=== PATIENT | female | born 1965 | race Caucasian/White ===

== ENCOUNTER 2019-10-01 12:23 | Emergency (ER) | payer OTHER ==
[2019-10-01 12:38] VITALS: O2SAT 98
[2019-10-01] MEDS ORDERED: ARZOL Silver Nitrate Applicator TP ONE ×3 (12:45→12:47)
[2019-10-01] MEDS ORDERED: Adacel Vial IM ONE (12:52)
[2019-10-01] MEDS ORDERED: BACIGUENT PACKET TP ONE (13:02)
--- NOTE | 2019-10-01 13:02 | ERPHSYRPT ---
- History of Present Illness Time Seen by Provider: 10/01/19 12:42 Source: patient Exam Limitations: no limitations Patient Subjective Stated Complaint: "I cut my finger on a tomato slicer." Triage Nursing Assessment: . Physician History: 54 years old female presented in the ER with chief complaint of right fourth pulp avulsion injury while slicing tomatoes at home on a slicer. She applied pressure but still having some oozing. Unsure about tetanus status. Occurred: just prior to arrival Method of Injury: incised Quality: constant, dullness, sharpness Severity of Pain-Max: moderate Severity of Pain-Current: moderate Extremities Pain Location: 4th finger: right (distal pulp scall superficial chunk sliced off while slicing tomatos on a slicer ) Modifying Factors: Improves With: movement, other (pressure) Associated Symptoms: none Allergies/Adverse Reactions: No Known Drug Allergies Allergy (Unverified 12/11/11 17:48) Home Medications: Aspirin [Children's Aspirin] 81 mg PO DAILY 12/11/11 [History] Ca Cmb No.1/Vit D3/B-6/FA/B12 [Vitamin D3 1,000 Unit Tablet] 1 each PO DAILY 03/14 [History] Synthroid 125 Mcg DAILY 12/11/11 [History] Hx Tetanus, Diphtheria Vaccination/Date Given: (unknown) Hx Influenza Vaccination/Date Given: Yes Travel Risk - International Travel Have you traveled outside of the country in past 3 weeks: No Have you or anyone close to you been diagnosed with or: No Do your reside in a community with a known COVID-19 case?: Yes If Yes where:: [facility] - Coronavirus Screening Has patient experienced Coronavirus symptoms: No - Review of Systems Constitutional: No Symptoms Eyes: No Symptoms Ears, Nose, & Throat: No Symptoms Respiratory: No Symptoms Cardiac: No Symptoms Musculoskeletal: Injury Skin: Skin Lesions Neurological: No Symptoms Psychological: No Symptoms Endocrine: No Symptoms Hematologic/Lymphatic: No Symptoms Immunological/Allergic: No Symptoms - Past Medical History Pertinent Past Medical History: Yes Neurological History: No Pertinent History ENT History: No Pertinent History Cardiac History: No Pertinent History Respiratory History: COPD, Emphysema Endocrine Medical History: Thyroid Cancer Musculoskeletal History: No Pertinent History GI Medical History: Hernia History: No Pertinent History Psycho-Social History: No Pertinent History Female Reproductive Disorders: Cervical Cancer - Past Surgical History Past Surgical History: Yes Neuro Surgical History: No Pertinent History Cardiac: No Pertinent History Respiratory: No Pertinent History Gastrointestinal: No Pertinent History Musculoskeletal: No Pertinent History Female Surgical History: Tubal Ligation, Other Other Surgical History: THYROID REMOVAL - Social History Smoking Status: Current every day smoker Exposure to second hand smoke: Yes Drug Use: none Patient Lives Alone: No - Female History Hx Now: (post menopausal) - Nursing Vital Signs Nursing Vital Signs: Initial Vital Signs Temperature 97.8 F 10/01/19 12:24 Pulse Rate 83 10/01/19 12:24 Respiratory Rate 14 10/01/19 12:24 Blood Pressure 144/90 10/01/19 12:24 O2 Sat by Pulse Oximetry 98 10/01/19 12:24 Pain Scale Pain Intensity 5 - Physical Exam General Appearance: no apparent distress, alert Eyes, Ears, Nose, Throat Exam: normal ENT inspection Neck Exam: normal inspection, non-tender, supple, full range of motion Cardiovascular/Respiratory Exam: normal breath sounds, regular rate/rhythm Wrist Exam: normal inspection, non-tender, no evidence of injury Hand Exam: normal ROM, laceration (Patient sliced off lesion right fourth distal pulp area with minimal oozing. Intact range of motion at interphalangeal joints.), soft tissue tenderness, No bone tenderness Neuro/Tendon Exam: normal sensation, normal motor functions, normal tendon functions Mental Status Exam: alert, oriented x 3 Skin Exam: normal color SpO2 Interpretation: normal SpO2: 98 O2 Delivery: Room Air Procedures - Laceration/Wound Repair Right Upper Volar Finger Wound Location: Right Wound Length (cm): 0.5 Wound's Depth, Shape: superficial Wound Explored: clean Irrigated: Yes Hibiclens Prep: Yes Sterile Dressing Applied?: Yes Splint Applied?: No Progress: Right fourth digit superficial bruising almost bite 5 cm area/ankle tissue is gone. After applying tourniquet at base of fifth finger thoroughly cleaned and dry areas cauterized with silver nitrate. Tourniquet is removed and no rebleeding. Good cap refill less than 2 seconds. - Course Nursing assessment & vital signs reviewed: Yes Ordered Tests: Medication Summary Discontinued Medications Generic Name Dose Route Start Last Admin Trade Name Freq PRN Reason Stop Dose Admin Bacitracin Zinc 0.9 gm 10/01/19 13:02 10/01/19 13:05 Baciguent Packet TP 10/01/19 13:03 0.9 gm STAT ONE Administration Diphtheria/Tetanus/Acell Pertussis 0.5 ml 10/01/19 12:52 10/01/19 12:58 Adacel Vial IM 10/01/19 12:53 0.5 ml .ONCE ONE Administration Silver Nitrate Confirm 10/01/19 12:45 Arzol Silver Nitrate Applicator Administered 10/01/19 12:46 Dose 1 pkt TP .STK-MED ONE Silver Nitrate Confirm 10/01/19 12:47 Arzol Silver Nitrate Applicator Administered 10/01/19 12:48 Dose 1 pkt TP .STK-MED ONE Silver Nitrate 2 pkt 10/01/19 12:45 10/01/19 13:08 Arzol Silver Nitrate Applicator TP 10/01/19 12:46 2 pkt ONCE ONE Administration - Progress Progress: improved, pain not gone completely, re-examined Progress Note: 10/01/19 12:59 Wound is cleaned thoroughly, cannot be sutured as part of it is gone. Tourniquet is applied at base of finger and lesion is cauterized with silver nitrate sticks. She is observed for almost half an hour and no rebleed. Recommended applying pressure and elevation if bleeds again. Counseled pt/family regarding: diagnosis, need for follow-up, smoking cessation - Departure Departure Disposition: Home Clinical Impression: Laceration of finger Qualifiers: Encounter type: initial encounter Finger: ring finger Damage to nail status: without damage Foreign body presence: without foreign body Laterality: right Qualified Code(s): S61.214A - Laceration without foreign body of right ring finger without damage to nail, initial encounter Condition: Good Critical Care Time: No Referrals: BINU BAHENA MD [Primary Care Provider] - Instructions: Surgical Wound (DC) Additional Instructions: Use Tylenol as needed for pain. Keep it clean. In case if it starts bleeding again apply firm pressure for 5 minutes keep it elevated. Follow-up with primary care for reevaluation. Return to ER for increasing swelling redness pain discharge or if develop fever or chills.
[2019-10-01 13:14] VITALS: BP 133/88; PULSE 88
== END 2019-10-01 13:19 | disposition home or self-care (01) ==
LOC: ED 12:23
DX: S61.214A Laceration without foreign body of right ring finger without damage to nail, initial encounter (principal); W26.8XXA Contact with other sharp object(s), not elsewhere classified, initial encounter; Y93.G1 Activity, food preparation and clean up; Y92.9 Unspecified place or not applicable; J44.9 Chronic obstructive pulmonary disease, unspecified; Z85.850 Personal history of malignant neoplasm of thyroid; Z85.41 Personal history of malignant neoplasm of cervix uteri; Z72.0 Tobacco use; Z23 Encounter for immunization; A35 Other tetanus
CPT/HCPCS: 90471; 90715; 99283; A9270-GY

== ENCOUNTER 2020-11-25 11:24 | Emergency (ER) | payer OTHER ==
[2020-11-25 11:38] VITALS: BP 197/83; PULSE 76; O2SAT 96
[2020-11-25] MEDS ORDERED: XYLOCAINE 1% HCL 20 ML MDV ONE (11:46)
--- NOTE | 2020-11-25 12:04 | ERPHSYRPT ---
- History of Present Illness Time Seen by Provider: 11/25/20 11:40 Source: patient Exam Limitations: no limitations Patient Subjective Stated Complaint: pt here for laceration to left wrist with a knife while trying to get wax out of wax burner Triage Nursing Assessment: pt alert, walked in, resp easy, skin w/d/p. has laceration to left wrist, no bleeding Physician History: Patient is a 55-year-old white female who was working with a sharp knife trying to clean wax from the container when she accidentally stabbed her left wrist on the ulnar side volar surface. This occurred just prior to arrival bleeding has been fairly well controlled. Timing/Duration: today Quality: painful Severity: mild Location: extremities (Left wrist) Associated Symptoms: denies symptoms Allergies/Adverse Reactions: No Known Drug Allergies Allergy (Verified 11/25/20 11:42) Home Medications: Synthroid 125 Mcg 1 ea DAILY 12/11/11 [History] Hx Tetanus, Diphtheria Vaccination/Date Given: Yes (2019) Hx Influenza Vaccination/Date Given: Yes Hx Pneumococcal Vaccination/Date Given: No Immunizations Up to Date: Yes Travel Risk - International Travel Have you traveled outside of the country in past 3 weeks: No - Coronavirus Screening Are you exhibiting any of the following symptoms?: No Close contact with a COVID-19 positive Pt in past 14-21 Days: No - Vaccine Status Have you recieved a Covid-19 vaccination: Yes St[employer]: Moderna - Vaccination Dates Date of 2cond Vaccination (if applicable): 08/11/20 - Review of Systems Constitutional: No Fever, No Chills Eyes: No Symptoms Ears, Nose, & Throat: No Symptoms Respiratory: No Cough, No Dyspnea Cardiac: No Chest Pain, No Edema, No Syncope Abdominal/Gastrointestinal: No Abdominal Pain, No Nausea, No Vomiting, No Diarrhea Genitourinary Symptoms: No Dysuria Musculoskeletal: No Back Pain, No Neck Pain Skin: No Rash Neurological: No Dizziness, No Focal Weakness, No Sensory Changes Psychological: No Symptoms Endocrine: No Symptoms All Other Systems: Reviewed and Negative - Past Medical History Pertinent Past Medical History: Yes Neurological History: No Pertinent History ENT History: No Pertinent History Cardiac History: No Pertinent History Respiratory History: COPD, Emphysema Endocrine Medical History: Thyroid Cancer Musculoskeletal History: No Pertinent History GI Medical History: Hernia History: No Pertinent History Psycho-Social History: No Pertinent History Female Reproductive Disorders: Cervical Cancer - Past Surgical History Past Surgical History: Yes Neuro Surgical History: No Pertinent History Cardiac: No Pertinent History Respiratory: No Pertinent History Gastrointestinal: No Pertinent History Musculoskeletal: No Pertinent History Female Surgical History: Tubal Ligation, Other Other Surgical History: THYROID REMOVAL - Social History Smoking Status: Current every day smoker Exposure to second hand smoke: Yes Drug Use: none Patient Lives Alone: No - Female History Hx Last Menstrual Period: post Hx Now: No - Nursing Vital Signs Nursing Vital Signs: Initial Vital Signs Temperature 98.1 F 11/25/20 11:36 Pulse Rate 76 11/25/20 11:36 Respiratory Rate 16 11/25/20 11:36 Blood Pressure 197/83 11/25/20 11:36 O2 Sat by Pulse Oximetry 96 11/25/20 11:36 Pain Scale Pain Intensity 0 - Physical Exam General Appearance: mild distress, alert Eye Exam: PERRL/EOMI, eyes nml inspection Ears, Nose, Throat Exam: normal ENT inspection Neck Exam: normal inspection, non-tender, supple Respiratory Exam: airway intact, No respiratory distress Back Exam: normal inspection, normal range of motion Extremity Exam: other (Extremities show normal inspection normal range of motion normal neurovascular tendon function we do notice a laceration at the left wrist volar surface ulnar aspect) Neurologic Exam: alert, oriented x 3 Skin Exam: laceration (Serration is approximately 2 cm left wrist volar surface ulnar aspect) SpO2 Interpretation: normal SpO2: 96 O2 Delivery: Room Air Procedures - Laceration/Wound Repair Left Volar Wrist Time of Procedure: 12:01 Wound Location: Left, wrist Wound Length (cm): 2 Wound's Depth, Shape: superficial, linear Wound Explored: clean Irrigated: Yes Hibiclens Prep: Yes Anesthesia: 1% Lidocaine Volume Anesthetic (ccs): 4 Wound Debrided: minimal Wound Repaired With: sutures Suture Size/Type: 4-0, nylon Number of Sutures: 3 Layer Closure?: No Sterile Dressing Applied?: Yes Splint Applied?: No - Course Nursing assessment & vital signs reviewed: Yes Ordered Tests: Medication Summary Discontinued Medications Generic Name Dose Route Start Last Admin Trade Name Freq PRN Reason Stop Dose Admin Lidocaine HCl Confirm 11/25/20 11:46 Xylocaine 1% Hcl 20 Ml Mdv Administered 11/25/20 11:47 Dose 5 ml .ROUTE [facility] - Progress Progress: improved - Departure Departure Disposition: Home Clinical Impression: Laceration of left wrist Condition: Stable Critical Care Time: No Referrals: BINU BHAENA MD [Primary Care Provider] - Instructions: Laceration Repair With Stitches (DC) Additional Instructions: Watch for infection sutures out in 10 to 14 days
== END 2020-11-25 12:17 | disposition home or self-care (01) ==
LOC: ED 11:24
DX: S61.512A Laceration without foreign body of left wrist, initial encounter (principal); W26.0XXA Contact with knife, initial encounter
CPT/HCPCS: 12001; 99283

== ENCOUNTER 2021-08-14 16:03 | Inpatient (IN) | payer BC ==
[2021-08-14 16:54] LABS: COVID AG -BINAX NOW RAPID TEST NEGATIVE (NEGATIVE)
[2021-08-14] MEDS ORDERED: HYDROCODONE-CHLORPHEN ER SUSP PO PRN (17:33)
[2021-08-14] MEDS ORDERED: Zofran 4 MG/2 ML VIAL IV PRN (17:33)
[2021-08-14 17:39] LABS: Hematocrit 43.5 % (35-47); Hemoglobin 13.9 gm/dl (12.0-16.0); Mean Corpuscular Hemoglobin 30.7 pg (26-32); Mean Platelet Volume 9.7 fl (7.5-11.0); Platelet Count 361 K/mm3 (150-450); Red Blood Count 4.53 M/mm3 (4.1-5.4); Red Cell Distribution Width 13.9 % (11.5-14.0); White Blood Count 17.3 K/mm3 (4.0-10.5)
[2021-08-14 17:45] LABS: ALBUMIN 3.6 g/dL (3.5-5.0); ALKALINE PHOSPHATASE 106 U/L (38-126); ANION GAP 11.3 MEQ/L (5-15); BLOOD UREA NITROGEN 19 mg/dL (7-17); CHLORIDE 105 mmol/L (98-107); Calcium 8.8 mg/dL (8.4-10.2); Carbon Dioxide 27 mmol/L (22-30); Creatinine 1 0.74 mg/dL (0.52-1.04); EST GLOMERULAR FILTRATION RATE > 60.0 ML/MIN; Glucose 113 mg/dL (74-106); Potassium 3.2 mmol/L (3.5-5.1); SGOT/AST 50 U/L (14-36); SGPT/ALT 54 U/L (0-35); SODIUM 140 mmol/L (137-145); Total Protein 7.1 g/dL (6.3-8.2)
[2021-08-14] MEDS ORDERED: DECADRON 10MG INJ. IV SCH (18:00)
[2021-08-14] MEDS: Sodium Chloride 0.9% 1000 ML 1,000 ML IV SCH ×2 (18:01→23:20)
[2021-08-14 20:57] LABS: BAND 1 % (0.0-2.0); Lymphocytes 19 % (24-44); Macrocytosis 1+; Monocyte 6 % (0.0-12.0); Neutrophils 74 % (36.0-66.0); Platelet Estimate NORMAL (NORMAL); Total Cells Counted 100
[2021-08-14] MEDS: NEURONTIN 300 MG PO SCH (21:44)
[2021-08-14] MEDS: MELOXICAM PO SCH (21:45)
[2021-08-14] MEDS: TOPIRAMATE PO SCH (21:45)
[2021-08-14] MEDS ORDERED: Ditropan 5 MG PO ONE (22:00)
[2021-08-15 05:11] LABS: Hematocrit 43.1 % (35-47); Hemoglobin 13.3 gm/dl (12.0-16.0); Mean Cell Volume 98.9 fl (78-100); Mean Corpuscular Hemoglobin 30.5 pg (26-32); Mean Corpuscular Hgb Concent. 30.9 g/dl (32-36); Mean Platelet Volume 9.4 fl (7.5-11.0); Platelet Count 341 K/mm3 (150-450); Red Blood Count 4.36 M/mm3 (4.1-5.4); Red Cell Distribution Width 13.8 % (11.5-14.0); White Blood Count 15.8 K/mm3 (4.0-10.5)
[2021-08-15 05:33] LABS: ALBUMIN 3.4 g/dL (3.5-5.0); ALKALINE PHOSPHATASE 89 U/L (38-126); ANION GAP 9.1 MEQ/L (5-15); BLOOD UREA NITROGEN 22 mg/dL (7-17); CHLORIDE 105 mmol/L (98-107); Calcium 8.3 mg/dL (8.4-10.2); Carbon Dioxide 29 mmol/L (22-30); Creatinine 1 0.58 mg/dL (0.52-1.04); EST GLOMERULAR FILTRATION RATE > 60.0 ML/MIN; Glucose 146 mg/dL (74-106); Potassium 4.1 mmol/L (3.5-5.1); SGOT/AST 43 U/L (14-36); SGPT/ALT 57 U/L (0-35); SODIUM 139 mmol/L (137-145); Total Protein 6.7 g/dL (6.3-8.2)
[2021-08-15 05:58] LABS: Lymphocytes 7 % (24-44); Monocyte 2 % (0.0-12.0); Neutrophils 91 % (36.0-66.0); Platelet Estimate NORMAL (NORMAL); Total Cells Counted 100
[2021-08-15] MEDS ORDERED: PROVENTIL 2.5 MG/3 ML NEB IH ONE (06:46)
[2021-08-15] MEDS: PROVENTIL 2.5 MG/3 ML NEB IH PRN ×3 (06:48→18:53)
--- NOTE | 2021-08-15 08:35 | XRAY ---
Indication: Low oxygenation. COPD. Comparison: December 25, 2019. PA/lateral chest again hyperinflated with new mild right middle lobe and lesser degree left lower lobe patchy airspace disease without consolidation/large effusion. Heart not enlarged. Bony thorax intact again with osteopenia and degenerative changes. Stable CT proven calcified splenic cyst.
[2021-08-15] MEDS: SYNTHROID 125 MCG PO SCH (09:18)
[2021-08-15] MEDS: K-LYTE 25 MEQ PO SCH (09:18)
[2021-08-15] MEDS: ENOXAPARIN SODIUM SQ SCH (09:18)
[2021-08-15] MEDS: MELOXICAM PO SCH ×2 (09:18→21:27)
[2021-08-15] MEDS: TOPIRAMATE PO SCH ×2 (09:18→21:27)
[2021-08-15] MEDS: ROCEPHIN 1 Gm-D5w 50 ml Bag** 1 G/50 ML IVPB IV SCH (09:19)
[2021-08-15] MEDS: Zithromax 500 MG/ 250 ML NaCl Premix 500 MG/250 ML IVPB IV SCH (09:20)
[2021-08-15] MEDS: Decadron 4 MG INJ IV SCH (09:28)
[2021-08-15] MEDS ORDERED: HUMALOG SQ PRN (10:39)
--- NOTE | 2021-08-15 12:47 | PCM.HP.ADD ---
Addendum to History & Physical - History & Physical Addendum Addendum to History & Physical: This certifies that the History & Physical in the electronic chart reflects the current health status of the patient. If there are changes in the H&P these changes/exceptions are listed as follows.
--- NOTE | 2021-08-15 12:50 | PCM.NOTE ---
Date and Time: 08/15/21 1247 Subjective Assessment: still very short of breath, hypoxic - Review of Systems Constitutional: No Fever, No Chills Eyes: No Symptoms Ears, Nose, & Throat: No Symptoms Respiratory: Cough, Orthopnea, Short Of Breath, Wheezing Cardiac: No Chest Pain, No Edema, No Syncope Abdominal/Gastrointestinal: No Abdominal Pain, No Nausea, No Vomiting, No Diarrhea Genitourinary Symptoms: No Dysuria Musculoskeletal: No Back Pain, No Neck Pain Skin: No Rash Neurological: No Dizziness, No Focal Weakness, No Sensory Changes Psychological: No Symptoms Endocrine: No Symptoms Hematologic/Lymphatic: No Symptoms Immunological/Allergic: No Symptoms Objective Exam General Appearance: moderate distress, alert Neurologic Exam: alert, oriented x 3, cooperative, normal mood/affect, nml cerebellar function, sensation nml, No motor deficits Skin Exam: normal color, warm, dry Eye Exam: PERRL, EOMI, eyes nml inspection Ears, Nose, Throat Exam: normal ENT inspection, pharynx normal, moist mucous membranes Neck Exam: normal inspection, non-tender, supple, full range of motion Respiratory Exam: diminished breath sounds, accessory muscle use, crackles/rales, rhonchi, wheezing, No respiratory distress Cardiovascular Exam: regular rate/rhythm, normal heart sounds Gastrointestinal/Abdomen Exam: soft, No tenderness, No mass Extremity Exam: normal inspection, normal range of motion Back Exam: normal inspection, normal range of motion, No CVA tenderness, No vertebral tenderness Pelvic Exam: deferred Rectal Exam: deferred OBJECTIVE DATA Vital Signs: Vital Signs - 24 hr Temp Pulse Resp BP Pulse Ox 08/15/21 10:49 62 16 93 L 08/15/21 08:00 97.5 F 88 23 127/79 83 L 08/15/21 06:56 95 08/15/21 06:53 75 20 84 L 08/15/21 03:59 97.3 F 67 16 118/76 90 L 08/14/21 23:40 98.2 F 80 16 105/58 92 L 08/14/21 20:00 97.9 F 90 16 104/58 91 L 08/14/21 17:52 88 22 92 L 08/14/21 17:42 97.5 F 85 21 103/60 88 L Pain Assessment - Last Documented Pain Intensity 0 Pain Scale Used 0-10 Pain Scale Intake and Output: Intake & Output 08/13/21 08/14/21 08/15/21 08/16/21 11:59 11:59 11:59 11:59 Intake Total 1554 Balance 1554 Weight 72.3 kg Lab Results: Lab Results-Last 24 Hours 08/14/21 08/14/21 08/14/21 Range/Units 16:28 16:45 16:45 WBC 17.3 H (4.0-10.5) K/mm3 RBC 4.53 (4.1-5.4) M/mm3 Hgb 13.9 (12.0-16.0) gm/dl Hct 43.5 (35-47) % MCV 96.0 (78-100) fl MCH 30.7 (26-32) pg MCHC 32.0 (32-36) g/dl RDW 13.9 (11.5-14.0) % Plt Count 361 (150-450) K/mm3 MPV 9.7 (7.5-11.0) fl Segmented Neutrophils 74 H (36.0-66.0) % Band Neutrophils 1 (0.0-2.0) % Lymphocytes (Manual) 19 L (24-44) % Monocytes (Manual) 6 (0.0-12.0) % Platelet Estimate NORMAL (NORMAL) RBC Morphology ABNORMAL Macrocytosis 1+ D-Dimer (215-500) ng/mL Sodium 140 (137-145) mmol/L Potassium 3.2 L (3.5-5.1) mmol/L Chloride 105 (98-107) mmol/L Carbon Dioxide 27 (22-30) mmol/L Anion Gap 11.3 (5-15) MEQ/L BUN 19 H (7-17) mg/dL Creatinine 0.74 (0.52-1.04) mg/dL Estimated GFR > 60.0 ML/MIN Glucose 113 H (74-106) mg/dL Calcium 8.8 (8.4-10.2) mg/dL Total Bilirubin 0.40 (0.2-1.3) mg/dL AST 50 H (14-36) U/L ALT 54 H (0-35) U/L Alkaline Phosphatase 106 (38-126) U/L Serum Total Protein 7.1 (6.3-8.2) g/dL Albumin 3.6 (3.5-5.0) g/dL SARS-CoV-2 Ag (Rapid) NEGATIVE (NEGATIVE) 08/15/21 08/15/21 08/15/21 Range/Units 04:00 04:30 04:30 WBC 15.8 H (4.0-10.5) K/mm3 RBC 4.36 (4.1-5.4) M/mm3 Hgb 13.3 (12.0-16.0) gm/dl Hct 43.1 (35-47) % MCV 98.9 (78-100) fl MCH 30.5 (26-32) pg MCHC 30.9 L (32-36) g/dl RDW 13.8 (11.5-14.0) % Plt Count 341 (150-450) K/mm3 MPV 9.4 (7.5-11.0) fl Segmented Neutrophils 91 H (36.0-66.0) % Band Neutrophils (0.0-2.0) % Lymphocytes (Manual) 7 L (24-44) % Monocytes (Manual) 2 (0.0-12.0) % Platelet Estimate NORMAL (NORMAL) RBC Morphology NORMAL Macrocytosis D-Dimer 1497 H* (215-500) ng/mL Sodium 139 (137-145) mmol/L Potassium 4.1 D (3.5-5.1) mmol/L Chloride 105 (98-107) mmol/L Carbon Dioxide 29 (22-30) mmol/L Anion Gap 9.1 (5-15) MEQ/L BUN 22 H (7-17) mg/dL Creatinine 0.58 (0.52-1.04) mg/dL Estimated GFR > 60.0 ML/MIN Glucose 146 H (74-106) mg/dL Calcium 8.3 L (8.4-10.2) mg/dL Total Bilirubin 0.30 (0.2-1.3) mg/dL AST 43 H (14-36) U/L ALT 57 H (0-35) U/L Alkaline Phosphatase 89 (38-126) U/L Serum Total Protein 6.7 (6.3-8.2) g/dL Albumin 3.4 L (3.5-5.0) g/dL SARS-CoV-2 Ag (Rapid) (NEGATIVE) RAD/CHEST 2 VIEWS (PA AND LAT) Indication: Low oxygenation. COPD. Comparison: December 25, 2019. PA/lateral chest again hyperinflated with new mild right middle lobe and lesser degree left lower lobe patchy airspace disease without consolidation/large effusion. Heart not enlarged. Bony thorax intact again with osteopenia and degenerative changes. Stable CT proven calcified splenic cyst. Radiology Exams: Radiology Procedures Category Date Time Status CHEST 2 VIEWS (PA AND LAT) Urgent Exams 08/14/21 21:12 Completed CHEST WITH CONTRAST [CT] Urgent Exams 08/15/21 12:00 Ordered Multi-Disciplinary Progress Notes: Multi-Disciplinary Progress Notes 08/15/21 06:56 Respiratory Note by Lorelei Olivia PT'S O2 SAT ON 2LPM NASAL CANNULA WHILE AT REST WAS 84%. OXYGEN WAS INCREASED TO 4LPM VIA NASAL CANNULA. O2 SAT INCREASED TO 95%. NURSE AWARE. Initialized on 08/15/21 06:56 - END OF NOTE Assessment/Plan (1) Pneumonia Current Visit: Yes Status: Acute Qualifiers: Pneumonia type: due to Pneumococcus Laterality: right Lung location: lower lobe of lung Qualified Code(s): J13 - Pneumonia due to Streptococcus pneumoniae Assessment & Plan: Chief Complaint Diagnosis Shortness of breath with exertion, hypoxia Allergies Allergy/AdvReac Type Severity Reaction Status Date / Time No Known Drug Allergies Allergy Verified 11/25/20 11:42 Vital Signs (Last 24 hours) Temp Pulse Resp BP Pulse Ox 08/15/21 10:49 62 16 93 L 08/15/21 08:00 97.5 F 88 23 127/79 83 L 08/15/21 06:56 95 08/15/21 06:53 75 20 84 L 08/15/21 03:59 97.3 F 67 16 118/76 90 L 08/14/21 23:40 98.2 F 80 16 105/58 92 L 08/14/21 20:00 97.9 F 90 16 104/58 91 L 08/14/21 17:52 88 22 92 L 08/14/21 17:42 97.5 F 85 21 103/60 88 L Home Medications Medication Instructions Recorded Confirmed Last Taken Type Gabapentin 300 mg [Neurontin 300 mg PO HS 08/14/21 08/14/21 08/13/21 History 300 mg] Meloxicam 15 mg [Meloxicam 15 MG] 7.5 mg PO BID 08/14/21 08/14/21 08/13/21 History Tolterodine Tartrate [Detrol LA] 4 mg PO HS 08/14/21 08/14/21 08/13/21 History Topiramate 100 mg [Topamax 100 50 mg PO BID 08/14/21 08/14/21 08/14/21 History MG] Current Medications Generic Name Dose Route Start Last Admin Trade Name Freq PRN Reason Stop Dose Admin Acetaminophen 500 - 1,000 mg 08/14/21 17:33 Acetaminophen 500 Mg Tablet PO 09/13/21 17:32 Q4H PRN PRN TEMP >100.4 Albuterol Sulfate 2.5 mg 08/15/21 06:52 08/15/21 10:46 Albuterol Sulfate 2.5 Mg/3 Ml Neb IH 09/14/21 06:51 2.5 mg Q4H PRN PRN Administration SHORTNESS OF BREATH/WHEEZING Chlorphenir/Hydrocodone Polistirex 5 ml 08/14/21 17:33 08/14/21 18:01 Hydrocodone/Chlorphen P-Stirex 1 Ml Misa.Er.12h PO 09/13/21 17:32 5 ml [id number] PRN Administration Dexamethasone Sodium Phosphate 8 mg 08/15/21 10:00 08/15/21 09:28 Dexamethasone Sod Phosphate 4 Mg/Ml Ml IV 08/23/21 10:01 8 mg DAILY PRICILLA Administration Enoxaparin Sodium 40 mg 08/15/21 10:00 08/15/21 09:18 Enoxaparin Sodium 40 Mg/0.4 Ml Syringe SQ 09/14/21 09:59 40 mg DAILY PRICILLA Administration Gabapentin 300 mg 08/14/21 22:00 08/14/21 21:44 Gabapentin 300 Mg Capsule PO 09/13/21 21:59 300 mg QHS PRICILLA Administration Sodium Chloride 1,000 mls @ 30 mls/hr 08/14/21 17:45 08/14/21 18:01 Sodium Chloride 0.9% 1000 Ml IV 09/13/21 17:44 30 mls/hr .Q24H PRICILLA Administration Ceftriaxone Sodium/Dextrose 1 g in 50 mls @ 100 mls/hr 08/15/21 10:00 08/15/21 09:19 Rocephin 1 Gm-D5w 50 Ml Bag IV 08/18/21 09:59 100 mls/hr Q24H10 PRICILLA Administration Azithromycin 500 mg in 250 mls @ 250 mls/hr 08/15/21 10:00 08/15/21 09:20 Zithromax 500 Mg/ 250 Ml Nacl Premix IV 09/14/21 09:59 250 mls/hr Q24H10 PRICILLA Administration Insulin Human Lispro 0 unit 08/15/21 10:39 Insulin Lispro 1 Unit SQ 09/14/21 10:38 UD PRN HYPERGLYCEMIA Levothyroxine Sodium 125 mcg 08/15/21 10:00 08/15/21 09:18 Levothyroxine Sodium 125 Mcg Tablet PO 09/14/21 09:59 125 mcg DAILY PRICLILA Administration Meloxicam 7.5 mg 08/14/21 22:00 08/15/21 09:18 Meloxicam 7.5 Mg Tablet PO 09/13/21 21:59 7.5 mg BID PRICILLA Administration Ondansetron HCl 4 mg 08/14/21 17:33 Ondansetron Hcl 4 Mg/2 Ml Vial IV 09/13/21 17:32 Q6H PRN PRN NAUSEA/VOMITING Oxybutynin Chloride 10 mg 08/15/21 22:00 Oxybutynin Chloride Xl 5 Mg Tab PO 09/14/21 21:59 HS PRICILLA Potassium Bicarbonate 25 meq 08/15/21 10:00 08/15/21 09:18 Potassium Bicarbonate 25 Meq Tab PO 09/14/21 09:59 25 meq DAILY PRICILLA Administration Topiramate 50 mg 08/14/21 22:00 08/15/21 09:18 Topiramate 50 Mg Tablet PO 09/13/21 21:59 50 mg BID PRICILLA Administration Discontinued Medications Generic Name Dose Route Start Last Admin Trade Name Freq PRN Reason Stop Dose Admin Albuterol Sulfate Confirm 08/15/21 06:46 Albuterol Sulfate 2.5 Mg/3 Ml Neb Administered 08/15/21 06:47 Dose 2.5 mg IH .STK-MED ONE Dexamethasone Sodium Phosphate 8 mg 08/14/21 18:00 08/14/21 18:38 Dexamethasone Sod Phosphate 10 Mg/Ml IV 08/23/21 10:01 8 mg DAILY PRICILLA Administration Oxybutynin Chloride 10 mg 08/14/21 22:00 08/14/21 21:44 Oxybutynin Chloride 5 Mg Tablet PO 08/14/21 22:01 10 mg ONCE ONE Administration Intake & Output (Last 24 hours) 08/13/21 08/14/21 08/15/21 08/16/21 11:59 11:59 11:59 11:59 Intake Total 1554 Balance 1554 Weight 72.3 kg Laboratory Results (Last 24 hours) 08/15/21 08/15/21 08/15/21 04:30 04:30 04:00 WBC 15.8 H RBC 4.36 Hgb 13.3 Hct 43.1 MCV 98.9 MCH 30.5 MCHC 30.9 L RDW 13.8 Plt Count 341 MPV 9.4 Segmented Neutrophils 91 H Band Neutrophils Lymphocytes (Manual) 7 L Monocytes (Manual) 2 Platelet Estimate NORMAL RBC Morphology NORMAL Macrocytosis D-Dimer 1497 H* Sodium 139 Potassium 4.1 D Chloride 105 Carbon Dioxide 29 Anion Gap 9.1 BUN 22 H Creatinine 0.58 Estimated GFR > 60.0 Glucose 146 H Calcium 8.3 L Total Bilirubin 0.30 AST 43 H ALT 57 H Alkaline Phosphatase 89 Serum Total Protein 6.7 Albumin 3.4 L SARS-CoV-2 Ag (Rapid) 08/14/21 08/14/21 08/14/21 16:45 16:45 16:28 WBC 17.3 H RBC 4.53 Hgb 13.9 Hct 43.5 MCV 96.0 MCH 30.7 MCHC 32.0 RDW 13.9 Plt Count 361 MPV 9.7 Segmented Neutrophils 74 H Band Neutrophils 1 Lymphocytes (Manual) 19 L Monocytes (Manual) 6 Platelet Estimate NORMAL RBC Morphology ABNORMAL Macrocytosis 1+ D-Dimer Sodium 140 Potassium 3.2 L Chloride 105 Carbon Dioxide 27 Anion Gap 11.3 BUN 19 H Creatinine 0.74 Estimated GFR > 60.0 Glucose 113 H Calcium 8.8 Total Bilirubin 0.40 AST 50 H ALT 54 H Alkaline Phosphatase 106 Serum Total Protein 7.1 Albumin 3.6 SARS-CoV-2 Ag (Rapid) NEGATIVE Orders (Last 24 hours) Category Date Time Status Up Ad Kalani TOLERATED Activity 08/14/21 17:27 Active House Regular Diet Diet 08/15/21 Breakfast Active CHEST 2 VIEWS (PA AND LAT) Urgent Exams 08/14/21 21:12 Completed CHEST WITH CONTRAST [CT] Urgent Exams 08/15/21 12:00 Ordered CBC W DIFF AM.LAB Lab 08/15/21 04:00 Completed CBC W DIFF Urgent Lab 08/14/21 16:45 Completed CMP AM.LAB Lab 08/15/21 04:30 Completed CMP Urgent Lab 08/14/21 16:45 Completed COVID AG-BINAX NOW RAPID TEST Routine Lab 08/14/21 16:28 Completed D-DIMER QUANTITATIVE AM.LAB Lab 08/15/21 04:30 Completed Manual Differential NC Routine Lab 08/15/21 04:00 Completed Manual Differential NC Urgent Lab 08/14/21 16:45 Completed Acetaminophen 500 mg [Tylenol Extra Strength 500 mg* Med 08/14/21 17:33 Active ] 500 - 1,000 mg PO Q4H PRN PRN Albuterol 2.5 mg/3 ml Neb [Proventil 2.5 mg/3 ml Neb Med 08/15/21 06:46 Discontinued ] 2.5 mg IH .STK-MED ONE Albuterol 2.5 mg/3 ml Neb [Proventil 2.5 mg/3 ml Neb Med 08/15/21 06:52 A ctive ] 2.5 mg IH Q4H PRN PRN Azithromycin 500 mg/250 ml [Zithromax 500 MG/ 250 ML Med 08/15/21 10:00 Active NaCl Premix] 500 mg in 250 ml IV Q24H10 Ceftriaxone 1 GM/50 ML PREMIX* [ROCEPHIN 1 Gm-D5w 50 ml Med 08/15/21 10:00 Active Bag] 1 g in 50 ml IV Q24H10 Dexamethasone 4 mg [Decadron 4 MG INJ] Med 08/15/21 10:00 Active 8 mg IV DAILY Dexamethasone Sod Phosphate [Decadron 10Mg Inj.] Med 08/14/21 18:00 Discontinued 8 mg IV DAILY Enoxaparin Sodium [Enoxaparin Sodium] Med 08/15/21 10:00 Active 40 mg SQ DAILY Gabapentin 300 mg [Neurontin 300 mg] Med 08/14/21 22:00 Active 300 mg PO QHS Hydrocodone/Chlorphen P-Stirex [Hydrocodone-Chlorphen Med 08/14/21 17:33 Active ER Susp] 5 ml PO [id number] PRN Insulin Lispro [Humalog] Med 08/15/21 10:39 Active See Dose Instructions SQ UD PRN Levothyroxine Sodium 125 Mcg [Synthroid 125 Mcg] Med 08/15/21 10:00 Active 125 mcg PO DAILY Meloxicam Med 08/14/21 22:00 Active 7.5 mg PO BID NaCl 0.9% 1000 ml [Sodium Chloride 0.9% 1000 ML] 1,000 Med 08/14/21 17:45 Active ml IV 30 mls/hr Ondansetron HCl 4 mg/2 ml [Zofran 4 MG/2 ML VIAL] Med 08/14/21 17:33 Active 4 mg IV Q6H PRN PRN Oxybutynin Chloride 5 mg [Ditropan 5 MG] Med 08/14/21 22:00 Discontinued 10 mg PO ONCE ONE Oxybutynin Chloride Xl 5 mg [Ditropan XL 5 MG] Med 08/15/21 22:00 Active 10 mg PO HS Potassium Bicarbonate 25 MEQ [K-Lyte 25 Meq] Med 08/15/21 10:00 Active 25 meq PO DAILY Topiramate Med 08/14/21 22:00 Active 50 mg PO BID Oxygen Nasal Cannula 2 lpm RT 08/14/21 17:50 Active Pulse Oximetry .spot check RT 08/14/21 17:51 Active RT Screen per Nursing Assess ONCE RT 08/14/21 17:27 Completed Respiratory Therapy Assessment DAILY RT 08/14/21 17:50 Active Patient Care Notes (Last 24 hours) 08/15/21 09:25 TAILMAN Note by Peggy Tellez patient stated they were not able to tolerate the food, not sick to their stomach just does'nt feel like eating. aide offfered something else to eat and patient refused. patient is drinking adequate amounts of fluids at this time Initialized on 08/15/21 09:25 - END OF NOTE 08/15/21 08:53 TAILMAN Note by Peggy Tellez aide reported to RT patients O2 (83-2L) and RT went in evaluated and changed patients O2 to 4L Initialized on 08/15/21 08:53 - END OF NOTE 08/15/21 06:56 Respiratory Note by Lorelei Olivia PT'S O2 SAT ON 2LPM NASAL CANNULA WHILE AT REST WAS 84%. OXYGEN WAS INCREASED TO 4LPM VIA NASAL CANNULA. O2 SAT INCREASED TO 95%. NURSE AWARE. Initialized on 08/15/21 06:56 - END OF NOTE Code(s): J18.9 - PNEUMONIA, UNSPECIFIED ORGANISM
--- NOTE | 2021-08-15 14:00 | XRAY ---
Indication: Pneumonia. History Covid 19. Elevated d-dimer. Multiple contiguous axial images obtained through the chest using 80 cc Isovue 370 contrast and PE protocol. Comparison: August 03, 2011. There is good opacification of the pulmonary arteries to include the lobar and segmental branches. Mild diffuse respiration artifact limits pulmonary embolus evaluation. No obvious pulmonary embolus. Heart not enlarged. Aorta is normal in course and caliber with minimal aortic arch calcifications. No pathologic mediastinal/hilar lymphadenopathy. Lungs demonstrate new minimal/mild diffuse bilateral patchy peripheral airspace disease. Also new right middle and and lesser degree lingula subsegmental atelectasis. No effusion. Bony thorax intact with minimal generative changes of the spine. Limited upper abdomen again demonstrates 5.3 cm calcified splenic cyst. Impression: 1. Respiration artifact limits pulmonary embolus evaluation. No obvious pulmonary embolus. 2. New diffuse bilateral patchy airspace disease favoring Covid 19 pneumonia. 3. New right middle and lesser degree lingula subsegmental atelectasis. 4. Again incidental large calcified splenic cyst.
[2021-08-15] MEDS: NEURONTIN 300 MG PO SCH (21:27)
[2021-08-15] MEDS: Ditropan XL 5 MG PO SCH (21:27)
[2021-08-15] MEDS ORDERED: TOLTERODINE TARTRATE 4 MG PO SCH (22:00)
[2021-08-16] MEDS: Sodium Chloride 0.9% 1000 ML 1,000 ML IV SCH (04:31)
[2021-08-16 05:08] LABS: Hematocrit 40.9 % (35-47); Hemoglobin 12.4 gm/dl (12.0-16.0); Mean Cell Volume 100.7 fl (78-100); Mean Corpuscular Hemoglobin 30.5 pg (26-32); Mean Corpuscular Hgb Concent. 30.3 g/dl (32-36); Mean Platelet Volume 9.9 fl (7.5-11.0); Platelet Count 303 K/mm3 (150-450); Red Blood Count 4.06 M/mm3 (4.1-5.4); Red Cell Distribution Width 13.9 % (11.5-14.0); White Blood Count 12.6 K/mm3 (4.0-10.5)
[2021-08-16 06:06] LABS: ANION GAP 8.5 MEQ/L (5-15); BLOOD UREA NITROGEN 31 mg/dL (7-17); CHLORIDE 105 mmol/L (98-107); Calcium 8.4 mg/dL (8.4-10.2); Carbon Dioxide 30 mmol/L (22-30); EST GLOMERULAR FILTRATION RATE > 60.0 ML/MIN; Glucose 101 mg/dL (74-106); Potassium 4.4 mmol/L (3.5-5.1); SODIUM 138 mmol/L (137-145)
--- NOTE | 2021-08-16 08:36 | PCM.NOTE ---
Date and Time: 08/16/21833 Subjective Assessment: doing better - Review of Systems Constitutional: No Fever, No Chills Eyes: No Symptoms Ears, Nose, & Throat: No Symptoms Respiratory: No Cough, No Short Of Breath Cardiac: No Chest Pain, No Edema, No Syncope Abdominal/Gastrointestinal: No Abdominal Pain, No Nausea, No Vomiting, No Diarrhea Genitourinary Symptoms: No Dysuria Musculoskeletal: No Back Pain, No Neck Pain Skin: No Rash Neurological: No Dizziness, No Focal Weakness, No Sensory Changes Psychological: No Symptoms Endocrine: No Symptoms Hematologic/Lymphatic: No Symptoms Immunological/Allergic: No Symptoms Objective Exam General Appearance: no apparent distress, alert Neurologic Exam: alert, oriented x 3, cooperative, normal mood/affect, nml cerebellar function, sensation nml, No motor deficits Skin Exam: normal color, warm, dry Eye Exam: PERRL, EOMI, eyes nml inspection Ears, Nose, Throat Exam: normal ENT inspection, pharynx normal, moist mucous membranes Neck Exam: normal inspection, non-tender, supple, full range of motion Respiratory Exam: diminished breath sounds, crackles/rales, rhonchi, wheezing, No respiratory distress Cardiovascular Exam: regular rate/rhythm, normal heart sounds Gastrointestinal/Abdomen Exam: soft, No tenderness, No mass Extremity Exam: normal inspection, normal range of motion Back Exam: normal inspection, normal range of motion, No CVA tenderness, No vertebral tenderness Pelvic Exam: deferred Rectal Exam: deferred OBJECTIVE DATA Vital Signs: Vital Signs - 24 hr Temp Pulse Resp BP BP Pulse Ox 08/16/21 07:06 98.2 F 74 16 135/65 93 L 08/16/21 04:00 97.7 F 68 16 119/58 97 08/16/21 00:00 97.5 F 65 12 130/59 96 08/15/21 19:46 97.1 F 70 18 110/57 96 08/15/21 18:59 67 18 96 08/15/21 16:00 97.3 F 71 21 104/70 94 L 08/15/21 12:00 97.7 F 71 25 H 114/63 93 L 08/15/21 10:49 62 16 93 L Pain Assessment - Last Documented Pain Intensity 0 Pain Scale Used 0-10 Pain Scale Intake and Output: Intake & Output 08/13/21 08/14/21 08/15/21 08/16/21 11:59 11:59 11:59 11:59 Intake Total 3175 8 Balance [id number] Weight 72.3 kg Lab Results: Lab Results-Last 24 Hours 08/15/21 08/15/21 08/15/21 Range/Units 15:45 15:53 21:24 WBC (4.0-10.5) K/mm3 RBC (4.1-5.4) M/mm3 Hgb (12.0-16.0) gm/dl Hct (35-47) % MCV (78-100) fl MCH (26-32) pg MCHC (32-36) g/dl RDW (11.5-14.0) % Plt Count (150-450) K/mm3 MPV (7.5-11.0) fl Sodium (137-145) mmol/L Potassium (3.5-5.1) mmol/L Chloride (98-107) mmol/L Carbon Dioxide (22-30) mmol/L Anion Gap (5-15) MEQ/L BUN (7-17) mg/dL Creatinine (0.52-1.04) mg/dL Estimated GFR ML/MIN Glucose (74-106) mg/dL POC Glucometer 176 H 127 H (74 to 106) mg/dL Hemoglobin A1c 6.41 H (4.5-6.0) % Calcium (8.4-10.2) mg/dL TSH 3rd Generation (0.47-4.68) mIU/L 08/16/21 08/16/21 08/16/21 Range/Units 05:08 05:08 07:18 WBC 12.6 H (4.0-10.5) K/mm3 RBC 4.06 L (4.1-5.4) M/mm3 Hgb 12.4 (12.0-16.0) gm/dl Hct 40.9 (35-47) % MCV 100.7 H (78-100) fl MCH 30.5 (26-32) pg MCHC 30.3 L (32-36) g/dl RDW 13.9 (11.5-14.0) % Plt Count 303 (150-450) K/mm3 MPV 9.9 (7.5-11.0) fl Sodium 138 (137-145) mmol/L Potassium 4.4 (3.5-5.1) mmol/L Chloride 105 (98-107) mmol/L Carbon Dioxide 30 (22-30) mmol/L Anion Gap 8.5 (5-15) MEQ/L BUN 31 H (7-17) mg/dL Creatinine 0.60 (0.52-1.04) mg/dL Estimated GFR > 60.0 ML/MIN Glucose 101 (74-106) mg/dL POC Glucometer 131 H (74 to 106) mg/dL Hemoglobin A1c (4.5-6.0) % Calcium 8.4 (8.4-10.2) mg/dL TSH 3rd Generation 0.050 L (0.47-4.68) mIU/L Radiology Exams: Radiology Procedures Category Date Time Status CHEST 2 VIEWS (PA AND LAT) Urgent Exams 08/14/21 21:12 Completed CHEST WITH CONTRAST [CT] Urgent Exams 08/15/21 12:00 Completed Assessment/Plan (1) Pneumonia Current Visit: Yes Status: Acute Qualifiers: Pneumonia type: due to Pneumococcus Laterality: right Lung location: lower lobe of lung Qualified Code(s): J13 - Pneumonia due to Streptococcus pneumoniae Assessment & Plan: Chief Complaint Diagnosis HYPOXIA, PNEUMONIA Allergies Allergy/AdvReac Type Severity Reaction Status Date / Time No Known Drug Allergies Allergy Verified 11/25/20 11:42 Vital Signs (Last 24 hours) Temp Pulse Resp BP BP Pulse Ox 08/16/21 07:06 98.2 F 74 16 135/65 93 L 08/16/21 04:00 97.7 F 68 16 119/58 97 08/16/21 00:00 97.5 F 65 12 130/59 96 08/15/21 19:46 97.1 F 70 18 110/57 96 08/15/21 18:59 67 18 96 08/15/21 16:00 97.3 F 71 21 104/70 94 L 08/15/21 12:00 97.7 F 71 25 H 114/63 93 L 08/15/21 10:49 62 16 93 L Home Medications Medication Instructions Recorded Confirmed Last Taken Type Gabapentin 300 mg [Neurontin 300 mg PO HS 08/14/21 08/14/21 08/13/21 History 300 mg] Meloxicam 15 mg [Meloxicam 15 MG] 7.5 mg PO BID 03/08/14/21 08/13/21 History Tolterodine Tartrate [Detrol LA] 4 mg PO HS 08/14/21 08/14/21 08/13/21 History Topiramate 100 mg [Topamax 100 50 mg PO BID 08/14/21 08/14/21 08/14/21 History MG] Current Medications Generic Name Dose Route Start Last Admin Trade Name Freq PRN Reason Stop Dose Admin Acetaminophen 500 - 1,000 mg 08/14/21 17:33 Acetaminophen 500 Mg Tablet PO 09/13/21 17:32 Q4H PRN PRN TEMP >100.4 Albuterol Sulfate 2.5 mg 08/15/21 06:52 08/15/21 18:53 Albuterol Sulfate 2.5 Mg/3 Ml Neb IH 09/14/21 06:51 2.5 mg Q4H PRN PRN Administration SHORTNESS OF BREATH/WHEEZING Chlorphenir/Hydrocodone Polistirex 5 ml 08/14/21 17:33 08/14/21 18:01 Hydrocodone/Chlorphen P-Stirex 1 Ml Misa.Er.12h PO 09/13/21 17:32 5 ml [id number] PRN Administration Dexamethasone Sodium Phosphate 8 mg 08/15/21 10:00 08/15/21 09:28 Dexamethasone Sod Phosphate 4 Mg/Ml Ml IV 08/23/21 10:01 8 mg DAILY PRICILLA Administration Enoxaparin Sodium 40 mg 08/15/21 10:00 08/15/21 09:18 Enoxaparin Sodium 40 Mg/0.4 Ml Syringe SQ 09/14/21 09:59 40 mg DAILY PRICILAL Administration Gabapentin 300 mg 08/14/21 22:00 08/15/21 21:27 Gabapentin 300 Mg Capsule PO 09/13/21 21:59 300 mg QHS PRICILLA Administration Sodium Chloride 1,000 mls @ 30 mls/hr 08/14/21 17:45 08/16/21 04:31 Sodium Chloride 0.9% 1000 Ml IV 09/13/21 17:44 30 mls/hr .Q24H PRICILLA Administration Ceftriaxone Sodium/Dextrose 1 g in 50 mls @ 100 mls/hr 08/15/21 10:00 08/15/21 09:19 Rocephin 1 Gm-D5w 50 Ml Bag IV 08/18/21 09:59 100 mls/hr Q24H10 PRICILLA Administration Azithromycin 500 mg in 250 mls @ 250 mls/hr 08/15/21 10:00 08/15/21 09:20 Zithromax 500 Mg/ 250 Ml Nacl Premix IV 09/14/21 09:59 250 mls/hr Q24H10 PRICILLA Administration Insulin Human Lispro 0 unit 08/15/21 10:39 Insulin Lispro 1 Unit SQ 09/14/21 10:38 UD PRN HYPERGLYCEMIA Levothyroxine Sodium 125 mcg 08/15/21 10:00 08/15/21 09:18 Levothyroxine Sodium 125 Mcg Tablet PO 09/14/21 09:59 125 mcg DAILY PRICILLA Administration Meloxicam 7.5 mg 08/14/21 22:00 08/15/21 21:27 Meloxicam 7.5 Mg Tablet PO 09/13/21 21:59 7.5 mg BID PRICILLA Administration Ondansetron HCl 4 mg 08/14/21 17:33 Ondansetron Hcl 4 Mg/2 Ml Vial IV 09/13/21 17:32 Q6H PRN PRN NAUSEA/VOMITING Oxybutynin Chloride 10 mg 08/15/21 22:00 08/15/21 21:27 Oxybutynin Chloride Xl 5 Mg Tab PO 09/14/21 21:59 10 mg HS PRICILLA Administration Potassium Bicarbonate 25 meq 08/15/21 10:00 08/15/21 09:18 Potassium Bicarbonate 25 Meq Tab PO 09/14/21 09:59 25 meq DAILY PRICILLA Administration Topiramate 50 mg 08/14/21 22:00 08/15/21 21:27 Topiramate 50 Mg Tablet PO 09/13/21 21:59 50 mg BID PRICILLA Administration Discontinued Medications Generic Name Dose Route Start Last Admin Trade Name Freq PRN Reason Stop Dose Admin Albuterol Sulfate Confirm 08/15/21 06:46 Albuterol Sulfate 2.5 Mg/3 Ml Neb Administered 08/15/21 06:47 Dose 2.5 mg IH .STK-MED ONE Dexamethasone Sodium Phosphate 8 mg 08/14/21 18:00 08/14/21 18:38 Dexamethasone Sod Phosphate 10 Mg/Ml IV 08/23/21 10:01 8 mg DAILY PRICILLA Administration Oxybutynin Chloride 10 mg 08/14/21 22:00 08/14/21 21:44 Oxybutynin Chloride 5 Mg Tablet PO 08/14/21 22:01 10 mg ONCE ONE Administration Intake & Output (Last 24 hours) 08/13/21 08/14/21 08/15/21 08/16/21 11:59 11:59 11:59 11:59 Intake Total 1554 2093 Balance 1554 209 Weight 72.3 kg Laboratory Results (Last 24 hours) 08/16/21 08/16/21 08/16/21 07:18 05:08 05:08 WBC 12.6 H RBC 4.06 L Hgb 12.4 Hct 40.9 MCV 100.7 H MCH 30.5 MCHC 30.3 L RDW 13.9 Plt Count 303 MPV 9.9 Sodium 138 Potassium 4.4 Chloride 105 Carbon Dioxide 30 Anion Gap 8.5 BUN 31 H Creatinine 0.60 Estimated GFR > 60.0 Glucose 101 POC Glucometer 131 H Hemoglobin A1c Calcium 8.4 TSH 3rd Generation 0.050 L 08/15/21 08/15/21 08/15/21 21:24 15:53 15:45 WBC RBC Hgb Hct MCV MCH MCHC RDW Plt Count MPV Sodium Potassium Chloride Carbon Dioxide Anion Gap BUN Creatinine Estimated GFR Glucose POC Glucometer 127 H 176 H Hemoglobin A1c 6.41 H Calcium TSH 3rd Generation Orders (Last 24 hours) Category Date Time Status POCT Glucose Check ACHS Care 08/15/21 12:51 Active CHEST WITH CONTRAST [CT] Urgent Exams 08/15/21 12:00 Completed BMP AM.LAB Lab 08/16/21 05:08 Completed CBC AM.LAB Lab 08/16/21 05:08 Completed HEMOGLOBIN A1C Urgent Lab 08/15/21 15:45 Completed POCT GLUCOSE Stat Lab 08/15/21 15:53 Completed POCT GLUCOSE Stat Lab 08/15/21 21:24 Completed POCT GLUCOSE Stat Lab 08/16/21 07:18 Completed TSH [TSH, 3RD Generation] AM.LAB Lab 08/16/21 05:08 Completed Azithromycin 500 mg/250 ml [Zithromax 500 MG/ 250 ML Med 08/15/21 10:00 Active NaCl Premix] 500 mg in 250 ml IV Q24H10 Ceftriaxone 1 GM/50 ML PREMIX* [ROCEPHIN 1 Gm-D5w 50 ml Med 08/15/21 10:00 Active Bag] 1 g in 50 ml IV Q24H10 Dexamethasone 4 mg [Decadron 4 MG INJ] Med 08/15/21 10:00 Active 8 mg IV DAILY Enoxaparin Sodium [Enoxaparin Sodium] Med 08/15/21 10:00 Active 40 mg SQ DAILY Insulin Lispro [Humalog] Med 08/15/21 10:39 Active See Dose Instructions SQ UD PRN Levothyroxine Sodium 125 Mcg [Synthroid 125 Mcg] Med 08/15/21 10:00 Active 125 mcg PO DAILY Oxybutynin Chloride Xl 5 mg [Ditropan XL 5 MG] Med 08/15/21 22:00 Active 10 mg PO HS Potassium Bicarbonate 25 MEQ [K-Lyte 25 Meq] Med 08/15/21 10:00 Active 25 meq PO DAILY Patient Care Notes (Last 24 hours) 08/15/21 15:03 TRIP FOLLOWER Note by Peggy Tellez patient ate 100% and tolerated well all of the lunch that her brought her Initialized on 08/15/21 15:03 - END OF NOTE 08/15/21 09:25 TRIP FOLLOWER Note by Peggy Tellez patient stated they were not able to tolerate the food, not sick to their stomach just does'nt feel like eating. aide offfered something else to eat and patient refused. patient is drinking adequate amounts of fluids at this time Initialized on 08/15/21 09:25 - END OF NOTE 08/15/21 08:53 TRIP FOLLOWER Note by Peggy Tellez aide reported to RT patients O2 (83-2L) and RT went in evaluated and changed patients O2 to 4L Initialized on 08/15/21 08:53 - END OF NOTE Code(s): J18.9 - PNEUMONIA, UNSPECIFIED ORGANISM
[2021-08-16] MEDS: ENOXAPARIN SODIUM SQ SCH (09:16)
[2021-08-16] MEDS: ROCEPHIN 1 Gm-D5w 50 ml Bag** 1 G/50 ML IVPB IV SCH (09:16)
[2021-08-16] MEDS: K-LYTE 25 MEQ PO SCH (09:16)
[2021-08-16] MEDS: SYNTHROID 125 MCG PO SCH (09:16)
[2021-08-16] MEDS: MELOXICAM PO SCH ×2 (09:16→21:19)
[2021-08-16] MEDS: TOPIRAMATE PO SCH ×2 (09:17→21:19)
[2021-08-16] MEDS: Decadron 4 MG INJ IV SCH (09:17)
[2021-08-16] MEDS: Zithromax 500 MG/ 250 ML NaCl Premix 500 MG/250 ML IVPB IV SCH (10:16)
[2021-08-16] MEDS: TYLENOL EXTRA STRENGTH 500 MG PO PRN (18:37)
[2021-08-16] MEDS: Ditropan XL 5 MG PO SCH (21:19)
[2021-08-16] MEDS: NEURONTIN 300 MG PO SCH (21:19)
[2021-08-17 05:17] LABS: Hematocrit 41.5 % (35-47); Hemoglobin 12.6 gm/dl (12.0-16.0); Mean Cell Volume 101.2 fl (78-100); Mean Corpuscular Hemoglobin 30.7 pg (26-32); Mean Corpuscular Hgb Concent. 30.4 g/dl (32-36); Mean Platelet Volume 8.7 fl (7.5-11.0); Platelet Count 338 K/mm3 (150-450); Red Cell Distribution Width 13.7 % (11.5-14.0)
[2021-08-17 05:43] LABS: ALKALINE PHOSPHATASE 73 U/L (38-126); BLOOD UREA NITROGEN 30 mg/dL (7-17); CHLORIDE 107 mmol/L (98-107); Calcium 8.4 mg/dL (8.4-10.2); Carbon Dioxide 33 mmol/L (22-30); Creatinine 1 0.63 mg/dL (0.52-1.04); EST GLOMERULAR FILTRATION RATE > 60.0 ML/MIN; Glucose 102 mg/dL (74-106); Potassium 4.1 mmol/L (3.5-5.1); SGOT/AST 46 U/L (14-36); SGPT/ALT 76 U/L (0-35); SODIUM 139 mmol/L (137-145); Total Protein 5.9 g/dL (6.3-8.2)
[2021-08-17] MEDS: TYLENOL EXTRA STRENGTH 500 MG PO PRN (06:43)
[2021-08-17] MEDS: PROVENTIL 2.5 MG/3 ML NEB IH PRN (06:49)
--- NOTE | 2021-08-17 08:37 | XRAY ---
Indication: Pneumonia. Comparison: August 14, 2021. PA/lateral chest again demonstrates COPD with interval diminished CT proven bilateral patchy airspace disease with residual in both lower lungs. Remaining heart and upper lungs unremarkable. No new cardiopulmonary abnormalities.
--- NOTE | 2021-08-17 09:50 | PCM.NOTE ---
Date and Time: 08/17/21 0949 Subjective Assessment: doing better today. CXR is improving - Review of Systems Constitutional: No Fever, No Chills Eyes: No Symptoms Ears, Nose, & Throat: No Symptoms Respiratory: Short Of Breath, No Cough Cardiac: No Chest Pain, No Edema, No Syncope Abdominal/Gastrointestinal: No Abdominal Pain, No Nausea, No Vomiting, No Diarrhea Genitourinary Symptoms: No Dysuria Musculoskeletal: No Back Pain, No Neck Pain Skin: No Rash Neurological: No Dizziness, No Focal Weakness, No Sensory Changes Psychological: No Symptoms Endocrine: No Symptoms Hematologic/Lymphatic: No Symptoms Immunological/Allergic: No Symptoms Objective Exam General Appearance: no apparent distress, alert Neurologic Exam: alert, oriented x 3, cooperative, normal mood/affect, nml cerebellar function, sensation nml, No motor deficits Skin Exam: normal color, warm, dry Eye Exam: PERRL, EOMI, eyes nml inspection Ears, Nose, Throat Exam: normal ENT inspection, pharynx normal, moist mucous membranes Neck Exam: normal inspection, non-tender, supple, full range of motion Respiratory Exam: diminished breath sounds, rhonchi, wheezing, No respiratory distress Cardiovascular Exam: regular rate/rhythm, normal heart sounds Gastrointestinal/Abdomen Exam: soft, No tenderness, No mass Extremity Exam: normal inspection, normal range of motion Back Exam: normal inspection, normal range of motion, No CVA tenderness, No vertebral tenderness Pelvic Exam: deferred Rectal Exam: deferred OBJECTIVE DATA Vital Signs: Vital Signs - 24 hr Temp Pulse Resp BP Pulse Ox 08/17/21 07:42 97.1 F 73 22 170/90 91 L 08/17/21 06:51 73 22 91 L 08/17/21 03:58 97.3 F 67 20 136/76 93 L 08/16/21 23:45 97.5 F 51 L 18 139/67 95 08/16/21 19:32 97.5 F 81 20 114/56 93 L 08/16/21 19:07 77 18 91 L 08/16/21 15:48 98.2 F 66 16 126/75 93 L 08/16/21 14:52 66 18 92 L 08/16/21 11:41 97.9 F 72 16 112/66 92 L Pain Assessment - Last Documented Pain Intensity 10 Pain Scale Used 0-10 Pain Scale Intake and Output: Intake & Output 08/14/21 08/15/21 08/16/21 08/17/21 11:59 11:59 11:59 11:59 Intake Total 1552092 1760 Output Total 650 Balance 1553 2092 1110 Weight 72.3 kg Lab Results: Lab Results-Last 24 Hours 08/16/21 08/16/21 08/16/21 Range/Units 11:35 16:19 20:42 WBC (4.0-10.5) K/mm3 RBC (4.1-5.4) M/mm3 Hgb (12.0-16.0) gm/dl Hct (35-47) % MCV (78-100) fl MCH (26-32) pg MCHC (32-36) g/dl RDW (11.5-14.0) % Plt Count (150-450) K/mm3 MPV (7.5-11.0) fl Sodium (137-145) mmol/L Potassium (3.5-5.1) mmol/L Chloride (98-107) mmol/L Carbon Dioxide (22-30) mmol/L Anion Gap (5-15) MEQ/L BUN (7-17) mg/dL Creatinine (0.52-1.04) mg/dL Estimated GFR ML/MIN Glucose (74-106) mg/dL POC Glucometer 139 H 130 H 174 H (74 to 106) mg/dL Calcium (8.4-10.2) mg/dL Total Bilirubin (0.2-1.3) mg/dL AST (14-36) U/L ALT (0-35) U/L Alkaline Phosphatase (38-126) U/L Serum Total Protein (6.3-8.2) g/dL Albumin (3.5-5.0) g/dL 08/17/21 08/17/21 08/17/21 Range/Units 04:40 04:40 07:19 WBC 10.0 (4.0-10.5) K/mm3 RBC 4.10 (4.1-5.4) M/mm3 Hgb 12.6 (12.0-16.0) gm/dl Hct 41.5 (35-47) % MCV 101.2 H (78-100) fl MCH 30.7 (26-32) pg MCHC 30.4 L (32-36) g/dl RDW 13.7 (11.5-14.0) % Plt Count 338 (150-450) K/mm3 MPV 8.7 (7.5-11.0) fl Sodium 139 (137-145) mmol/L Potassium 4.1 (3.5-5.1) mmol/L Chloride 107 (98-107) mmol/L Carbon Dioxide 33 H (22-30) mmol/L Anion Gap 4.0 L (5-15) MEQ/L BUN 30 H (7-17) mg/dL Creatinine 0.63 (0.52-1.04) mg/dL Estimated GFR > 60.0 ML/MIN Glucose 102 (74-106) mg/dL POC Glucometer 105 (74 to 106) mg/dL Calcium 8.4 (8.4-10.2) mg/dL Total Bilirubin 0.30 (0.2-1.3) mg/dL AST 46 H (14-36) U/L ALT 76 H (0-35) U/L Alkaline Phosphatase 73 (38-126) U/L Serum Total Protein 5.9 L (6.3-8.2) g/dL Albumin 3.0 L (3.5-5.0) g/dL Radiology Exams: Radiology Procedures Category Date Time Status CHEST 2 VIEWS (PA AND LAT) Urgent Exams 08/17/21 08:23 Completed CHEST WITH CONTRAST [CT] Urgent Exams 08/15/21 12:00 Completed Multi-Disciplinary Progress Notes: Multi-Disciplinary Progress Notes 08/17/21 09:00 Respiratory Note by Amanda Campos Rest room air sat 87%. Placed on 2L NC. Sats up to 93% Initialized on 08/17/21 09:00 - END OF NOTE Assessment/Plan (1) Pneumonia Current Visit: Yes Status: Acute Qualifiers: Pneumonia type: due to Pneumococcus Laterality: right Lung location: lower lobe of lung Qualified Code(s): J13 - Pneumonia due to Streptococcus pneumoniae Assessment & Plan: Chief Complaint Diagnosis HYPOXIA, PNEUMONIA Allergies Allergy/AdvReac Type Severity Reaction Status Date / Time No Known Drug Allergies Allergy Verified 11/25/20 11:42 Vital Signs (Last 24 hours) Temp Pulse Resp BP Pulse Ox 08/17/21 07:42 97.1 F 73 22 170/90 91 L 08/17/21 06:51 73 22 91 L 08/17/21 03:58 97.3 F 67 20 136/76 93 L 08/16/21 23:45 97.5 F 51 L 18 139/67 95 08/16/21 19:32 97.5 F 81 20 114/56 93 L 08/16/21 19:07 77 18 91 L 08/16/21 15:48 98.2 F 66 16 126/75 93 L 08/16/21 14:52 66 18 92 L 08/16/21 11:41 97.9 F 72 16 112/66 92 L Home Medications Medication Instructions Recorded Confirmed Last Taken Type Gabapentin 300 mg [Neurontin 300 mg PO HS 08/14/21 08/14/21 08/13/21 History 300 mg] Meloxicam 15 mg [Meloxicam 15 MG] 7.5 mg PO BID 08/14/21 08/14/21 08/13/21 History Tolterodine Tartrate [Detrol LA] 4 mg PO HS 08/14/21 08/14/21 08/13/21 History Topiramate 100 mg [Topamax 100 50 mg PO BID 08/14/21 08/14/21 08/14/21 History MG] Current Medications Generic Name Dose Route Start Last Admin Trade Name Freq PRN Reason Stop Dose Admin Acetaminophen 500 - 1,000 mg 08/14/21 17:33 08/17/21 06:43 Acetaminophen 500 Mg Tablet PO 09/13/21 17:32 1,000 mg Q4H PRN PRN Administration TEMP >100.4 Albuterol Sulfate 2.5 mg 08/15/21 06:52 08/17/21 06:49 Albuterol Sulfate 2.5 Mg/3 Ml Neb IH 09/14/21 06:51 2.5 mg Q4H PRN PRN Administration SHORTNESS OF BREATH/WHEEZING Chlorphenir/Hydrocodone Polistirex 5 ml 08/14/21 17:33 08/14/21 18:01 Hydrocodone/Chlorphen P-Stirex 1 Ml Misa.Er.12h PO 09/13/21 17:32 5 ml [id number] PRN Administration Methylprednisolone Sodium 0 mg 08/17/21 10:00 Succinate 40 mg/ Sterile Water IV 09/16/21 09:59 1 ml Q12HT PRICILLA Enoxaparin Sodium 40 mg 08/15/21 10:00 08/16/21 09:16 Enoxaparin Sodium 40 Mg/0.4 Ml Syringe SQ 09/14/21 09:59 40 mg DAILY PRICILLA Administration Gabapentin 300 mg 08/14/21 22:00 08/16/21 21:19 Gabapentin 300 Mg Capsule PO 09/13/21 21:59 300 mg QHS PRICILLA Administration Sodium Chloride 1,000 mls @ 30 mls/hr 08/14/21 17:45 08/16/21 04:31 Sodium Chloride 0.9% 1000 Ml IV 09/13/21 17:44 30 mls/hr .Q24H PRICILLA Administration Ceftriaxone Sodium/Dextrose 1 g in 50 mls @ 100 mls/hr 08/15/21 10:00 08/16/21 09:16 Rocephin 1 Gm-D5w 50 Ml Bag IV 08/18/21 09:59 100 mls/hr Q24H10 PRICILLA Administration Azithromycin 500 mg in 250 mls @ 250 mls/hr 08/15/21 10:00 08/16/21 10:16 Zithromax 500 Mg/ 250 Ml Nacl Premix IV 09/14/21 09:59 250 mls/hr Q24H10 PRICILLA Administration Insulin Human Lispro 0 unit 08/15/21 10:39 Insulin Lispro 1 Unit SQ 09/14/21 10:38 UD PRN HYPERGLYCEMIA Levothyroxine Sodium 125 mcg 08/15/21 10:00 08/16/21 09:16 Levothyroxine Sodium 125 Mcg Tablet PO 09/14/21 09:59 125 mcg DAILY PRICILLA Administration Meloxicam 7.5 mg 08/14/21 22:00 08/16/21 21:19 Meloxicam 7.5 Mg Tablet PO 09/13/21 21:59 7.5 mg BID PRICILLA Administration Ondansetron HCl 4 mg 08/14/21 17:33 Ondansetron Hcl 4 Mg/2 Ml Vial IV 09/13/21 17:32 Q6H PRN PRN NAUSEA/VOMITING Oxybutynin Chloride 10 mg 08/15/21 22:00 08/16/21 21:19 Oxybutynin Chloride Xl 5 Mg Tab PO 09/14/21 21:59 10 mg HS PRICILLA Administration Potassium Bicarbonate 25 meq 08/15/21 10:00 08/16/21 09:16 Potassium Bicarbonate 25 Meq Tab PO 09/14/21 09:59 25 meq DAILY PRICILLA Administration Topiramate 50 mg 08/14/21 22:00 08/16/21 21:19 Topiramate 50 Mg Tablet PO 09/13/21 21:59 50 mg BID PRICILLA Administration Discontinued Medications Generic Name Dose Route Start Last Admin Trade Name Michelle PRN Reason Stop Dose Admin Albuterol Sulfate Confirm 08/15/21 06:46 Albuterol Sulfate 2.5 Mg/3 Ml Neb Administered 08/15/21 06:47 Dose 2.5 mg IH .STK-MED ONE Dexamethasone Sodium Phosphate 8 mg 08/14/21 18:00 08/14/21 18:38 Dexamethasone Sod Phosphate 10 Mg/Ml IV 08/23/21 10:01 8 mg DAILY PRICILLA Administration Dexamethasone Sodium Phosphate 8 mg 08/15/21 10:00 08/16/21 09:17 Dexamethasone Sod Phosphate 4 Mg/Ml Ml IV 08/23/21 10:01 8 mg DAILY PRICILLA Administration Oxybutynin Chloride 10 mg 08/14/21 22:00 08/14/21 21:44 Oxybutynin Chloride 5 Mg Tablet PO 08/14/21 22:01 10 mg ONCE ONE Administration Intake & Output (Last 24 hours) 08/14/21 08/15/21 08/16/21 08/17/21 11:59 11:59 11:59 11:59 Intake Total 1554 2093 1760 Output Total 650 Balance 1554 2093 1110 Weight 72.3 kg Laboratory Results (Last 24 hours) 08/17/21 08/17/21 08/17/21 07:19 04:40 04:40 WBC 10.0 RBC 4.10 Hgb 12.6 Hct 41.5 MCV 101.2 H MCH 30.7 MCHC 30.4 L RDW 13.7 Plt Count 338 MPV 8.7 Sodium 139 Potassium 4.1 Chloride 107 Carbon Dioxide 33 H Anion Gap 4.0 L BUN 30 H Creatinine 0.63 Estimated GFR > 60.0 Glucose 102 POC Glucometer 105 Calcium 8.4 Total Bilirubin 0.30 AST 46 H ALT 76 H Alkaline Phosphatase 73 Serum Total Protein 5.9 L Albumin 3.0 L 08/16/21 08/16/21 08/16/21 20:42 16:19 11:35 WBC RBC Hgb Hct MCV MCH MCHC RDW Plt Count MPV Sodium Potassium Chloride Carbon Dioxide Anion Gap BUN Creatinine Estimated GFR Glucose POC Glucometer 174 H 130 H 139 H Calcium Total Bilirubin AST ALT Alkaline Phosphatase Serum Total Protein Albumin Orders (Last 24 hours) Category Date Time Status CHEST 2 VIEWS (PA AND LAT) Urgent Exams 08/17/21 08:23 Completed CBC AM.LAB Lab 08/17/21 04:40 Completed CMP AM.LAB Lab 08/17/21 04:40 Completed POCT GLUCOSE Stat Lab 08/16/21 11:35 Completed POCT GLUCOSE Stat Lab 08/16/21 16:19 Completed POCT GLUCOSE Stat Lab 08/16/21 20:42 Completed POCT GLUCOSE Stat Lab 08/17/21 07:19 Completed Methylprednisolone Sod Suc 40M [solu-MEDROL] 40 mg Med 08/17/21 10:00 Active Water For Injection,Sterile [Sterile H2O 10 ml] 1 ml IV Q12HT RT Miscellaneous Order ROUTINE RT 08/17/21 08:29 Active Patient Care Notes (Last 24 hours) 08/17/21 09:00 Respiratory Note by Amanda Campos Rest room air sat 87%. Placed on 2L NC. Sats up to 93% Initialized on 08/17/21 09:00 - END OF NOTE Code(s): J18.9 - PNEUMONIA, UNSPECIFIED ORGANISM
[2021-08-17] MEDS ORDERED: solu-MEDROL ONE ×2 (10:26→10:52)
[2021-08-17] MEDS: Sodium Chloride 0.9% 1000 ML 1,000 ML IV SCH (10:43)
[2021-08-17] MEDS: K-LYTE 25 MEQ PO SCH (10:49)
[2021-08-17] MEDS: SYNTHROID 125 MCG PO SCH (10:50)
[2021-08-17] MEDS: MELOXICAM PO SCH ×2 (10:50→21:26)
[2021-08-17] MEDS: solu-MEDROL 40 MG, Sterile H2O 10 ml 1 ML IV SCH ×4 (10:50→21:26)
[2021-08-17] MEDS: TOPIRAMATE PO SCH ×2 (10:50→21:26)
[2021-08-17] MEDS: ROCEPHIN 1 Gm-D5w 50 ml Bag** 1 G/50 ML IVPB IV SCH (10:53)
[2021-08-17] MEDS: ENOXAPARIN SODIUM SQ SCH (11:00)
[2021-08-17] MEDS: Zithromax 500 MG/ 250 ML NaCl Premix 500 MG/250 ML IVPB IV SCH (11:54)
[2021-08-17] MEDS: NEURONTIN 300 MG PO SCH (21:26)
[2021-08-17] MEDS: Ditropan XL 5 MG PO SCH (21:26)
[2021-08-18 08:42] VITALS: BP 159/86; PULSE 53; O2SAT 95
[2021-08-18] MEDS: TOPIRAMATE PO SCH (09:42)
[2021-08-18] MEDS: SYNTHROID 125 MCG PO SCH (09:42)
[2021-08-18] MEDS: MELOXICAM PO SCH (09:43)
[2021-08-18] MEDS: ENOXAPARIN SODIUM SQ SCH (09:43)
[2021-08-18] MEDS: ROCEPHIN 1 Gm-D5w 50 ml Bag** 1 G/50 ML IVPB IV SCH (09:43)
[2021-08-18] MEDS: K-LYTE 25 MEQ PO SCH (09:43)
[2021-08-18] MEDS: solu-MEDROL 40 MG, Sterile H2O 10 ml 1 ML IV SCH ×2 (09:44)
[2021-08-18] MEDS: Zithromax 500 MG/ 250 ML NaCl Premix 500 MG/250 ML IVPB IV SCH (09:44)
--- NOTE | 2021-08-18 12:58 | PCM.DS ---
Discharge Summary Date of Admission: 08/14/21 16:03 Admitting Physician: BINU BAHENA Primary Care Provider: BINU BAHENA Allergies Allergies No Known Drug Allergies Allergy (Verified 11/25/20 11:42) Hospital Summary - Hospital Course Hospital Course: Chief Complaint Diagnosis HYPOXIA, PNEUMONIA Allergies Allergy/AdvReac Type Severity Reaction Status Date / Time No Known Drug Allergies Allergy Verified 11/25/20 11:42 Vital Signs (Last 24 hours) Temp Pulse Resp BP Pulse Ox 08/18/21 08:00 97.1 F 53 L 14 159/86 95 08/18/21 07:23 50 L 18 94 L 08/18/21 04:05 97.1 F 55 L 20 147/69 94 L 08/18/21 00:00 97.6 F 71 18 129/77 93 L 08/17/21 20:00 97.3 F 67 20 125/73 94 L 08/17/21 19:08 67 18 94 L 08/17/21 16:00 97.3 F 66 18 156/88 94 L Home Medications Medication Instructions Recorded Confirmed Last Taken Type Gabapentin 300 mg [Neurontin 300 mg PO HS 08/14/21 08/14/21 08/13/21 History 300 mg] Meloxicam 15 mg [Meloxicam 15 MG] 7.5 mg PO BID 08/14/21 08/14/21 08/13/21 History Tolterodine Tartrate [Detrol LA] 4 mg PO HS 08/14/21 08/14/21 08/13/21 History Topiramate 100 mg [Topamax 100 50 mg PO BID 08/14/21 08/14/21 08/14/21 History MG] Methylprednisolone Packet 4 mg PO UD #30 packet 08/18/21 Unknown Rx [Medrol Dosepack] levoFLOXacin [Levofloxacin] 500 mg PO DAILY 5 Days #5 tablet 08/18/21 Unknown Rx Current Medications Discontinued Medications Generic Name Dose Route Start Last Admin Trade Name Freq PRN Reason Stop Dose Admin Acetaminophen 500 - 1,000 mg 08/14/21 17:33 08/17/21 06:43 Acetaminophen 500 Mg Tablet PO 09/13/21 17:32 1,000 mg Q4H PRN PRN Administration TEMP >100.4 Albuterol Sulfate Confirm 08/15/21 06:46 Albuterol Sulfate 2.5 Mg/3 Ml Neb Administered 08/15/21 06:47 Dose 2.5 mg IH .STK-MED ONE Albuterol Sulfate 2.5 mg 08/15/21 06:52 08/17/21 06:49 Albuterol Sulfate 2.5 Mg/3 Ml Neb IH 09/14/21 06:51 2.5 mg Q4H PRN PRN Administration SHORTNESS OF BREATH/WHEEZING Chlorphenir/Hydrocodone Polistirex 5 ml 08/14/21 17:33 08/14/21 18:01 Hydrocodone/Chlorphen P-Stirex 1 Ml Misa.Er.12h PO 09/13/21 17:32 5 ml [id number] PRN Administration Methylprednisolone Sodium 0 mg 08/17/21 10:00 08/18/21 09:44 Succinate 40 mg/ Sterile Water IV 09/16/21 09:59 Not Given 1 ml Q12HT PRICILLA Dexamethasone Sodium Phosphate 8 mg 08/14/21 18:00 08/14/21 18:38 Dexamethasone Sod Phosphate 10 Mg/Ml IV 08/23/21 10:01 8 mg DAILY PRICILLA Administration Dexamethasone Sodium Phosphate 8 mg 08/15/21 10:00 08/16/21 09:17 Dexamethasone Sod Phosphate 4 Mg/Ml Ml IV 08/23/21 10:01 8 mg DAILY PRICLILA Administration Enoxaparin Sodium 40 mg 08/15/21 10:00 08/18/21 09:43 Enoxaparin Sodium 40 Mg/0.4 Ml Syringe SQ 09/14/21 09:59 Not Given DAILY PRICILLA Gabapentin 300 mg 08/14/21 22:00 08/17/21 21:26 Gabapentin 300 Mg Capsule PO 09/13/21 21:59 300 mg QHS PRICILLA Administration Sodium Chloride 1,000 mls @ 30 mls/hr 08/14/21 17:45 08/17/21 10:43 Sodium Chloride 0.9% 1000 Ml IV 09/13/21 17:44 30 mls/hr .Q24H PRICILLA Administration Ceftriaxone Sodium/Dextrose 1 g in 50 mls @ 100 mls/hr 08/15/21 10:00 08/18/21 09:43 Rocephin 1 Gm-D5w 50 Ml Bag IV 08/19/21 09:59 Not Given Q24H10 PRICILLA Azithromycin 500 mg in 250 mls @ 250 mls/hr 08/15/21 10:00 08/18/21 09:44 Zithromax 500 Mg/ 250 Ml Nacl Premix IV 09/14/21 09:59 Not Given Q24H10 [facility] Insulin Human Lispro 0 unit 08/15/21 10:39 Insulin Lispro 1 Unit SQ 09/14/21 10:38 UD PRN HYPERGLYCEMIA Levothyroxine Sodium 125 mcg 08/15/21 10:00 08/18/21 09:42 Levothyroxine Sodium 125 Mcg Tablet PO 09/14/21 09:59 125 mcg DAILY PRICILLA Administration Meloxicam 7.5 mg 08/14/21 22:00 08/18/21 09:43 Meloxicam 7.5 Mg Tablet PO 09/13/21 21:59 7.5 mg BID PRICILLA Administration Methylprednisolone Sodium Succinate Confirm 08/17/21 10:26 Methylprednisolone Sod Suc 40m 40 Mg/Ml Vial Administered 08/17/21 10:27 Dose 40 mg .ROUTE .STK-MED ONE Methylprednisolone Sodium Succinate Confirm 08/17/21 10:52 Methylprednisolone Sod Suc 40m 40 Mg/Ml Vial Administered 08/17/21 10:53 Dose 40 mg .ROUTE .STK-MED ONE Ondansetron HCl 4 mg 08/14/21 17:33 Ondansetron Hcl 4 Mg/2 Ml Vial IV 09/13/21 17:32 Q6H PRN PRN NAUSEA/VOMITING Oxybutynin Chloride 10 mg 08/14/21 22:00 08/14/21 21:44 Oxybutynin Chloride 5 Mg Tablet PO 08/14/21 22:01 10 mg ONCE ONE Administration Oxybutynin Chloride 10 mg 08/15/21 22:00 08/17/21 21:26 Oxybutynin Chloride Xl 5 Mg Tab PO 09/14/21 21:59 10 mg HS PRICILLA Administration Potassium Bicarbonate 25 meq 08/15/21 10:00 08/18/21 09:43 Potassium Bicarbonate 25 Meq Tab PO 09/14/21 09:59 25 meq DAILY PRICILLA Administration Topiramate 50 mg 08/14/21 22:00 08/18/21 09:42 Topiramate 50 Mg Tablet PO 09/13/21 21:59 50 mg BID PRICILLA Administration Intake & Output (Last 24 hours) 08/16/21 08/17/21 08/18/21 08/19/21 11:59 11:59 11:59 11:59 Intake Total 2092 1760 1204 Output Total 650 Balance 2092 1110 1204 Weight 72.3 kg Laboratory Results (Last 24 hours) 08/18/21 08/17/21 08/17/21 07:50 21:01 16:30 POC Glucometer 104 124 H 128 H Orders (Last 24 hours) Category Date Time Status Discharge Routine Discharge 08/18/21 09:19 Ordered POCT GLUCOSE Stat Lab 08/17/21 16:30 Completed POCT GLUCOSE Stat Lab 08/17/21 21:01 Completed POCT GLUCOSE Stat Lab 08/18/21 07:50 Completed Patient Care Notes (Last 24 hours) 08/18/21 10:45 Case Management Note by Gabby Ware PT PLAN TO D/C TODAY. HOME OXYGEN ALREADY ARRANGED THROUGH [facility] [place], PT WILL BE SENT HOME WITH PORTABLE O2 TANK. NO FURTHER NEEDS ANTICIPATED. Initialized on 08/18/21 10:45 - END OF NOTE 08/18/21 10:44 Nursing Note by Rufina Fierro Patient given discharge instructions. No questions/concerns noted. Patient taken out per wheelchair by EMBROIDERY WORKER to daughter's vehicle with portable O2. Initialized on 08/18/21 10:44 - END OF NOTE 08/18/21 09:15 (created 08/18/21 10:04) Nursing Note by Rufina Fierro Dr. called for update on patient. New orders received for discharge to home, follow up appt, and antibiotics/steroids as ordered. Initialized on 08/18/21 10:04 - END OF NOTE 08/17/21 13:17 Case Management Note by Sofi Kelly HOME OXYGEN ORDERED THRU [facility] [place] [facility] [place]. INSTRUCTIONS FOR DELIVERY PLACED IN PATIENT'S DC INSTRUCTIONS Initialized on 08/17/21 13:17 - END OF NOTE - Vitals & Intake/Output Vital Signs: Vital Signs Temperature 97.1 F 08/18/21 08:00 Pulse Rate 53 L 08/18/21 08:00 Respiratory Rate 14 08/18/21 08:00 Blood Pressure 159/86 08/18/21 08:00 O2 Sat by Pulse Oximetry 95 08/18/21 08:00 Intake & Output: Intake & Output 08/16/21 08/17/21 08/18/21 08/19/21 11:59 11:59 11:59 11:59 Intake Total 2092 1760 1204 Output Total 650 Balance 2092 1110 1204 Weight 72.3 kg - Lab Result Diagrams: 08/17/21 04:40 08/17/21 04:40 Lab Results-Last 24 Hrs: Lab Results-Last 24 Hours 08/17/21 08/17/21 08/18/21 Range/Units 16:30 21:01 07:50 POC Glucometer 128 H 124 H 104 (74 to 106) mg/dL Micro Results-Entire Visit: Accuchecks Date 08/18/21 Time 07:50 - Radiology Exams Ordered Rad Exams-Entire Visit: Radiology Procedures Category Date Time Status CHEST 2 VIEWS (PA AND LAT) Urgent Exams 08/17/21 08:23 Completed - Procedures and Test Procedures and Tests throughout Hospitalization: Therapy Orders & Screens 08/14/21 17:27 RT Screen per Nursing Assess ONCE Comment: Protocol Order Physician Instructions: Greater than 3 points order RT Admission Screen Reason For Exam: Triggered on Admission Diagnosis: Shortness of breath with exertion, hypoxia Diagnosis: Shortness of breath with exertion, hypoxia Pneumonia: No Home O2: Yes: 2L @ HS Asthma: No CHF: No Home CPAP/BIPAP: Yes: CPAP Home Nebs/MDI: Yes: NEBS PRN Total Points: 15 08/14/21 17:50 Oxygen Nasal Cannula 2 lpm Comment: Diagnosis: Shortness of breath with exertion, hypoxia Respiratory Therapy Assessment DAILY Comment: Diagnosis: Shortness of breath with exertion, hypoxia 08/17/21 08:29 RT Miscellaneous Order ROUTINE Comment: Physician Instructions: Reason For Exam: wean oxygen to ra Diagnosis: HYPOXIA, PNEUMONIA Discharge Exam General Appearance: no apparent distress, alert Neurologic Exam: alert, oriented x 3, cooperative, normal mood/affect, nml cerebellar function, sensation nml, No motor deficits Eye Exam: PERRL, EOMI, eyes nml inspection Ears, Nose, Throat Exam: normal ENT inspection, pharynx normal, moist mucous membranes Neck Exam: normal inspection, non-tender, supple, full range of motion Respiratory Exam: diminished breath sounds, wheezing, No respiratory distress Cardiovascular Exam: regular rate/rhythm, normal heart sounds Gastrointestinal/Abdomen Exam: soft, No tenderness, No mass Pelvic Exam: deferred Rectal Exam: deferred Back Exam: normal inspection, normal range of motion, No CVA tenderness, No vertebral tenderness Extremity Exam: normal inspection, normal range of motion Skin Exam: normal color, warm, dry Final Diagnosis/Problem List - Final Discharge Diagnosis/Problem (1) Pneumonia Status: Resolved Code(s): J18.9 - PNEUMONIA, UNSPECIFIED ORGANISM - Discharge Discharge Date: 08/18/21 Disposition: Home, Self-Care Condition: Stable Prescriptions: New levoFLOXacin [Levofloxacin] 500 mg PO DAILY 5 Days #5 tablet Methylprednisolone Packet [Medrol Dosepack] 4 mg PO UD #30 packet Continue Synthroid 125 Mcg 125 mcg PO DAILY Gabapentin 300 mg [Neurontin 300 mg] 300 mg PO HS Topiramate 100 mg [Topamax 100 MG] 50 mg PO BID Meloxicam 15 mg [Meloxicam 15 MG] 7.5 mg PO BID Tolterodine Tartrate [Detrol LA] 4 mg PO HS Instructions: Pneumonia, Adult (DC), Oxygen Therapy, Adult (DC) Additional Instructions: WEAR 2L/NC AT ALL TIMES CALL [facility] [place] WHEN YOU GET HOME AT [phone] SO THEY CAN DELIVER YOUR HOME OXYGEN Follow up with: BINU BAHENA MD [Primary Care Provider] - 08/31/21 11:15 am ([facility]) Forms: Discharge Instructions, Work/School Release Form
== END 2021-08-18 10:43 | disposition home or self-care (01) | DRG 193 ==
LOC: MED SURG 16:03 → OBSVTOIN 16:03
PROVIDERS: ADMIT General Practice; ATTEND General Practice
DX: J18.9 Pneumonia, unspecified organism (principal); U07.1 COVID-19; R09.02 Hypoxemia; J44.9 Chronic obstructive pulmonary disease, unspecified; C73 Malignant neoplasm of thyroid gland; Z79.899 Other long term (current) drug therapy; Z20.828 Contact with and (suspected) exposure to other viral communicable diseases
CPT/HCPCS: 36415; 71046; 71260; 80048; 80053; 82947; 83036; 84443; 85025; 85027; 85379; 94640; 94760; 99000; J0456; J0696; J1100; J1650; J2920; J7609; A9270-GY

== ENCOUNTER 2022-02-18 12:36 | Observation (INO) | payer BC ==
[2022-02-18] MEDS ORDERED: solu-MEDROL 125 MG, Sterile H2O 10 ml 2 ML IV ONE ×2 (12:58)
[2022-02-18] MEDS ORDERED: DUONEB 0.5-3 MG/3 ml Neb IH ONE ×2 (12:58→13:03)
[2022-02-18] MEDS ORDERED: solu-MEDROL ONE ×3 (13:16→23:06)
[2022-02-18] MEDS ORDERED: Sterile H2O 10 ml IJ ONE ×3 (13:16→23:07)
[2022-02-18 13:20] LABS: Absolute Neutrophil Ct (ANC) 13.92 x10^3/uL (1.4-6.9); Basophil (Absolute #) 0.05 x10^3/uL (0-0.4); Eosinophil % 0.1 % (0.00-5.0); Eosinophil (Absolute #) 0.02 x10^3/uL (0-0.5); Hematocrit 48.6 % (35-47); Hemoglobin 14.9 g/dL (12.0-16.0); Lymphocyte (Absolute #) 1.62 x10^3/uL (1.0-4.6); Lymphocytes % 9.7 % (24.0-44.0); Mean Cell Volume 99.4 fL (78-100); Mean Corpuscular Hemoglobin 30.5 pg (26-32); Mean Corpuscular Hgb Concent. 30.7 g/dL (32-36); Mean Platelet Volume 9.7 fL (7.5-11.0); Monocyte (Absolute #) 1.01 x10^3/uL (0.0-1.3); Neutrophil % 83.4 % (36.0-66.0); Platelet Count 256 x10^3/uL (150-450); Red Blood Count 4.89 x10^6/uL (4.1-5.4); Red Cell Distribution Width 14.1 % (11.5-14.0); White Blood Count 16.7 x10^3/uL (4.0-10.5)
[2022-02-18 13:33] LABS: ALBUMIN 3.9 g/dL (3.5-5.0); ALKALINE PHOSPHATASE 104 U/L (38-126); ANION GAP 11.7 MEQ/L (5-15); BLOOD UREA NITROGEN 18 mg/dL (7-17); CHLORIDE 101 mmol/L (98-107); Calcium 9.4 mg/dL (8.4-10.2); Carbon Dioxide 32 mmol/L (22-30); Creatinine 1 0.63 mg/dL (0.52-1.04); EST GLOMERULAR FILTRATION RATE > 60.0 ML/MIN; Glucose 108 mg/dL (74-106); MAGNESIUM 1.9 mg/dL (1.6-2.3); Potassium 4.2 mmol/L (3.5-5.1); SGOT/AST 35 U/L (14-36); SGPT/ALT 54 U/L (0-35); SODIUM 140 mmol/L (137-145); Total Protein 6.7 g/dL (6.3-8.2)
[2022-02-18] MEDS ORDERED: ROCEPHIN 2 Gm-D5w 50ML BAG** 2 G/50 ML IVPB IV STA (13:53)
[2022-02-18] MEDS ORDERED: Zithromax 500 MG/ 250 ML NaCl Premix 500 MG/250 ML IVPB IV STA (13:53)
[2022-02-18 14:00] LABS: NT PRO BNP 3000 pg/mL (0-900)
[2022-02-18] MEDS ORDERED: BABY ASPIRIN 81 MG CHEW ONE (14:06)
[2022-02-18] MEDS ORDERED: BABY ASPIRIN 81 MG CHEW PO ONE (14:07)
[2022-02-18] MEDS ORDERED: Zithromax 500 MG/ 250 ML NaCl Premix 500 MG/250 ML IVPB IV ONE (14:07)
[2022-02-18] MEDS ORDERED: ROCEPHIN 2 Gm-D5w 50ML BAG** 2 G/50 ML IVPB IV ONE (14:07)
--- NOTE | 2022-02-18 14:15 | ERPHSYRPT ---
- History of Present Illness Time Seen by Provider: 02/18/22 12:41 Source: patient Exam Limitations: no limitations Patient Subjective Stated Complaint: Pt c/o of SOB and thinks that she has pneumonia, she was coughing this past weekend and bringing up green mucus Triage Nursing Assessment: Pt brought to the ER by her , hypertensive, hypoxic, pt's oxygen was at 75% upon arrival and was placed on 4L NC, pt states that she wears oxygen at home only at night, hx of pneumonia in October, green sputum, denies chest pain with cough, skin n/w/d, pulses normal, doesn't appear to be in any distress Physician History: 56 years old female with history of chronic respiratory failure on 4 L oxygen especially at nighttime, tobacco abuse, COPD presented in the ER with chief complaint of increasing cough and shortness of breath for the last couple of days with progressive worsening. Patient reports coughing up green sputum copious in amount with associated chest tightness and pressure. Denies any chest pain. Subjective feeling of fever and chills. Denies any lower extremity swelling or history of congestive heart failure. Timing/Duration: day(s) (2), gradual onset, worse Activities at Onset: activity Severity of Dyspnea-Max: moderate Severity of Dyspnea-Current: moderate Possible Cause: unknown cause Modifying Factors: Improves With: oxygen. Worsens With: activity, coughing, exertion Associated Symptoms: cough, chest pain/discomfort, dizziness, productive cough, No fever Allergies/Adverse Reactions: No Known Drug Allergies Allergy (Verified 02/18/22 12:52) Home Medications: Synthroid 125 Mcg 125 mcg PO DAILY 12/11/11 [History] Gabapentin [Neurontin ] 300 mg PO DAILY 08/14/21 [History] Meloxicam 15 mg [Meloxicam 15 MG] 7.5 mg PO BID 08/14/21 [History] Tolterodine Tartrate [Detrol LA] 4 mg PO DAILY 08/14/21 [History] Albuterol Sulfate [Albuterol Sulfate Hfa] 2 inh PO Q6H 02/18/22 [History] Hx Tetanus, Diphtheria Vaccination/Date Given: Yes (2019) Hx Influenza Vaccination/Date Given: Yes Hx Pneumococcal Vaccination/Date Given: No Travel Risk - International Travel Have you traveled outside of the country in past 3 weeks: No - Coronavirus Screening Are you exhibiting any of the following symptoms?: Yes Symptoms: Cough: New Onset, Shortness of Breath Close contact with a COVID-19 positive Pt in past 14-21 Days: No - Vaccine Status Have you recieved a Covid-19 vaccination: Yes 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 - Vaccination Dates Dates if Unknown: unknown Comment: 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 - Review of Systems Constitutional: Fever, Chills, Weakness Eyes: No Symptoms Ears, Nose, & Throat: No Symptoms Respiratory: Cough, Dyspnea Cardiac: No Chest Pain Abdominal/Gastrointestinal: No Symptoms Genitourinary Symptoms: No Symptoms Musculoskeletal: Arthralgias Skin: No Symptoms Neurological: No Symptoms Psychological: No Symptoms Endocrine: No Symptoms Hematologic/Lymphatic: No Symptoms Immunological/Allergic: No Symptoms - Past Medical History Pertinent Past Medical History: Yes Neurological History: No Pertinent History ENT History: No Pertinent History Cardiac History: No Pertinent History Respiratory History: COPD, Sleep Apnea Endocrine Medical History: No Pertinent History Musculoskeletal History: No Pertinent History GI Medical History: No Pertinent History History: No Pertinent History Psycho-Social History: No Pertinent History Female Reproductive Disorders: Cervical Cancer Other Medical History: history of cervical cancer - Past Surgical History Past Surgical History: Yes (thyroidectomy) Neuro Surgical History: No Pertinent History Cardiac: No Pertinent History Respiratory: No Pertinent History Gastrointestinal: No Pertinent History Genitourinary: No Pertinent History Musculoskeletal: No Pertinent History Female Surgical History: Tubal Ligation Other Surgical History: THYROID REMOVAL - Social History Smoking Status: Current every day smoker How long have you smoked: 25 years Exposure to second hand smoke: Yes ( smokes also) Drug Use: none Patient Lives Alone: No - Nursing Vital Signs Nursing Vital Signs: Initial Vital Signs Pulse Rate 86 02/18/22 12:41 Blood Pressure 152/108 02/18/22 12:41 O2 Sat by Pulse Oximetry 75 L 02/18/22 12:41 Pain Scale Pain Intensity 0 - Physical Exam General Appearance: no apparent distress, alert Eye Exam: PERRL/EOMI, eyes nml inspection Ears, Nose, Throat Exam: hearing grossly normal, normal ENT inspection Neck Exam: normal inspection, non-tender, supple, full range of motion Respiratory Exam: normal breath sounds, crackles/rales, wheezing Cardiovascular/Chest Exam: normal heart sounds, regular rate/rhythm Abdominal/Gastrointestinal Exam: soft, normal bowel sounds, No tenderness Extremity Exam: non-tender, normal range of motion Neurologic Exam: alert, oriented x 3, cooperative Skin Exam: normal color SpO2 Interpretation: O2 applied SpO2: 98 O2 Delivery: Nasal Cannula (4L) - Course EKG Interpreted by Me: RATE (70), NORMAL AXIS, NORMAL INTERVALS, Non-specific ST Changes Ordered Tests: Active Orders 24 hr Category Date Time Status Bedrest ROUTINE Activity 02/18/22 16:05 Active Up With Assistance ROUTINE Activity 02/18/22 16:05 Active [place] STAT Care 02/18/22 12:59 Completed Code Status Order ROUTINE Care 02/18/22 16:05 Active EKG-ER Only STAT Care 02/18/22 12:58 Completed Fall Protocol Q1H Care 02/18/22 16:05 Active IV Care Q6H Care 02/18/22 16:05 Active IV Insertion STAT Care 02/18/22 12:58 Completed Oxygen-ED Only Nasal Cannula 4 lpm Care 02/18/22 12:[address] in Observation ROUTINE Care 02/18/22 16:05 Active [place], Apply ROUTINE Care 02/18/22 16:05 Active Weight,Daily 0600 Care 02/18/22 16:05 Active Heart-Healthy Diet Diet 02/18/22 Dinner Active CHEST 1 VIEW (PORTABLE) Stat Exams 02/18/22 13:27 Completed BLOOD CULTURE Stat Lab 02/18/22 14:25 Received CBC W DIFF AM.LAB Lab 02/19/22 04:00 Ordered CBC W DIFF Stat Lab 02/18/22 12:45 Completed CMP AM.LAB Lab 02/19/22 04:00 Ordered CMP Stat Lab 02/18/22 12:45 Completed D-DIMER QUANTITATIVE Stat Lab 02/18/22 12:45 Completed Lactic Acid Stat Lab 02/18/22 12:08 Completed MAGNESIUM Stat Lab 02/18/22 12:45 Completed NT PRO BNP Stat Lab 02/18/22 12:45 Completed PROCALCITONIN Stat Lab 02/18/22 12:45 Completed TROPONIN Q4H Lab 02/18/22 12:45 Completed TROPONIN Q4H Lab 02/18/22 17:20 Completed TROPONIN Q4H Lab 02/18/22 21:27 Completed Respiratory Therapy Assessment DAILY RT 02/18/22 13:12 Active Transfer Order Routine Transfer 02/18/22 Completed Medication Summary Generic Name Dose Route Start Last Admin Trade Name Freq PRN Reason Stop Dose Admin Acetaminophen 650 mg 02/18/22 16:05 Acetaminophen 325 Mg Tablet PO 03/20/22 16:04 Q4H PRN PRN PAIN AND/OR FEVER Albuterol/Ipratropium 3 ml 02/18/22 19:00 02/18/22 19:54 Ipratropium/Albuterol Sulfate 3 Ml Ampul.Neb IH 03/20/22 18:59 3 ml Q6HRT PRICILLA Administration Methylprednisolone Sodium 0 mg 02/18/22 18:00 02/18/22 18:28 Succinate 60 mg/ Sterile Water IV 03/20/22 17:59 60 mg 2 ml Q6HT PRICILLA Administration Enoxaparin Sodium 40 mg 02/19/22 10:00 Enoxaparin Sodium 40 Mg/0.4 Ml Syringe SQ 03/21/22 09:59 DAILY PRICILLA Azithromycin 500 mg in 250 mls @ 250 mls/hr 02/19/22 10:00 Zithromax 500 Mg/ 250 Ml Nacl Premix IV 03/21/22 09:59 Q24H10 [facility] Ceftriaxone Sodium/Dextrose 2 g in 50 mls @ 100 mls/hr 02/19/22 10:00 Rocephin 2 Gm-D5w 50ml Bag IV 02/22/22 09:59 Q24H10 PRICILLA Meloxicam 7.5 mg 02/18/22 21:00 02/18/22 21:02 Meloxicam 7.5 Mg Tablet PO 02/18/22 21:01 Not Given ONCE ONE Pantoprazole Sodium 40 mg 02/19/22 10:00 Pantoprazole 40 Mg Vial IV 03/21/22 09:59 Q24H10 PRICILLA Discontinued Medications Generic Name Dose Route Start Last Admin Trade Name Freq PRN Reason Stop Dose Admin Albuterol/Ipratropium 3 ml 02/18/22 12:58 02/18/22 13:04 Ipratropium/Albuterol Sulfate 3 Ml Ampul.Neb IH 02/18/22 12:59 3 ml STAT ONE Administration Albuterol/Ipratropium Confirm 02/18/22 13:03 Ipratropium/Albuterol Sulfate 3 Ml Ampul.Neb Administered 02/18/22 13:04 Dose 3 ml IH .STK-MED ONE Aspirin 324 mg 02/18/22 14:07 02/18/22 14:11 Aspirin 81 Mg Tab.Chew PO 02/18/22 14:08 324 mg STAT ONE Administration Aspirin Confirm 02/18/22 14:06 Aspirin 81 Mg Tab.Chew Administered 02/18/22 14:07 Dose 324 mg .ROUTE .STK-MED ONE Methylprednisolone Sodium 0 mg 02/18/22 12:58 02/18/22 13:20 Succinate 125 mg/ Sterile IV 02/18/22 12:59 125 mg Water 2 ml STAT ONE Administration Ceftriaxone Sodium/Dextrose 2 g in 50 mls @ 100 mls/hr 02/18/22 13:53 02/18/22 14:41 Rocephin 2 Gm-D5w 50ml Bag IV 02/18/22 14:22 Infused STAT STA Infusion Azithromycin 500 mg in 250 mls @ 250 mls/hr 02/18/22 13:53 02/18/22 15:02 Zithromax 500 Mg/ 250 Ml Nacl Premix IV 02/18/22 14:52 250 mls/hr STAT STA 250 mls/hr Administration Azithromycin Confirm 02/18/22 14:07 Zithromax 500 Mg/ 250 Ml Nacl Premix Administered 02/18/22 14:08 Dose 500 mg in 250 mls @ ud IV .STK-MED ONE Ceftriaxone Sodium/Dextrose Confirm 02/18/22 14:07 Rocephin 2 Gm-D5w 50ml Bag Administered 02/18/22 14:08 Dose 2 g in 50 mls @ ud IV .STK-MED ONE Methylprednisolone Sodium Succinate Confirm 02/18/22 13:16 Methylprednis Sod Succ 125 Mg/2 Ml Vial Administered 02/18/22 13:17 Dose 125 mg .ROUTE .STK-MED ONE Methylprednisolone Sodium Succinate Confirm 02/18/22 18:16 Methylprednis Sod Succ 125 Mg/2 Ml Vial Administered 02/18/22 18:17 Dose 125 mg .ROUTE .STK-MED ONE Sterile Water Confirm 02/18/22 13:16 Water For Injection,Sterile 10 Ml Vial Administered 02/18/22 13:17 Dose 10 ml IJ .STK-MED ONE Sterile Water Confirm 02/18/22 18:16 Water For Injection,Sterile 10 Ml Vial Administered 02/18/22 18:17 Dose 10 ml IJ .STK-MED ONE Lab/Rad Data: Laboratory Result Diagrams 02/18/22 12:45 02/18/22 12:45 Laboratory Results 02/18/22 02/18/22 02/18/22 Range/Units 12:45 12:45 12:45 WBC (4.0-10.5) x10^3/uL RBC (4.1-5.4) x10^6/uL Hgb (12.0-16.0) g/dL Hct (35-47) % MCV (78-100) fL MCH (26-32) pg MCHC (32-36) g/dL RDW (11.5-14.0) % Plt Count (150-450) x10^3/uL MPV (7.5-11.0) fL Gran % (36.0-66.0) % Immature Gran % (Auto) (0.00-0.4) % Nucleat RBC Rel Count (0.00-0.1) % Eos # (Auto) (0-0.5) x10^3/uL Immature Gran # (Auto) (0.00-0.03) x10^3u/L Absolute Lymphs (auto) (1.0-4.6) x10^3/uL Absolute Monos (auto) (0.0-1.3) x10^3/uL Absolute Nucleated RBC (0.00-0.01) x10^3u/L Lymphocytes % (24.0-44.0) % Monocytes % (0.0-12.0) % Eosinophils % (0.00-5.0) % Basophils % (0.0-0.4) % Absolute Granulocytes (1.4-6.9) x10^3/uL Basophils # (0-0.4) x10^3/uL D-Dimer 0.49 (0.0-0.50) mg/L Sodium (137-145) mmol/L Potassium (3.5-5.1) mmol/L Chloride (98-107) mmol/L Carbon Dioxide (22-30) mmol/L Anion Gap (5-15) MEQ/L BUN (7-17) mg/dL Creatinine (0.52-1.04) mg/dL Estimated GFR ML/MIN Glucose (74-106) mg/dL Lactic Acid (0.4-2.0) Calcium (8.4-10.2) mg/dL Magnesium (1.6-2.3) mg/dL Total Bilirubin (0.2-1.3) mg/dL AST (14-36) U/L ALT (0-35) U/L Alkaline Phosphatase (38-126) U/L Troponin I 0.074 H* (0.000-0.034) ng/mL NT-Pro-B Natriuret Pep (0-900) pg/mL Serum Total Protein (6.3-8.2) g/dL Albumin (3.5-5.0) g/dL Procalcitonin 4.850 H* (0.030-0.080) ng/mL 02/18/22 02/18/22 02/18/22 Range/Units 12:45 12:45 12:08 WBC 16.7 H (4.0-10.5) x10^3/uL RBC 4.89 (4.1-5.4) x10^6/uL Hgb 14.9 (12.0-16.0) g/dL Hct 48.6 H (35-47) % MCV 99.4 (78-100) fL MCH 30.5 (26-32) pg MCHC 30.7 L (32-36) g/dL RDW 14.1 H (11.5-14.0) % Plt Count 256 (150-450) x10^3/uL MPV 9.7 (7.5-11.0) fL Gran % 83.4 H (36.0-66.0) % Immature Gran % (Auto) 0.5 H (0.00-0.4) % Nucleat RBC Rel Count 0.0 (0.00-0.1) % Eos # (Auto) 0.02 (0-0.5) x10^3/uL Immature Gran # (Auto) 0.09 H (0.00-0.03) x10^3u/L Absolute Lymphs (auto) 1.62 (1.0-4.6) x10^3/uL Absolute Monos (auto) 1.01 (0.0-1.3) x10^3/uL Absolute Nucleated RBC 0.00 (0.00-0.01) x10^3u/L Lymphocytes % 9.7 L (24.0-44.0) % Monocytes % 6.0 (0.0-12.0) % Eosinophils % 0.1 (0.00-5.0) % Basophils % 0.3 (0.0-0.4) % Absolute Granulocytes 13.92 H (1.4-6.9) x10^3/uL Basophils # 0.05 (0-0.4) x10^3/uL D-Dimer (0.0-0.50) mg/L Sodium 140 (137-145) mmol/L Potassium 4.2 (3.5-5.1) mmol/L Chloride 101 (98-107) mmol/L Carbon Dioxide 32 H (22-30) mmol/L Anion Gap 11.7 (5-15) MEQ/L BUN 18 H (7-17) mg/dL Creatinine 0.63 (0.52-1.04) mg/dL Estimated GFR > 60.0 ML/MIN Glucose 108 H (74-106) mg/dL Lactic Acid 1.5 (0.4-2.0) Calcium 9.4 (8.4-10.2) mg/dL Magnesium 1.9 (1.6-2.3) mg/dL Total Bilirubin 0.80 (0.2-1.3) mg/dL AST 35 (14-36) U/L ALT 54 H (0-35) U/L Alkaline Phosphatase 104 (38-126) U/L Troponin I (0.000-0.034) ng/mL NT-Pro-B Natriuret Pep 3000 H (0-900) pg/mL Serum Total Protein 6.7 (6.3-8.2) g/dL Albumin 3.9 (3.5-5.0) g/dL Procalcitonin (0.030-0.080) ng/mL - Progress Progress: re-examined Air Movement: fair Progress Note: 02/18/22 14:15 She is given DuoNeb and Solu-Medrol, on reevaluation feeling better and oxygen saturation around 96% on 4 L which she is normally on. EKG showed sinus rhythm with no acute ischemic changes. White count of 16 with a lactate normal and procalcitonin of 4.8. Chest x-ray showing bilateral infiltrative process/airspace disease and started on antibiotics. Patient has initial troponin 1.074 with elevated BNP and chest x-ray did show some congestion as well. Patient does not have any chest pain, given aspirin. Discussed with Dr. Barrett, reviewed history, work-up including elevated troponin and patient is excepted for admission. Blood Culture(s) Obtained: Yes Antibiotics given: Yes Discussed with : Frances Will see patient in: hospital (observation) Counseled pt/family regarding: lab results, diagnosis, rad results, smoking cessation - Departure Departure Disposition: Observation Clinical Impression: Bilateral pneumonia, Elevated troponin, Respiratory failure Condition: Stable Critical Care Time: No
[2022-02-18] MEDS ORDERED: TYLENOL 325 MG PO PRN (16:05)
[2022-02-18] MEDS: solu-MEDROL 60 MG, Sterile H2O 10 ml 2 ML IV SCH ×4 (18:28→23:45)
--- NOTE | 2022-02-18 19:52 | XRAY ---
Indication: Cough. Short of breath. Comparison: August 17, 2021 Portable chest demonstrates new bilateral mid to lower lung infiltrates and new small bibasilar effusions. Remaining heart and lungs unremarkable. Bony thorax intact again with osteopenia. Stable CT proven large calcified splenic cyst.
[2022-02-18] MEDS: DUONEB 0.5-3 MG/3 ml Neb IH SCH (19:54)
[2022-02-18] MEDS ORDERED: MELOXICAM PO ONE (21:00)
[2022-02-19] MEDS: DUONEB 0.5-3 MG/3 ml Neb IH SCH ×4 (01:45→19:10)
[2022-02-19 05:05] LABS: Basophil (Absolute #) 0.03 x10^3/uL (0-0.4); Eosinophil (Absolute #) 0 x10^3/uL (0-0.5); Hematocrit 45.7 % (35-47); Hemoglobin 14.4 g/dL (12.0-16.0); Lymphocyte (Absolute #) 0.85 x10^3/uL (1.0-4.6); Lymphocytes % 6.6 % (24.0-44.0); Mean Cell Volume 99.6 fL (78-100); Mean Corpuscular Hemoglobin 31.4 pg (26-32); Mean Corpuscular Hgb Concent. 31.5 g/dL (32-36); Mean Platelet Volume 9.8 fL (7.5-11.0); Monocyte (Absolute #) 0.13 x10^3/uL (0.0-1.3); Neutrophil % 91.6 % (36.0-66.0); Platelet Count 248 x10^3/uL (150-450); Red Blood Count 4.59 x10^6/uL (4.1-5.4); White Blood Count 12.9 x10^3/uL (4.0-10.5)
[2022-02-19] MEDS ORDERED: solu-MEDROL ONE (05:31)
[2022-02-19] MEDS: solu-MEDROL 60 MG, Sterile H2O 10 ml 2 ML IV SCH ×8 (05:35→23:52)
[2022-02-19 05:40] LABS: ALBUMIN 3.8 g/dL (3.5-5.0); ALKALINE PHOSPHATASE 93 U/L (38-126); ANION GAP 6.2 MEQ/L (5-15); BLOOD UREA NITROGEN 22 mg/dL (7-17); CHLORIDE 101 mmol/L (98-107); Calcium 8.3 mg/dL (8.4-10.2); Carbon Dioxide 35 mmol/L (22-30); Creatinine 1 0.53 mg/dL (0.52-1.04); EST GLOMERULAR FILTRATION RATE > 60.0 ML/MIN; Glucose 184 mg/dL (74-106); Potassium 4.9 mmol/L (3.5-5.1); SGOT/AST 32 U/L (14-36); SGPT/ALT 52 U/L (0-35); SODIUM 138 mmol/L (137-145); Total Protein 6.9 g/dL (6.3-8.2)
[2022-02-19] MEDS ORDERED: VENTOLIN COMMON CANISTER IH PRN (07:00)
--- NOTE | 2022-02-19 07:52 | PCM.HP ---
History of Present Illness - Chief Complaint Chief Complaint: shortness of breath for 1-2 days History of Present Illness: is a 56 year old female.with history of chronic respiratory failure on 4 L oxygen especially at nighttime, tobacco abuse, COPD presented in the ER with chief complaint of increasing cough and shortness of breath for the last couple of days with progressive worsening. Patient reports coughing up green sputum copious in amount with associated chest tightness and pressure. Denies any chest pain. Subjective feeling of fever and chills. Denies any lower extremity swelling or history of congestive heart failure. Timing/Duration: day(s) (2), gradual onset, worse Activities at Onset: activity Severity of Dyspnea-Max: moderate Severity of Dyspnea-Current: moderate Possible Cause: unknown cause Modifying Factors: Improves With: oxygen. Worsens With: activity, coughing, exertion Associated Symptoms: cough, chest pain/discomfort, dizziness, productive cough, No fever - Review of Systems Constitutional: No Fever, No Chills Eyes: No Symptoms Ears, Nose, & Throat: No Symptoms Respiratory: Orthopnea, Short Of Breath, Wheezing Cardiac: Chest Pain, No Edema, No Syncope Abdominal/Gastrointestinal: No Abdominal Pain, No Nausea, No Vomiting, No Diarrhea Genitourinary Symptoms: No Dysuria Musculoskeletal: No Back Pain, No Neck Pain Skin: No Rash Neurological: No Dizziness, No Focal Weakness, No Sensory Changes Psychological: No Symptoms Endocrine: No Symptoms Hematologic/Lymphatic: No Symptoms Immunological/Allergic: No Symptoms Medications & Allergies Home Medications: Home Medication List Synthroid 125 Mcg 125 mcg PO DAILY 12/11/11 [History Confirmed 02/18/22] Gabapentin [Neurontin ] 300 mg PO DAILY 08/14/21 [History Confirmed 02/18/22] Meloxicam 15 mg [Meloxicam 15 MG] 7.5 mg PO BID 08/14/21 [History Confirmed 02/18/22] Tolterodine Tartrate [Detrol LA] 4 mg PO DAILY 08/14/21 [History Confirmed 02/18/22] Albuterol Sulfate [Albuterol Sulfate Hfa] 2 inh PO Q6H 02/18/22 [History Confirmed 02/18/22] Allergies/Adverse Reactions: Allergies Allergy/AdvReac Type Severity Reaction Status Date / Time No Known Drug Allergies Allergy Verified 02/18/22 12:52 - Past Medical History Past Medical History: Yes Neurological History: No Pertinent History ENT History: No Pertinent History Cardiac History: No Pertinent History Respiratory History: COPD, Sleep Apnea Endocrine Medical History: No Pertinent History Musculoskelatal History: No Pertinent History GI Medical History: No Pertinent History History: No Pertinent History Pyscho-Social History: No Pertinent History Reproductive Disorders: Cervical Cancer Comment: history of cervical cancer - Past Surgical History Past Surgical History: Yes (thyroidectomy) Neuro Surgical History: No Pertinent History Cardiac History: No Pertinent History Respiratory Surgery: No Pertinent History GI Surgical History: No Pertinent History Genitourinary Surgical Hx: No Pertinent History Musculskeletal Surgical Hx: No Pertinent History Female Surgical History: Tubal Ligation Other Surgical History: THYROID REMOVAL - Social History Smoking Status: Current every day smoker How long have you smoked: 25 years Exposure to second hand smoke: Yes ( smokes also) Alcohol: Weekly Drug Use: none - Physical Exam Vital Signs: Vital Signs - 24 hr Temp Pulse Resp BP Pulse Ox 02/19/22 07:08 62 18 90 L 02/19/22 07:00 97.9 F 69 13 139/73 95 02/19/22 04:00 52 L 18 135/68 96 02/19/22 02:17 71 18 93 L 02/18/22 23:53 97.8 F 75 17 145/68 95 02/18/22 22:48 98 02/18/22 19:54 70 21 93 L 02/18/22 19:49 97.1 F 77 16 156/74 96 02/18/22 16:35 95 02/18/22 16:28 72 20 96 02/18/22 16:05 97.1 F 74 22 151/70 90 L 02/18/22 16:00 97.1 F 74 18 151/70 90 L 02/18/22 15:03 70 20 140/77 93 L 02/18/22 14:19 63 141/79 93 L 02/18/22 13:42 70 18 140/85 98 02/18/22 13:12 73 20 95 02/18/22 12:41 86 152/108 97 General Appearance: no apparent distress, alert Neurologic Exam: alert, oriented x 3, cooperative, normal mood/affect, nml cerebellar function, nml station & gait, sensation nml, No motor deficits Eye Exam: PERRL/EOMI, eyes nml inspection Ears, Nose, Throat Exam: normal ENT inspection, TMs normal, pharynx normal, moist mucous membranes Neck Exam: normal inspection, non-tender, supple, full range of motion Respiratory Exam: diminished breath sounds, crackles/rales, rhonchi, wheezing, No respiratory distress Cardiovascular Exam: regular rate/rhythm, normal heart sounds, normal peripheral pulses Gastrointestinal/Abdomen Exam: soft, normal bowel sounds, No tenderness, No mass Back Exam: normal inspection, normal range of motion, No CVA tenderness, No vertebral tenderness Extremity Exam: normal inspection, normal range of motion, pelvis stable Skin Exam: normal color, warm, dry, No rash Lymphatic Exam: No adenopathy Results - Labs Lab/Micro Results: Lab Results-Last 24 Hours 02/18/22 02/18/22 02/18/22 Range/Units 12:08 12:45 12:45 WBC 16.7 H (4.0-10.5) x10^3/uL RBC 4.89 (4.1-5.4) x10^6/uL Hgb 14.9 (12.0-16.0) g/dL Hct 48.6 H (35-47) % MCV 99.4 (78-100) fL MCH 30.5 (26-32) pg MCHC 30.7 L (32-36) g/dL RDW 14.1 H (11.5-14.0) % Plt Count 256 (150-450) x10^3/uL MPV 9.7 (7.5-11.0) fL Gran % 83.4 H (36.0-66.0) % Immature Gran % (Auto) 0.5 H (0.00-0.4) % Nucleat RBC Rel Count 0.0 (0.00-0.1) % Eos # (Auto) 0.02 (0-0.5) x10^3/uL Immature Gran # (Auto) 0.09 H (0.00-0.03) x10^3u/L Absolute Lymphs (auto) 1.62 (1.0-4.6) x10^3/uL Absolute Monos (auto) 1.01 (0.0-1.3) x10^3/uL Absolute Nucleated RBC 0.00 (0.00-0.01) x10^3u/L Lymphocytes % 9.7 L (24.0-44.0) % Monocytes % 6.0 (0.0-12.0) % Eosinophils % 0.1 (0.00-5.0) % Basophils % 0.3 (0.0-0.4) % Absolute Granulocytes 13.92 H (1.4-6.9) x10^3/uL Basophils # 0.05 (0-0.4) x10^3/uL D-Dimer (0.0-0.50) mg/L Sodium 140 (137-145) mmol/L Potassium 4.2 (3.5-5.1) mmol/L Chloride 101 (98-107) mmol/L Carbon Dioxide 32 H (22-30) mmol/L Anion Gap 11.7 (5-15) MEQ/L BUN 18 H (7-17) mg/dL Creatinine 0.63 (0.52-1.04) mg/dL Estimated GFR > 60.0 ML/MIN Glucose 108 H (74-106) mg/dL Lactic Acid 1.5 (0.4-2.0) Calcium 9.4 (8.4-10.2) mg/dL Magnesium 1.9 (1.6-2.3) mg/dL Total Bilirubin 0.80 (0.2-1.3) mg/dL AST 35 (14-36) U/L ALT 54 H (0-35) U/L Alkaline Phosphatase 104 (38-126) U/L Troponin I (0.000-0.034) ng/mL NT-Pro-B Natriuret Pep 3000 H (0-900) pg/mL Serum Total Protein 6.7 (6.3-8.2) g/dL Albumin 3.9 (3.5-5.0) g/dL Procalcitonin (0.030-0.080) ng/mL 02/18/22 02/18/22 02/18/22 Range/Units 12:45 12:45 12:45 WBC (4.0-10.5) x10^3/uL RBC (4.1-5.4) x10^6/uL Hgb (12.0-16.0) g/dL Hct (35-47) % MCV (78-100) fL MCH (26-32) pg MCHC (32-36) g/dL RDW (11.5-14.0) % Plt Count (150-450) x10^3/uL MPV (7.5-11.0) fL Gran % (36.0-66.0) % Immature Gran % (Auto) (0.00-0.4) % Nucleat RBC Rel Count (0.00-0.1) % Eos # (Auto) (0-0.5) x10^3/uL Immature Gran # (Auto) (0.00-0.03) x10^3u/L Absolute Lymphs (auto) (1.0-4.6) x10^3/uL Absolute Monos (auto) (0.0-1.3) x10^3/uL Absolute Nucleated RBC (0.00-0.01) x10^3u/L Lymphocytes % (24.0-44.0) % Monocytes % (0.0-12.0) % Eosinophils % (0.00-5.0) % Basophils % (0.0-0.4) % Absolute Granulocytes (1.4-6.9) x10^3/uL Basophils # (0-0.4) x10^3/uL D-Dimer 0.49 (0.0-0.50) mg/L Sodium (137-145) mmol/L Potassium (3.5-5.1) mmol/L Chloride (98-107) mmol/L Carbon Dioxide (22-30) mmol/L Anion Gap (5-15) MEQ/L BUN (7-17) mg/dL Creatinine (0.52-1.04) mg/dL Estimated GFR ML/MIN Glucose (74-106) mg/dL Lactic Acid (0.4-2.0) Calcium (8.4-10.2) mg/dL Magnesium (1.6-2.3) mg/dL Total Bilirubin (0.2-1.3) mg/dL AST (14-36) U/L ALT (0-35) U/L Alkaline Phosphatase (38-126) U/L Troponin I 0.074 H* (0.000-0.034) ng/mL NT-Pro-B Natriuret Pep (0-900) pg/mL Serum Total Protein (6.3-8.2) g/dL Albumin (3.5-5.0) g/dL Procalcitonin 4.850 H* (0.030-0.080) ng/mL 02/18/22 02/18/22 02/19/22 Range/Units 17:20 21:27 04:48 WBC 12.9 H (4.0-10.5) x10^3/uL RBC 4.59 (4.1-5.4) x10^6/uL Hgb 14.4 (12.0-16.0) g/dL Hct 45.7 (35-47) % MCV 99.6 (78-100) fL MCH 31.4 (26-32) pg MCHC 31.5 L (32-36) g/dL RDW 14.0 (11.5-14.0) % Plt Count 248 (150-450) x10^3/uL MPV 9.8 (7.5-11.0) fL Gran % 91.6 H (36.0-66.0) % Immature Gran % (Auto) 0.6 H (0.00-0.4) % Nucleat RBC Rel Count 0.0 (0.00-0.1) % Eos # (Auto) 0 (0-0.5) x10^3/uL Immature Gran # (Auto) 0.08 H (0.00-0.03) x10^3u/L Absolute Lymphs (auto) 0.85 L (1.0-4.6) x10^3/uL Absolute Monos (auto) 0.13 (0.0-1.3) x10^3/uL Absolute Nucleated RBC 0.00 (0.00-0.01) x10^3u/L Lymphocytes % 6.6 L (24.0-44.0) % Monocytes % 1.0 (0.0-12.0) % Eosinophils % 0.0 (0.00-5.0) % Basophils % 0.2 (0.0-0.4) % Absolute Granulocytes 11.80 H (1.4-6.9) x10^3/uL Basophils # 0.03 (0-0.4) x10^3/uL D-Dimer (0.0-0.50) mg/L Sodium (137-145) mmol/L Potassium (3.5-5.1) mmol/L Chloride (98-107) mmol/L Carbon Dioxide (22-30) mmol/L Anion Gap (5-15) MEQ/L BUN (7-17) mg/dL Creatinine (0.52-1.04) mg/dL Estimated GFR ML/MIN Glucose (74-106) mg/dL Lactic Acid (0.4-2.0) Calcium (8.4-10.2) mg/dL Magnesium (1.6-2.3) mg/dL Total Bilirubin (0.2-1.3) mg/dL AST (14-36) U/L ALT (0-35) U/L Alkaline Phosphatase (38-126) U/L Troponin I 0.055 H* 0.048 H* (0.000-0.034) ng/mL NT-Pro-B Natriuret Pep (0-900) pg/mL Serum Total Protein (6.3-8.2) g/dL Albumin (3.5-5.0) g/dL Procalcitonin (0.030-0.080) ng/mL 02/19/22 Range/Units 04:48 WBC (4.0-10.5) x10^3/uL RBC (4.1-5.4) x10^6/uL Hgb (12.0-16.0) g/dL Hct (35-47) % MCV (78-100) fL MCH (26-32) pg MCHC (32-36) g/dL RDW (11.5-14.0) % Plt Count (150-450) x10^3/uL MPV (7.5-11.0) fL Gran % (36.0-66.0) % Immature Gran % (Auto) (0.00-0.4) % Nucleat RBC Rel Count (0.00-0.1) % Eos # (Auto) (0-0.5) x10^3/uL Immature Gran # (Auto) (0.00-0.03) x10^3u/L Absolute Lymphs (auto) (1.0-4.6) x10^3/uL Absolute Monos (auto) (0.0-1.3) x10^3/uL Absolute Nucleated RBC (0.00-0.01) x10^3u/L Lymphocytes % (24.0-44.0) % Monocytes % (0.0-12.0) % Eosinophils % (0.00-5.0) % Basophils % (0.0-0.4) % Absolute Granulocytes (1.4-6.9) x10^3/uL Basophils # (0-0.4) x10^3/uL D-Dimer (0.0-0.50) mg/L Sodium 138 (137-145) mmol/L Potassium 4.9 (3.5-5.1) mmol/L Chloride 101 (98-107) mmol/L Carbon Dioxide 35 H (22-30) mmol/L Anion Gap 6.2 (5-15) MEQ/L BUN 22 H (7-17) mg/dL Creatinine 0.53 (0.52-1.04) mg/dL Estimated GFR > 60.0 ML/MIN Glucose 184 H (74-106) mg/dL Lactic Acid (0.4-2.0) Calcium 8.3 L (8.4-10.2) mg/dL Magnesium (1.6-2.3) mg/dL Total Bilirubin 0.30 (0.2-1.3) mg/dL AST 32 (14-36) U/L ALT 52 H (0-35) U/L Alkaline Phosphatase 93 (38-126) U/L Troponin I (0.000-0.034) ng/mL NT-Pro-B Natriuret Pep (0-900) pg/mL Serum Total Protein 6.9 (6.3-8.2) g/dL Albumin 3.8 (3.5-5.0) g/dL Procalcitonin (0.030-0.080) ng/mL - Radiology Impressions Radiology Exams & Impressions: Radiology Procedures Category Date Time Status CHEST 1 VIEW (PORTABLE) Stat Exams 02/18/22 13:27 Completed - Other Procedures and Tests Respiratory Therapy 02/18/22 13:12 Respiratory Therapy Assessment DAILY 02/18/22 16:28 Oxygen Nasal Cannula 3 lpm 02/18/22 16:29 Flutter Therapy UD Assessment/Plan (1) Respiratory failure Current Visit: Yes Status: Acute Qualifiers: Chronicity: acute Respiratory failure complication: hypoxia and hypercapnia Qualified Code(s): J96.01 - Acute respiratory failure with hypoxia; J96.02 - Acute respiratory failure with hypercapnia Assessment & Plan: Chief Complaint Diagnosis Bilateral pneumonia Allergies Allergy/AdvReac Type Severity Reaction Status Date / Time No Known Drug Allergies Allergy Verified 02/18/22 12:52 Vital Signs (Last 24 hours) Temp Pulse Resp BP Pulse Ox 02/19/22 07:08 62 18 90 L 02/19/22 07:00 97.9 F 69 13 139/73 95 02/19/22 04:00 52 L 18 135/68 96 02/19/22 02:17 71 18 93 L 02/18/22 23:53 97.8 F 75 17 145/68 95 02/18/22 22:48 98 02/18/22 19:54 70 21 93 L 02/18/22 19:49 97.1 F 77 16 156/74 96 02/18/22 16:35 95 02/18/22 16:28 72 20 96 02/18/22 16:05 97.1 F 74 22 151/70 90 L 02/18/22 16:00 97.1 F 74 18 151/70 90 L 02/18/22 15:03 70 20 140/77 93 L 02/18/22 14:19 63 141/79 93 L 02/18/22 13:42 70 18 140/85 98 02/18/22 13:12 73 20 95 02/18/22 12:41 86 152/108 97 Home Medications Medication Instructions Recorded Confirmed Last Taken Type Albuterol Sulfate [Albuterol 2 inh PO Q6H 02/18/22 02/18/22 02/18/22 History Sulfate Hfa] Current Medications Generic Name Dose Route Start Last Admin Trade Name Freq PRN Reason Stop Dose Admin Acetaminophen 650 mg 02/18/22 16:05 Acetaminophen 325 Mg Tablet PO 03/20/22 16:04 Q4H PRN PRN PAIN AND/OR FEVER Albuterol Sulfate 2 puff 02/19/22 07:00 Albuterol Common Canister Inhaler 03/21/22 06:59 Q6H PRN PRN sob Albuterol/Ipratropium 3 ml 02/18/22 19:00 02/19/22 07:04 Ipratropium/Albuterol Sulfate 3 Ml Ampul.Neb 03/20/22 18:59 3 ml Q6HRT PRICILLA Administration Methylprednisolone Sodium 0 mg 02/18/22 18:00 02/19/22 05:35 Succinate 60 mg/ Sterile Water IV 03/20/22 17:59 60 mg 2 ml Q6HT PRICILLA Administration Enoxaparin Sodium 40 mg 02/19/22 10:00 Enoxaparin Sodium 40 Mg/0.4 Ml Syringe SQ 03/21/22 09:59 DAILY PRICILLA Gabapentin 300 mg 02/19/22 10:00 Gabapentin 300 Mg Capsule PO 03/21/22 09:59 DAILY PRICILLA Azithromycin 500 mg in 250 mls @ 250 mls/hr 02/19/22 10:00 Zithromax 500 Mg/ 250 Ml Nacl Premix IV 03/21/22 09:59 Q24H10 [facility] Ceftriaxone Sodium/Dextrose 2 g in 50 mls @ 100 mls/hr 02/19/22 10:00 Rocephin 2 Gm-D5w 50ml Bag IV 02/22/22 09:59 Q24H10 [facility] Levothyroxine Sodium 125 mcg 02/19/22 10:00 Levothyroxine Sodium 125 Mcg Tablet PO 03/21/22 09:59 DAILY [facility] Meloxicam 7.5 mg 02/19/22 10:00 Meloxicam 7.5 Mg Tablet PO 03/21/22 09:59 BID [facility] Oxybutynin Chloride 10 mg 02/19/22 10:00 Oxybutynin Chloride Xl 5 Mg Tab PO 03/21/22 09:59 DAILY [facility] Pantoprazole Sodium 40 mg 02/19/22 10:00 Pantoprazole 40 Mg Vial IV 03/21/22 09:59 Q24H10 [facility] Discontinued Medications Generic Name Dose Route Start Last Admin Trade Name Freq PRN Reason Stop Dose Admin Albuterol/Ipratropium 3 ml 02/18/22 12:58 02/18/22 13:04 Ipratropium/Albuterol Sulfate 3 Ml Ampul.Neb IH 02/18/22 12:59 3 ml STAT ONE Administration Albuterol/Ipratropium Confirm 02/18/22 13:03 Ipratropium/Albuterol Sulfate 3 Ml Ampul.Neb Administered 02/18/22 13:04 Dose 3 ml IH .STK-MED ONE Aspirin 324 mg 02/18/22 14:07 02/18/22 14:11 Aspirin 81 Mg Tab.Chew PO 02/18/22 14:08 324 mg STAT ONE Administration Aspirin Confirm 02/18/22 14:06 Aspirin 81 Mg Tab.Chew Administered 02/18/22 14:07 Dose 324 mg .ROUTE .STK-MED ONE Methylprednisolone Sodium 0 mg 02/18/22 12:58 02/18/22 13:20 Succinate 125 mg/ Sterile IV 02/18/22 12:59 125 mg Water 2 ml STAT ONE Administration Ceftriaxone Sodium/Dextrose 2 g in 50 mls @ 100 mls/hr 02/18/22 13:53 02/18/22 14:41 Rocephin 2 Gm-D5w 50ml Bag IV 02/18/22 14:22 Infused STAT STA Infusion Azithromycin 500 mg in 250 mls @ 250 mls/hr 02/18/22 13:53 02/18/22 15:02 Zithromax 500 Mg/ 250 Ml Nacl Premix IV 02/18/22 14:52 250 mls/hr STAT STA 250 mls/hr Administration Azithromycin Confirm 02/18/22 14:07 Zithromax 500 Mg/ 250 Ml Nacl Premix Administered 02/18/22 14:08 Dose 500 mg in 250 mls @ ud IV .STK-MED ONE Ceftriaxone Sodium/Dextrose Confirm 02/18/22 14:07 Rocephin 2 Gm-D5w 50ml Bag Administered 02/18/22 14:08 Dose 2 g in 50 mls @ ud IV .STK-MED ONE Meloxicam 7.5 mg 02/18/22 21:00 02/18/22 21:02 Meloxicam 7.5 Mg Tablet PO 02/18/22 21:01 Not Given ONCE ONE Methylprednisolone Sodium Succinate Confirm 02/18/22 13:16 Methylprednis Sod Succ 125 Mg/2 Ml Vial Administered 02/18/22 13:17 Dose 125 mg .ROUTE .STK-MED ONE Methylprednisolone Sodium Succinate Confirm 02/18/22 18:16 Methylprednis Sod Succ 125 Mg/2 Ml Vial Administered 02/18/22 18:17 Dose 125 mg .ROUTE .STK-MED ONE Methylprednisolone Sodium Succinate Confirm 02/18/22 23:06 Methylprednis Sod Succ 125 Mg/2 Ml Vial Administered 02/18/22 23:07 Dose 125 mg .ROUTE .STK-MED ONE Methylprednisolone Sodium Succinate Confirm 02/19/22 05:31 Methylprednis Sod Succ 125 Mg/2 Ml Vial Administered 02/19/22 05:32 Dose 125 mg .ROUTE .STK-MED ONE Sterile Water Confirm 02/18/22 13:16 Water For Injection,Sterile 10 Ml Vial Administered 02/18/22 13:17 Dose 10 ml IJ .STK-MED ONE Sterile Water Confirm 02/18/22 18:16 Water For Injection,Sterile 10 Ml Vial Administered 02/18/22 18:17 Dose 10 ml IJ .STK-MED ONE Sterile Water Confirm 02/18/22 23:07 Water For Injection,Sterile 10 Ml Vial Administered 02/18/22 23:08 Dose 10 ml IJ .STK-MED ONE Intake & Output (Last 24 hours) 02/16/22 02/17/22 02/18/22 02/19/22 11:59 11:59 11:59 11:59 Intake Total 900 Balance 900 Weight 79 kg Microbiology Results (Last 24 hours) 02/18/22 14:25 Blood Blood Culture Gram Stain - Pending 02/18/22 14:25 Blood Blood Culture - Pending 02/18/22 14:15 Blood Blood Culture Gram Stain - Pending 02/18/22 14:15 Blood Blood Culture - Pending Laboratory Results (Last 24 hours) 02/19/22 02/19/22 02/18/22 04:48 04:48 21:27 WBC 12.9 H RBC 4.59 Hgb 14.4 Hct 45.7 MCV 99.6 MCH 31.4 MCHC 31.5 L RDW 14.0 Plt Count 248 MPV 9.8 Gran % 91.6 H Immature Gran % (Auto) 0.6 H Nucleat RBC Rel Count 0.0 Eos # (Auto) 0 Immature Gran # (Auto) 0.08 H Absolute Lymphs (auto) 0.85 L Absolute Monos (auto) 0.13 Absolute Nucleated RBC 0.00 Lymphocytes % 6.6 L Monocytes % 1.0 Eosinophils % 0.0 Basophils % 0.2 Absolute Granulocytes 11.80 H Basophils # 0.03 D-Dimer Sodium 138 Potassium 4.9 Chloride 101 Carbon Dioxide 35 H Anion Gap 6.2 BUN 22 H Creatinine 0.53 Estimated GFR > 60.0 Glucose 184 H Lactic Acid Calcium 8.3 L Magnesium Total Bilirubin 0.30 AST 32 ALT 52 H Alkaline Phosphatase 93 Troponin I 0.048 H* NT-Pro-B Natriuret Pep Serum Total Protein 6.9 Albumin 3.8 Procalcitonin 02/18/22 02/18/22 02/18/22 17:20 12:45 12:45 WBC RBC Hgb Hct MCV MCH MCHC RDW Plt Count MPV Gran % Immature Gran % (Auto) Nucleat RBC Rel Count Eos # (Auto) Immature Gran # (Auto) Absolute Lymphs (auto) Absolute Monos (auto) Absolute Nucleated RBC Lymphocytes % Monocytes % Eosinophils % Basophils % Absolute Granulocytes Basophils # D-Dimer 0.49 Sodium Potassium Chloride Carbon Dioxide Anion Gap BUN Creatinine Estimated GFR Glucose Lactic Acid Calcium Magnesium Total Bilirubin AST ALT Alkaline Phosphatase Troponin I 0.055 H* NT-Pro-B Natriuret Pep Serum Total Protein Albumin Procalcitonin 4.850 H* 02/18/22 02/18/22 02/18/22 12:45 12:45 12:45 WBC 16.7 H RBC 4.89 Hgb 14.9 Hct 48.6 H MCV 99.4 MCH 30.5 MCHC 30.7 L RDW 14.1 H Plt Count 256 MPV 9.7 Gran % 83.4 H Immature Gran % (Auto) 0.5 H Nucleat RBC Rel Count 0.0 Eos # (Auto) 0.02 Immature Gran # (Auto) 0.09 H Absolute Lymphs (auto) 1.62 Absolute Monos (auto) 1.01 Absolute Nucleated RBC 0.00 Lymphocytes % 9.7 L Monocytes % 6.0 Eosinophils % 0.1 Basophils % 0.3 Absolute Granulocytes 13.92 H Basophils # 0.05 D-Dimer Sodium 140 Potassium 4.2 Chloride 101 Carbon Dioxide 32 H Anion Gap 11.7 BUN 18 H Creatinine 0.63 Estimated GFR > 60.0 Glucose 108 H Lactic Acid Calcium 9.4 Magnesium 1.9 Total Bilirubin 0.80 AST 35 ALT 54 H Alkaline Phosphatase 104 Troponin I 0.074 H* NT-Pro-B Natriuret Pep 3000 H Serum Total Protein 6.7 Albumin 3.9 Procalcitonin 02/18/22 12:08 WBC RBC Hgb Hct MCV MCH MCHC RDW Plt Count MPV Gran % Immature Gran % (Auto) Nucleat RBC Rel Count Eos # (Auto) Immature Gran # (Auto) Absolute Lymphs (auto) Absolute Monos (auto) Absolute Nucleated RBC Lymphocytes % Monocytes % Eosinophils % Basophils % Absolute Granulocytes Basophils # D-Dimer Sodium Potassium Chloride Carbon Dioxide Anion Gap BUN Creatinine Estimated GFR Glucose Lactic Acid 1.5 Calcium Magnesium Total Bilirubin AST ALT Alkaline Phosphatase Troponin I NT-Pro-B Natriuret Pep Serum Total Protein Albumin Procalcitonin Orders (Last 24 hours) Category Date Time Status Bedrest ROUTINE Activity 02/18/22 16:05 Active Up With Assistance ROUTINE Activity 02/18/22 16:05 Active Sales Force Administrator STAT Care 02/18/22 12:59 Completed Code Status Order ROUTINE Care 02/18/22 16:05 Active EKG-ER Only STAT Care 02/18/22 12:58 Completed Fall Protocol Q1H Care 02/18/22 16:05 Active IV Care Q6H Care 02/18/22 16:05 Active IV Insertion STAT Care 02/18/22 12:58 Completed Oxygen-ED Only Nasal Cannula 4 lpm Care 02/18/22 12:[address] in Observation ROUTINE Care 02/18/22 16:05 Active [place], Apply ROUTINE Care 02/18/22 16:05 Active Weight,Daily 0600 Care 02/18/22 16:05 Active Policy Writer Typist/Discharge Plan ROUTINE Cons 02/19/22 08:00 Active Heart-Healthy Diet Diet 02/18/22 Dinner Active CHEST 1 VIEW (PORTABLE) Stat Exams 02/18/22 13:27 Completed BLOOD CULTURE Stat Lab 02/18/22 14:25 Received CBC W DIFF AM.LAB Lab 02/19/22 04:48 Completed CBC W DIFF Stat Lab 02/18/22 12:45 Completed CMP AM.LAB Lab 02/19/22 04:48 Completed CMP Stat Lab 02/18/22 12:45 Completed D-DIMER QUANTITATIVE Stat Lab 02/18/22 12:45 Completed Lactic Acid Stat Lab 02/18/22 12:08 Completed MAGNESIUM Stat Lab 02/18/22 12:45 Completed NT PRO BNP Stat Lab 02/18/22 12:45 Completed PROCALCITONIN Stat Lab 02/18/22 12:45 Completed TROPONIN Q4H Lab 02/18/22 12:45 Completed TROPONIN Q4H Lab 02/18/22 17:20 Completed TROPONIN Q4H Lab 02/18/22 21:27 Completed Acetaminophen 325 mg [Tylenol 325 mg] Med 02/18/22 16:05 Active 650 mg PO Q4H PRN PRN Albuterol Common Canister [Ventolin Common Canister* Med 02/19/22 07:00 Active ] 2 puff IH Q6H PRN PRN Albuterol/Ipratropium 3ml Neb* [DUONEB 0.5-3 MG/3 ml Med 02/18/22 13:03 Discontinued Neb] 3 ml IH .STK-MED ONE Albuterol/Ipratropium 3ml Neb* [DUONEB 0.5-3 MG/3 ml Med 02/18/22 19:00 Active Neb] 3 ml IH Q6HRT Albuterol/Ipratropium 3ml Neb* [DUONEB 0.5-3 MG/3 ml Med 02/18/22 12:58 Discontinued Neb] 3 ml IH STAT ONE Aspirin 81 gm Chew [Baby Aspirin 81 mg Chew] Med 02/18/22 14:06 Discontinued 324 mg .ROUTE .STK-MED ONE Aspirin 81 gm Chew [Baby Aspirin 81 mg Chew] Med 02/18/22 14:07 Discontinued 324 mg PO STAT ONE Azithromycin 500 mg/250 ml [Zithromax 500 MG/ 250 ML Med 02/19/22 10:00 Active NaCl Premix] 500 mg in 250 ml IV Q24H10 Azithromycin 500 mg/250 ml [Zithromax 500 MG/ 250 ML Med 02/18/22 13:53 Discontinued NaCl Premix] 500 mg in 250 ml IV STAT Azithromycin 500 mg/250 ml [Zithromax 500 MG/ 250 ML Med 02/18/22 14:07 Discontinued NaCl Premix] 500 mg in 250 ml IV UD Ceftriaxone 2 GM/50 ML PREMIX* [ROCEPHIN 2 Gm-D5w 50ML Med 02/19/22 10:00 Active BAG] 2 g in 50 ml IV Q24H10 Ceftriaxone 2 GM/50 ML PREMIX* [ROCEPHIN 2 Gm-D5w 50ML Med 02/18/22 13:53 Discontinued BAG] 2 g in 50 ml IV STAT Ceftriaxone 2 GM/50 ML PREMIX* [ROCEPHIN 2 Gm-D5w 50ML Med 02/18/22 14:07 Discontinued BAG] 2 g in 50 ml IV UD Enoxaparin Sodium [Enoxaparin Sodium] Med 02/19/22 10:00 Active 40 mg SQ DAILY Gabapentin [Neurontin ] Med 02/19/22 10:00 Active 300 mg PO DAILY Levothyroxine Sodium 125 Mcg [Synthroid 125 Mcg] Med 02/19/22 10:00 Active 125 mcg PO DAILY Meloxicam Med 02/19/22 10:00 Active 7.5 mg PO BID Meloxicam Med 02/18/22 21:00 Discontinued 7.5 mg PO ONCE ONE Methylprednis Sod Succ 125 mg* [solu-MEDROL] Med 02/18/22 13:16 Discontinued 125 mg .ROUTE .STK-MED ONE Methylprednis Sod Succ 125 mg* [solu-MEDROL] Med 02/18/22 18:16 Discontinued 125 mg .ROUTE .STK-MED ONE Methylprednis Sod Succ 125 mg* [solu-MEDROL] Med 02/18/22 23:06 Discontinued 125 mg .ROUTE .STK-MED ONE Methylprednis Sod Succ 125 mg* [solu-MEDROL] Med 02/19/22 05:31 Discontinued 125 mg .ROUTE .STK-MED ONE Methylprednis Sod Succ 125 mg* [solu-MEDROL] 125 mg Med 02/18/22 12:58 Discontinued Water For Injection,Sterile [Sterile H2O 10 ml] 2 ml IV STAT Methylprednis Sod Succ 125 mg* [solu-MEDROL] 60 mg Med 02/18/22 18:00 Active Water For Injection,Sterile [Sterile H2O 10 ml] 2 ml IV Q6HT Oxybutynin Chloride Xl 5 mg [Ditropan XL 5 MG] Med 02/19/22 10:00 Active 10 mg PO DAILY Pantoprazole 40 mg [Protonix 40 mg IV] Med 02/19/22 10:00 Active 40 mg IV Q24H10 Water For Injection,Sterile [Sterile H2O 10 ml] Med 02/18/22 13:16 Discontinued 10 ml IJ .STK-MED ONE Water For Injection,Sterile [Sterile H2O 10 ml] Med 02/18/22 18:16 Discontinued 10 ml IJ .STK-MED ONE Water For Injection,Sterile [Sterile H2O 10 ml] Med 02/18/22 23:07 Discontinued 10 ml IJ .STK-MED ONE Flutter Therapy UD RT 02/18/22 16:29 Active Oxygen Nasal Cannula 3 lpm RT 02/18/22 16:28 Active Pulse Oximetry .continuos RT 02/18/22 16:28 Active RT Screen per Nursing Assess ONCE RT 02/18/22 16:45 Completed Respiratory Therapy Assessment DAILY RT 02/18/22 13:12 Active Smoking Cessation Education ONCE RT 02/18/22 16:45 Completed Patient Care Notes (Last 24 hours) 02/18/22 21:03 Nursing Note by Henna [place] Patient reports she only takes medications one time a day, in the morning. Reports two times a day medications she takes only in the morning. Initialized on 02/18/22 21:03 - END OF NOTE 02/18/22 18:20 (created 02/18/22 18:24) Nursing Note by Joy Medley Critical Troponin level reported to Dr. Darling. No new orders received. Initialized on 02/18/22 18:24 - END OF NOTE Code(s): J96.90 - RESPIRATORY FAILURE, UNSP, UNSP W HYPOXIA OR HYPERCAPNIA (2) Bilateral pneumonia Current Visit: Yes Status: Acute Qualifiers: Pneumonia type: due to Pneumococcus Code(s): J18.9 - PNEUMONIA, UNSPECIFIED ORGANISM (3) Elevated troponin Current Visit: Yes Status: Acute Code(s): R77.8 - OTHER SPECIFIED ABNORMALITIES OF PLASMA PROTEINS
[2022-02-19] MEDS: ENOXAPARIN SODIUM SQ SCH (09:25)
[2022-02-19] MEDS: PROTONIX 40 MG IV IV SCH (09:25)
[2022-02-19] MEDS: Zithromax 500 MG/ 250 ML NaCl Premix 500 MG/250 ML IVPB IV SCH (09:25)
[2022-02-19] MEDS: MELOXICAM PO SCH ×2 (09:27→22:10)
[2022-02-19] MEDS: Ditropan XL 5 MG PO SCH (09:27)
[2022-02-19] MEDS: SYNTHROID 125 MCG PO SCH (09:27)
[2022-02-19] MEDS: NEURONTIN PO SCH (09:28)
[2022-02-19] MEDS ORDERED: NON-FORMULARY ITEM (Meloxicam 15 Mg [Meloxicam 15 Mg] 15 MG Tablet) PO SCH (10:00)
[2022-02-19] MEDS ORDERED: SYNTHROID 125 MCG PO SCH (10:00)
[2022-02-19] MEDS ORDERED: TOLTERODINE TARTRATE 4 MG PO SCH (10:00)
[2022-02-19] MEDS: ROCEPHIN 2 Gm-D5w 50ML BAG** 2 G/50 ML IVPB IV SCH (11:35)
[2022-02-19] MEDS: Cozaar 50 MG PO SCH (17:40)
[2022-02-19] MEDS: ECOTRIN 81 MG PO SCH (17:41)
[2022-02-20] MEDS: DUONEB 0.5-3 MG/3 ml Neb IH SCH ×3 (01:05→12:45)
[2022-02-20 05:02] LABS: Risk Ratio 2.5
[2022-02-20] MEDS: solu-MEDROL 60 MG, Sterile H2O 10 ml 2 ML IV SCH ×4 (05:59→12:42)
[2022-02-20] MEDS: ENOXAPARIN SODIUM SQ SCH (09:12)
[2022-02-20] MEDS: Zithromax 500 MG/ 250 ML NaCl Premix 500 MG/250 ML IVPB IV SCH (09:12)
[2022-02-20] MEDS: Cozaar 50 MG PO SCH (09:13)
[2022-02-20] MEDS: Ditropan XL 5 MG PO SCH (09:13)
[2022-02-20] MEDS: ECOTRIN 81 MG PO SCH (09:13)
[2022-02-20] MEDS: MELOXICAM PO SCH (09:13)
[2022-02-20] MEDS: PROTONIX 40 MG IV IV SCH (09:13)
[2022-02-20] MEDS: ROCEPHIN 2 Gm-D5w 50ML BAG** 2 G/50 ML IVPB IV SCH (09:13)
[2022-02-20] MEDS: SYNTHROID 125 MCG PO SCH (09:13)
[2022-02-20] MEDS: NEURONTIN PO SCH (09:14)
[2022-02-20 12:01] VITALS: BP 145/74
--- NOTE | 2022-02-20 12:15 | XRAY ---
Indication: Pneumonia. Short of breath. Comparison: February 18, 2022 Portable chest demonstrates minimal clearing of previous bilateral mid to lower lung infiltrates which still persists. Stable small bibasilar effusions. Remaining heart and upper lungs unremarkable.
[2022-02-20 13:23] VITALS: PULSE 60; O2SAT 95
--- NOTE | 2022-02-20 20:20 | PCM.DS ---
Discharge Summary Date of Admission: 02/18/22 16:01 Admitting Physician: BINU BAHENA Consults: Consults on Case 02/19/22 12:07 Consult Cardiology ROUTINE Primary Care Provider: BINU BAHENA Allergies Allergies No Known Drug Allergies Allergy (Verified 02/18/22 12:52) Hospital Summary - Hospital Course Hospital Course: Chief Complaint Diagnosis shortness of breath for 1-2 days Allergies Allergy/AdvReac Type Severity Reaction Status Date / Time No Known Drug Allergies Allergy Verified 02/18/22 12:52 Vital Signs (Last 24 hours) Temp Pulse Resp BP Pulse Ox 02/20/22 12:45 60 18 95 02/20/22 12:00 98.1 F 50 L 16 145/74 89 L 02/20/22 07:05 97.9 F 52 L 15 160/90 98 02/20/22 06:30 62 18 94 L 02/20/22 04:00 96.8 F 46 L 17 149/69 94 L 02/20/22 01:05 67 16 95 02/20/22 00:00 97.5 F 67 14 140/67 93 L Home Medications Medication Instructions Recorded Confirmed Last Taken Type Albuterol Sulfate [Albuterol 2 inh PO Q6H 02/18/22 02/18/22 02/18/22 History Sulfate Hfa] Aspirin [Ecotrin] 81 mg PO DAILY 30 Days #30 tablet 02/20/22 Unknown Rx Losartan Potassium 50 mg 25 mg PO DAILY 30 Days #30 tablet 02/20/22 Unknown Rx [Cozaar 50 MG] Methylprednisolone 4 mg [Medrol 4 mg PO UD #1 pkt 02/20/22 Unknown Rx 4 mg] Metoprolol Succinate 25 mg Xl* 25 mg PO DAILY 30 Days #30 tab 02/20/22 Unknown Rx [Toprol-Xl 25MG Tablets] cephALEXin [Cephalexin] 500 mg PO QID 7 Days #28 tablet 02/20/22 Unknown Rx Current Medications Discontinued Medications Generic Name Dose Route Start Last Admin Trade Name Freq PRN Reason Stop Dose Admin Acetaminophen 650 mg 02/18/22 16:05 Acetaminophen 325 Mg Tablet PO 03/20/22 16:04 Q4H PRN PRN PAIN AND/OR FEVER Albuterol Sulfate 2 puff 02/19/22 07:00 Albuterol Common Canister Inhaler 03/21/22 06:59 Q6H PRN PRN sob Albuterol/Ipratropium 3 ml 02/18/22 12:58 02/18/22 13:04 Ipratropium/Albuterol Sulfate 3 Ml Ampul.Neb IH 02/18/22 12:59 3 ml STAT ONE Administration Albuterol/Ipratropium Confirm 02/18/22 13:03 Ipratropium/Albuterol Sulfate 3 Ml Ampul.Neb Administered 02/18/22 13:04 Dose 3 ml IH .STK-MED ONE Albuterol/Ipratropium 3 ml 02/18/22 19:00 02/20/22 12:45 Ipratropium/Albuterol Sulfate 3 Ml Ampul.Neb 03/20/22 18:59 3 ml Q6HRT PRICILLA Administration Aspirin 324 mg 02/18/22 14:07 02/18/22 14:11 Aspirin 81 Mg Tab.Chew PO 02/18/22 14:08 324 mg STAT ONE Administration Aspirin Confirm 02/18/22 14:06 Aspirin 81 Mg Tab.Chew Administered 02/18/22 14:07 Dose 324 mg .ROUTE .STK-MED ONE Aspirin 81 mg 02/19/22 18:00 02/20/22 09:13 Aspirin 81 Mg Tablet.Ec PO 03/21/22 17:59 81 mg DAILY PRICILLA Administration Methylprednisolone Sodium 0 mg 02/18/22 12:58 02/18/22 13:20 Succinate 125 mg/ Sterile IV 02/18/22 12:59 125 mg Water 2 ml STAT ONE Administration Methylprednisolone Sodium 0 mg 02/18/22 18:00 02/20/22 12:42 Succinate 60 mg/ Sterile Water IV 03/20/22 17:59 Not Given 2 ml Q6HT PRICILLA Enoxaparin Sodium 40 mg 02/19/22 10:00 02/20/22 09:12 Enoxaparin Sodium 40 Mg/0.4 Ml Syringe SQ 03/21/22 09:59 40 mg DAILY PRICILLA Administration Gabapentin 300 mg 02/19/22 10:00 02/20/22 09:14 Gabapentin 300 Mg Capsule PO 03/21/22 09:59 300 mg DAILY PRICILLA Administration Ceftriaxone Sodium/Dextrose 2 g in 50 mls @ 100 mls/hr 02/18/22 13:53 02/18/22 14:41 Rocephin 2 Gm-D5w 50ml Bag IV 02/18/22 14:22 Infused STAT STA Infusion Azithromycin 500 mg in 250 mls @ 250 mls/hr 02/18/22 13:53 02/18/22 15:02 Zithromax 500 Mg/ 250 Ml Nacl Premix IV 02/18/22 14:52 250 mls/hr STAT STA 250 mls/hr Administration Azithromycin Confirm 02/18/22 14:07 Zithromax 500 Mg/ 250 Ml Nacl Premix Administered 02/18/22 14:08 Dose 500 mg in 250 mls @ ud IV .STK-MED ONE Ceftriaxone Sodium/Dextrose Confirm 02/18/22 14:07 Rocephin 2 Gm-D5w 50ml Bag Administered 02/18/22 14:08 Dose 2 g in 50 mls @ ud IV .STK-MED ONE Azithromycin 500 mg in 250 mls @ 250 mls/hr 02/19/22 10:00 02/20/22 09:12 Zithromax 500 Mg/ 250 Ml Nacl Premix IV 03/21/22 09:59 250 mls/hr Q24H10 PRICILLA Administration Ceftriaxone Sodium/Dextrose 2 g in 50 mls @ 100 mls/hr 02/19/22 10:00 02/20/22 09:13 Rocephin 2 Gm-D5w 50ml Bag IV 02/22/22 09:59 100 mls/hr Q24H10 PRICILLA Administration Levothyroxine Sodium 125 mcg 02/19/22 10:00 02/20/22 09:13 Levothyroxine Sodium 125 Mcg Tablet PO 03/21/22 09:59 125 mcg DAILY PRICILLA Administration Losartan Potassium 25 mg 02/19/22 18:00 02/20/22 09:13 Losartan Potassium 50 Mg Tablet PO 03/21/22 17:59 25 mg DAILY PRICILLA Administration Meloxicam 7.5 mg 02/18/22 21:00 02/18/22 21:02 Meloxicam 7.5 Mg Tablet PO 02/18/22 21:01 Not Given ONCE ONE Meloxicam 7.5 mg 02/19/22 10:00 02/20/22 09:13 Meloxicam 7.5 Mg Tablet PO 03/21/22 09:59 7.5 mg BID PRICILLA Administration Methylprednisolone Sodium Succinate Confirm 02/18/22 13:16 Methylprednis Sod Succ 125 Mg/2 Ml Vial Administered 02/18/22 13:17 Dose 125 mg .ROUTE .STK-MED ONE Methylprednisolone Sodium Succinate Confirm 02/18/22 18:16 Methylprednis Sod Succ 125 Mg/2 Ml Vial Administered 02/18/22 18:17 Dose 125 mg .ROUTE .STK-MED ONE Methylprednisolone Sodium Succinate Confirm 02/18/22 23:06 Methylprednis Sod Succ 125 Mg/2 Ml Vial Administered 02/18/22 23:07 Dose 125 mg .ROUTE .STK-MED ONE Methylprednisolone Sodium Succinate Confirm 02/19/22 05:31 Methylprednis Sod Succ 125 Mg/2 Ml Vial Administered 02/19/22 05:32 Dose 125 mg .ROUTE .STK-MED ONE Oxybutynin Chloride 10 mg 02/19/22 10:00 02/20/22 09:13 Oxybutynin Chloride Xl 5 Mg Tab PO 03/21/22 09:59 10 mg DAILY PRICILLA Administration Pantoprazole Sodium 40 mg 02/19/22 10:00 02/20/22 09:13 Pantoprazole 40 Mg Vial IV 03/21/22 09:59 40 mg Q24H10 PRICILLA Administration Sterile Water Confirm 02/18/22 13:16 Water For Injection,Sterile 10 Ml Vial Administered 02/18/22 13:17 Dose 10 ml IJ .STK-MED ONE Sterile Water Confirm 02/18/22 18:16 Water For Injection,Sterile 10 Ml Vial Administered 02/18/22 18:17 Dose 10 ml IJ .STK-MED ONE Sterile Water Confirm 02/18/22 23:07 Water For Injection,Sterile 10 Ml Vial Administered 02/18/22 23:08 Dose 10 ml IJ .STK-MED ONE Intake & Output (Last 24 hours) 02/18/22 02/19/22 02/20/22 02/21/22 11:59 11:59 11:59 11:59 Intake Total 1380 1630 480 Balance 1380 1630 480 Weight 79 kg 80.1 kg Microbiology Results (Last 24 hours) 02/18/22 14:25 Blood Blood Culture Gram Stain - Pending 02/18/22 14:25 Blood Blood Culture - Preliminary NO GROWTH TO DATE 02/18/22 14:15 Blood Blood Culture Gram Stain - Pending 02/18/22 14:15 Blood Blood Culture - Preliminary NO GROWTH TO DATE Laboratory Results (Last 24 hours) 02/20/22 02/20/22 04:15 04:15 Troponin I 0.019 Triglycerides 83 Cholesterol 127 LDL Cholesterol 65 HDL Cholesterol 50 Heart Disease Risk Ratio 2.5 Orders (Last 24 hours) Category Date Time Status Heart-Healthy Diet Diet 02/20/22 Breakfast Completed NPO Diet 02/19/22 22:00 Completed Discharge Routine Discharge 02/20/22 Ordered ECHO W/2D AND DOPPLER [US] Routine Exams 02/20/22 08:00 Taken Portable Chest [CHEST 1 VIEW (PORTABLE)] Stat Exams 02/20/22 11:51 Completed LIPID PROFILE AM.LAB Lab 02/20/22 04:15 Completed TROPONIN AM.LAB Lab 02/20/22 04:15 Completed Patient Care Notes (Last 24 hours) 02/20/22 12:27 Nursing Note by Gabby Ware 2L OXYGEN 98%. OXYGEN REMOVED, FOUND TO BE 89% ON ROOM AIR. RECHECKED 5 MIN LATER, FOUND TO BE 80-83% ON ROOM AIR. 2L OXYGEN REPLACED AT THIS TIME. Initialized on 02/20/22 12:27 - END OF NOTE 02/20/22 10:05 Case Management Note by Sofi Kelly S/W PATIENT- SHE CONTINUES TO DENY ANY NEW NEEDS AT TIME OF DC. SHE PLANS TO RETURN HOME TO HER PRIOR LEVEL OF FUNCTIONING AT TIME OF DC Initialized on 02/20/22 10:05 - END OF NOTE - Vitals & Intake/Output Vital Signs: Vital Signs Temperature 98.1 F 02/20/22 12:00 Pulse Rate 60 02/20/22 12:45 Respiratory Rate 18 02/20/22 12:45 Blood Pressure 145/74 02/20/22 12:00 O2 Sat by Pulse Oximetry 95 02/20/22 12:45 Intake & Output: Intake & Output 02/18/22 02/19/22 02/20/22 02/21/22 11:59 11:59 11:59 11:59 Intake Total 1380 1630 480 Balance 1380 1630 480 Weight 79 kg 80.1 kg - Lab Result Diagrams: 02/19/22 04:48 02/19/22 04:48 Lab Results-Last 24 Hrs: Lab Results-Last 24 Hours 02/20/22 02/20/22 Range/Units 04:15 04:15 Troponin I 0.019 (0.000-0.034) ng/mL Triglycerides 83 (30-150) mg/dL Cholesterol 127 (50-200) mg/dL LDL Cholesterol 65 (30-100) mg/dL HDL Cholesterol 50 (40-60) mg/dL Heart Disease Risk Ratio 2.5 Micro Results-Entire Visit: Microbiology 02/18/22 14:25 Blood Culture - Preliminary Blood NO GROWTH TO DATE 02/18/22 14:15 Blood Culture - Preliminary Blood NO GROWTH TO DATE - Radiology Exams Ordered Rad Exams-Entire Visit: Radiology Procedures Category Date Time Status ECHO W/2D AND DOPPLER [US] Routine Exams 02/20/22 08:00 Taken Portable Chest [CHEST 1 VIEW (PORTABLE)] Stat Exams 02/20/22 11:51 Completed - Procedures and Test Procedures and Tests throughout Hospitalization: Therapy Orders & Screens 02/18/22 13:12 Respiratory Therapy Assessment DAILY Comment: 02/18/22 16:28 Oxygen Nasal Cannula 3 lpm Comment: Diagnosis: Bilateral pneumonia 02/18/22 16:29 Flutter Therapy UD Comment: Diagnosis: Bilateral pneumonia 02/18/22 16:45 RT Screen per Nursing Assess ONCE Comment: Protocol Order Physician Instructions: Greater than 3 points order RT Admission Screen Reason For Exam: Triggered on Admission Diagnosis: Bilateral pneumonia Diagnosis: Bilateral pneumonia Pneumonia: Yes Home O2: Yes Asthma: No CHF: No Home CPAP/BIPAP: No Home Nebs/MDI: Yes Total Points: 13 Smoking Cessation Education ONCE Comment: Diagnosis: Bilateral pneumonia Smoking Status: Current every day smoker How long have you smoked: 25 years Have you smoked in the past 12 months: Yes Approximately how many cigarettes per day: 1 ppd Do you dip or chew tobacco: No 02/19/22 17:08 Smoking Cessation Education ONCE Comment: Diagnosis: shortness of breath for 1-2 days Smoking Status: Current every day smoker How long have you smoked: 25 years Have you smoked in the past 12 months: Yes Approximately how many cigarettes per day: 1 ppd Do you dip or chew tobacco: No Discharge Exam General Appearance: no apparent distress, alert Neurologic Exam: alert, oriented x 3, cooperative, normal mood/affect, nml cerebellar function, sensation nml, No motor deficits Eye Exam: PERRL, EOMI, eyes nml inspection Ears, Nose, Throat Exam: normal ENT inspection, pharynx normal, moist mucous membranes Neck Exam: normal inspection, non-tender, supple, full range of motion Respiratory Exam: diminished breath sounds, No respiratory distress Cardiovascular Exam: regular rate/rhythm, normal heart sounds Gastrointestinal/Abdomen Exam: soft, No tenderness, No mass Pelvic Exam: deferred Rectal Exam: deferred Back Exam: normal inspection, normal range of motion, No CVA tenderness, No vertebral tenderness Extremity Exam: normal inspection, normal range of motion Skin Exam: normal color, warm, dry Final Diagnosis/Problem List - Final Discharge Diagnosis/Problem (1) Respiratory failure Status: Resolved Code(s): J96.90 - RESPIRATORY FAILURE, UNSP, UNSP W HYPOXIA OR HYPERCAPNIA (2) Bilateral pneumonia Status: Resolved Code(s): J18.9 - PNEUMONIA, UNSPECIFIED ORGANISM (3) Elevated troponin Status: Resolved Code(s): R77.8 - OTHER SPECIFIED ABNORMALITIES OF PLASMA PROTEINS - Discharge Discharge Date: 02/20/22 Disposition: Home, Self-Care Condition: Stable Prescriptions: New Losartan Potassium 50 mg [Cozaar 50 MG] 25 mg PO DAILY 30 Days #30 tablet cephALEXin [Cephalexin] 500 mg PO QID 7 Days #28 tablet Aspirin [Ecotrin] 81 mg PO DAILY 30 Days #30 tablet Metoprolol Succinate 25 mg Xl* [Toprol-Xl 25MG Tablets] 25 mg PO DAILY 30 Days #30 tab Methylprednisolone 4 mg [Medrol 4 mg] 4 mg PO UD #1 pkt Continue Synthroid 125 Mcg 125 mcg PO DAILY Gabapentin [Neurontin ] 300 mg PO DAILY Meloxicam 15 mg [Meloxicam 15 MG] 7.5 mg PO BID Tolterodine Tartrate [Detrol LA] 4 mg PO DAILY Albuterol Sulfate [Albuterol Sulfate Hfa] 2 inh PO Q6H Outpatient Orders: Stress Test: Lexiscan Facility: [facility], Location: RESPIRATORY THERAPY Instructions: Pneumonia, Adult (DC) Follow up with: BINU BAHENA MD [Primary Care Provider] - 03/05/22 1:45 pm ([place] [facility]) WHITNEY KUMAR PA [NON-STAFF PHY W/O PRIVILEGES] - 03/01/22 3:45 pm
== END 2022-02-20 13:20 | disposition home or self-care (01) ==
LOC: ED 12:36 → MED SURG 16:01
PROVIDERS: ADMIT General Practice; ATTEND General Practice
DX: J96.90 Respiratory failure, unspecified, unspecified whether with hypoxia or hypercapnia (principal); J18.9 Pneumonia, unspecified organism; R77.8 Other specified abnormalities of plasma proteins; J44.9 Chronic obstructive pulmonary disease, unspecified; Z79.899 Other long term (current) drug therapy; Z20.828 Contact with and (suspected) exposure to other viral communicable diseases; Z72.0 Tobacco use; Z85.41 Personal history of malignant neoplasm of cervix uteri
CPT/HCPCS: 36000; 36415; 71045; 80053; 80061; 83605; 83721; 83735; 83880; 84145; 84484; 85025; 85379; 87040; 93005; 93041; 93306; 94640; 94667; 94668; 94762; 96365; 96374; 99285; Q3014; 93268; J0456; J0696; J1650; J2930; A9270-GY; G0378

== ENCOUNTER 2022-06-10 13:26 | Observation (INO) | payer SELFPAY ==
[2022-06-10] MEDS ORDERED: DUONEB 0.5-3 MG/3 ml Neb IH ONE ×2 (13:52→14:04)
[2022-06-10 13:57] LABS: Absolute Neutrophil Ct (ANC) 9.22 x10^3/uL (1.4-6.9); Basophil (Absolute #) 0.11 x10^3/uL (0-0.4); Eosinophil % 1.7 % (0.00-5.0); Eosinophil (Absolute #) 0.22 x10^3/uL (0-0.5); Hematocrit 43.9 % (35-47); Hemoglobin 13.3 g/dL (12.0-16.0); Lymphocyte (Absolute #) 2.24 x10^3/uL (1.0-4.6); Lymphocytes % 17.1 % (24.0-44.0); Mean Cell Volume 97.6 fL (78-100); Mean Corpuscular Hemoglobin 29.6 pg (26-32); Mean Corpuscular Hgb Concent. 30.3 g/dL (32-36); Mean Platelet Volume 10.6 fL (7.5-11.0); Monocytes % 6.1 % (0.0-12.0); Neutrophil % 70.5 % (36.0-66.0); Platelet Count 321 x10^3/uL (150-450); Red Cell Distribution Width 14.6 % (11.5-14.0); White Blood Count 13.1 x10^3/uL (4.0-10.5)
--- NOTE | 2022-06-10 13:59 | ERPHSYRPT ---
- History of Present Illness Source: patient Exam Limitations: no limitations Patient Subjective Stated Complaint: SOB Triage Nursing Assessment: Patient brought back to ED per w/c and transferred self to bed. Patient A+O X3. Patient's skin pink, warm and dry. Patient comp lains of SOB for the past several days. 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 Patient states she wears home O2 at night 2 liters per n/c but has had to wear it during the day. Patient complains of productive cough with thick yellow/green sputum. Patient's lungs noted to be diminished throughout. Patient denies pain or discomfort. Physician History: 57 yo wf w cc of progressive dyspnea x1 week. Pt has a chronic cough which she states is mildly worse. She has mild coryza and has had an intermittent fever. Pt smokes 1 ppd and uses 2L O2 at night which has increased to continuous use. Chest pain is denied. N/V/D/melena/hematochezia are all denied. Pt hypoxic on room air upon arrival which improved w 2L O2 NC Timing/Duration: other (1week) Activities at Onset: rest Severity of Dyspnea-Max: severe Severity of Dyspnea-Current: mild Possible Cause: frequent episodes Modifying Factors: Improves With: activity Associated Symptoms: denies symptoms, cough, fever, productive cough Allergies/Adverse Reactions: No Known Drug Allergies Allergy (Verified 06/10/22 13:29) Home Medications: Synthroid 125 Mcg 125 mcg PO DAILY 12/11/11 [History] Gabapentin [Neurontin ] 300 mg PO DAILY 08/14/21 [History] Meloxicam 15 mg [Meloxicam 15 MG] 7.5 mg PO BID 08/14/21 [History] Albuterol Sulfate [Albuterol Sulfate Hfa] 2 inh PO Q6H 02/18/22 [History] Amlodipine Besylate 5 mg [Norvasc 5 mg] 1 tab PO DAILY 06/10/22 [History] Hx Tetanus, Diphtheria Vaccination/Date Given: Yes (2019) Hx Influenza Vaccination/Date Given: Yes Hx Pneumococcal Vaccination/Date Given: No Immunizations Up to Date: Yes Travel Risk - International Travel Have you traveled outside of the country in past 3 weeks: No - Coronavirus Screening Are you exhibiting any of the following symptoms?: Yes Symptoms: Fever, Cough: New Onset, Shortness of Breath, Headaches/Body Aches/Fatigue - Vaccine Status Have you recieved a Covid-19 vaccination: Yes 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 - Vaccination Dates Dates if Unknown: unknown Comment: unsure of dates and which separator inserter - Review of Systems Constitutional: No Symptoms, Malaise Eyes: No Symptoms Ears, Nose, & Throat: No Symptoms, Nose Congestion, Nose Discharge Respiratory: Cough, Dyspnea, Dyspnea on Exertion (MUNOZ) Cardiac: No Symptoms Abdominal/Gastrointestinal: No Symptoms Genitourinary Symptoms: No Symptoms Musculoskeletal: No Symptoms Skin: No Symptoms Neurological: No Symptoms Psychological: No Symptoms Endocrine: No Symptoms Hematologic/Lymphatic: No Symptoms Immunological/Allergic: No Symptoms - Past Medical History Pertinent Past Medical History: Yes Neurological History: No Pertinent History ENT History: No Pertinent History Cardiac History: No Pertinent History Respiratory History: COPD, Sleep Apnea Endocrine Medical History: No Pertinent History Musculoskeletal History: No Pertinent History GI Medical History: No Pertinent History History: No Pertinent History Psycho-Social History: No Pertinent History Female Reproductive Disorders: Cervical Cancer Other Medical History: history of cervical cancer - Past Surgical History Past Surgical History: Yes (thyroidectomy) Neuro Surgical History: No Pertinent History Cardiac: No Pertinent History Respiratory: No Pertinent History Gastrointestinal: No Pertinent History Genitourinary: No Pertinent History Musculoskeletal: No Pertinent History Female Surgical History: Tubal Ligation Other Surgical History: THYROID REMOVAL - Social History Smoking Status: Current every day smoker How long have you smoked: 25 years Exposure to second hand smoke: Yes ( smokes also) Drug Use: none Patient Lives Alone: No - Nursing Vital Signs Nursing Vital Signs: Initial Vital Signs Temperature 98.1 F 06/10/22 13:31 Pulse Rate 84 06/10/22 13:31 Respiratory Rate 20 06/10/22 13:31 Blood Pressure 152/79 06/10/22 13:31 O2 Sat by Pulse Oximetry 85 L 06/10/22 13:31 Pain Scale Pain Intensity 4 Hypertensive/hypoxic - Physical Exam General Appearance: mild distress Eye Exam: PERRL/EOMI, eyes nml inspection Ears, Nose, Throat Exam: hearing grossly normal, normal ENT inspection, normal pharynx Neck Exam: normal inspection, non-tender, supple, full range of motion, No Brudzinski, No Kernig's, No meningismus, No carotid bruit Respiratory Exam: respiratory distress (Mild), airway intact, prolonged expirations, wheezing (Scattered wheezes) Cardiovascular/Chest Exam: normal heart sounds, regular rate/rhythm, No murmur Abdominal/Gastrointestinal Exam: soft, normal bowel sounds Extremity Exam: non-tender, normal range of motion, normal inspection, normal capillary refill, no pedal edema Neurologic Exam: alert, oriented x 3, cooperative, senior merchandiser II-XII nml as tested, nor mal mood/affect, nml cerebellar function, nml station & gait, sensation nml Skin Exam: normal color, warm, dry Lymphatic Exam: No adenopathy SpO2 Interpretation: hypoxic SpO2: 85 O2 Delivery: Room Air - Course Nursing assessment & vital signs reviewed: Yes EKG Interpreted by Me: RATE (NSR/Normal QT-QTc/incomplete RBBB/Low voltage) - Radiology Exams Chest X-ray Interpretation: Interpreted by me (Developing RLL infiltrate per ER read) - CT Exams Chest CT Interpretation: Tele-radiologist Report (Multifocal consolidation w some areas of tree in bud pattern) Ordered Tests: Active Orders 24 hr Category Date Time Status EKG-ER Only STAT Care 06/10/22 13:51 Completed Heart-Healthy Diet Diet 06/11/22 Breakfast Active CHEST 1 VIEW (PORTABLE) Stat Exams 06/10/22 14:58 Completed CHEST WITHOUT CONTRAST [CT] Stat Exams 06/10/22 15:27 Completed BLOOD CULTURE Stat Lab 06/10/22 22:40 Received CBC W DIFF AM.LAB Lab 06/11/22 04:00 Ordered CBC W DIFF Stat Lab 06/10/22 13:51 Completed CMP AM.LAB Lab 06/11/22 04:00 Ordered CMP Stat Lab 06/10/22 13:50 Completed Lactic Acid Stat Lab 06/10/22 15:12 Completed NT PRO BNP Stat Lab 06/10/22 13:50 Completed PROTIME WITH INR Stat Lab 06/10/22 13:50 Completed PTT Stat Lab 06/10/22 13:50 Completed TROPONIN Q4H Lab 06/10/22 13:50 Completed TROPONIN Q4H Lab 06/10/22 16:50 Completed TROPONIN Q4H Lab 06/10/22 22:40 Completed Respiratory Therapy Assessment DAILY RT 06/10/22 14:14 Completed Transfer Order Routine Transfer 06/10/22 Completed Medication Summary Generic Name Dose Route Start Last Admin Trade Name Michelle PRN Reason Stop Dose Admin Acetaminophen 500 mg 06/10/22 18:37 Acetaminophen 500 Mg Tablet PO 07/10/22 18:36 Q4H PRN PRN PAIN Albuterol Sulfate 2.5 mg 06/10/22 19:00 06/10/22 22:58 Albuterol Sulfate 2.5 Mg/3 Ml Neb IH 07/10/22 18:59 2.5 mg Q4HRT PRICILLA Administration Methylprednisolone Sodium 0 mg 06/10/22 22:00 06/10/22 20:44 Succinate 60 mg/ Sterile Water IV 07/10/22 21:59 60 mg 2 ml Q6HT PRICILLA Administration Cyclobenzaprine HCl 10 mg 06/10/22 18:38 Cyclobenzaprine Hcl 10 Mg Tablet PO 07/10/22 21:59 BID PRN MUSCLE SPASMS Enoxaparin Sodium 40 mg 06/11/22 10:00 Enoxaparin Sodium 40 Mg/0.4 Ml Syringe SQ 07/11/22 09:59 DAILY PRICILLA Sodium Chloride 1,000 mls @ 80 mls/hr 06/10/22 16:30 06/10/22 16:44 Sodium Chloride 0.9% 1000 Ml IV 07/10/22 16:29 80 mls/hr .[id number] PRICILLA Administration Azithromycin 500 mg in 250 mls @ 250 mls/hr 06/11/22 10:00 Zithromax 500 Mg/ 250 Ml Nacl Premix IV 07/11/22 09:59 Q24H10 PRICILLA Ceftriaxone Sodium/Dextrose 1 g in 50 mls @ 100 mls/hr 06/11/22 10:00 Rocephin 1 Gm-D5w 50 Ml Bag IV 06/14/22 09:59 Q24H10 PRICILLA Meloxicam 7.5 mg 06/10/22 22:00 06/10/22 20:44 Meloxicam 7.5 Mg Tablet PO 07/10/22 21:59 7.5 mg BID PRICILLA Administration Ondansetron HCl 4 mg 06/10/22 16:25 Ondansetron Hcl 4 Mg/2 Ml Vial IV 07/10/22 16:24 Q6H PRN PRN NAUSEA/VOMITING Discontinued Medications Generic Name Dose Route Start Last Admin Trade Name Michelle PRN Reason Stop Dose Admin Albuterol/Ipratropium 3 ml 06/10/22 13:52 06/10/22 14:15 Ipratropium/Albuterol Sulfate 3 Ml Ampul.Neb IH 06/10/22 13:53 3 ml STAT ONE Administration Albuterol/Ipratropium Confirm 06/10/22 14:04 Ipratropium/Albuterol Sulfate 3 Ml Ampul.Neb Administered 06/10/22 14:05 Dose 3 ml IH .STK-MED ONE Ceftriaxone Sodium/Dextrose 1 g in 50 mls @ 100 mls/hr 06/10/22 16:17 06/10/22 16:45 Rocephin 1 Gm-D5w 50 Ml Bag IV 06/10/22 16:46 100 mls/hr STAT STA 100 mls/hr Administration Ceftriaxone Sodium/Dextrose Confirm 06/10/22 16:43 Rocephin 1 Gm-D5w 50 Ml Bag Administered 06/10/22 16:44 Dose 1 g in 50 mls @ ud IV .STK-MED ONE Methylprednisolone Sodium Succinate Confirm 06/10/22 20:37 Methylprednis Sod Succ 125 Mg/2 Ml Vial Administered 06/10/22 20:38 Dose 125 mg .ROUTE .STK-MED ONE Sterile Water Confirm 06/10/22 20:38 Water For Injection,Sterile 10 Ml Vial Administered 06/10/22 20:39 Dose 10 ml IJ .STK-MED ONE Lab/Rad Data: Laboratory Result Diagrams 06/10/22 13:51 06/10/22 13:50 Laboratory Results 06/10/22 06/10/22 06/10/22 Range/Units 16:50 15:12 13:51 WBC 13.1 H (4.0-10.5) x10^3/uL RBC 4.50 (4.1-5.4) x10^6/uL Hgb 13.3 (12.0-16.0) g/dL Hct 43.9 (35-47) % MCV 97.6 (78-100) fL MCH 29.6 (26-32) pg MCHC 30.3 L (32-36) g/dL RDW 14.6 H (11.5-14.0) % Plt Count 321 (150-450) x10^3/uL MPV 10.6 (7.5-11.0) fL Gran % 70.5 H (36.0-66.0) % Immature Gran % (Auto) 3.8 H (0.00-0.4) % Nucleat RBC Rel Count 0.2 H (0.00-0.1) % Eos # (Auto) 0.22 (0-0.5) x10^3/uL Immature Gran # (Auto) 0.50 H (0.00-0.03) x10^3u/L Absolute Lymphs (auto) 2.24 (1.0-4.6) x10^3/uL Absolute Monos (auto) 0.80 (0.0-1.3) x10^3/uL Absolute Nucleated RBC 0.03 H (0.00-0.01) x10^3u/L Lymphocytes % 17.1 L (24.0-44.0) % Monocytes % 6.1 (0.0-12.0) % Eosinophils % 1.7 (0.00-5.0) % Basophils % 0.8 (0.0-0.4) % Absolute Granulocytes 9.22 H (1.4-6.9) x10^3/uL Basophils # 0.11 (0-0.4) x10^3/uL PT (9.4-12.5) SECONDS INR (0.8-3.0) APTT (25.1-36.5) SECONDS Sodium (137-145) mmol/L Potassium (3.5-5.1) mmol/L Chloride (98-107) mmol/L Carbon Dioxide (22-30) mmol/L Anion Gap (5-15) MEQ/L BUN (7-17) mg/dL Creatinine (0.52-1.04) mg/dL Estimated GFR ML/MIN Glucose (74-106) mg/dL Lactic Acid 0.5 (0.4-2.0) Calcium (8.4-10.2) mg/dL Magnesium (1.6-2.3) mg/dL Total Bilirubin (0.2-1.3) mg/dL AST (14-36) U/L ALT (0-35) U/L Alkaline Phosphatase (38-126) U/L Troponin I < 0.012 (0.000-0.034) ng/mL NT-Pro-B Natriuret Pep (0-900) pg/mL Serum Total Protein (6.3-8.2) g/dL Albumin (3.5-5.0) g/dL Vitamin B12 (239-931) pg/mL TSH 3rd Generation (0.47-4.68) mIU/L Influenza Type A Ag (NEGATIVE) Influenza Type B Ag (NEGATIVE) RSV (PCR) (Negative) SARS-CoV-2 (PCR) (NEGATIVE) 06/10/22 06/10/22 06/10/22 Range/Units 13:50 13:50 13:50 WBC (4.0-10.5) x10^3/uL RBC (4.1-5.4) x10^6/uL Hgb (12.0-16.0) g/dL Hct (35-47) % MCV (78-100) fL MCH (26-32) pg MCHC (32-36) g/dL RDW (11.5-14.0) % Plt Count (150-450) x10^3/uL MPV (7.5-11.0) fL Gran % (36.0-66.0) % Immature Gran % (Auto) (0.00-0.4) % Nucleat RBC Rel Count (0.00-0.1) % Eos # (Auto) (0-0.5) x10^3/uL Immature Gran # (Auto) (0.00-0.03) x10^3u/L Absolute Lymphs (auto) (1.0-4.6) x10^3/uL Absolute Monos (auto) (0.0-1.3) x10^3/uL Absolute Nucleated RBC (0.00-0.01) x10^3u/L Lymphocytes % (24.0-44.0) % Monocytes % (0.0-12.0) % Eosinophils % (0.00-5.0) % Basophils % (0.0-0.4) % Absolute Granulocytes (1.4-6.9) x10^3/uL Basophils # (0-0.4) x10^3/uL PT (9.4-12.5) SECONDS INR (0.8-3.0) APTT (25.1-36.5) SECONDS Sodium (137-145) mmol/L Potassium (3.5-5.1) mmol/L Chloride (98-107) mmol/L Carbon Dioxide (22-30) mmol/L Anion Gap (5-15) MEQ/L BUN (7-17) mg/dL Creatinine (0.52-1.04) mg/dL Estimated GFR ML/MIN Glucose (74-106) mg/dL Lactic Acid (0.4-2.0) Calcium (8.4-10.2) mg/dL Magnesium 2.0 (1.6-2.3) mg/dL Total Bilirubin (0.2-1.3) mg/dL AST (14-36) U/L ALT (0-35) U/L Alkaline Phosphatase (38-126) U/L Troponin I (0.000-0.034) ng/mL NT-Pro-B Natriuret Pep (0-900) pg/mL Serum Total Protein (6.3-8.2) g/dL Albumin (3.5-5.0) g/dL Vitamin B12 271 (239-931) pg/mL TSH 3rd Generation 2.120 (0.47-4.68) mIU/L Influenza Type A Ag NEGATIVE (NEGATIVE) Influenza Type B Ag NEGATIVE (NEGATIVE) RSV (PCR) NEGATIVE (Negative) SARS-CoV-2 (PCR) NEGATIVE (NEGATIVE) 06/10/22 06/10/22 06/10/22 Range/Units 13:50 13:50 13:50 WBC (4.0-10.5) x10^3/uL RBC (4.1-5.4) x10^6/uL Hgb (12.0-16.0) g/dL Hct (35-47) % MCV (78-100) fL MCH (26-32) pg MCHC (32-36) g/dL RDW (11.5-14.0) % Plt Count (150-450) x10^3/uL MPV (7.5-11.0) fL Gran % (36.0-66.0) % Immature Gran % (Auto) (0.00-0.4) % Nucleat RBC Rel Count (0.00-0.1) % Eos # (Auto) (0-0.5) x10^3/uL Immature Gran # (Auto) (0.00-0.03) x10^3u/L Absolute Lymphs (auto) (1.0-4.6) x10^3/uL Absolute Monos (auto) (0.0-1.3) x10^3/uL Absolute Nucleated RBC (0.00-0.01) x10^3u/L Lymphocytes % (24.0-44.0) % Monocytes % (0.0-12.0) % Eosinophils % (0.00-5.0) % Basophils % (0.0-0.4) % Absolute Granulocytes (1.4-6.9) x10^3/uL Basophils # (0-0.4) x10^3/uL PT 11.4 (9.4-12.5) SECONDS INR 1.08 (0.8-3.0) APTT 26.6 (25.1-36.5) SECONDS Sodium 139 (137-145) mmol/L Potassium 3.9 (3.5-5.1) mmol/L Chloride 105 (98-107) mmol/L Carbon Dioxide 32 H (22-30) mmol/L Anion Gap 5.8 (5-15) MEQ/L BUN 18 H (7-17) mg/dL Creatinine 0.52 (0.52-1.04) mg/dL Estimated GFR > 60.0 ML/MIN Glucose 108 H (74-106) mg/dL Lactic Acid (0.4-2.0) Calcium 8.6 (8.4-10.2) mg/dL Magnesium (1.6-2.3) mg/dL Total Bilirubin 0.30 (0.2-1.3) mg/dL AST 50 H (14-36) U/L ALT 77 H (0-35) U/L Alkaline Phosphatase 106 (38-126) U/L Troponin I < 0.012 (0.000-0.034) ng/mL NT-Pro-B Natriuret Pep 997 H (0-900) pg/mL Serum Total Protein 6.4 (6.3-8.2) g/dL Albumin 3.3 L (3.5-5.0) g/dL Vitamin B12 (239-931) pg/mL TSH 3rd Generation (0.47-4.68) mIU/L Influenza Type A Ag (NEGATIVE) Influenza Type B Ag (NEGATIVE) RSV (PCR) (Negative) SARS-CoV-2 (PCR) (NEGATIVE) - Progress Progress: improved Progress Note: 06/10/22 16:38 Pt w observation admit due to hypoxia and recurrent pneumonia Blood cultures x2 1gm IV Rocephin 06/10/22 16:39 Duoneb w mild improvement Labs/CXR/CT results reviewed and shared w pt 06/10/22 16:46 Blood Culture(s) Obtained: Yes Antibiotics given: Yes Discussed with : Parris Counseled pt/family regarding: lab results, diagnosis, need for follow-up, rad results - Departure Departure Disposition: Observation Clinical Impression: Pneumonia Condition: Stable Critical Care Time: No
[2022-06-10 14:35] LABS: INFLUENZA A NEGATIVE (NEGATIVE); INFLUENZA B NEGATIVE (NEGATIVE); RESPIRATORY SYNCTIAL VIRUS NEGATIVE (Negative); SARS-CoV-2 Xpert Express NEGATIVE (NEGATIVE)
[2022-06-10 14:37] LABS: INR 1.08 (0.8-3.0); PROTIME 11.4 SECONDS (9.4-12.5); PTT 26.6 SECONDS (25.1-36.5)
[2022-06-10 14:45] LABS: ALBUMIN 3.3 g/dL (3.5-5.0); ALKALINE PHOSPHATASE 106 U/L (38-126); ANION GAP 5.8 MEQ/L (5-15); BLOOD UREA NITROGEN 18 mg/dL (7-17); CHLORIDE 105 mmol/L (98-107); Calcium 8.6 mg/dL (8.4-10.2); Carbon Dioxide 32 mmol/L (22-30); Creatinine 1 0.52 mg/dL (0.52-1.04); EST GLOMERULAR FILTRATION RATE > 60.0 ML/MIN; Glucose 108 mg/dL (74-106); NT PRO BNP 997 pg/mL (0-900); Potassium 3.9 mmol/L (3.5-5.1); SGOT/AST 50 U/L (14-36); SGPT/ALT 77 U/L (0-35); SODIUM 139 mmol/L (137-145); Total Protein 6.4 g/dL (6.3-8.2)
[2022-06-10] MEDS ORDERED: ROCEPHIN 1 Gm-D5w 50 ml Bag** 1 G/50 ML IVPB IV STA (16:17)
[2022-06-10] MEDS ORDERED: Zofran 4 MG/2 ML VIAL IV PRN (16:25)
[2022-06-10] MEDS ORDERED: ROCEPHIN 1 Gm-D5w 50 ml Bag** 1 G/50 ML IVPB IV ONE (16:43)
[2022-06-10] MEDS: Sodium Chloride 0.9% 1000 ML 1,000 ML IV SCH (16:44)
[2022-06-10] MEDS: PROVENTIL 2.5 MG/3 ML NEB IH SCH ×2 (18:33→22:58)
--- NOTE | 2022-06-10 18:34 | XRAY ---
Indication: Pneumonia, cough, and fever. History COPD. Multiple contiguous axial images obtained through the chest without contrast. Comparison: August 15, 2021 Lungs again demonstrates mild diffuse bilateral patchy consolidating/nonconsolidating airspace disease, different in distribution. Largest focus is posterior left lower lobe at least 2.0 x 3.6 cm in greatest axial dimension. No effusion. Heart not enlarged. Aorta again minimally arteriosclerotic without aneurysm. No pathologic mediastinal lymphadenopathy. Bony thorax intact again with minimal joint changes throughout the spine. Limited upper abdomen demonstrates stable 2 small left lobe hepatic cysts and 5.3 cm calcified splenic cyst. Impression: 1. Recurrent diffuse bilateral patchy consolidating and nonconsolidating airspace disease. Again rule out Covid 19 pneumonia. 2. Again incidental hepatic cysts and calcified splenic cyst. Comment: Preliminary interpretation made by C. No critical discrepancy.
--- NOTE | 2022-06-10 18:36 | XRAY ---
Indication: Fever and cough. Pneumonia. Comparison: February 20, 2022 Portable chest again demonstrates bilateral mid to lower lung airspace disease, less than before. No consolidation/large effusion. Heart not enlarged. Bony thorax intact. Stable CT proven calcified splenic cyst.
[2022-06-10] MEDS ORDERED: TYLENOL EXTRA STRENGTH 500 MG PO PRN (18:37)
[2022-06-10] MEDS ORDERED: Cyclobenzaprine 10 MG PO PRN (18:38)
[2022-06-10 19:56] LABS: TSH, 3RD Generation 2.12 mIU/L (0.47-4.68)
[2022-06-10] MEDS ORDERED: solu-MEDROL ONE (20:37)
[2022-06-10] MEDS ORDERED: Sterile H2O 10 ml IJ ONE (20:38)
[2022-06-10] MEDS: solu-MEDROL 60 MG, Sterile H2O 10 ml 2 ML IV SCH ×2 (20:44)
[2022-06-10] MEDS: MELOXICAM PO SCH (20:44)
[2022-06-11] MEDS: solu-MEDROL 60 MG, Sterile H2O 10 ml 2 ML IV SCH ×8 (00:44→17:35)
[2022-06-11] MEDS: PROVENTIL 2.5 MG/3 ML NEB IH SCH ×6 (03:03→23:01)
[2022-06-11] MEDS: Sodium Chloride 0.9% 1000 ML 1,000 ML IV SCH ×2 (03:44→16:12)
[2022-06-11] MEDS ORDERED: Sterile H2O 10 ml IJ ONE (04:16)
[2022-06-11] MEDS ORDERED: solu-MEDROL ONE ×2 (04:16→11:03)
[2022-06-11 05:30] LABS: Hematocrit 43.7 % (35-47); Mean Cell Volume 99.3 fL (78-100); Mean Corpuscular Hemoglobin 29.5 pg (26-32); Mean Corpuscular Hgb Concent. 29.7 g/dL (32-36); Mean Platelet Volume 9.4 fL (7.5-11.0); Platelet Count 302 x10^3/uL (150-450); White Blood Count 13.5 x10^3/uL (4.0-10.5)
[2022-06-11 06:13] LABS: ALKALINE PHOSPHATASE 102 U/L (38-126); ANION GAP 7.9 MEQ/L (5-15); BLOOD UREA NITROGEN 16 mg/dL (7-17); CHLORIDE 102 mmol/L (98-107); Carbon Dioxide 33 mmol/L (22-30); Creatinine 1 0.44 mg/dL (0.52-1.04); EST GLOMERULAR FILTRATION RATE > 60.0 ML/MIN; Glucose 147 mg/dL (74-106); NT PRO BNP 578 pg/mL (0-900); Potassium 4.6 mmol/L (3.5-5.1); SGOT/AST 42 U/L (14-36); SGPT/ALT 72 U/L (0-35); SODIUM 138 mmol/L (137-145); Total Protein 5.9 g/dL (6.3-8.2)
[2022-06-11 07:28] LABS: Lymphocytes 3 % (24-44); Platelet Estimate NORMAL (NORMAL); Total Cells Counted 100; Toxic Granulation 1+
[2022-06-11] MEDS: SYNTHROID 125 MCG PO SCH (08:39)
[2022-06-11] MEDS: NORVASC 5 MG PO SCH (08:40)
[2022-06-11] MEDS: MELOXICAM PO SCH ×2 (08:40→23:10)
[2022-06-11] MEDS: ROCEPHIN 1 Gm-D5w 50 ml Bag** 1 G/50 ML IVPB IV SCH (08:40)
[2022-06-11] MEDS: ENOXAPARIN SODIUM SQ SCH (08:40)
[2022-06-11] MEDS: NEURONTIN PO SCH (08:40)
[2022-06-11] MEDS: ECOTRIN 81 MG PO SCH (08:40)
[2022-06-11] MEDS ORDERED: SYNTHROID 125 MCG PO SCH (10:00)
[2022-06-11] MEDS ORDERED: BABY ASPIRIN 81 MG CHEW PO SCH (10:00)
[2022-06-11] MEDS: Zithromax 500 MG/ 250 ML NaCl Premix 500 MG/250 ML IVPB IV SCH (10:10)
[2022-06-11] MEDS ORDERED: Cyanocobalamin B-12 1000 MCG/ML SQ ONE (18:30)
--- NOTE | 2022-06-11 18:41 | PCM.HP ---
History of Present Illness - Chief Complaint Chief Complaint: pneumonia History of Present Illness: is a 57 year old female patient of Dr Darling with COPD, daily smoker dependant on O2 during sleep who presentd to ER with progressive increase in shortness of breath. She has mild coryza and has had an intermittent fever. Pt smokes 1 ppd and uses 2L O2 at night which has increased to continuous use. Chest pain is denied. N/V/D/melena/hematochezia are all denied. Pt hypoxic on room air upon arrival which improved w 2L O2 NC - Review of Systems Constitutional: Chills, Fatigue Eyes: No Symptoms Ears, Nose, & Throat: Other (right ear decreased hearing ,chronic) Respiratory: Cough, Short Of Breath, Wheezing Cardiac: No Symptoms Abdominal/Gastrointestinal: No Symptoms Genitourinary Symptoms: No Symptoms Musculoskeletal: Other (leg cramps at night on gabapentin but it does not help, no LBP) Skin: No Symptoms Neurological: No Symptoms Psychological: No Symptoms Endocrine: No Symptoms Hematologic/Lymphatic: No Symptoms Medications & Allergies Home Medications: Home Medication List Synthroid 125 Mcg 125 mcg PO DAILY 12/11/11 [History Confirmed 06/10/22] Gabapentin [Neurontin ] 300 mg PO DAILY 08/14/21 [History Confirmed 06/10/22] Meloxicam 15 mg [Meloxicam 15 MG] 7.5 mg PO BID 08/14/21 [History Confirmed 06/10/22] Albuterol Sulfate [Albuterol Sulfate Hfa] 2 inh PO Q6H 02/18/22 [History Confirmed 06/10/22] Aspirin [Ecotrin] 81 mg PO DAILY 30 Days #30 tablet 02/20/22 [Rx Confirmed 0 06/10/22] Amlodipine Besylate 5 mg [Norvasc 5 mg] 1 tab PO DAILY 06/10/22 [History Confirmed 06/10/22] Allergies/Adverse Reactions: Allergies Allergy/AdvReac Type Severity Reaction Status Date / Time No Known Drug Allergies Allergy Verified 06/10/22 13:29 - Past Medical History Past Medical History: Yes Neurological History: No Pertinent History ENT History: No Pertinent History Cardiac History: No Pertinent History Respiratory History: COPD, Sleep Apnea Endocrine Medical History: No Pertinent History Musculoskelatal History: No Pertinent History GI Medical History: No Pertinent History History: No Pertinent History Pyscho-Social History: No Pertinent History Reproductive Disorders: Cervical Cancer Comment: history of cervical cancer - Past Surgical History Past Surgical History: Yes (thyroidectomy) Neuro Surgical History: No Pertinent History Cardiac History: No Pertinent History Respiratory Surgery: No Pertinent History GI Surgical History: No Pertinent History Genitourinary Surgical Hx: No Pertinent History Musculskeletal Surgical Hx: No Pertinent History Female Surgical History: Tubal Ligation Other Surgical History: THYROID REMOVAL - Social History Smoking Status: Current every day smoker How long have you smoked: 25 years Exposure to second hand smoke: Yes ( smokes also) Alcohol: Occasionally Drug Use: none - Physical Exam Vital Signs: Vital Signs - 24 hr Temp Pulse Resp BP Pulse Ox 06/11/22 16:00 98.4 F 66 16 107/58 92 L 06/11/22 14:33 62 20 92 L 06/11/22 12:00 97.7 F 74 16 105/56 90 L 06/11/22 10:38 74 20 92 L 06/11/22 07:18 97.7 F 73 18 135/70 93 L 06/11/22 06:50 72 22 91 L 06/11/22 04:00 97.1 F 73 20 131/69 93 L 06/11/22 03:03 78 20 93 L 06/11/22 00:00 96.8 F 69 19 132/63 93 L 06/10/22 23:28 85 L 06/10/22 22:58 66 22 92 L 06/10/22 19:59 97.7 F 80 20 129/68 90 L General Appearance: no apparent distress Neurologic Exam: alert, oriented x 3, cooperative, normal mood/affect Eye Exam: eyes nml inspection Ears, Nose, Throat Exam: moist mucous membranes, TM abnormal (R) (coated with cerumin), other (nasal congestion) Respiratory Exam: diminished breath sounds, wheezing (few scattered), other (on O2/NC) Gastrointestinal/Abdomen Exam: soft, No tenderness Pelvic Exam: not done Rectal Exam: not done Back Exam: normal inspection Extremity Exam: normal inspection, other (no pitting edema) Skin Exam: normal color, warm, dry Results - Labs Lab/Micro Results: Lab Results-Last 24 Hours 06/10/22 06/10/22 06/10/22 Range/Units 13:50 13:50 20:41 WBC (4.0-10.5) x10^3/uL RBC (4.1-5.4) x10^6/uL Hgb (12.0-16.0) g/dL Hct (35-47) % MCV (78-100) fL MCH (26-32) pg MCHC (32-36) g/dL RDW (11.5-14.0) % Plt Count (150-450) x10^3/uL MPV (7.5-11.0) fL Segmented Neutrophils (36.0-66.0) % Lymphocytes (Manual) (24-44) % Toxic Granulation Platelet Estimate (NORMAL) RBC Morphology Sodium (137-145) mmol/L Potassium (3.5-5.1) mmol/L Chloride (98-107) mmol/L Carbon Dioxide (22-30) mmol/L Anion Gap (5-15) MEQ/L BUN (7-17) mg/dL Creatinine (0.52-1.04) mg/dL Estimated GFR ML/MIN Glucose (74-106) mg/dL POC Glucometer 115 H (74 to 106) mg/dL Calcium (8.4-10.2) mg/dL Magnesium 2.0 (1.6-2.3) mg/dL Total Bilirubin (0.2-1.3) mg/dL AST (14-36) U/L ALT (0-35) U/L Alkaline Phosphatase (38-126) U/L Troponin I (0.000-0.034) ng/mL NT-Pro-B Natriuret Pep (0-900) pg/mL Serum Total Protein (6.3-8.2) g/dL Albumin (3.5-5.0) g/dL Vitamin B12 271 (239-931) pg/mL TSH 3rd Generation 2.120 (0.47-4.68) mIU/L 06/10/22 06/11/22 06/11/22 Range/Units 22:40 04:52 04:52 WBC 13.5 H (4.0-10.5) x10^3/uL RBC 4.40 (4.1-5.4) x10^6/uL Hgb 13.0 (12.0-16.0) g/dL Hct 43.7 (35-47) % MCV 99.3 (78-100) fL MCH 29.5 (26-32) pg MCHC 29.7 L (32-36) g/dL RDW 14.0 (11.5-14.0) % Plt Count 302 (150-450) x10^3/uL MPV 9.4 (7.5-11.0) fL Segmented Neutrophils 97 H (36.0-66.0) % Lymphocytes (Manual) 3 L (24-44) % Toxic Granulation 1+ Platelet Estimate NORMAL (NORMAL) RBC Morphology NORMAL Sodium 138 (137-145) mmol/L Potassium 4.6 (3.5-5.1) mmol/L Chloride 102 (98-107) mmol/L Carbon Dioxide 33 H (22-30) mmol/L Anion Gap 7.9 (5-15) MEQ/L BUN 16 (7-17) mg/dL Creatinine 0.44 L (0.52-1.04) mg/dL Estimated GFR > 60.0 ML/MIN Glucose 147 H (74-106) mg/dL POC Glucometer (74 to 106) mg/dL Calcium 8.0 L (8.4-10.2) mg/dL Magnesium (1.6-2.3) mg/dL Total Bilirubin 0.30 (0.2-1.3) mg/dL AST 42 H (14-36) U/L ALT 72 H (0-35) U/L Alkaline Phosphatase 102 (38-126) U/L Troponin I < 0.012 (0.000-0.034) ng/mL NT-Pro-B Natriuret Pep 578 (0-900) pg/mL Serum Total Protein 5.9 L (6.3-8.2) g/dL Albumin 3.0 L (3.5-5.0) g/dL Vitamin B12 (239-931) pg/mL TSH 3rd Generation (0.47-4.68) mIU/L Accuchecks Date 06/11/22 Date 06/10/22 Time 12:15 Time 21:00 - Radiology Impressions Radiology Exams & Impressions: Radiology Procedures Category Date Time Status CHEST 1 VIEW (PORTABLE) Stat Exams 06/10/22 14:58 Completed CHEST WITHOUT CONTRAST [CT] Stat Exams 06/10/22 15:27 Completed - Other Procedures and Tests Respiratory Therapy 06/10/22 17:36 Respiratory Therapy Assessment DAILY Assessment/Plan (1) Pneumonia Current Visit: Yes Status: Acute Assessment & Plan: patchy airspace dz favors Covid Pneumonia per Radiologist.- improving Elevated WBC started IV atb in ER Code(s): J18.9 - PNEUMONIA, UNSPECIFIED ORGANISM (2) COPD exacerbation Current Visit: Yes Status: Acute Assessment & Plan: improved with current tx see orders Code(s): J44.1 - CHRONIC OBSTRUCTIVE PULMONARY DISEASE W (ACUTE) EXACERBATION (3) Sinusitis Current Visit: Yes Status: Chronic Qualifiers: Sinusitis location: pansinusitis Assessment & Plan: start Flonase NS Code(s): J32.9 - CHRONIC SINUSITIS, UNSPECIFIED (4) Leg cramps Current Visit: Yes Status: Chronic Assessment & Plan: started Flexeril at HS Code(s): R25.2 - CRAMP AND SPASM (5) B12 deficiency Current Visit: Yes Status: Suspected Assessment & Plan: B12 inj x one Code(s): E53.8 - DEFICIENCY OF OTHER SPECIFIED B GROUP VITAMINS
[2022-06-11] MEDS: Flonase NASAL NS SCH (23:10)
[2022-06-11] MEDS: Cyclobenzaprine 10 MG PO SCH (23:10)
[2022-06-12] MEDS: solu-MEDROL 60 MG, Sterile H2O 10 ml 2 ML IV SCH ×10 (00:17→23:37)
[2022-06-12] MEDS: PROVENTIL 2.5 MG/3 ML NEB IH SCH ×6 (03:00→23:11)
[2022-06-12] MEDS: Sodium Chloride 0.9% 1000 ML 1,000 ML IV SCH ×2 (04:18→18:48)
[2022-06-12] MEDS: NORVASC 5 MG PO SCH (09:57)
[2022-06-12] MEDS: MELOXICAM PO SCH ×2 (09:57→21:21)
[2022-06-12] MEDS: Flonase NASAL NS SCH (09:58)
[2022-06-12] MEDS: ENOXAPARIN SODIUM SQ SCH (09:58)
[2022-06-12] MEDS: SYNTHROID 125 MCG PO SCH (09:58)
[2022-06-12] MEDS: NEURONTIN PO SCH (09:58)
[2022-06-12] MEDS: ECOTRIN 81 MG PO SCH (09:58)
[2022-06-12] MEDS: Zithromax 500 MG/ 250 ML NaCl Premix 500 MG/250 ML IVPB IV SCH (10:04)
[2022-06-12] MEDS: ROCEPHIN 1 Gm-D5w 50 ml Bag** 1 G/50 ML IVPB IV SCH (10:04)
[2022-06-12 15:31] LABS: Absolute Neutrophil Ct (ANC) 13.96 x10^3/uL (1.4-6.9); Basophil (Absolute #) 0.03 x10^3/uL (0-0.4); Eosinophil (Absolute #) 0 x10^3/uL (0-0.5); Hemoglobin 12.8 g/dL (12.0-16.0); Lymphocyte (Absolute #) 1.26 x10^3/uL (1.0-4.6); Lymphocytes % 7.8 % (24.0-44.0); Mean Cell Volume 100.7 fL (78-100); Mean Corpuscular Hgb Concent. 29.8 g/dL (32-36); Monocyte (Absolute #) 0.65 x10^3/uL (0.0-1.3); Neutrophil % 86.4 % (36.0-66.0); Platelet Count 303 x10^3/uL (150-450); Red Blood Count 4.27 x10^6/uL (4.1-5.4); White Blood Count 16.2 x10^3/uL (4.0-10.5)
[2022-06-12 15:43] LABS: ALBUMIN 3.2 g/dL (3.5-5.0); ALKALINE PHOSPHATASE 86 U/L (38-126); ANION GAP 5.4 MEQ/L (5-15); BLOOD UREA NITROGEN 31 mg/dL (7-17); CHLORIDE 102 mmol/L (98-107); Calcium 8.5 mg/dL (8.4-10.2); Carbon Dioxide 35 mmol/L (22-30); Creatinine 1 0.65 mg/dL (0.52-1.04); EST GLOMERULAR FILTRATION RATE > 60.0 ML/MIN; Glucose 132 mg/dL (74-106); Potassium 4.6 mmol/L (3.5-5.1); SGOT/AST 42 U/L (14-36); SGPT/ALT 74 U/L (0-35); SODIUM 138 mmol/L (137-145); Total Protein 6.3 g/dL (6.3-8.2)
[2022-06-12] MEDS: Cyclobenzaprine 10 MG PO SCH (21:21)
[2022-06-13] MEDS: PROVENTIL 2.5 MG/3 ML NEB IH SCH ×4 (02:59→15:07)
[2022-06-13] MEDS: solu-MEDROL 60 MG, Sterile H2O 10 ml 2 ML IV SCH ×4 (05:41→11:52)
[2022-06-13] MEDS: VENTOLIN COMMON CANISTER IH SCH ×2 (07:43→07:44)
[2022-06-13] MEDS: Sodium Chloride 0.9% 1000 ML 1,000 ML IV SCH (08:11)
[2022-06-13] MEDS ORDERED: Advair Hfa 115/21 Common canister IH SCH (09:00)
--- NOTE | 2022-06-13 09:47 | CONS ---
CONSULT DATE: 06/12/2022 REASON FOR CONSULT: Evaluation of shortness of breath. HISTORY: Miss Luna Mejias is a 57-year-old woman with history of chronic obstructive pulmonary disease who had been admitted through the emergency room with worsening shortness of breath. 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 She repeated stated that this has been the cause of her worsening symptoms. She has been treated for COVID-19 once as well. She clearly appears to have chronic obstructive pulmonary disease given she is an active smoker. The patient's effort tolerance is mildly reduced. She continues to use Albuterol inhaler as well as nebulizer on an as needed basis. Currently she does report improvement in symptoms since being hospitalized. PAST MEDICAL HISTORY: Positive for chronic obstructive pulmonary disease. She has history of coronary artery disease, arthritis, hypertension and neuropathy. PAST SURGICAL HISTORY: No recent surgery. PERSONAL AND SOCIAL HISTORY: She smokes half a pack of cigarettes per day. MEDICATIONS: Home and current medications are reviewed. ALLERGIES: NKDA. PHYSICAL EXAMINATION: This is a middle aged woman who appears fairly comfortable, able to carry out good conversation without short of breath. Vital signs noted. HEENT: Normocephalic. Oral exam limited. NECK: Supple. CVS: First and second heart sounds are normal, regular, rhythmic. RESPIRATORY: Shows diminished breath sounds, scattered rhonchi are heard. ABDOMEN: Soft. EXTREMITIES: No edema is noted. LABORATORY DATA AND TESTS: Labs were reviewed. ASSESSMENT: This is a 57-year-old woman admitted with: 1) Chronic obstructive pulmonary disease with acute exacerbation. 2) Acute bronchitis. 3) Hypoxemia on home oxygen. 4) Nicotine addiction. RECOMMENDATIONS: 1) I agree with present treatment. 2) Gradual steroid taper. 3) Need for smoking cessation was stressed. 4) Will benefit from addition of controller medication, will add Trelegy 100 mcg one puff once daily. 5) Low dose screening CT scan as outpatient as well as PFT, if these have not been performed. Further recommendations pending clinical improvement. Thank you for allowing me to participate in the care of your patient.
[2022-06-13] MEDS: MELOXICAM PO SCH (09:52)
[2022-06-13] MEDS: ROCEPHIN 1 Gm-D5w 50 ml Bag** 1 G/50 ML IVPB IV SCH (09:52)
[2022-06-13] MEDS: SYNTHROID 125 MCG PO SCH (09:52)
[2022-06-13] MEDS: NORVASC 5 MG PO SCH (09:52)
[2022-06-13] MEDS: NEURONTIN PO SCH (09:52)
[2022-06-13] MEDS: ECOTRIN 81 MG PO SCH (09:52)
[2022-06-13] MEDS: Flonase NASAL NS SCH (09:53)
[2022-06-13] MEDS: ENOXAPARIN SODIUM SQ SCH (09:53)
[2022-06-13] MEDS: Zithromax 500 MG/ 250 ML NaCl Premix 500 MG/250 ML IVPB IV SCH (10:44)
[2022-06-13 12:46] VITALS: BP 134/64
--- NOTE | 2022-06-13 14:13 | PCM.NOTE ---
Date and Time: 06/12/221929 Subjective Assessment: COPD still wheezing but improved. Aer[employer] Engineer Dr Verdin saw ptn this evening(see consult note) Objective Exam General Appearance: no apparent distress (family at bedside) Neurologic Exam: alert, oriented x 3, cooperative, normal mood/affect Skin Exam: normal color, warm, dry Ears, Nose, Throat Exam: moist mucous membranes, other (nasal congestion) Respiratory Exam: diminished breath sounds, wheezing (lef ant chest), other (O2 92% on 2L) Cardiovascular Exam: regular rate/rhythm Extremity Exam: normal inspection OBJECTIVE DATA Vital Signs: Vital Signs - 24 hr Temp Pulse Resp BP Pulse Ox 06/13/22 12:00 97.1 F 80 18 134/64 91 L 06/13/22 10:49 76 18 91 L 06/13/22 08:00 68 18 94 L 06/13/22 07:28 97.1 F 69 18 181/83 92 L 06/13/22 04:00 97.1 F 67 20 154/72 91 L 06/13/22 03:01 65 18 95 06/12/22 23:42 96.9 F 75 19 154/74 94 L 06/12/22 23:11 73 18 94 L 06/12/22 20:00 96.9 F 78 20 167/77 93 L 06/12/22 19:03 67 20 92 L 06/12/22 16:00 97.5 F 70 19 165/81 91 L 06/12/22 14:32 82 22 92 L Pain Assessment - Last Documented Pain Intensity 0 Intake and Output: Intake & Output 06/11/22 06/12/22 06/13/22 06/14/22 11:59 11:59 11:59 11:59 Intake Total 2793 3162 3646 360 Balance 2793 3162 3646 360 Weight 82.1 kg Lab Results: Lab Results-Last 24 Hours 06/12/22 06/12/22 06/12/22 Range/Units 15:26 15:27 15:27 WBC 16.2 H (4.0-10.5) x10^3/uL RBC 4.27 (4.1-5.4) x10^6/uL Hgb 12.8 (12.0-16.0) g/dL Hct 43.0 (35-47) % MCV 100.7 H (78-100) fL MCH 30.0 (26-32) pg MCHC 29.8 L (32-36) g/dL RDW 14.0 (11.5-14.0) % Plt Count 303 (150-450) x10^3/uL MPV 9.0 (7.5-11.0) fL Gran % 86.4 H (36.0-66.0) % Immature Gran % (Auto) 1.6 H (0.00-0.4) % Nucleat RBC Rel Count 0.0 (0.00-0.1) % Eos # (Auto) 0 (0-0.5) x10^3/uL Immature Gran # (Auto) 0.26 H (0.00-0.03) x10^3u/L Absolute Lymphs (auto) 1.26 (1.0-4.6) x10^3/uL Absolute Monos (auto) 0.65 (0.0-1.3) x10^3/uL Absolute Nucleated RBC 0.00 (0.00-0.01) x10^3u/L Lymphocytes % 7.8 L (24.0-44.0) % Monocytes % 4.0 (0.0-12.0) % Eosinophils % 0.0 (0.00-5.0) % Basophils % 0.2 (0.0-0.4) % Absolute Granulocytes 13.96 H (1.4-6.9) x10^3/uL Basophils # 0.03 (0-0.4) x10^3/uL Sodium 138 (137-145) mmol/L Potassium 4.6 (3.5-5.1) mmol/L Chloride 102 (98-107) mmol/L Carbon Dioxide 35 H (22-30) mmol/L Anion Gap 5.4 (5-15) MEQ/L BUN 31 H (7-17) mg/dL Creatinine 0.65 (0.52-1.04) mg/dL Estimated GFR > 60.0 ML/MIN Glucose 132 H (74-106) mg/dL POC Glucometer (74 to 106) mg/dL Hemoglobin A1c 6.11 H (4.5-6.0) % Calcium 8.5 (8.4-10.2) mg/dL Total Bilirubin 0.20 (0.2-1.3) mg/dL AST 42 H (14-36) U/L ALT 74 H (0-35) U/L Alkaline Phosphatase 86 (38-126) U/L Serum Total Protein 6.3 (6.3-8.2) g/dL Albumin 3.2 L (3.5-5.0) g/dL 06/13/22 Range/Units 12:00 WBC (4.0-10.5) x10^3/uL RBC (4.1-5.4) x10^6/uL Hgb (12.0-16.0) g/dL Hct (35-47) % MCV (78-100) fL MCH (26-32) pg MCHC (32-36) g/dL RDW (11.5-14.0) % Plt Count (150-450) x10^3/uL MPV (7.5-11.0) fL Gran % (36.0-66.0) % Immature Gran % (Auto) (0.00-0.4) % Nucleat RBC Rel Count (0.00-0.1) % Eos # (Auto) (0-0.5) x10^3/uL Immature Gran # (Auto) (0.00-0.03) x10^3u/L Absolute Lymphs (auto) (1.0-4.6) x10^3/uL Absolute Monos (auto) (0.0-1.3) x10^3/uL Absolute Nucleated RBC (0.00-0.01) x10^3u/L Lymphocytes % (24.0-44.0) % Monocytes % (0.0-12.0) % Eosinophils % (0.00-5.0) % Basophils % (0.0-0.4) % Absolute Granulocytes (1.4-6.9) x10^3/uL Basophils # (0-0.4) x10^3/uL Sodium (137-145) mmol/L Potassium (3.5-5.1) mmol/L Chloride (98-107) mmol/L Carbon Dioxide (22-30) mmol/L Anion Gap (5-15) MEQ/L BUN (7-17) mg/dL Creatinine (0.52-1.04) mg/dL Estimated GFR ML/MIN Glucose (74-106) mg/dL POC Glucometer 189 H (74 to 106) mg/dL Hemoglobin A1c (4.5-6.0) % Calcium (8.4-10.2) mg/dL Total Bilirubin (0.2-1.3) mg/dL AST (14-36) U/L ALT (0-35) U/L Alkaline Phosphatase (38-126) U/L Serum Total Protein (6.3-8.2) g/dL Albumin (3.5-5.0) g/dL Multi-Disciplinary Progress Notes: Multi-Disciplinary Progress Notes 06/13/22 13:44 Case Management Note by Sofi Kelly S/W PATIENT- SHE DENIES ANY NEW NEEDS AT TIME OF DC. SHE PLANS TO RETURN HOME TO HER PLF AT TIME OF DC. SHE IS CURRENTLY ON 2L/NC. WILL HAVE RT SEE IF PATIENT NEEDS HOME OXYGEN 24/12 INSTEAD OF HOME ROUTINE OF JUST AT HS Initialized on 06/13/22 13:44 - END OF NOTE Assessment/Plan (1) Pneumonia Current Visit: Yes Status: Acute Assessment & Plan: see discussion in CT chest report and Dr Verdin Aerospace Stress Engineer report. Code(s): J18.9 - PNEUMONIA, UNSPECIFIED ORGANISM (2) COPD exacerbation Current Visit: Yes Status: Acute Code(s): J44.1 - CHRONIC OBSTRUCTIVE PULMONARY DISEASE W (ACUTE) EXACERBATION (3) Sinusitis Current Visit: Yes Status: Chronic Qualifiers: Sinusitis location: pansinusitis Assessment & Plan: due to mask-possible allergy to mask(works at [employer]) Code(s): J32.9 - CHRONIC SINUSITIS, UNSPECIFIED (4) Leg cramps Current Visit: Yes Status: Chronic Assessment & Plan: improved Code(s): R25.2 - CRAMP AND SPASM (5) B12 deficiency Current Visit: Yes Status: Suspected Assessment & Plan: 1 x injection B12 was given Code(s): E53.8 - DEFICIENCY OF OTHER SPECIFIED B GROUP VITAMINS
[2022-06-13 15:10] VITALS: PULSE 78; O2SAT 93
[2022-06-13 15:20] LABS: Absolute Neutrophil Ct (ANC) 11.24 x10^3/uL (1.4-6.9); Basophil (Absolute #) 0.03 x10^3/uL (0-0.4); Eosinophil (Absolute #) 0 x10^3/uL (0-0.5); Hematocrit 45.4 % (35-47); Hemoglobin 13.6 g/dL (12.0-16.0); Lymphocyte (Absolute #) 0.79 x10^3/uL (1.0-4.6); Lymphocytes % 6.2 % (24.0-44.0); Mean Cell Volume 99.8 fL (78-100); Mean Corpuscular Hemoglobin 29.9 pg (26-32); Mean Platelet Volume 8.8 fL (7.5-11.0); Monocyte (Absolute #) 0.44 x10^3/uL (0.0-1.3); Monocytes % 3.5 % (0.0-12.0); Neutrophil % 88.8 % (36.0-66.0); Platelet Count 295 x10^3/uL (150-450); Red Blood Count 4.55 x10^6/uL (4.1-5.4); Red Cell Distribution Width 13.9 % (11.5-14.0); White Blood Count 12.7 x10^3/uL (4.0-10.5)
[2022-06-13 17:16] LABS: ALBUMIN 3.1 g/dL (3.5-5.0); ALKALINE PHOSPHATASE 109 U/L (38-126); ANION GAP 6.7 MEQ/L (5-15); BLOOD UREA NITROGEN 36 mg/dL (7-17); CHLORIDE 103 mmol/L (98-107); Calcium 8.3 mg/dL (8.4-10.2); Carbon Dioxide 35 mmol/L (22-30); Creatinine 1 0.58 mg/dL (0.52-1.04); EST GLOMERULAR FILTRATION RATE > 60.0 ML/MIN; Glucose 182 mg/dL (74-106); NT PRO BNP 1350 pg/mL (0-900); Potassium 4.3 mmol/L (3.5-5.1); SGOT/AST 48 U/L (14-36); SGPT/ALT 82 U/L (0-35); SODIUM 140 mmol/L (137-145)
== END 2022-06-13 16:55 | disposition home or self-care (01) ==
LOC: ED 13:26 → MED SURG 17:14
PROVIDERS: ADMIT Family Medicine; ATTEND Family Medicine
DX: J18.9 Pneumonia, unspecified organism (principal); J44.1 Chronic obstructive pulmonary disease with (acute) exacerbation; J44.0 Chronic obstructive pulmonary disease with (acute) lower respiratory infection; R09.02 Hypoxemia; J32.9 Chronic sinusitis, unspecified; R25.2 Cramp and spasm; E53.8 Deficiency of other specified B group vitamins; Z72.0 Tobacco use; Z79.899 Other long term (current) drug therapy; Z85.41 Personal history of malignant neoplasm of cervix uteri; Z20.828 Contact with and (suspected) exposure to other viral communicable diseases; Z86.16 Personal history of COVID-19
CPT/HCPCS: 0241U; 36415; 71045; 71250; 80053; 82607; 82947; 83036; 83605; 83735; 83880; 84443; 84484; 85025; 85610; 85730; 87040; 93005; 94640; 94760; 96365; 99285; 99291; J0456; J0696; J1650; J2930; J3420; J7609; A9270-GY

== ENCOUNTER 2022-12-08 10:39 | Observation (INO) | payer BC ==
[2022-12-08] MEDS ORDERED: solu-MEDROL 125 MG, Sterile H2O 10 ml 2 ML IV ONE ×2 (10:47)
[2022-12-08] MEDS ORDERED: Lasix 40 MG/4 ML IV ONE (10:47)
[2022-12-08] MEDS ORDERED: Rocephin 1000 MG INJ** 1,000 MG in Sodium Chloride 0.9% 100 ML IV ONE (10:47)
[2022-12-08] MEDS ORDERED: DUONEB 0.5-3 MG/3 ml Neb IH ONE ×2 (10:47→11:04)
[2022-12-08] MEDS ORDERED: solu-MEDROL ONE (10:57)
[2022-12-08] MEDS ORDERED: Sterile H2O 10 ml IJ ONE (10:57)
[2022-12-08] MEDS ORDERED: Lasix 40 MG/4 ML ONE (10:57)
[2022-12-08] MEDS ORDERED: ROCEPHIN 1 Gm-D5w 50 ml Bag** 1 G/50 ML IVPB IV ONE (10:58)
[2022-12-08] MEDS ORDERED: ROCEPHIN 1 Gm-D5w 50 ml Bag** 1 G/50 ML IVPB IV STA (10:59)
[2022-12-08] MEDS: Sodium Chloride 0.9% 1000 ML 1,000 ML IV SCH ×2 (11:01→17:40)
[2022-12-08 11:22] LABS: Absolute Neutrophil Ct (ANC) 19.13 x10^3/uL (1.4-6.9); BASOPHIL % 0.5 % (0.0-0.4); Basophil (Absolute #) 0.12 x10^3/uL (0-0.4); Eosinophil % 0.4 % (0.00-5.0); Hemoglobin 13.3 g/dL (12.0-16.0); IMMATURE GRAN # 0.61 x10^3u/L (0.00-0.03); IMMATURE GRAN % 2.7 % (0.00-0.4); Lymphocyte (Absolute #) 1.91 x10^3/uL (1.0-4.6); Lymphocytes % 8.4 % (24.0-44.0); Mean Corpuscular Hemoglobin 30.1 pg (26-32); Mean Corpuscular Hgb Concent. 31.7 g/dL (32-36); Mean Platelet Volume 9.2 fL (7.5-11.0); Monocyte (Absolute #) 0.95 x10^3/uL (0.0-1.3); Monocytes % 4.2 % (0.0-12.0); NUCLEATED RBC # 0.04 x10^3u/L (0.00-0.01); NUCLEATED RBC % 0.2 % (0.00-0.1); Neutrophil % 83.8 % (36.0-66.0); Platelet Count 345 x10^3/uL (150-450); Red Blood Count 4.42 x10^6/uL (4.1-5.4); Red Cell Distribution Width 15.1 % (11.5-14.0); White Blood Count 22.8 x10^3/uL (4.0-10.5)
[2022-12-08 11:43] LABS: ALBUMIN 3.3 g/dL (3.5-5.0); ALKALINE PHOSPHATASE 124 U/L (38-126); ANION GAP 12.8 MEQ/L (5-15); BLOOD UREA NITROGEN 15 mg/dL (7-17); CHLORIDE 97 mmol/L (98-107); Calcium 8.9 mg/dL (8.4-10.2); Carbon Dioxide 32 mmol/L (22-30); Creatinine 1 0.63 mg/dL (0.52-1.04); EST GLOMERULAR FILTRATION RATE > 60.0 ML/MIN; Glucose 125 mg/dL (74-106); MAGNESIUM 1.7 mg/dL (1.6-2.3); NT PRO BNPII 5930 pg/mL (<300); Potassium 3.7 mmol/L (3.5-5.1); SGOT/AST 44 U/L (14-36); SGPT/ALT 46 U/L (0-35); SODIUM 138 mmol/L (137-145); Total Protein 6.4 g/dL (6.3-8.2)
[2022-12-08 11:54] LABS: INFLUENZA A NEGATIVE (NEGATIVE); INFLUENZA B NEGATIVE (NEGATIVE); RESPIRATORY SYNCTIAL VIRUS NEGATIVE (NEGATIVE); SARS-CoV-2 Xpert Express NEGATIVE (NEGATIVE)
[2022-12-08 12:32] LABS: ADD URINE CULTURE? NO (NO); Appearance Clear (Clear); Bacteria None Seen /HPF (None Seen); Bilirubin Negative (Negative); Blood Small (Negative); Epithelial Cells None Seen /HPF (None Seen); Glucose, Urine Negative (Negative); Hyaline Casts NONE SEEN /LPF (0-2); Ketones Negative (Negative); Leukocyte Esterase Negative (Negative); Nitrite Negative (Negative); Protein,Urine Dip Trace (Negative); RBC 0-2 /HPF (0-5); Specific Gravity <=1.005 (1.005-1.030); Urobilinogen 0.2 mg/dL (0.2); WBC 0-2 /HPF (0-5)
--- NOTE | 2022-12-08 14:31 | XRAY ---
CLINICAL HISTORY:elevated d dimer COMPARISON:None; TECHNIQUES:Axial CT images of the chest were acquired with the administration of intravenous contrast. 100 cc Isovue given for post-contrast images; FINDINGS: Pulmonary artery is dilated measuring about 34mm, well opacified with no evidence of filling defects could be detected. Bilateral lower lobe more on the right side Clumped nodular air space opacities with thick reticular densities seen in random distribution. Bilateral upper lobe and right middle lobe less evident micronodular opacities seen. No free or encysted pleural effusion. Heart size is normal, and there is no pericardial effusion. No pathologically enlarged mediastinal, hilar or axillary lymph node was identified. There is no definite mass lesion in the chest wall. Scanned upper abdomen shows Multiple hypodense left lobe hepatic lesions with mean density from 12 to 20 HU, likely cysts, splenic marginally calcified cystic lesion measuring about 5 x 4.5 cm. IMPRESSION: 1. Signs of pulmonary artery hypertension. 2. Bilateral lower lobe clumped nodular air space opacities with thick reticular opacities seen changes less evident on upper lobes with micronodular opacities seen, findings suggest Bronchopneumonia rather than another differential to be clinically correlated and followed up. 3. Multiple hypodense left lobe hepatic lesions mean density from 12 to 20 HU, likely cysts, splenic marginally calcified cystic lesion measuring about 5 x 4.5 cm. Electronically Signed by: Arely Patterson MD. (12/08/2022 13:28:18 [employer]IMNEY MECH[employer]IC)
--- NOTE | 2022-12-08 14:55 | ERPHSYRPT ---
- History of Present Illness Time Seen by Provider: 12/08/22 10:50 Source: patient, family Exam Limitations: no limitations Patient Subjective Stated Complaint: pt here for increase sob since last saturday worse today, her o2 sats where low at home, productive cough, no fever Triage Nursing Assessment: pt alert, resp labored with movement, skin w/d/p, has edema to lower legs , congested sounding cough Physician History: Patient is a 57-year-old white female with COPD who presents with a complaint of shortness of breath which has been getting worse over the past 6 days. She has noted at home that she had room air sat of 67% she does use oxygen at night 2 L. She also has a nebulizer and she last used that 5 hours prior to arrival. Timing/Duration: day(s) (6) Activities at Onset: none Severity of Dyspnea-Max: moderate Severity of Dyspnea-Current: moderate Possible Cause: frequent episodes Modifying Factors: Improves With: albuterol nebulizer, oxygen Associated Symptoms: cough, wheezing, productive cough Allergies/Adverse Reactions: No Known Drug Allergies Allergy (Verified 12/08/22 10:40) Home Medications: Synthroid 125 Mcg 125 mcg PO DAILY 12/11/11 [History] Gabapentin [Neurontin ] 300 mg PO DAILY 08/14/21 [History] Meloxicam 15 mg [Meloxicam 15 MG] 7.5 mg PO BID 08/14/21 [History] Albuterol Sulfate [Albuterol Sulfate Hfa] 2 inh PO Q6H 02/18/22 [History] Fluticasone/Umeclidin/Vilanter [Trelegy Ellipta 100-62.5-25] 1 ea DAILY 12/08/22 [History] Metoprolol Succinate 25 mg Xl* [Toprol-Xl 25MG Tablets] 25 mg PO DAILY 12/08/22 [History] Potassium Gluconate [Potassium] 99 mg PO DAILY 12/08/22 [History] Spironolactone 25 mg [Aldactone 25 MG] 25 mg PO DAILY 12/08/22 [History] Tolterodine Tartrate [Tolterodine Tartrate ER] 4 mg PO DAILY 12/08/22 [History] Vit D3-Vit K/Berberine/Hops [Ostera Tablet] 1 each PO DAILY 12/08/22 [History] Hx Tetanus, Diphtheria Vaccination/Date Given: Yes (2019) Hx Influenza Vaccination/Date Given: Yes Hx Pneumococcal Vaccination/Date Given: No Immunizations Up to Date: Yes Travel Risk - International Travel Have you traveled outside of the country in past 3 weeks: No - Coronavirus Screening Are you exhibiting any of the following symptoms?: No Close contact with a COVID-19 positive Pt in past 14-21 Days: No - Vaccine Status Have you recieved a Covid-19 vaccination: Yes Wool [place]er: Unknown - Vaccination Dates Dates if Unknown: unknown - Review of Systems Constitutional: No Fever, No Chills Eyes: No Symptoms Ears, Nose, & Throat: No Symptoms Respiratory: Cough, Dyspnea, Wheezing Cardiac: No Chest Pain, No Edema, No Syncope Abdominal/Gastrointestinal: No Abdominal Pain, No Nausea, No Vomiting, No Diarrhea Genitourinary Symptoms: No Dysuria Musculoskeletal: No Back Pain, No Neck Pain Skin: No Rash Neurological: No Dizziness, No Focal Weakness, No Sensory Changes Psychological: No Symptoms Endocrine: No Symptoms All Other Systems: Reviewed and Negative - Past Medical History Pertinent Past Medical History: Yes Neurological History: No Pertinent History ENT History: No Pertinent History Cardiac History: No Pertinent History Respiratory History: COPD, Sleep Apnea Endocrine Medical History: No Pertinent History Musculoskeletal History: No Pertinent History GI Medical History: No Pertinent History History: No Pertinent History Psycho-Social History: No Pertinent History Female Reproductive Disorders: Cervical Cancer Other Medical History: history of cervical cancer - Past Surgical History Past Surgical History: Yes (thyroidectomy) Neuro Surgical History: No Pertinent History Cardiac: No Pertinent History Respiratory: No Pertinent History Gastrointestinal: No Pertinent History Genitourinary: No Pertinent History Musculoskeletal: No Pertinent History Female Surgical History: Tubal Ligation Other Surgical History: THYROID REMOVAL - Social History Smoking Status: Current every day smoker How long have you smoked: 25 years Exposure to second hand smoke: Yes ( smokes also) Drug Use: none Patient Lives Alone: No - Nursing Vital Signs Nursing Vital Signs: Initial Vital Signs Blood Pressure 139/73 12/08/22 10:45 O2 Sat by Pulse Oximetry 91 L 12/08/22 10:45 Pain Scale Pain Intensity 6 - Physical Exam General Appearance: moderate distress, alert Eye Exam: PERRL/EOMI Neck Exam: normal inspection, supple Respiratory Exam: respiratory distress (Moderate), diminished breath sounds, crackles/rales, rhonchi, wheezing Cardiovascular/Chest Exam: normal heart sounds, regular rate/rhythm Abdominal/Gastrointestinal Exam: soft, No tenderness, No distention, No mass Extremity Exam: non-tender, normal range of motion, normal inspection, no calf tenderness, no pedal edema Neurologic Exam: alert, oriented x 3, cooperative, 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 II-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 nml as tested, sensation nml, No motor deficits Skin Exam: normal color, warm, No dry SpO2 Interpretation: hypoxic, O2 applied SpO2: 90 O2 Delivery: Nasal Cannula - Course Nursing assessment & vital signs reviewed: Yes EKG Interpreted by Me: A-fib ( ), Other (Fib flutter rate of [address]- T wave changes in the inferior leads especially and prolonged QT interval.) - Radiology Exams Chest X-ray Interpretation: Interpreted by me, Negative - CT Exams Chest CT Interpretation: Tele-radiologist Report (No PE but does have evidence of bronchopneumonia) Ordered Tests: Active Orders 24 hr Category Date Time Status EKG-ER Only STAT Care 12/08/22 10:47 Active IV Insertion STAT Care 12/08/22 10:47 Active CHEST 1 VIEW (PORTABLE) Stat Exams 12/08/22 10:48 Taken CHEST WITH CONTRAST [CT] Stat Exams 12/08/22 12:27 Completed CBC W DIFF Stat Lab 12/08/22 11:10 Completed CMP Stat Lab 12/08/22 11:10 Completed D-DIMER QUANTITATIVE Stat Lab 12/08/22 11:10 Completed Lactic Acid Stat Lab 12/08/22 11:05 Completed MAGNESIUM Stat Lab 12/08/22 11:10 Completed NT PRO BNPII Stat Lab 12/08/22 11:10 Completed TROPONIN Q4H Lab 12/08/22 11:10 Completed TROPONIN Q4H Lab 12/08/22 15:00 Ordered TROPONIN Q4H Lab 12/08/22 19:00 Ordered UA W/RFX UR CULTURE Stat Lab 12/08/22 11:45 Completed Respiratory Therapy Assessment DAILY RT 12/08/22 11:14 Active Medication Summary Generic Name Dose Route Start Last Admin Trade Name Freq PRN Reason Stop Dose Admin Sodium Chloride 1,000 mls @ 100 mls/hr 12/08/22 11:00 12/08/22 11:01 Sodium Chloride 0.9% 1000 Ml IV 01/07/23 10:59 100 mls/hr .Q10H PRICILLA Administration Discontinued Medications Generic Name Dose Route Start Last Admin Trade Name Michelle PRN Reason Stop Dose Admin Albuterol/Ipratropium 3 ml 12/08/22 10:47 12/08/22 11:07 Ipratropium/Albuterol Sulfate 3 Ml Ampul.Neb IH 12/08/22 10:48 3 ml STAT ONE Administration Albuterol/Ipratropium Confirm 12/08/22 11:04 Ipratropium/Albuterol Sulfate 3 Ml Ampul.Neb Administered 12/08/22 11:05 Dose 3 ml IH .STK-MED ONE Methylprednisolone Sodium 0 mg 12/08/22 10:47 12/08/22 11:01 Succinate 125 mg/ Sterile IV 12/08/22 10:48 125 mg Water 2 ml STAT ONE Administration Furosemide 40 mg 12/08/22 10:47 12/08/22 11:02 Furosemide 40 Mg/4 Ml Vial IV 12/08/22 10:48 40 mg STAT ONE Administration Furosemide Confirm 12/08/22 10:57 Furosemide 40 Mg/4 Ml Vial Administered 12/08/22 10:58 Dose 40 mg .ROUTE .STK-MED ONE Ceftriaxone Sodium 1,000 mg/ 100 mls @ 100 mls/hr 12/08/22 10:47 12/08/22 11:02 Sodium Chloride IV 12/08/22 11:46 Not Given STAT ONE Ceftriaxone Sodium/Dextrose Confirm 12/08/22 10:58 Rocephin 1 Gm-D5w 50 Ml Bag Administered 12/08/22 10:59 Dose 1 g in 50 mls @ ud IV .STK-MED ONE Ceftriaxone Sodium/Dextrose 1 g in 50 mls @ 100 mls/hr 12/08/22 10:59 12/08/22 11:55 Rocephin 1 Gm-D5w 50 Ml Bag IV 12/08/22 11:28 Infused STAT STA Infusion Methylprednisolone Sodium Succinate Confirm 12/08/22 10:57 Methylprednis Sod Succ 125 Mg/2 Ml Vial Administered 12/08/22 10:58 Dose 125 mg .ROUTE .STK-MED ONE Sterile Water Confirm 12/08/22 10:57 Water For Injection,Sterile 10 Ml Vial Administered 12/08/22 10:58 Dose 10 ml IJ .STK-MED ONE Lab/Rad Data: Laboratory Result Diagrams 12/08/22 11:10 12/08/22 11:10 Laboratory Results 12/08/22 12/08/22 12/08/22 Range/Units 11:45 11:10 11:10 WBC (4.0-10.5) x10^3/uL RBC (4.1-5.4) x10^6/uL Hgb (12.0-16.0) g/dL Hct (35-47) % MCV (78-100) fL MCH (26-32) pg MCHC (32-36) g/dL RDW (11.5-14.0) % Plt Count (150-450) x10^3/uL MPV (7.5-11.0) fL Gran % (36.0-66.0) % Immature Gran % (Auto) (0.00-0.4) % Nucleat RBC Rel Count (0.00-0.1) % Eos # (Auto) (0-0.5) x10^3/uL Immature Gran # (Auto) (0.00-0.03) x10^3u/L Absolute Lymphs (auto) (1.0-4.6) x10^3/uL Absolute Monos (auto) (0.0-1.3) x10^3/uL Absolute Nucleated RBC (0.00-0.01) x10^3u/L Lymphocytes % (24.0-44.0) % Monocytes % (0.0-12.0) % Eosinophils % (0.00-5.0) % Basophils % (0.0-0.4) % Absolute Granulocytes (1.4-6.9) x10^3/uL Basophils # (0-0.4) x10^3/uL D-Dimer (0.0-0.50) mg/L Sodium (137-145) mmol/L Potassium (3.5-5.1) mmol/L Chloride (98-107) mmol/L Carbon Dioxide (22-30) mmol/L Anion Gap (5-15) MEQ/L BUN (7-17) mg/dL Creatinine (0.52-1.04) mg/dL Estimated GFR ML/MIN Glucose (74-106) mg/dL Lactic Acid (0.4-2.0) Calcium (8.4-10.2) mg/dL Magnesium (1.6-2.3) mg/dL Total Bilirubin (0.2-1.3) mg/dL AST (14-36) U/L ALT (0-35) U/L Alkaline Phosphatase (38-126) U/L Troponin I 0.037 H* (0.000-0.034) ng/mL NT-Pro-B Natriuret Pep (<300) pg/mL Serum Total Protein (6.3-8.2) g/dL Albumin (3.5-5.0) g/dL Urine Color Yellow (Yellow) Urine Appearance Clear (Clear) Urine pH 6.0 (4.6-8.0) Ur Specific Newell <=1.005 (1.005-1.030) Urine Protein Trace A (Negative) Urine Glucose (UA) Negative (Negative) mg/dL Urine Ketones Negative (Negative) Urine Blood Small A (Negative) Urine Nitrite Negative (Negative) Urine Bilirubin Negative (Negative) Urine Urobilinogen 0.2 (0.2) mg/dL Ur Leukocyte Esterase Negative (Negative) U Hyaline Cast (Auto) NONE SEEN (0-2) /LPF Urine Microscopic RBC 0-2 (0-5) /HPF Urine Microscopic WBC 0-2 (0-5) /HPF Ur Epithelial Cells None Seen (None Seen) /HPF Urine Bacteria None Seen (None Seen) /HPF Urine Culture Reflexed NO (NO) Influenza Type A Ag NEGATIVE (NEGATIVE) Influenza Type B Ag NEGATIVE (NEGATIVE) RSV (PCR) NEGATIVE (NEGATIVE) SARS-CoV-2 (PCR) NEGATIVE (NEGATIVE) 12/08/22 12/08/22 12/08/22 Range/Units 11:10 11:10 11:10 WBC 22.8 H (4.0-10.5) x10^3/uL RBC 4.42 (4.1-5.4) x10^6/uL Hgb 13.3 (12.0-16.0) g/dL Hct 42.0 (35-47) % MCV 95.0 (78-100) fL MCH 30.1 (26-32) pg MCHC 31.7 L (32-36) g/dL RDW 15.1 H (11.5-14.0) % Plt Count 345 (150-450) x10^3/uL MPV 9.2 (7.5-11.0) fL Gran % 83.8 H (36.0-66.0) % Immature Gran % (Auto) 2.7 H (0.00-0.4) % Nucleat RBC Rel Count 0.2 H (0.00-0.1) % Eos # (Auto) 0.10 (0-0.5) x10^3/uL Immature Gran # (Auto) 0.61 H (0.00-0.03) x10^3u/L Absolute Lymphs (auto) 1.91 (1.0-4.6) x10^3/uL Absolute Monos (auto) 0.95 (0.0-1.3) x10^3/uL Absolute Nucleated RBC 0.04 H (0.00-0.01) x10^3u/L Lymphocytes % 8.4 L (24.0-44.0) % Monocytes % 4.2 (0.0-12.0) % Eosinophils % 0.4 (0.00-5.0) % Basophils % 0.5 (0.0-0.4) % Absolute Granulocytes 19.13 H (1.4-6.9) x10^3/uL Basophils # 0.12 (0-0.4) x10^3/uL D-Dimer 1.26 H* (0.0-0.50) mg/L Sodium 138 (137-145) mmol/L Potassium 3.7 (3.5-5.1) mmol/L Chloride 97 L (98-107) mmol/L Carbon Dioxide 32 H (22-30) mmol/L Anion Gap 12.8 (5-15) MEQ/L BUN 15 (7-17) mg/dL Creatinine 0.63 (0.52-1.04) mg/dL Estimated GFR > 60.0 ML/MIN Glucose 125 H (74-106) mg/dL Lactic Acid (0.4-2.0) Calcium 8.9 (8.4-10.2) mg/dL Magnesium 1.7 (1.6-2.3) mg/dL Total Bilirubin 0.50 (0.2-1.3) mg/dL AST 44 H (14-36) U/L ALT 46 H (0-35) U/L Alkaline Phosphatase 124 (38-126) U/L Troponin I (0.000-0.034) ng/mL NT-Pro-B Natriuret Pep 5930 (<300) pg/mL Serum Total Protein 6.4 (6.3-8.2) g/dL Albumin 3.3 L (3.5-5.0) g/dL Urine Color (Yellow) Urine Appearance (Clear) Urine pH (4.6-8.0) Ur Specific Newell (1.005-1.030) Urine Protein (Negative) Urine Glucose (UA) (Negative) mg/dL Urine Ketones (Negative) Urine Blood (Negative) Urine Nitrite (Negative) Urine Bilirubin (Negative) Urine Urobilinogen (0.2) mg/dL Ur Leukocyte Esterase (Negative) U Hyaline Cast (Auto) (0-2) /LPF Urine Microscopic RBC (0-5) /HPF Urine Microscopic WBC (0-5) /HPF Ur Epithelial Cells (None Seen) /HPF Urine Bacteria (None Seen) /HPF Urine Culture Reflexed (NO) Influenza Type A Ag (NEGATIVE) Influenza Type B Ag (NEGATIVE) RSV (PCR) (NEGATIVE) SARS-CoV-2 (PCR) (NEGATIVE) 12/08/22 Range/Units 11:05 WBC (4.0-10.5) x10^3/uL RBC (4.1-5.4) x10^6/uL Hgb (12.0-16.0) g/dL Hct (35-47) % MCV (78-100) fL MCH (26-32) pg MCHC (32-36) g/dL RDW (11.5-14.0) % Plt Count (150-450) x10^3/uL MPV (7.5-11.0) fL Gran % (36.0-66.0) % Immature Gran % (Auto) (0.00-0.4) % Nucleat RBC Rel Count (0.00-0.1) % Eos # (Auto) (0-0.5) x10^3/uL Immature Gran # (Auto) (0.00-0.03) x10^3u/L Absolute Lymphs (auto) (1.0-4.6) x10^3/uL Absolute Monos (auto) (0.0-1.3) x10^3/uL Absolute Nucleated RBC (0.00-0.01) x10^3u/L Lymphocytes % (24.0-44.0) % Monocytes % (0.0-12.0) % Eosinophils % (0.00-5.0) % Basophils % (0.0-0.4) % Absolute Granulocytes (1.4-6.9) x10^3/uL Basophils # (0-0.4) x10^3/uL D-Dimer (0.0-0.50) mg/L Sodium (137-145) mmol/L Potassium (3.5-5.1) mmol/L Chloride (98-107) mmol/L Carbon Dioxide (22-30) mmol/L Anion Gap (5-15) MEQ/L BUN (7-17) mg/dL Creatinine (0.52-1.04) mg/dL Estimated GFR ML/MIN Glucose (74-106) mg/dL Lactic Acid 1.3 (0.4-2.0) Calcium (8.4-10.2) mg/dL Magnesium (1.6-2.3) mg/dL Total Bilirubin (0.2-1.3) mg/dL AST (14-36) U/L ALT (0-35) U/L Alkaline Phosphatase (38-126) U/L Troponin I (0.000-0.034) ng/mL NT-Pro-B Natriuret Pep (<300) pg/mL Serum Total Protein (6.3-8.2) g/dL Albumin (3.5-5.0) g/dL Urine Color (Yellow) Urine Appearance (Clear) Urine pH (4.6-8.0) Ur Specific Newell (1.005-1.030) Urine Protein (Negative) Urine Glucose (UA) (Negative) mg/dL Urine Ketones (Negative) Urine Blood (Negative) Urine Nitrite (Negative) Urine Bilirubin (Negative) Urine Urobilinogen (0.2) mg/dL Ur Leukocyte Esterase (Negative) U Hyaline Cast (Auto) (0-2) /LPF Urine Microscopic RBC (0-5) /HPF Urine Microscopic WBC (0-5) /HPF Ur Epithelial Cells (None Seen) /HPF Urine Bacteria (None Seen) /HPF Urine Culture Reflexed (NO) Influenza Type A Ag (NEGATIVE) Influenza Type B Ag (NEGATIVE) RSV (PCR) (NEGATIVE) SARS-CoV-2 (PCR) (NEGATIVE) - Progress Progress: unchanged Air Movement: poor Antibiotics given: Yes Discussed with DrConrado: Other (Leonard, Who excepted this patient for admission) Medical Desision Making - Independent Historian Additional History obtained from: Spouse - Discussion of managment Care discussed with:: on-call "doc" Reviewed:: Test results Agreed on:: Treatment plan, decision to admit - Diagnostic Testing Diagnostic test were ordered, analyzed, and reviewed by me: Yes Radiological Interpretation: Reviewed by me - Risk of complications The pt has a high risk of morbidity or mortality based on: Decision regarding hospitilization or escalation of hosp level of care - Departure Departure Disposition: Extended Care Facility Clinical Impression: COPD exacerbation Condition: Fair Critical Care Time: No Referrals: BINU BAHENA MD [Primary Care Provider] - Follow up/PCP as directed Instructions: Chronic Obstructive Pulmonary Disease, Exacerbation of COPD (DC)
[2022-12-08] MEDS: PROVENTIL 2.5 MG/3 ML NEB IH SCH ×2 (15:33→18:56)
[2022-12-08] MEDS ORDERED: NEURONTIN PO ONE (18:00)
--- NOTE | 2022-12-08 21:27 | XRAY ---
Indication: Short of breath. Comparison: October 26, 2022 Portable apical lordotic chest demonstrates new bibasilar infiltrates/atelectasis, right greater than left. Remaining heart and upper lungs unremarkable. Bony thorax intact. Grossly stable large calcified splenic cyst.
[2022-12-08] MEDS ORDERED: MELOXICAM PO ONE (22:00)
[2022-12-09] MEDS: PROVENTIL 2.5 MG/3 ML NEB IH SCH ×4 (01:35→10:45)
[2022-12-09] MEDS: PATIENT OWN MEDICATION IH SCH ×2 (07:24→10:47)
[2022-12-09] MEDS ORDERED: MEDICATION INTERVENTION MC SCH ×2 (08:30)
[2022-12-09] MEDS ORDERED: HOPS PO SCH (10:00)
[2022-12-09] MEDS ORDERED: BERBERINE PO SCH (10:00)
[2022-12-09] MEDS ORDERED: ECOTRIN 81 MG PO SCH (10:00)
[2022-12-09] MEDS ORDERED: NON-FORMULARY ITEM (Meloxicam 15 Mg [Meloxicam 15 Mg] 15 MG Tablet) PO SCH (10:00)
[2022-12-09] MEDS ORDERED: Toprol-Xl 25MG Tablets PO SCH (10:00)
[2022-12-09] MEDS ORDERED: Aldactone 25 MG PO SCH (10:00)
[2022-12-09] MEDS ORDERED: DELTASONE 20 MG PO SCH (10:00)
[2022-12-09] MEDS ORDERED: Zithromax 250 MG TABLET PO SCH (10:00)
[2022-12-09] MEDS ORDERED: NON-FORMULARY ITEM (Potassium Gluconate [Potassium] 99 MG Tablet) PO SCH (10:00)
[2022-12-09] MEDS ORDERED: VIT D3 VIT K PO SCH (10:00)
[2022-12-09] MEDS ORDERED: NON-FORMULARY ITEM (Tolterodine Tartrate [Tolterodine Tartrate Er] 4 MG Cap.Er.24h) PO SCH (10:00)
[2022-12-09] MEDS ORDERED: Ditropan XL 5 MG PO SCH (10:00)
[2022-12-09] MEDS ORDERED: SYNTHROID 125 MCG PO SCH ×2 (10:00)
[2022-12-09] MEDS ORDERED: MELOXICAM PO SCH (10:00)
[2022-12-09 11:52] VITALS: BP 111/58; PULSE 79; O2SAT 90
[2022-12-09] MEDS ORDERED: NEURONTIN PO SCH (22:00)
--- NOTE | 2022-12-19 05:10 | PCM.HP ---
History of Present Illness - Chief Complaint Chief Complaint: Acute exacerbation COPD Date: 12/08/22 History of Present Illness: is a 57 year old female. She presents with acute onset dyspnea and cough concerning for COPD exacerbation: She cannot identify what triggered most recent exacerbation. She uses 2lpm at home. Last used nebulizer 5h ago. - Review of Systems Eyes: No Symptoms Ears, Nose, & Throat: No Symptoms Respiratory: Cough, Short Of Breath Cardiac: No Symptoms Abdominal/Gastrointestinal: No Symptoms Musculoskeletal: No Symptoms Medications & Allergies Home Medications: Home Medication List Synthroid 125 Mcg 125 mcg PO DAILY 12/11/11 [History Confirmed 12/08/22] Gabapentin [Neurontin ] 300 mg PO DAILY 08/14/21 [History Confirmed 12/08/22] Meloxicam 15 mg [Meloxicam 15 MG] 7.5 mg PO BID 08/14/21 [History Confirmed 12/08/22] Albuterol Sulfate [Albuterol Sulfate Hfa] 2 inh PO Q6H 02/18/22 [History Confirmed 12/08/22] Aspirin [Ecotrin] 81 mg PO DAILY 30 Days #30 tablet 02/20/22 [Rx Confirmed 12/08/22] Fluticasone/Umeclidin/Vilanter [Trelegy Ellipta 100-62.5-25] 1 puff IH DAILY #1 blist 06/13/22 [Rx Confirmed 12/08/22] Metoprolol Succinate 25 mg Xl* [Toprol-Xl 25MG Tablets] 25 mg PO DAILY 12/08/22 [History Confirmed 12/08/22] Potassium Gluconate [Potassium] 99 mg PO DAILY 12/08/22 [History Confirmed 12/08/22] Spironolactone 25 mg [Aldactone 25 MG] 25 mg PO DAILY 12/08/22 [History Confirmed 12/08/22] Tolterodine Tartrate [Tolterodine Tartrate ER] 4 mg PO DAILY 12/08/22 [History Confirmed 12/08/22] Vit D3-Vit K/Berberine/Hops [Ostera Tablet] 1 each PO DAILY 12/08/22 [History Confirmed 12/08/22] Azithromycin 250 mg [Zithromax 250 MG TABLET] 500 mg PO DAILY 5 Days #5 tablet 12/09/22 [Rx] predniSONE [Prednisone] 50 mg PO DAILY 5 Days #20 tablet 12/09/22 [Rx] Allergies/Adverse Reactions: Allergies Allergy/AdvReac Type Severity Reaction Status Date / Time No Known Drug Allergies Allergy Verified 12/08/22 10:40 - Past Medical History Past Medical History: Yes Neurological History: No Pertinent History ENT History: No Pertinent History Cardiac History: Myocardial Infarction ([place]) Respiratory History: Asthma, COPD, Pneumonia, Sleep Apnea Endocrine Medical History: Thyroid Cancer Musculoskelatal History: No Pertinent History GI Medical History: No Pertinent History History: No Pertinent History Pyscho-Social History: No Pertinent History Reproductive Disorders: Cervical Cancer Comment: history of cervical cancer - Female History Are you now?: No - Past Surgical History Past Surgical History: Yes (thyroidectomy) Neuro Surgical History: No Pertinent History Cardiac History: No Pertinent History Respiratory Surgery: No Pertinent History GI Surgical History: No Pertinent History Genitourinary Surgical Hx: No Pertinent History Musculskeletal Surgical Hx: No Pertinent History Female Surgical History: Other Other Surgical History: thyroidctomy - Social History Smoking Status: Current every day smoker How long have you smoked: 43 years Exposure to second hand smoke: Yes Alcohol: Occasionally Drug Use: none - Physical Exam General Appearance: no apparent distress Neurologic Exam: alert, oriented x 3, cooperative Neck Exam: normal inspection Respiratory Exam: normal breath sounds, lungs clear Cardiovascular Exam: regular rate/rhythm, normal heart sounds Gastrointestinal/Abdomen Exam: soft, normal bowel sounds Assessment/Plan (1) COPD exacerbation Status: Acute Assessment & Plan: Mild exacerbation, al,ost at baseline now, will treat with nebulizer; oral steroids, and antibiotics. Back to baseline O requirement, likely discharge tomorrow. Code(s): J44.1 - CHRONIC OBSTRUCTIVE PULMONARY DISEASE W (ACUTE) EXACERBATION (2) Pneumonia Status: Acute Assessment & Plan: Abx as above Code(s): J18.9 - PNEUMONIA, UNSPECIFIED ORGANISM (3) Elevated troponin Status: Resolved Assessment & Plan: Borderline elevated, no clinical signs concerning for schaemia Code(s): R77.8 - OTHER SPECIFIED ABNORMALITIES OF PLASMA PROTEINS Telemedicine Encounter - Telemedicine Encounter Telemedicine Encounter: The entirety of this encounter was performed via Telemedicine"
--- NOTE | 2022-12-19 05:13 | PCM.DS ---
Discharge Summary Date of Admission: 12/08/22 15:10 Date of Discharge: 12/09/22 Admitting Physician: WILLARD FONG MD Primary Care Provider: BINU BAHENA Allergies Allergies No Known Drug Allergies Allergy (Verified 12/08/22 10:40) Hospital Summary - Hospital Course Hospital Course: Short stay, responded well to nebulizer trearments and steroids: Back down to home O2 requirement of 2 lpm - Vitals & Intake/Output Vital Signs: Vital Signs Temperature 98.0 F 12/09/22 11:51 Pulse Rate 79 12/09/22 11:51 Respiratory Rate 16 12/09/22 11:51 Blood Pressure 111/58 12/09/22 11:51 O2 Sat by Pulse Oximetry 90 L 12/09/22 11:51 - Lab Result Diagrams: 12/08/22 11:10 12/08/22 11:10 - Procedures and Test Procedures and Tests throughout Hospitalization: Therapy Orders & Screens 12/08/22 11:14 Respiratory Therapy Assessment DAILY Comment: 12/08/22 15:49 Oxygen Nasal Cannula 4 lpm Comment: Diagnosis: Acute exacerbation COPD 12/08/22 15:50 Flutter Therapy UD Comment: Diagnosis: Acute exacerbation COPD 12/08/22 16:46 RT Screen per Nursing Assess ONCE Comment: Protocol Order Physician Instructions: Greater than 3 points order RT Admission Screen Reason For Exam: Triggered on Admission Diagnosis: Acute exacerbation COPD Diagnosis: Acute exacerbation COPD Pneumonia: Yes Home O2: No Asthma: Yes CHF: No Home CPAP/BIPAP: No Home Nebs/MDI: Yes Total Points: 12 Smoking Cessation Education ONCE Comment: Diagnosis: Acute exacerbation COPD Smoking Status: Current every day smoker How long have you smoked: 43 years Have you smoked in the past 12 months: Yes Approximately how many cigarettes per day: 10 Do you dip or chew tobacco: No ST Screen per Nursing Assess ONCE Comment: Protocol Order Physician Instructions: Greater than [address] Admission Screening Reason For Exam: Triggered on Admission Diagnosis: Acute exacerbation COPD CVA/Dyshpagia/Aphasia: No Cognitive Deficits: No Dehydration/Nutrition Deficit: No Reflux: No Oral-Motor Difficulties: No Pneumonia: Yes Prison Resident: No Total Points: 5 Discharge Exam Neurologic Exam: alert, oriented x 3, cooperative Neck Exam: normal inspection Respiratory Exam: normal breath sounds, lungs clear Cardiovascular Exam: regular rate/rhythm, normal heart sounds Gastrointestinal/Abdomen Exam: soft, normal bowel sounds Final Diagnosis/Problem List - Final Discharge Diagnosis/Problem (1) COPD exacerbation Status: Acute Assessment & Plan: DC home with 5 days of oral prednisone and Z pack; follow with PCP Code(s): J44.1 - CHRONIC OBSTRUCTIVE PULMONARY DISEASE W (ACUTE) EXACERBATION (2) Pneumonia Status: Acute Code(s): J18.9 - PNEUMONIA, UNSPECIFIED ORGANISM (3) Elevated troponin Status: Resolved Assessment & Plan: Noncoronary ,yocardial injury, very mild elevation; without clincial signs or EKG changes concerning for ischaemia Code(s): R77.8 - OTHER SPECIFIED ABNORMALITIES OF PLASMA PROTEINS Telemedicine Encounter - Telemedicine Encounter Telemedicine Encounter: The entirety of this encounter was performed via Telemedicine" - Discharge Disposition: Home, Self-Care Condition: Fair Prescriptions: New predniSONE [Prednisone] 50 mg PO DAILY 5 Days #20 tablet Azithromycin 250 mg [Zithromax 250 MG TABLET] 500 mg PO DAILY 5 Days #5 tablet Continue Synthroid 125 Mcg 125 mcg PO DAILY Gabapentin [Neurontin ] 300 mg PO DAILY Meloxicam 15 mg [Meloxicam 15 MG] 7.5 mg PO BID Albuterol Sulfate [Albuterol Sulfate Hfa] 2 inh PO Q6H Aspirin [Ecotrin] 81 mg PO DAILY 30 Days #30 tablet Fluticasone/Umeclidin/Vilanter [Trelegy Ellipta 100-62.5-25] 1 puff IH DAILY #1 blist Spironolactone 25 mg [Aldactone 25 MG] 25 mg PO DAILY Potassium Gluconate [Potassium] 99 mg PO DAILY Tolterodine Tartrate [Tolterodine Tartrate ER] 4 mg PO DAILY Metoprolol Succinate 25 mg Xl* [Toprol-Xl 25MG Tablets] 25 mg PO DAILY Vit D3-Vit K/Berberine/Hops [Ostera Tablet] 1 each PO DAILY Instructions: COPD Exacerbation, Adult ED Follow up with: NASEEM ABEBE [ACTIVE STAFF] - (Follow up in a couple of days) Forms: Discharge Instructions, Work/School Release Form
== END 2022-12-09 13:30 | disposition home or self-care (01) ==
LOC: ED 10:39 → MED SURG 15:10
PROVIDERS: ADMIT Internal Medicine; ATTEND Internal Medicine
DX: J44.1 Chronic obstructive pulmonary disease with (acute) exacerbation (principal); J18.9 Pneumonia, unspecified organism; R77.8 Other specified abnormalities of plasma proteins; R60.0 Localized edema; Z79.899 Other long term (current) drug therapy; Z20.828 Contact with and (suspected) exposure to other viral communicable diseases; Z85.41 Personal history of malignant neoplasm of cervix uteri; Z72.0 Tobacco use
CPT/HCPCS: 0241U; 36000; 36415; 71045; 71260; 80053; 81001; 83605; 83735; 83880; 84484; 85025; 85379; 93005; 94640; 94667; 94668; 94760; 96365; 96374; 96375; 99285; G0378; J0696; J1940; J2930; J7609; A9270-GY

== ENCOUNTER 2023-01-21 18:19 | Inpatient (IN) | payer BC ==
[2023-01-21] MEDS ORDERED: DUONEB 0.5-3 MG/3 ml Neb IH ONE ×3 (18:23→23:16)
[2023-01-21] MEDS ORDERED: solu-MEDROL 125 MG, Sterile H2O 10 ml 2 ML IV ONE ×2 (18:23)
[2023-01-21] MEDS ORDERED: PROVENTIL 2.5 MG/3 ML NEB IH ONE ×2 (18:23→18:55)
--- NOTE | 2023-01-21 18:30 | ERPHSYRPT ---
- History of Present Illness Time Seen by Provider: 01/21/23 18:19 Source: patient Exam Limitations: no limitations Patient Subjective Stated Complaint: Pt states "I think I have pneumonia again. I started to get short of and can not breath." Triage Nursing Assessment: Pt presented alert and oriented X 3, skin pwd. PT presented tripod position, able to speak in four to five word sentences. pt as intermitant cough Physician History: Patient is a 57-year-old female who is a smoker, uses 3 L oxygen at all times due to her COPD comes in with increasing chest tightness and shortness of breath. She tried her albuterol inhaler without any relief. She is concerned that she may have pneumonia, but denies any fever, productive cough, hemoptysis or any change in sputum. Timing/Duration: yesterday Activities at Onset: activity Severity of Dyspnea-Max: severe Severity of Dyspnea-Current: severe Possible Cause: occasional episodes Modifying Factors: Worsens With: albuterol inhaler, exertion Associated Symptoms: cough, wheezing, No chest pain/discomfort, No edema, No fever, No loss of appetite, No weakness, No ankle swelling, No hemoptysis, No calf pain, No dizziness, No heaviness, No heart racing, No lightheadedness, No leg swelling, No muscle spasms feet, No muscle spasms hands, No productive cough, No sweating, No tingling face Allergies/Adverse Reactions: No Known Drug Allergies Allergy (Verified 12/08/22 10:40) Home Medications: Synthroid 125 Mcg 125 mcg PO DAILY 12/11/11 [History] Gabapentin [Neurontin ] 300 mg PO DAILY 08/14/21 [History] Meloxicam 15 mg [Meloxicam 15 MG] 7.5 mg PO BID 08/14/21 [History] Albuterol Sulfate [Albuterol Sulfate Hfa] 2 inh PO Q6H 02/18/22 [History] Metoprolol Succinate 25 mg Xl* [Toprol-Xl 25MG Tablets] 25 mg PO DAILY 12/08/22 [History] Potassium Gluconate [Potassium] 99 mg PO DAILY 12/08/22 [History] Spironolactone 25 mg [Aldactone 25 MG] 25 mg PO DAILY 12/08/22 [History] Tolterodine Tartrate [Tolterodine Tartrate ER] 4 mg PO DAILY 12/08/22 [History] Bumetanide 1 mg [Bumex 1 mg] 1 mg PO DAILY 01/21/23 [History] Hx Tetanus, Diphtheria Vaccination/Date Given: Yes Hx Influenza Vaccination/Date Given: Yes Hx Pneumococcal Vaccination/Date Given: Yes Immunizations Up to Date: Yes Travel Risk - International Travel Have you traveled outside of the country in past 3 weeks: No - Coronavirus Screening Are you exhibiting any of the following symptoms?: Yes Symptoms: Shortness of Breath Close contact with a COVID-19 positive Pt in past 14-21 Days: No - Vaccine Status Have you recieved a Covid-19 vaccination: Yes 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 - Vaccination Dates Dates if Unknown: unknown - Review of Systems Constitutional: No Fever, No Chills, No Fatigue Eyes: No Symptoms, No Eye Pain, No Eye Redness, No Photophobia Ears, Nose, & Throat: No Symptoms, No Ear Pain, No Nose Congestion, No Nose Discharge, No Mouth Pain, No Mouth Swelling, No Throat Swelling Respiratory: Cough, Dyspnea, Wheezing Cardiac: No Chest Pain, No Edema, No Syncope Abdominal/Gastrointestinal: No Abdominal Pain, No Nausea, No Vomiting, No Diarrhea Genitourinary Symptoms: No Dysuria, No Hematuria Musculoskeletal: No Back Pain, No Neck Pain Skin: No Rash Neurological: No Dizziness, No Focal Weakness, No Sensory Changes Psychological: No Symptoms Endocrine: No Symptoms All Other Systems: Reviewed and Negative - Past Medical History Pertinent Past Medical History: Yes Neurological History: No Pertinent History ENT History: No Pertinent History Cardiac History: Myocardial Infarction ([place]) Respiratory History: Asthma, COPD, Pneumonia, Sleep Apnea Endocrine Medical History: Thyroid Cancer Musculoskeletal History: No Pertinent History GI Medical History: No Pertinent History History: No Pertinent History Psycho-Social History: No Pertinent History Female Reproductive Disorders: Cervical Cancer Other Medical History: history of cervical cancer - Past Surgical History Past Surgical History: Yes (thyroidectomy) Neuro Surgical History: No Pertinent History Cardiac: No Pertinent History Respiratory: No Pertinent History Gastrointestinal: No Pertinent History Genitourinary: No Pertinent History Musculoskeletal: No Pertinent History Female Surgical History: Other Other Surgical History: thyroidctomy - Social History Smoking Status: Current every day smoker How long have you smoked: 43 years Exposure to second hand smoke: Yes Drug Use: none Patient Lives Alone: No - Nursing Vital Signs Nursing Vital Signs: Initial Vital Signs Temperature 98.5 F 01/21/23 18:19 Pulse Rate 73 01/21/23 18:19 Respiratory Rate 24 01/21/23 18:19 Blood Pressure 135/77 01/21/23 18:19 O2 Sat by Pulse Oximetry 77 L 01/21/23 18:19 Pain Scale Pain Intensity 0 - Physical Exam General Appearance: no apparent distress, alert Eye Exam: PERRL/EOMI, eyes nml inspection, No scleral icterus Ears, Nose, Throat Exam: normal ENT inspection, normal pharynx, No sinus pain/drainage, No nasal congestion, No pharyngeal erythema Neck Exam: normal inspection, supple, No meningismus, No lymphadenopathy (R), No lymphadenopathy (L), No tenderness lateral, No tenderness midline Respiratory Exam: airway intact, crackles/rales (Right lower lobe), wheezing, No respiratory distress Cardiovascular/Chest Exam: normal heart sounds, regular rate/rhythm Abdominal/Gastrointestinal Exam: soft, No tenderness, No distention, No mass Extremity Exam: non-tender, normal range of motion, normal inspection, no calf tenderness, no pedal edema Neurologic Exam: alert, oriented x 3, cooperative, trash man II-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 nml as tested, sensation nml, No motor deficits Skin Exam: normal color, warm, No dry SpO2 Interpretation: hypoxic SpO2: 77 O2 Delivery: Nasal Cannula - Course Nursing assessment & vital signs reviewed: Yes EKG Interpreted by Me: RATE (80), Sinus Rhythm, NORMAL AXIS, NORMAL INTERVALS, NORMAL QRS, NORMAL ST-T, Other (No significant change in comparison to EKG from December 08, 2022; overall impression: Normal sinus rhythm, normal EKG) - Radiology Exams Chest X-ray Interpretation: Interpreted by me, Reviewed by me, Negative, No Pneumothorax, Nml Heart Size, Infiltrates (right lower lobe), Pneumonia (right lower lobe ) Ordered Tests: Active Orders 24 hr Category Date Time Status Up Ad Kalani ROUTINE Activity 01/21/23 19:40 Active CO2 Monitoring CONTINUOUS Care 01/21/23 19:40 Active Call Admit Doctor for Orders ON ADMISSION Care 01/21/23 19:38 Active Truck Engine Technician ROUTINE Care 01/21/23 19:39 Active Truck Engine Technician STAT Care 01/21/23 18:24 Active Code Status Order ROUTINE Care 01/21/23 19:38 Active EKG-ER Only STAT Care 01/21/23 18:23 Active IV Insertion STAT Care 01/21/23 18:23 Active Oxygen-ED Only Nasal Cannula 3 lpm Care 01/21/23 18:[address] in Observation ROUTINE Care 01/21/23 19:38 Active House Regular Diet Diet 01/22/23 Breakfast Active CHEST 1 VIEW (PORTABLE) Stat Exams 01/21/23 18:24 Taken BLOOD CULTURE Stat Lab 01/21/23 18:40 Received CBC W DIFF Stat Lab 01/21/23 18:30 Completed CMP Stat Lab 01/21/23 18:30 Completed Lactic Acid Stat Lab 01/21/23 19:00 Completed MAGNESIUM Stat Lab 01/21/23 18:30 Completed NT PRO BNPII Stat Lab 01/21/23 18:30 Completed PROTIME WITH INR Stat Lab 01/21/23 18:30 Completed TROPONIN Q4H Lab 01/21/23 18:30 Completed TROPONIN Q4H Lab 01/21/23 22:30 Ordered TROPONIN Q4H Lab 01/22/23 02:30 Ordered VENOUS BLOOD GAS Stat Lab 01/21/23 19:00 Completed Oxygen Nasal Cannula 3 lpm RT 01/21/23 19:38 Active Pulse Oximetry CONTINUOUS RT 01/21/23 19:40 Active Respiratory Therapy Assessment DAILY RT 01/21/23 19:24 Active Respiratory Therapy Consult ONCE RT 01/21/23 19:38 Active Medication Summary Discontinued Medications Generic Name Dose Route Start Last Admin Trade Name Freq PRN Reason Stop Dose Admin Albuterol Sulfate 2.5 mg 01/21/23 18:23 01/21/23 18:58 Albuterol Sulfate 2.5 Mg/3 Ml Neb 01/21/23 18:24 2.5 mg STAT ONE Administration Albuterol Sulfate Confirm 01/21/23 18:55 Albuterol Sulfate 2.5 Mg/3 Ml Neb Administered 01/21/23 18:56 Dose 2.5 mg IH .STK-MED ONE Albuterol/Ipratropium 3 ml 01/21/23 18:23 01/21/23 18:58 Ipratropium/Albuterol Sulfate 3 Ml Ampul.Neb IH 01/21/23 18:24 3 ml STAT ONE Administration Albuterol/Ipratropium Confirm 01/21/23 18:55 Ipratropium/Albuterol Sulfate 3 Ml Ampul.Neb Administered 01/21/23 18:56 Dose 3 ml IH .STK-MED ONE Azithromycin 500 mg 01/21/23 18:33 01/21/23 18:50 Azithromycin 250 Mg Tablet PO 01/21/23 18:34 500 mg STAT ONE Administration Azithromycin Confirm 01/21/23 18:48 Azithromycin 250 Mg Tablet Administered 01/21/23 18:49 Dose 500 mg .ROUTE .STK-MED ONE Methylprednisolone Sodium 0 mg 01/21/23 18:23 01/21/23 18:33 Succinate 125 mg/ Sterile IV 01/21/23 18:24 125 mg Water 2 ml STAT ONE Administration Ceftriaxone Sodium/Dextrose 1 g in 50 mls @ 100 mls/hr 01/21/23 18:58 01/21/23 19:41 Rocephin 1 Gm-D5w 50 Ml Bag IV 01/21/23 19:27 Infused STAT STA Infusion Ceftriaxone Sodium/Dextrose Confirm 01/21/23 19:06 Rocephin 1 Gm-D5w 50 Ml Bag Administered 01/21/23 19:07 Dose 1 g in 50 mls @ ud IV .STK-MED ONE Methylprednisolone Sodium Succinate Confirm 01/21/23 18:33 Methylprednis Sod Succ 125 Mg/2 Ml Vial Administered 01/21/23 18:34 Dose 125 mg .ROUTE .STK-MED ONE Sterile Water Confirm 01/21/23 18:33 Water For Injection,Sterile 10 Ml Vial Administered 01/21/23 18:34 Dose 10 ml IJ .STK-MED ONE Lab/Rad Data: Laboratory Result Diagrams 01/21/23 18:30 01/21/23 18:30 Laboratory Results 01/21/23 01/21/23 01/21/23 Range/Units 19:00 19:00 18:40 WBC (4.0-10.5) x10^3/uL RBC (4.1-5.4) x10^6/uL Hgb (12.0-16.0) g/dL Hct (35-47) % MCV (78-100) fL MCH (26-32) pg MCHC (32-36) g/dL RDW (11.5-14.0) % Plt Count (150-450) x10^3/uL MPV (7.5-11.0) fL Gran % (36.0-66.0) % Immature Gran % (Auto) (0.00-0.4) % Nucleat RBC Rel Count (0.00-0.1) % Eos # (Auto) (0-0.5) x10^3/uL Immature Gran # (Auto) (0.00-0.03) x10^3u/L Absolute Lymphs (auto) (1.0-4.6) x10^3/uL Absolute Monos (auto) (0.0-1.3) x10^3/uL Absolute Nucleated RBC (0.00-0.01) x10^3u/L Lymphocytes % (24.0-44.0) % Monocytes % (0.0-12.0) % Eosinophils % (0.00-5.0) % Basophils % (0.0-0.4) % Absolute Granulocytes (1.4-6.9) x10^3/uL Basophils # (0-0.4) x10^3/uL PT (9.4-12.5) SECONDS INR (0.8-3.0) pO2/FiO2 Ratio 40.0 % VBG pH 7.37 (7.32-7.42) VBG pCO2 at Pat Temp 70 H* (42-55) mm/Hg VBG pO2 at Pat Temp 32 (25-40) mm/Hg VBG HCO3 40.5 H* (22-28) meq/L VBG O2 Sat (Tucker) 60.1 L (95-100) VBG Base Excess 11.5 H (-2.0-2.0) VBG Hemoglobin 15.8 VBG Carboxyhemoglobin 14.0 H* (0.0-6.9) % T HGB POC Potassium 4.3 (3.5-5.1) Sodium (137-145) mmol/L Potassium (3.5-5.1) mmol/L Chloride (98-107) mmol/L Carbon Dioxide (22-30) mmol/L Anion Gap (5-15) MEQ/L BUN (7-17) mg/dL Creatinine (0.52-1.04) mg/dL Estimated GFR ML/MIN Glucose (74-106) mg/dL Lactic Acid 1.2 (0.4-2.0) Calcium (8.4-10.2) mg/dL Magnesium (1.6-2.3) mg/dL Total Bilirubin (0.2-1.3) mg/dL AST (14-36) U/L ALT (0-35) U/L Alkaline Phosphatase (38-126) U/L Troponin I (0.000-0.034) ng/mL NT-Pro-B Natriuret Pep (<300) pg/mL Serum Total Protein (6.3-8.2) g/dL Albumin (3.5-5.0) g/dL Influenza Type A Ag NEGATIVE (NEGATIVE) Influenza Type B Ag NEGATIVE (NEGATIVE) RSV (PCR) NEGATIVE (NEGATIVE) SARS-CoV-2 (PCR) NEGATIVE (NEGATIVE) 01/21/23 01/21/23 01/21/23 Range/Units 18:30 18:30 18:30 WBC (4.0-10.5) x10^3/uL RBC (4.1-5.4) x10^6/uL Hgb (12.0-16.0) g/dL Hct (35-47) % MCV (78-100) fL MCH (26-32) pg MCHC (32-36) g/dL RDW (11.5-14.0) % Plt Count (150-450) x10^3/uL MPV (7.5-11.0) fL Gran % (36.0-66.0) % Immature Gran % (Auto) (0.00-0.4) % Nucleat RBC Rel Count (0.00-0.1) % Eos # (Auto) (0-0.5) x10^3/uL Immature Gran # (Auto) (0.00-0.03) x10^3u/L Absolute Lymphs (auto) (1.0-4.6) x10^3/uL Absolute Monos (auto) (0.0-1.3) x10^3/uL Absolute Nucleated RBC (0.00-0.01) x10^3u/L Lymphocytes % (24.0-44.0) % Monocytes % (0.0-12.0) % Eosinophils % (0.00-5.0) % Basophils % (0.0-0.4) % Absolute Granulocytes (1.4-6.9) x10^3/uL Basophils # (0-0.4) x10^3/uL PT 10.9 (9.4-12.5) SECONDS INR 1.00 (0.8-3.0) pO2/FiO2 Ratio % VBG pH (7.32-7.42) VBG pCO2 at Pat Temp (42-55) mm/Hg VBG pO2 at Pat Temp (25-40) mm/Hg VBG HCO3 (22-28) meq/L VBG O2 Sat (Tucker) (95-100) VBG Base Excess (-2.0-2.0) VBG Hemoglobin VBG Carboxyhemoglobin (0.0-6.9) % T HGB POC Potassium (3.5-5.1) Sodium 140 (137-145) mmol/L Potassium 4.0 (3.5-5.1) mmol/L Chloride 96 L (98-107) mmol/L Carbon Dioxide 38 H (22-30) mmol/L Anion Gap 9.7 (5-15) MEQ/L BUN 20 H (7-17) mg/dL Creatinine 0.70 (0.52-1.04) mg/dL Estimated GFR > 60.0 ML/MIN Glucose 114 H (74-106) mg/dL Lactic Acid (0.4-2.0) Calcium 8.9 (8.4-10.2) mg/dL Magnesium 2.1 (1.6-2.3) mg/dL Total Bilirubin 0.60 (0.2-1.3) mg/dL AST 27 (14-36) U/L ALT 22 (0-35) U/L Alkaline Phosphatase 74 (38-126) U/L Troponin I 0.013 (0.000-0.034) ng/mL NT-Pro-B Natriuret Pep 629 (<300) pg/mL Serum Total Protein 7.4 (6.3-8.2) g/dL Albumin 4.2 (3.5-5.0) g/dL Influenza Type A Ag (NEGATIVE) Influenza Type B Ag (NEGATIVE) RSV (PCR) (NEGATIVE) SARS-CoV-2 (PCR) (NEGATIVE) 01/21/23 Range/Units 18:30 WBC 10.3 (4.0-10.5) x10^3/uL RBC 5.14 (4.1-5.4) x10^6/uL Hgb 15.4 (12.0-16.0) g/dL Hct 50.2 H (35-47) % MCV 97.7 (78-100) fL MCH 30.0 (26-32) pg MCHC 30.7 L (32-36) g/dL RDW 16.0 H (11.5-14.0) % Plt Count 242 (150-450) x10^3/uL MPV 9.5 (7.5-11.0) fL Gran % 76.3 H (36.0-66.0) % Immature Gran % (Auto) 0.5 H (0.00-0.4) % Nucleat RBC Rel Count 0.0 (0.00-0.1) % Eos # (Auto) 0.03 (0-0.5) x10^3/uL Immature Gran # (Auto) 0.05 H (0.00-0.03) x10^3u/L Absolute Lymphs (auto) 1.38 (1.0-4.6) x10^3/uL Absolute Monos (auto) 0.94 (0.0-1.3) x10^3/uL Absolute Nucleated RBC 0.00 (0.00-0.01) x10^3u/L Lymphocytes % 13.4 L (24.0-44.0) % Monocytes % 9.1 (0.0-12.0) % Eosinophils % 0.3 (0.00-5.0) % Basophils % 0.4 (0.0-0.4) % Absolute Granulocytes 7.88 H (1.4-6.9) x10^3/uL Basophils # 0.04 (0-0.4) x10^3/uL PT (9.4-12.5) SECONDS INR (0.8-3.0) pO2/FiO2 Ratio % VBG pH (7.32-7.42) VBG pCO2 at Pat Temp (42-55) mm/Hg VBG pO2 at Pat Temp (25-40) mm/Hg VBG HCO3 (22-28) meq/L VBG O2 Sat (Tucker) (95-100) VBG Base Excess (-2.0-2.0) VBG Hemoglobin VBG Carboxyhemoglobin (0.0-6.9) % T HGB POC Potassium (3.5-5.1) Sodium (137-145) mmol/L Potassium (3.5-5.1) mmol/L Chloride (98-107) mmol/L Carbon Dioxide (22-30) mmol/L Anion Gap (5-15) MEQ/L BUN (7-17) mg/dL Creatinine (0.52-1.04) mg/dL Estimated GFR ML/MIN Glucose (74-106) mg/dL Lactic Acid (0.4-2.0) Calcium (8.4-10.2) mg/dL Magnesium (1.6-2.3) mg/dL Total Bilirubin (0.2-1.3) mg/dL AST (14-36) U/L ALT (0-35) U/L Alkaline Phosphatase (38-126) U/L Troponin I (0.000-0.034) ng/mL NT-Pro-B Natriuret Pep (<300) pg/mL Serum Total Protein (6.3-8.2) g/dL Albumin (3.5-5.0) g/dL Influenza Type A Ag (NEGATIVE) Influenza Type B Ag (NEGATIVE) RSV (PCR) (NEGATIVE) SARS-CoV-2 (PCR) (NEGATIVE) - Progress Progress: improved, re-examined Air Movement: good Progress Note: 01/21/23 19:23 Patient is feeling much better after breathing treatments and she is in no type of respiratory distress, normal respiratory rate and improved airflow throughout with her SPO2 in the mid 90s 01/21/23 19:[address] Campos, hospitalist, who accept the patient for observation into the hospital 01/21/23 19:35 Patient is a 57-year-old female who has COPD and requiring 3 L oxygen chronically who comes in due to having increasing shortness of breath over the past day and a half. Examination very consistent with COPD exacerbation potential pneumonia in right lower lobe, so labs were drawn, blood cultures were drawn, venous blood gas was drawn as well as a chest x-ray was ordered as well as an EKG was performed. EKG was normal with no acute changes, chest x-ray showed right lower lobe infiltrate per my interpretation, and for symptom atically patient was treated with a DuoNeb treatment followed by an albuterol treatment with 125 mg of Solu-Medrol through the IV which improved her symptoms significantly and resolved her dyspnea sensation. Patient did have improved airflow, and did not have any other abnormal lab work as she had a normal white blood cell count, normal troponin, no significant change or elevation in her proBNP compared to past labs, normal venous pH as her elevated CO2 is compensated and elevated bicarbonate, but she did have a significant elevated carboxyhemoglobin of 14%. Due to having multiple factors going on with the patient, I reviewed the patient with the hospitalist at [facility] to accept the patient for observation to make certain that the carboxyhemoglobin level goes in the right direction and we continue treating her COPD here in the inpatient setting. Patient was started on Rocephin and Zithromax commune acquired pneumonia here in the emergency department. Patient did not require any other oxygen support besides her baseline 3 L oxygen she uses at home and was amenable for observation overnight. Blood Culture(s) Obtained: Yes Antibiotics given: Yes Discussed with : Radha Will see patient in: hospital (observation) Counseled pt/family regarding: lab results, diagnosis, need for follow-up, rad results, smoking cessation - Departure Departure Disposition: Observation Clinical Impression: COPD exacerbation, Elevated blood pressure reading without diagnosis of hypertension Dyspnea Qualifiers: Dyspnea type: unspecified Qualified Code(s): R06.00 - Dyspnea, unspecified Right lower lobe pneumonia Qualifiers: Pneumonia type: due to unspecified organism Qualified Code(s): J18.9 - Pneumonia, unspecified organism Carboxyhemoglobinemia Qualifiers: Encounter type: initial encounter Injury intent: accidental or unintentional Qualified Code(s): T58.91XA - Toxic effect of carbon monoxide from unspecified source, accidental (unintentional), initial encounter Condition: Fair Critical Care Time: No Referrals: BINU BAHENA MD [Primary Care Provider] - Follow up/PCP as directed Instructions: Chronic Obstructive Pulmonary Disease
[2023-01-21] MEDS ORDERED: Sterile H2O 10 ml IJ ONE (18:33)
[2023-01-21] MEDS ORDERED: Zithromax 250 MG TABLET PO ONE (18:33)
[2023-01-21] MEDS ORDERED: solu-MEDROL ONE (18:33)
[2023-01-21] MEDS ORDERED: Zithromax 250 MG TABLET ONE (18:48)
[2023-01-21 18:52] LABS: Absolute Neutrophil Ct (ANC) 7.88 x10^3/uL (1.4-6.9); BASOPHIL % 0.4 % (0.0-0.4); Basophil (Absolute #) 0.04 x10^3/uL (0-0.4); Eosinophil % 0.3 % (0.00-5.0); Eosinophil (Absolute #) 0.03 x10^3/uL (0-0.5); Hematocrit 50.2 % (35-47); Hemoglobin 15.4 g/dL (12.0-16.0); IMMATURE GRAN # 0.05 x10^3u/L (0.00-0.03); IMMATURE GRAN % 0.5 % (0.00-0.4); Lymphocyte (Absolute #) 1.38 x10^3/uL (1.0-4.6); Lymphocytes % 13.4 % (24.0-44.0); Mean Cell Volume 97.7 fL (78-100); Mean Corpuscular Hgb Concent. 30.7 g/dL (32-36); Mean Platelet Volume 9.5 fL (7.5-11.0); Monocyte (Absolute #) 0.94 x10^3/uL (0.0-1.3); Monocytes % 9.1 % (0.0-12.0); Neutrophil % 76.3 % (36.0-66.0); Platelet Count 242 x10^3/uL (150-450); Red Blood Count 5.14 x10^6/uL (4.1-5.4); White Blood Count 10.3 x10^3/uL (4.0-10.5)
[2023-01-21] MEDS ORDERED: ROCEPHIN 1 Gm-D5w 50 ml Bag** 1 G/50 ML IVPB IV STA (18:58)
[2023-01-21 19:06] LABS: PROTIME 10.9 SECONDS (9.4-12.5)
[2023-01-21] MEDS ORDERED: ROCEPHIN 1 Gm-D5w 50 ml Bag** 1 G/50 ML IVPB IV ONE (19:06)
[2023-01-21 19:10] LABS: VBG BASE EXCESS 11.5 (-2.0-2.0); VBG HCO3- 40.5 meq/L (22-28); VBG HEMOGLOBIN 15.8; VBG O2 SATURATION 60.1 (95-100); VBG POTASSIUM 4.3 (3.5-5.1); VBG pH 7.37 (7.32-7.42)
[2023-01-21 19:15] LABS: ALBUMIN 4.2 g/dL (3.5-5.0); ALKALINE PHOSPHATASE 74 U/L (38-126); ANION GAP 9.7 MEQ/L (5-15); BLOOD UREA NITROGEN 20 mg/dL (7-17); CHLORIDE 96 mmol/L (98-107); Calcium 8.9 mg/dL (8.4-10.2); Carbon Dioxide 38 mmol/L (22-30); EST GLOMERULAR FILTRATION RATE > 60.0 ML/MIN; Glucose 114 mg/dL (74-106); MAGNESIUM 2.1 mg/dL (1.6-2.3); NT PRO BNPII 629 pg/mL (<300); SGOT/AST 27 U/L (14-36); SGPT/ALT 22 U/L (0-35); SODIUM 140 mmol/L (137-145); Total Protein 7.4 g/dL (6.3-8.2)
[2023-01-21 19:29] LABS: INFLUENZA A NEGATIVE (NEGATIVE); INFLUENZA B NEGATIVE (NEGATIVE); RESPIRATORY SYNCTIAL VIRUS NEGATIVE (NEGATIVE); SARS-CoV-2 Xpert Express NEGATIVE (NEGATIVE)
--- NOTE | 2023-01-21 21:58 | PCM.HP ---
History of Present Illness - Chief Complaint Chief Complaint: DYSPNEA, EXACERBATION OF COPD, RLL PNEUMONIA, CARBOXYHEMOGL OBINEMIA History of Present Illness: is a 57 year old female with COPD who presents with shortness of breath, wheezing. She uses 3 liters of NC at home. Denies fevers, cough, nausea, vomiting, diarrhea. She felt better with duonebs but still had wheezing so was admitted. - Review of Systems Constitutional: No Fever, No Chills Eyes: No Symptoms Ears, Nose, & Throat: No Symptoms Respiratory: Short Of Breath, Wheezing, No Cough Cardiac: No Chest Pain, No Edema, No Syncope Abdominal/Gastrointestinal: No Abdominal Pain, No Nausea, No Vomiting, No Diarrhea Genitourinary Symptoms: No Dysuria Musculoskeletal: No Back Pain, No Neck Pain Skin: No Rash Neurological: No Dizziness, No Focal Weakness, No Sensory Changes Psychological: No Symptoms Endocrine: No Symptoms Hematologic/Lymphatic: No Symptoms Immunological/Allergic: No Symptoms Medications & Allergies Home Medications: Home Medication List Synthroid 125 Mcg 125 mcg PO DAILY 12/11/11 [History Confirmed 01/21/23] Gabapentin [Neurontin ] 300 mg PO HS 08/14/21 [History Confirmed 01/21/23] Meloxicam 15 mg [Meloxicam 15 MG] 7.5 mg PO BID 08/14/21 [History Confirmed 01/21/23] Albuterol Sulfate [Albuterol Sulfate Hfa] 2 inh PO Q6H PRN PRN 02/18/22 [History Confirmed 01/21/23] Aspirin [Ecotrin] 81 mg PO DAILY 30 Days #30 tablet 02/20/22 [Rx Confirmed 01/21/23] Fluticasone/Umeclidin/Vilanter [Trelegy Ellipta 100-62.5-25] 1 puff IH DAILY #1 blist 06/13/22 [Rx Confirmed 01/21/23] Metoprolol Succinate 25 mg Xl* [Toprol-Xl 25MG Tablets] 25 mg PO DAILY 12/08/22 [History Confirmed 01/21/23] Potassium Gluconate [Potassium] 99 mg PO DAILY 12/08/22 [History Confirmed 01/21/23] Spironolactone 25 mg [Aldactone 25 MG] 25 mg PO DAILY 12/08/22 [History Confirmed 01/21/23] Tolterodine Tartrate [Tolterodine Tartrate ER] 4 mg PO DAILY 12/08/22 [History Confirmed 01/21/23] Bumetanide 1 mg [Bumex 1 mg] 1 mg PO DAILY 01/21/23 [History Confirmed 01/21/23] Allergies/Adverse Reactions: Allergies Allergy/AdvReac Type Severity Reaction Status Date / Time No Known Drug Allergies Allergy Verified 12/08/22 10:40 - Past Medical History Past Medical History: Yes Neurological History: No Pertinent History ENT History: No Pertinent History Cardiac History: Hypertension, Myocardial Infarction (NM) Respiratory History: Asthma, COPD, Pneumonia, Sleep Apnea Endocrine Medical History: Thyroid Cancer Musculoskelatal History: No Pertinent History GI Medical History: No Pertinent History History: No Pertinent History Pyscho-Social History: No Pertinent History Reproductive Disorders: Cervical Cancer Comment: history of cervical cancer - Female History Are you now?: No - Past Surgical History Past Surgical History: Yes Neuro Surgical History: No Pertinent History Cardiac History: No Pertinent History Respiratory Surgery: No Pertinent History GI Surgical History: No Pertinent History Genitourinary Surgical Hx: No Pertinent History Musculskeletal Surgical Hx: No Pertinent History Female Surgical History: Other Other Surgical History: thyroidectomy, leep loop electrical-cervix - Social History Smoking Status: Current every day smoker How long have you smoked: 40 YEARS Exposure to second hand smoke: Yes Alcohol: Occasionally Drug Use: none - Physical Exam Vital Signs: Vital Signs - 24 hr Temp Pulse Resp BP BP Pulse Ox 01/21/23 20:16 97.7 F 88 22 141/68 85 L 01/21/23 20:01 88 18 119/89 98 01/21/23 19:51 77 L 01/21/23 19:40 91 L 01/21/23 19:00 83 22 114/93 94 L 01/21/23 18:58 79 22 95 01/21/23 18:20 78 26 H 135/77 97 01/21/23 18:19 98.5 F 73 24 135/77 77 L General Appearance: no apparent distress, alert Neurologic Exam: alert, oriented x 3, cooperative, normal mood/affect, nml cerebellar function, nml station & gait, sensation nml, No motor deficits Eye Exam: PERRL/EOMI, eyes nml inspection Ears, Nose, Throat Exam: normal ENT inspection, TMs normal, pharynx normal, moist mucous membranes Neck Exam: normal inspection, non-tender, supple, full range of motion Respiratory Exam: normal breath sounds, lungs clear, wheezing (bilateral wheezing), No respiratory distress Cardiovascular Exam: regular rate/rhythm, normal heart sounds, normal peripheral pulses Gastrointestinal/Abdomen Exam: soft, normal bowel sounds, No tenderness, No mass Back Exam: normal inspection, normal range of motion, No CVA tenderness, No vertebral tenderness Extremity Exam: normal inspection, normal range of motion, pelvis stable Skin Exam: normal color, warm, dry, No rash Lymphatic Exam: No adenopathy Results - Labs Lab/Micro Results: Lab Results-Last 24 Hours 01/21/23 01/21/23 01/21/23 Range/Units 18:30 18:30 18:30 WBC 10.3 (4.0-10.5) x10^3/uL RBC 5.14 (4.1-5.4) x10^6/uL Hgb 15.4 (12.0-16.0) g/dL Hct 50.2 H (35-47) % MCV 97.7 (78-100) fL MCH 30.0 (26-32) pg MCHC 30.7 L (32-36) g/dL RDW 16.0 H (11.5-14.0) % Plt Count 242 (150-450) x10^3/uL MPV 9.5 (7.5-11.0) fL Gran % 76.3 H (36.0-66.0) % Immature Gran % (Auto) 0.5 H (0.00-0.4) % Nucleat RBC Rel Count 0.0 (0.00-0.1) % Eos # (Auto) 0.03 (0-0.5) x10^3/uL Immature Gran # (Auto) 0.05 H (0.00-0.03) x10^3u/L Absolute Lymphs (auto) 1.38 (1.0-4.6) x10^3/uL Absolute Monos (auto) 0.94 (0.0-1.3) x10^3/uL Absolute Nucleated RBC 0.00 (0.00-0.01) x10^3u/L Lymphocytes % 13.4 L (24.0-44.0) % Monocytes % 9.1 (0.0-12.0) % Eosinophils % 0.3 (0.00-5.0) % Basophils % 0.4 (0.0-0.4) % Absolute Granulocytes 7.88 H (1.4-6.9) x10^3/uL Basophils # 0.04 (0-0.4) x10^3/uL PT 10.9 (9.4-12.5) SECONDS INR 1.00 (0.8-3.0) pO2/FiO2 Ratio % VBG pH (7.32-7.42) VBG pCO2 at Pat Temp (42-55) mm/Hg VBG pO2 at Pat Temp (25-40) mm/Hg VBG HCO3 (22-28) meq/L VBG O2 Sat (Tucker) (95-100) VBG Base Excess (-2.0-2.0) VBG Hemoglobin VBG Carboxyhemoglobin (0.0-6.9) % T HGB POC Potassium (3.5-5.1) Sodium 140 (137-145) mmol/L Potassium 4.0 (3.5-5.1) mmol/L Chloride 96 L (98-107) mmol/L Carbon Dioxide 38 H (22-30) mmol/L Anion Gap 9.7 (5-15) MEQ/L BUN 20 H (7-17) mg/dL Creatinine 0.70 (0.52-1.04) mg/dL Estimated GFR > 60.0 ML/MIN Glucose 114 H (74-106) mg/dL Lactic Acid (0.4-2.0) Calcium 8.9 (8.4-10.2) mg/dL Magnesium 2.1 (1.6-2.3) mg/dL Total Bilirubin 0.60 (0.2-1.3) mg/dL AST 27 (14-36) U/L ALT 22 (0-35) U/L Alkaline Phosphatase 74 (38-126) U/L Troponin I (0.000-0.034) ng/mL NT-Pro-B Natriuret Pep 629 (<300) pg/mL Serum Total Protein 7.4 (6.3-8.2) g/dL Albumin 4.2 (3.5-5.0) g/dL Influenza Type A Ag (NEGATIVE) Influenza Type B Ag (NEGATIVE) RSV (PCR) (NEGATIVE) SARS-CoV-2 (PCR) (NEGATIVE) 01/21/23 01/21/23 01/21/23 Range/Units 18:30 18:40 19:00 WBC (4.0-10.5) x10^3/uL RBC (4.1-5.4) x10^6/uL Hgb (12.0-16.0) g/dL Hct (35-47) % MCV (78-100) fL MCH (26-32) pg MCHC (32-36) g/dL RDW (11.5-14.0) % Plt Count (150-450) x10^3/uL MPV (7.5-11.0) fL Gran % (36.0-66.0) % Immature Gran % (Auto) (0.00-0.4) % Nucleat RBC Rel Count (0.00-0.1) % Eos # (Auto) (0-0.5) x10^3/uL Immature Gran # (Auto) (0.00-0.03) x10^3u/L Absolute Lymphs (auto) (1.0-4.6) x10^3/uL Absolute Monos (auto) (0.0-1.3) x10^3/uL Absolute Nucleated RBC (0.00-0.01) x10^3u/L Lymphocytes % (24.0-44.0) % Monocytes % (0.0-12.0) % Eosinophils % (0.00-5.0) % Basophils % (0.0-0.4) % Absolute Granulocytes (1.4-6.9) x10^3/uL Basophils # (0-0.4) x10^3/uL PT (9.4-12.5) SECONDS INR (0.8-3.0) pO2/FiO2 Ratio % VBG pH (7.32-7.42) VBG pCO2 at Pat Temp (42-55) mm/Hg VBG pO2 at Pat Temp (25-40) mm/Hg VBG HCO3 (22-28) meq/L VBG O2 Sat (Tucker) (95-100) VBG Base Excess (-2.0-2.0) VBG Hemoglobin VBG Carboxyhemoglobin (0.0-6.9) % T HGB POC Potassium (3.5-5.1) Sodium (137-145) mmol/L Potassium (3.5-5.1) mmol/L Chloride (98-107) mmol/L Carbon Dioxide (22-30) mmol/L Anion Gap (5-15) MEQ/L BUN (7-17) mg/dL Creatinine (0.52-1.04) mg/dL Estimated GFR ML/MIN Glucose (74-106) mg/dL Lactic Acid 1.2 (0.4-2.0) Calcium (8.4-10.2) mg/dL Magnesium (1.6-2.3) mg/dL Total Bilirubin (0.2-1.3) mg/dL AST (14-36) U/L ALT (0-35) U/L Alkaline Phosphatase (38-126) U/L Troponin I 0.013 (0.000-0.034) ng/mL NT-Pro-B Natriuret Pep (<300) pg/mL Serum Total Protein (6.3-8.2) g/dL Albumin (3.5-5.0) g/dL Influenza Type A Ag NEGATIVE (NEGATIVE) Influenza Type B Ag NEGATIVE (NEGATIVE) RSV (PCR) NEGATIVE (NEGATIVE) SARS-CoV-2 (PCR) NEGATIVE (NEGATIVE) 01/21/23 Range/Units 19:00 WBC (4.0-10.5) x10^3/uL RBC (4.1-5.4) x10^6/uL Hgb (12.0-16.0) g/dL Hct (35-47) % MCV (78-100) fL MCH (26-32) pg MCHC (32-36) g/dL RDW (11.5-14.0) % Plt Count (150-450) x10^3/uL MPV (7.5-11.0) fL Gran % (36.0-66.0) % Immature Gran % (Auto) (0.00-0.4) % Nucleat RBC Rel Count (0.00-0.1) % Eos # (Auto) (0-0.5) x10^3/uL Immature Gran # (Auto) (0.00-0.03) x10^3u/L Absolute Lymphs (auto) (1.0-4.6) x10^3/uL Absolute Monos (auto) (0.0-1.3) x10^3/uL Absolute Nucleated RBC (0.00-0.01) x10^3u/L Lymphocytes % (24.0-44.0) % Monocytes % (0.0-12.0) % Eosinophils % (0.00-5.0) % Basophils % (0.0-0.4) % Absolute Granulocytes (1.4-6.9) x10^3/uL Basophils # (0-0.4) x10^3/uL PT (9.4-12.5) SECONDS INR (0.8-3.0) pO2/FiO2 Ratio 40.0 % VBG pH 7.37 (7.32-7.42) VBG pCO2 at Pat Temp 70 H* (42-55) mm/Hg VBG pO2 at Pat Temp 32 (25-40) mm/Hg VBG HCO3 40.5 H* (22-28) meq/L VBG O2 Sat (Tucker) 60.1 L (95-100) VBG Base Excess 11.5 H (-2.0-2.0) VBG Hemoglobin 15.8 VBG Carboxyhemoglobin 14.0 H* (0.0-6.9) % T HGB POC Potassium 4.3 (3.5-5.1) Sodium (137-145) mmol/L Potassium (3.5-5.1) mmol/L Chloride (98-107) mmol/L Carbon Dioxide (22-30) mmol/L Anion Gap (5-15) MEQ/L BUN (7-17) mg/dL Creatinine (0.52-1.04) mg/dL Estimated GFR ML/MIN Glucose (74-106) mg/dL Lactic Acid (0.4-2.0) Calcium (8.4-10.2) mg/dL Magnesium (1.6-2.3) mg/dL Total Bilirubin (0.2-1.3) mg/dL AST (14-36) U/L ALT (0-35) U/L Alkaline Phosphatase (38-126) U/L Troponin I (0.000-0.034) ng/mL NT-Pro-B Natriuret Pep (<300) pg/mL Serum Total Protein (6.3-8.2) g/dL Albumin (3.5-5.0) g/dL Influenza Type A Ag (NEGATIVE) Influenza Type B Ag (NEGATIVE) RSV (PCR) (NEGATIVE) SARS-CoV-2 (PCR) (NEGATIVE) - Radiology Impressions Radiology Exams & Impressions: Radiology Procedures Category Date Time Status CHEST 1 VIEW (PORTABLE) Stat Exams 01/21/23 18:24 Taken - Other Procedures and Tests Respiratory Therapy 01/21/23 19:24 Respiratory Therapy Assessment DAILY 01/21/23 19:38 Oxygen Nasal Cannula 3 lpm Respiratory Therapy Consult ONCE 01/21/23 20:47 RT Screen per Nursing Assess ONCE Smoking Cessation Education ONCE Assessment/Plan (1) COPD exacerbation Current Visit: Yes Status: Acute Assessment & Plan: 1. Solumedrol 125 mg q8hr 2. Duonebs PRN 3. Hold Abx as no clincal signs of PNA Code(s): J44.1 - CHRONIC OBSTRUCTIVE PULMONARY DISEASE W (ACUTE) EXACERBATION Telemedicine Encounter - Telemedicine Encounter Telemedicine Encounter: The entirety of this encounter was performed via Telemedicine"
[2023-01-21] MEDS ORDERED: solu-MEDROL 125 MG, Sterile H2O 10 ml 2 ML IV SCH ×2 (22:00)
[2023-01-21 22:36] LABS: A-aADO2 127; ABG HEMOGLOBIN 15.3; ARTERIAL BLD GAS O2 SATURATION 89.5 % (95-100); ARTERIAL BLOOD GAS BASE EXCESS 5.5 (-2.0-2.0); ARTERIAL BLOOD GAS FIO2 40 %; ARTERIAL BLOOD GAS PO2 58 mmHg (75-100); ARTERIAL BLOOD GAS pH 7.26 (7.35-7.45); HCO3- 35.9 (22-28); Methhemoglobin 0.7 % (1.4-1.5); paO2 pAO1 0.31
[2023-01-21 22:37] LABS: ARTERIAL BLOOD GAS PCO2 80 mmHg (35-45); CARBOXYHEMOGLOBIN 9.9 % THgb (0.0-6.9)
[2023-01-21 22:38] LABS: ABG SITE RIGHT RADIAL; ALLEN TEST OK? YES
[2023-01-21] MEDS: DUONEB 0.5-3 MG/3 ml Neb IH SCH (23:27)
[2023-01-22 00:20] LABS: A-aADO2 201; ABG HEMOGLOBIN 15.5; ARTERIAL BLD GAS O2 SATURATION 82.5 % (95-100); ARTERIAL BLOOD GAS BASE EXCESS 6.8 (-2.0-2.0); ARTERIAL BLOOD GAS FIO2 50 %; ARTERIAL BLOOD GAS PCO2 84 mmHg (35-45); ARTERIAL BLOOD GAS PO2 51 mmHg (75-100); ARTERIAL BLOOD GAS pH 7.26 (7.35-7.45); HCO3- 37.7 (22-28); HGB O2 SAT 75.2 g/dF (94-100)
[2023-01-22 00:21] LABS: CARBOXYHEMOGLOBIN 7.9 % THgb (0.0-6.9)
[2023-01-22] MEDS ORDERED: solu-MEDROL ONE ×3 (01:35→17:27)
[2023-01-22] MEDS ORDERED: Sterile H2O 10 ml IJ ONE (01:35)
[2023-01-22] MEDS: solu-MEDROL 125 MG, Sterile H2O 10 ml 2 ML IV SCH ×8 (01:37→17:28)
[2023-01-22] MEDS: Cyclobenzaprine 10 MG PO PRN ×3 (01:37→16:53)
[2023-01-22] MEDS: DUONEB 0.5-3 MG/3 ml Neb IH SCH ×6 (03:20→22:25)
[2023-01-22 05:19] LABS: Absolute Neutrophil Ct (ANC) 11.08 x10^3/uL (1.4-6.9); BASOPHIL % 0.3 % (0.0-0.4); Basophil (Absolute #) 0.03 x10^3/uL (0-0.4); Eosinophil (Absolute #) 0 x10^3/uL (0-0.5); Hematocrit 48.9 % (35-47); Hemoglobin 14.4 g/dL (12.0-16.0); IMMATURE GRAN # 0.06 x10^3u/L (0.00-0.03); IMMATURE GRAN % 0.5 % (0.00-0.4); Lymphocyte (Absolute #) 0.62 x10^3/uL (1.0-4.6); Lymphocytes % 5.2 % (24.0-44.0); Mean Cell Volume 100.6 fL (78-100); Mean Corpuscular Hemoglobin 29.6 pg (26-32); Mean Corpuscular Hgb Concent. 29.4 g/dL (32-36); Mean Platelet Volume 9.7 fL (7.5-11.0); Monocytes % 0.8 % (0.0-12.0); Neutrophil % 93.2 % (36.0-66.0); Platelet Count 236 x10^3/uL (150-450); Red Blood Count 4.86 x10^6/uL (4.1-5.4); Red Cell Distribution Width 16.1 % (11.5-14.0); White Blood Count 11.9 x10^3/uL (4.0-10.5)
[2023-01-22 05:49] LABS: ALKALINE PHOSPHATASE 64 U/L (38-126); ANION GAP 10.7 MEQ/L (5-15); BLOOD UREA NITROGEN 22 mg/dL (7-17); CHLORIDE 98 mmol/L (98-107); Calcium 8.8 mg/dL (8.4-10.2); Carbon Dioxide 35 mmol/L (22-30); EST GLOMERULAR FILTRATION RATE > 60.0 ML/MIN; Glucose 164 mg/dL (74-106); Potassium 4.5 mmol/L (3.5-5.1); SGOT/AST 34 U/L (14-36); SGPT/ALT 22 U/L (0-35); SODIUM 140 mmol/L (137-145); Total Protein 6.9 g/dL (6.3-8.2)
[2023-01-22] MEDS ORDERED: VENTOLIN COMMON CANISTER IH PRN (06:56)
[2023-01-22] MEDS ORDERED: MEDICATION INTERVENTION MC SCH ×2 (07:15)
[2023-01-22 08:29] LABS: ARTERIAL BLOOD GAS VENT MODE BiPAP; BIPAP(E) 8; BIPAP(I) 18
[2023-01-22 08:34] LABS: ABG SITE LEFT RADIAL; ART BLD GAS PRESSURE SUPPORT 18
[2023-01-22 08:35] LABS: ALLEN TEST OK? yes
--- NOTE | 2023-01-22 08:38 | XRAY ---
Indication: Dyspnea. Comparison: December 26, 2022 Portable chest demonstrates worsening right base infiltrate/atelectasis with new tiny effusion. Remaining heart and lungs unremarkable. Bony thorax intact. Stable large calcified splenic cyst.
[2023-01-22 08:42] LABS: A-aADO2 275; ABG HEMOGLOBIN 15.2; ABG POTASSIUM 5.2 (3.5-5.1); ARTERIAL BLD GAS O2 SATURATION 91.1 % (95-100); ARTERIAL BLOOD GAS BASE EXCESS 4.7 (-2.0-2.0); ARTERIAL BLOOD GAS FIO2 60 %; ARTERIAL BLOOD GAS PCO2 73 mmHg (35-45); ARTERIAL BLOOD GAS PO2 62 mmHg (75-100); ARTERIAL BLOOD GAS VENT MODE BiPAP; BIPAP(E) 8; BIPAP(I) 18; CARBOXYHEMOGLOBIN 3.3 % THgb (0.0-6.9); HCO3- 34.3 (22-28); HGB O2 SAT 87.4 g/dF (94-100); Methhemoglobin 0.9 % (1.4-1.5); paO2 pAO1 0.18
[2023-01-22 08:43] LABS: ABG SITE LEFT RADIAL; ALLEN TEST OK? YES; ARTERIAL BLOOD GAS pH 7.28 (7.35-7.45)
[2023-01-22] MEDS: ECOTRIN 81 MG PO SCH (09:02)
[2023-01-22] MEDS: SYNTHROID 125 MCG PO SCH (09:02)
[2023-01-22] MEDS: BUMEX 1 MG PO SCH (09:02)
[2023-01-22] MEDS: Ditropan XL 5 MG PO SCH (09:03)
[2023-01-22] MEDS: MELOXICAM PO SCH ×2 (09:03→21:22)
[2023-01-22] MEDS: Aldactone 25 MG PO SCH (09:03)
[2023-01-22] MEDS: Toprol-Xl 25MG Tablets PO SCH (09:03)
[2023-01-22] MEDS: PATIENT OWN MEDICATION IH SCH (09:36)
[2023-01-22] MEDS ORDERED: NON-FORMULARY ITEM (Fluticasone/Umeclidin/Vilanter [Trelegy Ellipta 100-62.5-25] 1 EACH Bl IH SCH (10:00)
[2023-01-22] MEDS ORDERED: SYNTHROID 125 MCG PO SCH (10:00)
[2023-01-22] MEDS ORDERED: NON-FORMULARY ITEM (Potassium Gluconate [Potassium] 99 MG Tablet) PO SCH (10:00)
[2023-01-22] MEDS ORDERED: NON-FORMULARY ITEM (Meloxicam 15 Mg [Meloxicam 15 Mg] 15 MG Tablet) PO SCH (10:00)
[2023-01-22] MEDS ORDERED: NON-FORMULARY ITEM (Tolterodine Tartrate [Tolterodine Tartrate Er] 4 MG Cap.Er.24h) PO SCH (10:00)
[2023-01-22] MEDS: Ativan 2 MG/1 ML VIAL IV PRN (10:11)
--- NOTE | 2023-01-22 14:03 | PCM.NOTE ---
Date and Time: 01/22/23 9811 Subjective Assessment: Ms. Mejias is a 57-year-old female who has COPD and requiring 3 L oxygen chronically who comes in due to having increasing shortness of breath over the past day and a half. Examination very consistent with COPD exacerbation potential pneumonia in right lower lobe per cxr. EKG was normal with no acute changes. In ER patient was treated with a DuoNeb treatment followed by an albuterol treatment with 125 mg of Solu-Medrol through the IV which improved her symptoms significantly and resolved her dyspnea sensation. Patient did have improved airflow, and did not have any other abnormal lab work as she had a normal white blood cell count, normal troponin, no significant change or elevation in her proBNP compared to past labs, normal venous pH as her elevated CO2 is compensated and elevated bicarbonate, but she did have a significant elevated carboxyhemoglobin of 14% and was placed on bipap. ABGs have improved with BIPAP, Dr. Verdin has been consulted. Patient endorses continued shortness of breath and wheezing. Lungs on auscultation remain diminished with exp wheezing. Plan is to continue BIPAP, DuoNebs, zithromax, soulmedrol, ventolin inh, and Ativan added for comfort with use of BIPAP machine. - Review of Systems Constitutional: No Symptoms Eyes: No Symptoms Ears, Nose, & Throat: No Symptoms Respiratory: Cough, Short Of Breath, Wheezing Cardiac: No Symptoms Abdominal/Gastrointestinal: No Symptoms Genitourinary Symptoms: No Symptoms Musculoskeletal: No Symptoms Skin: No Symptoms Neurological: No Symptoms Objective Exam General Appearance: mild distress Neurologic Exam: alert, oriented x 3 Skin Exam: normal color Eye Exam: PERRL Respiratory Exam: diminished breath sounds, accessory muscle use, wheezing Gastrointestinal/Abdomen Exam: soft, normal bowel sounds Extremity Exam: normal inspection OBJECTIVE DATA Vital Signs: Vital Signs - 24 hr Temp Pulse Resp BP BP Pulse Ox 01/22/23 11:30 97.9 F 55 L 18 122/71 93 L 01/22/23 11:17 57 L 20 95 01/22/23 09:13 22 01/22/23 07:15 51 L 19 97 01/22/23 07:04 97.9 F 58 L 18 127/63 98 01/22/23 04:00 97.6 F 53 L 22 124/75 95 01/22/23 03:20 53 L 20 98 08/21/23 23:30 97.2 F 66 14 121/58 93 L 01/21/23 23:27 66 20 94 L 01/21/23 21:32 80 20 97 01/21/23 20:16 97.7 F 88 22 141/68 85 L 01/21/23 20:01 88 18 119/89 98 01/21/23 19:51 77 L 01/21/23 19:40 91 L 01/21/23 19:00 83 22 114/93 94 L 01/21/23 18:58 79 22 95 01/21/23 18:20 78 26 H 135/77 97 01/21/23 18:19 98.5 F 73 24 135/77 77 L Pain Assessment - Last Documented Pain Intensity 0 Intake and Output: Intake & Output 01/20/23 01/21/23 01/22/23 01/23/23 11:59 11:59 11:59 11:59 Intake Total 480 240 Output Total 100 Balance 380 240 Weight 84.6 kg Lab Results: Lab Results-Last 24 Hours 01/21/23 01/21/23 01/21/23 Range/Units 18:30 18:30 18:30 WBC 10.3 (4.0-10.5) x10^3/uL RBC 5.14 (4.1-5.4) x10^6/uL Hgb 15.4 (12.0-16.0) g/dL Hct 50.2 H (35-47) % MCV 97.7 (78-100) fL MCH 30.0 (26-32) pg MCHC 30.7 L (32-36) g/dL RDW 16.0 H (11.5-14.0) % Plt Count 242 (150-450) x10^3/uL MPV 9.5 (7.5-11.0) fL Gran % 76.3 H (36.0-66.0) % Immature Gran % (Auto) 0.5 H (0.00-0.4) % Nucleat RBC Rel Count 0.0 (0.00-0.1) % Eos # (Auto) 0.03 (0-0.5) x10^3/uL Immature Gran # (Auto) 0.05 H (0.00-0.03) x10^3u/L Absolute Lymphs (auto) 1.38 (1.0-4.6) x10^3/uL Absolute Monos (auto) 0.94 (0.0-1.3) x10^3/uL Absolute Nucleated RBC 0.00 (0.00-0.01) x10^3u/L Lymphocytes % 13.4 L (24.0-44.0) % Monocytes % 9.1 (0.0-12.0) % Eosinophils % 0.3 (0.00-5.0) % Basophils % 0.4 (0.0-0.4) % Absolute Granulocytes 7.88 H (1.4-6.9) x10^3/uL Basophils # 0.04 (0-0.4) x10^3/uL PT 10.9 (9.4-12.5) SECONDS INR 1.00 (0.8-3.0) Puncture Site pCO2 (35-45) mmHg pO2 (75-100) mmHg pO2/FiO2 Ratio % Base Excess (-2.0-2.0) O2 Saturation (94-100) g/dF ABG pH (7.35-7.45) ABG HCO3 (22-28) ABG O2 Sat (Measured) (95-100) % Ian Test VBG pH (7.32-7.42) VBG pCO2 at Pat Temp (42-55) mm/Hg VBG pO2 at Pat Temp (25-40) mm/Hg VBG HCO3 (22-28) meq/L VBG O2 Sat (Tucker) (95-100) VBG Base Excess (-2.0-2.0) VBG Hemoglobin VBG Carboxyhemoglobin (0.0-6.9) % T HGB A-a Gradient a/A Ratio Hemoglobin Carboxyhemoglobin (0.0-6.9) % THgb Methemoglobin (1.4-1.5) % POC Potassium (3.5-5.1) Temperature C POC O2 Flow Rate % Vent Mode PEEP cmH2O Pressure Support Inspiratory BiPAP Expiratory BiPAP Sodium 140 (137-145) mmol/L Potassium 4.0 (3.5-5.1) mmol/L Chloride 96 L (98-107) mmol/L Carbon Dioxide 38 H (22-30) mmol/L Anion Gap 9.7 (5-15) MEQ/L BUN 20 H (7-17) mg/dL Creatinine 0.70 (0.52-1.04) mg/dL Estimated GFR > 60.0 ML/MIN Glucose 114 H (74-106) mg/dL Lactic Acid (0.4-2.0) Calcium 8.9 (8.4-10.2) mg/dL Magnesium 2.1 (1.6-2.3) mg/dL Total Bilirubin 0.60 (0.2-1.3) mg/dL AST 27 (14-36) U/L ALT 22 (0-35) U/L Alkaline Phosphatase 74 (38-126) U/L Troponin I (0.000-0.034) ng/mL NT-Pro-B Natriuret Pep 629 (<300) pg/mL Serum Total Protein 7.4 (6.3-8.2) g/dL Albumin 4.2 (3.5-5.0) g/dL Influenza Type A Ag (NEGATIVE) Influenza Type B Ag (NEGATIVE) RSV (PCR) (NEGATIVE) SARS-CoV-2 (PCR) (NEGATIVE) 01/21/23 01/21/23 01/21/23 Range/Units 18:30 18:40 19:00 WBC (4.0-10.5) x10^3/uL RBC (4.1-5.4) x10^6/uL Hgb (12.0-16.0) g/dL Hct (35-47) % MCV (78-100) fL MCH (26-32) pg MCHC (32-36) g/dL RDW (11.5-14.0) % Plt Count (150-450) x10^3/uL MPV (7.5-11.0) fL Gran % (36.0-66.0) % Immature Gran % (Auto) (0.00-0.4) % Nucleat RBC Rel Count (0.00-0.1) % Eos # (Auto) (0-0.5) x10^3/uL Immature Gran # (Auto) (0.00-0.03) x10^3u/L Absolute Lymphs (auto) (1.0-4.6) x10^3/uL Absolute Monos (auto) (0.0-1.3) x10^3/uL Absolute Nucleated RBC (0.00-0.01) x10^3u/L Lymphocytes % (24.0-44.0) % Monocytes % (0.0-12.0) % Eosinophils % (0.00-5.0) % Basophils % (0.0-0.4) % Absolute Granulocytes (1.4-6.9) x10^3/uL Basophils # (0-0.4) x10^3/uL PT (9.4-12.5) SECONDS INR (0.8-3.0) Puncture Site pCO2 (35-45) mmHg pO2 (75-100) mmHg pO2/FiO2 Ratio % Base Excess (-2.0-2.0) O2 Saturation (94-100) g/dF ABG pH (7.35-7.45) ABG HCO3 (22-28) ABG O2 Sat (Measured) (95-100) % Ian Test VBG pH (7.32-7.42) VBG pCO2 at Pat Temp (42-55) mm/Hg VBG pO2 at Pat Temp (25-40) mm/Hg VBG HCO3 (22-28) meq/L VBG O2 Sat (Tucker) (95-100) VBG Base Excess (-2.0-2.0) VBG Hemoglobin VBG Carboxyhemoglobin (0.0-6.9) % T HGB A-a Gradient a/A Ratio Hemoglobin Carboxyhemoglobin (0.0-6.9) % THgb Methemoglobin (1.4-1.5) % POC Potassium (3.5-5.1) Temperature C POC O2 Flow Rate % Vent Mode PEEP cmH2O Pressure Support Inspiratory BiPAP Expiratory BiPAP Sodium (137-145) mmol/L Potassium (3.5-5.1) mmol/L Chloride (98-107) mmol/L Carbon Dioxide (22-30) mmol/L Anion Gap (5-15) MEQ/L BUN (7-17) mg/dL Creatinine (0.52-1.04) mg/dL Estimated GFR ML/MIN Glucose (74-106) mg/dL Lactic Acid 1.2 (0.4-2.0) Calcium (8.4-10.2) mg/dL Magnesium (1.6-2.3) mg/dL Total Bilirubin (0.2-1.3) mg/dL AST (14-36) U/L ALT (0-35) U/L Alkaline Phosphatase (38-126) U/L Troponin I 0.013 (0.000-0.034) ng/mL NT-Pro-B Natriuret Pep (<300) pg/mL Serum Total Protein (6.3-8.2) g/dL Albumin (3.5-5.0) g/dL Influenza Type A Ag NEGATIVE (NEGATIVE) Influenza Type B Ag NEGATIVE (NEGATIVE) RSV (PCR) NEGATIVE (NEGATIVE) SARS-CoV-2 (PCR) NEGATIVE (NEGATIVE) 01/21/23 01/21/23 01/21/23 Range/Units 19:00 22:00 22:35 WBC (4.0-10.5) x10^3/uL RBC (4.1-5.4) x10^6/uL Hgb (12.0-16.0) g/dL Hct (35-47) % MCV (78-100) fL MCH (26-32) pg MCHC (32-36) g/dL RDW (11.5-14.0) % Plt Count (150-450) x10^3/uL MPV (7.5-11.0) fL Gran % (36.0-66.0) % Immature Gran % (Auto) (0.00-0.4) % Nucleat RBC Rel Count (0.00-0.1) % Eos # (Auto) (0-0.5) x10^3/uL Immature Gran # (Auto) (0.00-0.03) x10^3u/L Absolute Lymphs (auto) (1.0-4.6) x10^3/uL Absolute Monos (auto) (0.0-1.3) x10^3/uL Absolute Nucleated RBC (0.00-0.01) x10^3u/L Lymphocytes % (24.0-44.0) % Monocytes % (0.0-12.0) % Eosinophils % (0.00-5.0) % Basophils % (0.0-0.4) % Absolute Granulocytes (1.4-6.9) x10^3/uL Basophils # (0-0.4) x10^3/uL PT (9.4-12.5) SECONDS INR (0.8-3.0) Puncture Site RIGHT RADIAL pCO2 80 H* (35-45) mmHg pO2 58 L (75-100) mmHg pO2/FiO2 Ratio 40.0 % Base Excess 5.5 H (-2.0-2.0) O2 Saturation 80.0 L (94-100) g/dF ABG pH 7.26 L (7.35-7.45) ABG HCO3 35.9 H* (22-28) ABG O2 Sat (Measured) 89.5 L (95-100) % Ian Test YES VBG pH 7.37 (7.32-7.42) VBG pCO2 at Pat Temp 70 H* (42-55) mm/Hg VBG pO2 at Pat Temp 32 (25-40) mm/Hg VBG HCO3 40.5 H* (22-28) meq/L VBG O2 Sat (Tucker) 60.1 L (95-100) VBG Base Excess 11.5 H (-2.0-2.0) VBG Hemoglobin 15.8 VBG Carboxyhemoglobin 14.0 H* (0.0-6.9) % T HGB A-a Gradient 127 a/A Ratio 0.31 Hemoglobin 15.3 Carboxyhemoglobin 9.9 H* (0.0-6.9) % THgb Methemoglobin 0.7 L (1.4-1.5) % POC Potassium 4.3 (3.5-5.1) Temperature 37.0 C POC O2 Flow Rate 40 % Vent Mode PEEP cmH2O Pressure Support Inspiratory BiPAP Expiratory BiPAP Sodium (137-145) mmol/L Potassium 4.0 (3.5-5.1) mmol/L Chloride (98-107) mmol/L Carbon Dioxide (22-30) mmol/L Anion Gap (5-15) MEQ/L BUN (7-17) mg/dL Creatinine (0.52-1.04) mg/dL Estimated GFR ML/MIN Glucose (74-106) mg/dL Lactic Acid (0.4-2.0) Calcium (8.4-10.2) mg/dL Magnesium (1.6-2.3) mg/dL Total Bilirubin (0.2-1.3) mg/dL AST (14-36) U/L ALT (0-35) U/L Alkaline Phosphatase (38-126) U/L Troponin I 0.012 (0.000-0.034) ng/mL NT-Pro-B Natriuret Pep (<300) pg/mL Serum Total Protein (6.3-8.2) g/dL Albumin (3.5-5.0) g/dL Influenza Type A Ag (NEGATIVE) Influenza Type B Ag (NEGATIVE) RSV (PCR) (NEGATIVE) SARS-CoV-2 (PCR) (NEGATIVE) 01/22/23 01/22/23 01/22/23 Range/Units 00:10 02:00 02:00 WBC 11.9 H (4.0-10.5) x10^3/uL RBC 4.86 (4.1-5.4) x10^6/uL Hgb 14.4 (12.0-16.0) g/dL Hct 48.9 H (35-47) % MCV 100.6 H (78-100) fL MCH 29.6 (26-32) pg MCHC 29.4 L (32-36) g/dL RDW 16.1 H (11.5-14.0) % Plt Count 236 (150-450) x10^3/uL MPV 9.7 (7.5-11.0) fL Gran % 93.2 H (36.0-66.0) % Immature Gran % (Auto) 0.5 H (0.00-0.4) % Nucleat RBC Rel Count 0.0 (0.00-0.1) % Eos # (Auto) 0 (0-0.5) x10^3/uL Immature Gran # (Auto) 0.06 H (0.00-0.03) x10^3u/L Absolute Lymphs (auto) 0.62 L (1.0-4.6) x10^3/uL Absolute Monos (auto) 0.10 (0.0-1.3) x10^3/uL Absolute Nucleated RBC 0.00 (0.00-0.01) x10^3u/L Lymphocytes % 5.2 L (24.0-44.0) % Monocytes % 0.8 (0.0-12.0) % Eosinophils % 0.0 (0.00-5.0) % Basophils % 0.3 (0.0-0.4) % Absolute Granulocytes 11.08 H (1.4-6.9) x10^3/uL Basophils # 0.03 (0-0.4) x10^3/uL PT (9.4-12.5) SECONDS INR (0.8-3.0) Puncture Site LEFT RADIAL pCO2 84 H* (35-45) mmHg pO2 51 L (75-100) mmHg pO2/FiO2 Ratio % Base Excess 6.8 H (-2.0-2.0) O2 Saturation 75.2 L (94-100) g/dF ABG pH 7.26 L (7.35-7.45) ABG HCO3 37.7 H* (22-28) ABG O2 Sat (Measured) 82.5 L (95-100) % Ian Test yes VBG pH (7.32-7.42) VBG pCO2 at Pat Temp (42-55) mm/Hg VBG pO2 at Pat Temp (25-40) mm/Hg VBG HCO3 (22-28) meq/L VBG O2 Sat (Tucker) (95-100) VBG Base Excess (-2.0-2.0) VBG Hemoglobin VBG Carboxyhemoglobin (0.0-6.9) % T HGB A-a Gradient 201 a/A Ratio 0.20 Hemoglobin 15.5 Carboxyhemoglobin 7.9 H* (0.0-6.9) % THgb Methemoglobin 1.0 L (1.4-1.5) % POC Potassium (3.5-5.1) Temperature 37.0 C POC O2 Flow Rate 50 % Vent Mode BiPAP PEEP 8.0 cmH2O Pressure Support 18 Inspiratory BiPAP 18 Expiratory BiPAP 8 Sodium 140 (137-145) mmol/L Potassium 4.0 4.5 (3.5-5.1) mmol/L Chloride 98 (98-107) mmol/L Carbon Dioxide 35 H (22-30) mmol/L Anion Gap 10.7 (5-15) MEQ/L BUN 22 H (7-17) mg/dL Creatinine 0.80 (0.52-1.04) mg/dL Estimated GFR > 60.0 ML/MIN Glucose 164 H (74-106) mg/dL Lactic Acid (0.4-2.0) Calcium 8.8 (8.4-10.2) mg/dL Magnesium (1.6-2.3) mg/dL Total Bilirubin 0.40 (0.2-1.3) mg/dL AST 34 (14-36) U/L ALT 22 (0-35) U/L Alkaline Phosphatase 64 (38-126) U/L Troponin I (0.000-0.034) ng/mL NT-Pro-B Natriuret Pep (<300) pg/mL Serum Total Protein 6.9 (6.3-8.2) g/dL Albumin 4.0 (3.5-5.0) g/dL Influenza Type A Ag (NEGATIVE) Influenza Type B Ag (NEGATIVE) RSV (PCR) (NEGATIVE) SARS-CoV-2 (PCR) (NEGATIVE) 01/22/23 01/22/23 Range/Units 02:05 08:30 WBC (4.0-10.5) x10^3/uL RBC (4.1-5.4) x10^6/uL Hgb (12.0-16.0) g/dL Hct (35-47) % MCV (78-100) fL MCH (26-32) pg MCHC (32-36) g/dL RDW (11.5-14.0) % Plt Count (150-450) x10^3/uL MPV (7.5-11.0) fL Gran % (36.0-66.0) % Immature Gran % (Auto) (0.00-0.4) % Nucleat RBC Rel Count (0.00-0.1) % Eos # (Auto) (0-0.5) x10^3/uL Immature Gran # (Auto) (0.00-0.03) x10^3u/L Absolute Lymphs (auto) (1.0-4.6) x10^3/uL Absolute Monos (auto) (0.0-1.3) x10^3/uL Absolute Nucleated RBC (0.00-0.01) x10^3u/L Lymphocytes % (24.0-44.0) % Monocytes % (0.0-12.0) % Eosinophils % (0.00-5.0) % Basophils % (0.0-0.4) % Absolute Granulocytes (1.4-6.9) x10^3/uL Basophils # (0-0.4) x10^3/uL PT (9.4-12.5) SECONDS INR (0.8-3.0) Puncture Site LEFT RADIAL pCO2 73 H* (35-45) mmHg pO2 62 L (75-100) mmHg pO2/FiO2 Ratio % Base Excess 4.7 H (-2.0-2.0) O2 Saturation 87.4 L (94-100) g/dF ABG pH 7.28 L (7.35-7.45) ABG HCO3 34.3 H* (22-28) ABG O2 Sat (Measured) 91.1 L (95-100) % Ian Test YES VBG pH (7.32-7.42) VBG pCO2 at Pat Temp (42-55) mm/Hg VBG pO2 at Pat Temp (25-40) mm/Hg VBG HCO3 (22-28) meq/L VBG O2 Sat (Tucker) (95-100) VBG Base Excess (-2.0-2.0) VBG Hemoglobin VBG Carboxyhemoglobin (0.0-6.9) % T HGB A-a Gradient 275 a/A Ratio 0.18 Hemoglobin 15.2 Carboxyhemoglobin 3.3 (0.0-6.9) % THgb Methemoglobin 0.9 L (1.4-1.5) % POC Potassium (3.5-5.1) Temperature 37.0 C POC O2 Flow Rate 60 % Vent Mode BiPAP PEEP 8.0 cmH2O Pressure Support Inspiratory BiPAP 18 Expiratory BiPAP 8 Sodium (137-145) mmol/L Potassium 5.2 H (3.5-5.1) mmol/L Chloride (98-107) mmol/L Carbon Dioxide (22-30) mmol/L Anion Gap (5-15) MEQ/L BUN (7-17) mg/dL Creatinine (0.52-1.04) mg/dL Estimated GFR ML/MIN Glucose (74-106) mg/dL Lactic Acid (0.4-2.0) Calcium (8.4-10.2) mg/dL Magnesium (1.6-2.3) mg/dL Total Bilirubin (0.2-1.3) mg/dL AST (14-36) U/L ALT (0-35) U/L Alkaline Phosphatase (38-126) U/L Troponin I < 0.012 (0.000-0.034) ng/mL NT-Pro-B Natriuret Pep (<300) pg/mL Serum Total Protein (6.3-8.2) g/dL Albumin (3.5-5.0) g/dL Influenza Type A Ag (NEGATIVE) Influenza Type B Ag (NEGATIVE) RSV (PCR) (NEGATIVE) SARS-CoV-2 (PCR) (NEGATIVE) Radiology Exams: Radiology Procedures Category Date Time Status CHEST 1 VIEW (PORTABLE) Stat Exams 01/21/23 18:24 Completed Multi-Disciplinary Progress Notes: Multi-Disciplinary Progress Notes 01/22/23 10:11 Respiratory Note by Carly Salter consult with Dr. Verdin spoke with him this am and informed him of ABG results. He requested avaps and can alternate with oxgen. continue antibodics and redraw abg about 330pm and call with results. contact him with any issues and he will be here tomorrow to see patient. Initialized on 01/22/23 10:11 - END OF NOTE 01/22/23 08:30 (created 01/22/23 11:15) Respiratory Note by Trudy Doe pt take Addendum entered by Trudy Doe 01/22/23 11:16: pt taken off bipap and placed on 5L nasal cannula Initialized on 01/22/23 11:15 - END OF NOTE 01/22/23 01:12 Respiratory Note by Shirlene Medina ABG drawn at 0010. Pt was refusing bipap at that time and had bipap off for about 15 minutes prior to ABG draw. Attempted to contact Dr. Campos and left message at [phone] and 0030 with no response. Contacted Dr. Campos at 0100, gave ABG critical values and read back at this time. Dr. Campos declined repeat ABG at this time. No further orders received. Pt continues to rest on Bipap. Initialized on 01/22/23 01:12 - END OF NOTE 01/21/23 23:50 Respiratory Note by Shirlene Medina At approx 2230 Yadiel SHIELDS requested RT to assess due to low SpO2. Upon arrival patient's SpO2 was 80%-85%. Continous ETCO2 was reading between 60-65. Pt was difficult to wake but would answer questions appropriately once awake. ABG was drawn per protocol and pt was placed on bipap at 2250. Tele hospital[address] Dr[address] Campos was notified of patient status, ABG results and agreed with use of bipap. No further orders were received at this time. Initialized on 01/21/23 23:50 - END OF NOTE Assessment/Plan (1) COPD exacerbation Current Visit: Yes Status: Acute Assessment & Plan: -Consult [facility], appreciate recs -Continue solumedrol, duonebs/inh, BIPAP -ABG improvement, continue to monitor -Respiratory panel negative for COVID Flu A/B/RSV -Ceftriaxone/ azith (x 3 doses) -Ativan 1mg Q6H prn Code(s): J44.1 - CHRONIC OBSTRUCTIVE PULMONARY DISEASE W (ACUTE) EXACERBATION (2) Carboxyhemoglobinemia Current Visit: Yes Status: Acute Qualifiers: Encounter type: initial encounter Injury intent: accidental or unintentional Qualified Code(s): T58.91XA - Toxic effect of carbon monoxide from unspecified source, accidental (unintentional), initial encounter Assessment & Plan: -See above Code(s): T58.91XA - TOXIC EFFECT OF CARB MONX FROM UNSP SOURCE, ACC, INIT (3) Right lower lobe pneumonia Current Visit: Yes Status: Acute Qualifiers: Pneumonia type: due to unspecified organism Qualified Code(s): J18.9 - Pneumonia, unspecified organism Assessment & Plan: -Continue ceftriaxone/ azithromycin -Serial cxr until resolution Code(s): J18.9 - PNEUMONIA, UNSPECIFIED ORGANISM
[2023-01-22 15:38] LABS: A-aADO2 209; ABG HEMOGLOBIN 14.4; ABG POTASSIUM 4.8 (3.5-5.1); ARTERIAL BLD GAS O2 SATURATION 99.4 % (95-100); ARTERIAL BLOOD GAS BASE EXCESS 6.2 (-2.0-2.0); ARTERIAL BLOOD GAS FIO2 60 %; ARTERIAL BLOOD GAS PO2 129 mmHg (75-100); CARBOXYHEMOGLOBIN 1.8 % THgb (0.0-6.9); HCO3- 35.4 (22-28); HGB O2 SAT 97.1 g/dF (94-100); Methhemoglobin 0.5 % (1.4-1.5); paO2 pAO1 0.38
[2023-01-22 15:39] LABS: ABG SITE rt rad; ALLEN TEST OK? yes; ARTERIAL BLOOD GAS PCO2 72 mmHg (35-45)
[2023-01-22] MEDS: Zithromax 500 MG/ 250 ML NaCl Premix 500 MG/250 ML IVPB IV SCH (17:02)
[2023-01-22] MEDS: ROCEPHIN 1 Gm-D5w 50 ml Bag** 1 G/50 ML IVPB IV SCH (17:02)
[2023-01-22] MEDS: NEURONTIN PO SCH (21:22)
[2023-01-23] MEDS: solu-MEDROL 125 MG, Sterile H2O 10 ml 2 ML IV SCH ×6 (01:37→17:24)
[2023-01-23] MEDS: DUONEB 0.5-3 MG/3 ml Neb IH SCH ×6 (02:15→23:08)
[2023-01-23 05:05] LABS: Absolute Neutrophil Ct (ANC) 9.68 x10^3/uL (1.4-6.9); BASOPHIL % 0.2 % (0.0-0.4); Basophil (Absolute #) 0.02 x10^3/uL (0-0.4); Eosinophil (Absolute #) 0 x10^3/uL (0-0.5); Hematocrit 48.2 % (35-47); Hemoglobin 14.2 g/dL (12.0-16.0); IMMATURE GRAN # 0.12 x10^3u/L (0.00-0.03); IMMATURE GRAN % 1.1 % (0.00-0.4); Lymphocyte (Absolute #) 0.74 x10^3/uL (1.0-4.6); Lymphocytes % 6.8 % (24.0-44.0); Mean Cell Volume 100.8 fL (78-100); Mean Corpuscular Hemoglobin 29.7 pg (26-32); Mean Corpuscular Hgb Concent. 29.5 g/dL (32-36); Mean Platelet Volume 9.7 fL (7.5-11.0); Monocyte (Absolute #) 0.27 x10^3/uL (0.0-1.3); Monocytes % 2.5 % (0.0-12.0); Neutrophil % 89.4 % (36.0-66.0); Platelet Count 221 x10^3/uL (150-450); Red Blood Count 4.78 x10^6/uL (4.1-5.4); Red Cell Distribution Width 15.9 % (11.5-14.0); White Blood Count 10.8 x10^3/uL (4.0-10.5)
--- NOTE | 2023-01-23 05:38 | PCM.NOTE ---
Date and Time: 01/23/23 0535 Subjective Assessment: Ms. Mejias is a 57-year-old female who has COPD and requiring 3 L oxygen chronically who comes in due to having increasing shortness of breath over the past day and a half. Examination very consistent with COPD exacerbation potential pneumonia in right lower lobe per cxr. EKG was normal with no acute changes. In ER patient was treated with a DuoNeb treatment followed by an albuterol treatment with 125 mg of Solu-Medrol through the IV which improved her symptoms significantly and resolved her dyspnea sensation. Patient did have improved airflow, and did not have any other abnormal lab work as she had a normal white blood cell count, normal troponin, no significant change or elevation in her proBNP compared to past labs, normal venous pH as her elevated CO2 is compensated and elevated bicarbonate, but she did have a significant elevated carboxyhemoglobin of 14% and was placed on bipap. ABGs have improved with BIPAP, now on oxymizer 4L Dr. Verdin has been consulted. Patient endorses improvement with shortness of breath and cough/wheezing. - Review of Systems Constitutional: No Symptoms Eyes: No Symptoms Ears, Nose, & Throat: No Symptoms Respiratory: Cough, Short Of Breath, Wheezing Cardiac: No Symptoms Abdominal/Gastrointestinal: No Symptoms Genitourinary Symptoms: No Symptoms Musculoskeletal: No Symptoms Skin: No Symptoms Neurological: No Symptoms Psychological: No Symptoms Objective Exam General Appearance: no apparent distress Neurologic Exam: alert, oriented x 3, cooperative Skin Exam: normal color Eye Exam: PERRL Respiratory Exam: crackles/rales, wheezing Cardiovascular Exam: regular rate/rhythm, normal heart sounds Gastrointestinal/Abdomen Exam: soft, normal bowel sounds OBJECTIVE DATA Vital Signs: Vital Signs - 24 hr Temp Pulse Resp BP Pulse Ox 01/23/23 04:00 97.9 F 71 14 118/57 94 L 01/23/23 02:15 63 20 96 01/22/23 23:41 97.3 F 61 19 118/58 99 01/22/23 22:25 70 21 97 01/22/23 20:00 97.3 F 95 H 21 141/66 90 L 01/22/23 18:40 77 20 96 01/22/23 15:51 97.7 F 54 L 20 112/59 96 01/22/23 15:43 56 L 20 99 01/22/23 11:30 97.9 F 55 L 18 122/71 93 L 01/22/23 11:17 57 L 20 95 01/22/23 09:13 22 01/22/23 07:15 51 L 19 97 01/22/23 07:04 97.9 F 58 L 18 127/63 98 Pain Assessment - Last Documented Pain Intensity 0 Intake and Output: Intake & Output 01/20/23 01/21/23 01/22/23 01/23/23 11:59 11:59 11:59 11:59 Intake Total 480 1260 Output Total 100 500 Balance 380 760 Weight 84.6 kg Lab Results: Lab Results-Last 24 Hours 01/22/23 01/22/23 01/22/23 Range/Units 00:10 02:00 08:30 WBC (4.0-10.5) x10^3/uL RBC (4.1-5.4) x10^6/uL Hgb (12.0-16.0) g/dL Hct (35-47) % MCV (78-100) fL MCH (26-32) pg MCHC (32-36) g/dL RDW (11.5-14.0) % Plt Count (150-450) x10^3/uL MPV (7.5-11.0) fL Gran % (36.0-66.0) % Immature Gran % (Auto) (0.00-0.4) % Nucleat RBC Rel Count (0.00-0.1) % Eos # (Auto) (0-0.5) x10^3/uL Immature Gran # (Auto) (0.00-0.03) x10^3u/L Absolute Lymphs (auto) (1.0-4.6) x10^3/uL Absolute Monos (auto) (0.0-1.3) x10^3/uL Absolute Nucleated RBC (0.00-0.01) x10^3u/L Lymphocytes % (24.0-44.0) % Monocytes % (0.0-12.0) % Eosinophils % (0.00-5.0) % Basophils % (0.0-0.4) % Absolute Granulocytes (1.4-6.9) x10^3/uL Basophils # (0-0.4) x10^3/uL Puncture Site LEFT RADIAL LEFT RADIAL pCO2 73 H* (35-45) mmHg pO2 62 L (75-100) mmHg Base Excess 4.7 H (-2.0-2.0) O2 Saturation 87.4 L (94-100) g/dF ABG pH 7.28 L (7.35-7.45) ABG HCO3 34.3 H* (22-28) ABG O2 Sat (Measured) 91.1 L (95-100) % Ian Test yes YES A-a Gradient 275 a/A Ratio 0.18 Hemoglobin 15.2 Carboxyhemoglobin 3.3 (0.0-6.9) % THgb Methemoglobin 0.9 L (1.4-1.5) % Temperature 37.0 C POC O2 Flow Rate 60 % Vent Mode BiPAP BiPAP PEEP 8.0 8.0 cmH2O Pressure Support 18 Inspiratory BiPAP 18 18 Expiratory BiPAP 8 8 Sodium 140 (137-145) mmol/L Potassium 4.5 5.2 H (3.5-5.1) mmol/L Chloride 98 (98-107) mmol/L Carbon Dioxide 35 H (22-30) mmol/L Anion Gap 10.7 (5-15) MEQ/L BUN 22 H (7-17) mg/dL Creatinine 0.80 (0.52-1.04) mg/dL Estimated GFR > 60.0 ML/MIN Glucose 164 H (74-106) mg/dL Calcium 8.8 (8.4-10.2) mg/dL Total Bilirubin 0.40 (0.2-1.3) mg/dL AST 34 (14-36) U/L ALT 22 (0-35) U/L Alkaline Phosphatase 64 (38-126) U/L Serum Total Protein 6.9 (6.3-8.2) g/dL Albumin 4.0 (3.5-5.0) g/dL 01/22/23 01/23/23 Range/Units 15:30 04:33 WBC 10.8 H (4.0-10.5) x10^3/uL RBC 4.78 (4.1-5.4) x10^6/uL Hgb 14.2 (12.0-16.0) g/dL Hct 48.2 H (35-47) % MCV 100.8 H (78-100) fL MCH 29.7 (26-32) pg MCHC 29.5 L (32-36) g/dL RDW 15.9 H (11.5-14.0) % Plt Count 221 (150-450) x10^3/uL MPV 9.7 (7.5-11.0) fL Gran % 89.4 H (36.0-66.0) % Immature Gran % (Auto) 1.1 H (0.00-0.4) % Nucleat RBC Rel Count 0.0 (0.00-0.1) % Eos # (Auto) 0 (0-0.5) x10^3/uL Immature Gran # (Auto) 0.12 H (0.00-0.03) x10^3u/L Absolute Lymphs (auto) 0.74 L (1.0-4.6) x10^3/uL Absolute Monos (auto) 0.27 (0.0-1.3) x10^3/uL Absolute Nucleated RBC 0.00 (0.00-0.01) x10^3u/L Lymphocytes % 6.8 L (24.0-44.0) % Monocytes % 2.5 (0.0-12.0) % Eosinophils % 0.0 (0.00-5.0) % Basophils % 0.2 (0.0-0.4) % Absolute Granulocytes 9.68 H (1.4-6.9) x10^3/uL Basophils # 0.02 (0-0.4) x10^3/uL Puncture Site rt rad pCO2 72 H* (35-45) mmHg pO2 129 H* (75-100) mmHg Base Excess 6.2 H (-2.0-2.0) O2 Saturation 97.1 (94-100) g/dF ABG pH 7.30 L (7.35-7.45) ABG HCO3 35.4 H* (22-28) ABG O2 Sat (Measured) 99.4 (95-100) % Ian Test yes A-a Gradient 209 a/A Ratio 0.38 Hemoglobin 14.4 Carboxyhemoglobin 1.8 (0.0-6.9) % THgb Methemoglobin 0.5 L (1.4-1.5) % Temperature 37.0 C POC O2 Flow Rate 60 % Vent Mode PEEP cmH2O Pressure Support Inspiratory BiPAP Expiratory BiPAP Sodium (137-145) mmol/L Potassium 4.8 (3.5-5.1) mmol/L Chloride (98-107) mmol/L Carbon Dioxide (22-30) mmol/L Anion Gap (5-15) MEQ/L BUN (7-17) mg/dL Creatinine (0.52-1.04) mg/dL Estimated GFR ML/MIN Glucose (74-106) mg/dL Calcium (8.4-10.2) mg/dL Total Bilirubin (0.2-1.3) mg/dL AST (14-36) U/L ALT (0-35) U/L Alkaline Phosphatase (38-126) U/L Serum Total Protein (6.3-8.2) g/dL Albumin (3.5-5.0) g/dL Radiology Exams: Radiology Procedures Category Date Time Status CHEST 1 VIEW (PORTABLE) Stat Exams 01/21/23 18:24 Completed Multi-Disciplinary Progress Notes: Multi-Disciplinary Progress Notes 01/22/23 15:49 Respiratory Note by Trudy Doe pt taken off bipap and placed on 6L oxymizer. pt spo2 98% Initialized on 01/22/23 15:49 - END OF NOTE 01/22/23 10:11 Respiratory Note by Carly Salter consult with Dr. Verdin spoke with him this am and informed him of ABG results. He requested avaps and can alternate with oxgen. continue antibodics and redraw abg about 330pm and call with results. contact him with any issues and he will be here tomorrow to see patient. Initialized on 01/22/23 10:11 - END OF NOTE 01/22/23 08:30 (created 01/22/23 11:15) Respiratory Note by Trudy Doe pt take Addendum entered by Trudy Doe 01/22/23 11:16: pt taken off bipap and placed on 5L nasal cannula Initialized on 01/22/23 11:15 - END OF NOTE Assessment/Plan (1) COPD exacerbation Current Visit: Yes Status: Acute Assessment & Plan: -Consult braeden Verdins -Continue solumedrol, duonebs/inh, patient currently on oxymizer -ABG improvement, continue to monitor -Respiratory panel negative for COVID Flu A/B/RSV -Ceftriaxone/ azith (x 3 doses) -Ativan 1mg Q6H prn Code(s): J44.1 - CHRONIC OBSTRUCTIVE PULMONARY DISEASE W (ACUTE) EXACERBATION (2) Carboxyhemoglobinemia Current Visit: Yes Status: Acute Qualifiers: Encounter type: initial encounter Injury intent: accidental or unintentional Qualified Code(s): T58.91XA - Toxic effect of carbon monoxide from unspecified source, accidental (unintentional), initial encounter Assessment & Plan: -levels now normal, continue to monitor Code(s): T58.91XA - TOXIC EFFECT OF CARB MONX FROM UNSP SOURCE, ACC, INIT (3) Right lower lobe pneumonia Current Visit: Yes Status: Acute Qualifiers: Pneumonia type: due to unspecified organism Qualified Code(s): J18.9 - Pneumonia, unspecified organism Assessment & Plan: -Ceftriaxone/ azith (x 3 doses) -RT eval, patient currently on oxymizer Code(s): J18.9 - PNEUMONIA, UNSPECIFIED ORGANISM
[2023-01-23 05:39] LABS: ALBUMIN 3.9 g/dL (3.5-5.0); ALKALINE PHOSPHATASE 66 U/L (38-126); ANION GAP 9.7 MEQ/L (5-15); BLOOD UREA NITROGEN 29 mg/dL (7-17); CHLORIDE 99 mmol/L (98-107); Calcium 8.5 mg/dL (8.4-10.2); Carbon Dioxide 35 mmol/L (22-30); Creatinine 1 0.57 mg/dL (0.52-1.04); EST GLOMERULAR FILTRATION RATE > 60.0 ML/MIN; Glucose 161 mg/dL (74-106); Potassium 5.4 mmol/L (3.5-5.1); SGOT/AST 83 U/L (14-36); SGPT/ALT 78 U/L (0-35); SODIUM 138 mmol/L (137-145); Total Protein 6.6 g/dL (6.3-8.2)
[2023-01-23] MEDS: PATIENT OWN MEDICATION IH SCH (07:43)
[2023-01-23] MEDS: Aldactone 25 MG PO SCH (08:57)
[2023-01-23] MEDS: ECOTRIN 81 MG PO SCH (08:57)
[2023-01-23] MEDS: MELOXICAM PO SCH ×2 (08:57→22:13)
[2023-01-23] MEDS: BUMEX 1 MG PO SCH (08:57)
[2023-01-23] MEDS: Ditropan XL 5 MG PO SCH (08:57)
[2023-01-23] MEDS: SYNTHROID 125 MCG PO SCH (08:57)
[2023-01-23] MEDS: Toprol-Xl 25MG Tablets PO SCH ×2 (11:02→14:27)
[2023-01-23] MEDS ORDERED: solu-MEDROL ONE (15:55)
[2023-01-23] MEDS: Zithromax 500 MG/ 250 ML NaCl Premix 500 MG/250 ML IVPB IV SCH (17:14)
[2023-01-23] MEDS: ROCEPHIN 1 Gm-D5w 50 ml Bag** 1 G/50 ML IVPB IV SCH (17:14)
[2023-01-23] MEDS: solu-MEDROL 40 MG, Sterile H2O 10 ml 1 ML IV SCH ×2 (17:24)
[2023-01-23] MEDS ORDERED: solu-MEDROL 40 MG, Sterile H2O 10 ml 2 ML IV SCH ×2 (18:00)
[2023-01-23] MEDS: NEURONTIN PO SCH (22:13)
[2023-01-23] MEDS: Ativan 2 MG/1 ML VIAL IV PRN (22:17)
[2023-01-24] MEDS: solu-MEDROL 40 MG, Sterile H2O 10 ml 1 ML IV SCH ×6 (01:38→17:12)
[2023-01-24] MEDS: DUONEB 0.5-3 MG/3 ml Neb IH SCH ×5 (03:47→20:30)
[2023-01-24 06:05] LABS: ALBUMIN 3.9 g/dL (3.5-5.0); ALKALINE PHOSPHATASE 63 U/L (38-126); ANION GAP 10.7 MEQ/L (5-15); BLOOD UREA NITROGEN 35 mg/dL (7-17); CHLORIDE 98 mmol/L (98-107); Calcium 8.4 mg/dL (8.4-10.2); Carbon Dioxide 35 mmol/L (22-30); Creatinine 1 0.63 mg/dL (0.52-1.04); EST GLOMERULAR FILTRATION RATE > 60.0 ML/MIN; Glucose 146 mg/dL (74-106); Potassium 5.3 mmol/L (3.5-5.1); SGOT/AST 69 U/L (14-36); SGPT/ALT 113 U/L (0-35); SODIUM 138 mmol/L (137-145); Total Protein 6.8 g/dL (6.3-8.2)
[2023-01-24 06:18] LABS: Absolute Neutrophil Ct (ANC) 10.21 x10^3/uL (1.4-6.9); BASOPHIL % 0.1 % (0.0-0.4); Basophil (Absolute #) 0.01 x10^3/uL (0-0.4); Eosinophil (Absolute #) 0 x10^3/uL (0-0.5); Hematocrit 50.9 % (35-47); Hemoglobin 14.9 g/dL (12.0-16.0); IMMATURE GRAN # 0.07 x10^3u/L (0.00-0.03); IMMATURE GRAN % 0.6 % (0.00-0.4); Lymphocyte (Absolute #) 0.73 x10^3/uL (1.0-4.6); Lymphocytes % 6.5 % (24.0-44.0); Mean Cell Volume 100.6 fL (78-100); Mean Corpuscular Hemoglobin 29.4 pg (26-32); Mean Corpuscular Hgb Concent. 29.3 g/dL (32-36); Monocyte (Absolute #) 0.27 x10^3/uL (0.0-1.3); Monocytes % 2.4 % (0.0-12.0); Neutrophil % 90.4 % (36.0-66.0); Platelet Count 220 x10^3/uL (150-450); Red Blood Count 5.06 x10^6/uL (4.1-5.4); White Blood Count 11.3 x10^3/uL (4.0-10.5)
[2023-01-24] MEDS: PATIENT OWN MEDICATION IH SCH (07:14)
--- NOTE | 2023-01-24 07:49 | PCM.NOTE ---
Date and Time: 01/24/23743 Subjective Assessment: Ms. Mejias is a 57-year-old female who has COPD and requiring 3 L oxygen chronically who comes in due to having increasing shortness of breath over the past day and a half. Examination very consistent with COPD exacerbation potential pneumonia in right lower lobe per cxr. EKG was normal with no acute changes. In ER patient was treated with a DuoNeb treatment followed by an albuterol treatment with 125 mg of Solu-Medrol through the IV which improved her symptoms significantly and resolved her dyspnea sensation. Patient did have improved airflow, and did not have any other abnormal lab work as she had a normal white blood cell count, normal troponin, no significant change or elevation in her proBNP compared to past labs, normal venous pH as her elevated CO2 is compensated and elevated bicarbonate, but she did have a significant elevated carboxyhemoglobin of 14% and was placed on bipap. ABGs have improved with BIPAP, now on 3L NC. Dr. Verdin has been consulted, patient's steroids are now tapered to 40mg Q8GH, BIPAP QHS, Plan is to discharge Saturday. - Review of Systems Constitutional: No Symptoms Eyes: No Symptoms Ears, Nose, & Throat: No Symptoms Respiratory: Cough, Short Of Breath, Wheezing Cardiac: No Symptoms Abdominal/Gastrointestinal: No Symptoms Genitourinary Symptoms: No Symptoms Musculoskeletal: No Symptoms Skin: No Symptoms Neurological: No Symptoms Psychological: No Symptoms Objective Exam General Appearance: no apparent distress Neurologic Exam: alert, oriented x 3, cooperative Skin Exam: normal color Eye Exam: PERRL Respiratory Exam: crackles/rales, wheezing, other (3L NC baseline oxygen) Cardiovascular Exam: regular rate/rhythm, normal heart sounds Gastrointestinal/Abdomen Exam: soft, normal bowel sounds Extremity Exam: normal inspection OBJECTIVE DATA Vital Signs: Vital Signs - 24 hr Temp Pulse Resp BP BP Pulse Ox 01/24/23 07:15 66 18 94 L 01/24/23 07:12 97.2 F 58 L 18 134/64 96 01/24/23 04:00 92 L 01/24/23 03:47 67 18 97 01/24/23 00:00 96.4 F 58 L 16 111/55 97 01/23/23 23:08 70 22 97 01/23/23 22:17 80 18 124/60 01/23/23 18:46 76 18 90 L 08/23/23 16:06 98.0 F 87 16 126/63 89 L 01/23/23 15:16 78 16 86 L 01/23/23 14:29 78 01/23/23 11:49 57 L 16 97 01/23/23 11:37 97.4 F 51 L 16 120/89 97 Pain Assessment - Last Documented Pain Intensity 0 Intake and Output: Intake & Output 01/21/23 01/22/23 01/23/23 01/24/23 11:59 11:59 11:59 11:59 Intake Total 480 1740 1060 Output Total 100 500 Balance 380 1240 1060 Weight 84.6 kg 84.6 kg Lab Results: Lab Results-Last 24 Hours 01/23/23 01/24/23 01/24/23 Range/Units 13:40 05:24 05:24 WBC 11.3 H (4.0-10.5) x10^3/uL RBC 5.06 (4.1-5.4) x10^6/uL Hgb 14.9 (12.0-16.0) g/dL Hct 50.9 H (35-47) % MCV 100.6 H (78-100) fL MCH 29.4 (26-32) pg MCHC 29.3 L (32-36) g/dL RDW 16.0 H (11.5-14.0) % Plt Count 220 (150-450) x10^3/uL MPV 10.0 (7.5-11.0) fL Gran % 90.4 H (36.0-66.0) % Immature Gran % (Auto) 0.6 H (0.00-0.4) % Nucleat RBC Rel Count 0.0 (0.00-0.1) % Eos # (Auto) 0 (0-0.5) x10^3/uL Immature Gran # (Auto) 0.07 H (0.00-0.03) x10^3u/L Absolute Lymphs (auto) 0.73 L (1.0-4.6) x10^3/uL Absolute Monos (auto) 0.27 (0.0-1.3) x10^3/uL Absolute Nucleated RBC 0.00 (0.00-0.01) x10^3u/L Lymphocytes % 6.5 L (24.0-44.0) % Monocytes % 2.4 (0.0-12.0) % Eosinophils % 0.0 (0.00-5.0) % Basophils % 0.1 (0.0-0.4) % Absolute Granulocytes 10.21 H (1.4-6.9) x10^3/uL Basophils # 0.01 (0-0.4) x10^3/uL Sodium 138 (137-145) mmol/L Potassium 4.1 D 5.3 H D (3.5-5.1) mmol/L Chloride 98 (98-107) mmol/L Carbon Dioxide 35 H (22-30) mmol/L Anion Gap 10.7 (5-15) MEQ/L BUN 35 H (7-17) mg/dL Creatinine 0.63 (0.52-1.04) mg/dL Estimated GFR > 60.0 ML/MIN Glucose 146 H (74-106) mg/dL Calcium 8.4 (8.4-10.2) mg/dL Total Bilirubin 0.40 (0.2-1.3) mg/dL AST 69 H (14-36) U/L ALT 113 H (0-35) U/L Alkaline Phosphatase 63 (38-126) U/L Serum Total Protein 6.8 (6.3-8.2) g/dL Albumin 3.9 (3.5-5.0) g/dL Multi-Disciplinary Progress Notes: Multi-Disciplinary Progress Notes 01/23/23 11:24 Case Management Note by Sofi Kelly NO CHANGE IN DC PLANS AT THIS TIME Initialized on 01/23/23 11:24 - END OF NOTE Assessment/Plan (1) COPD exacerbation Current Visit: Yes Status: Acute Assessment & Plan: -Consult Lambert, taper solumedrol to 40mg TID, BIPAP QHS -currently on baseline 3L NC -ABG improvement, continue to monitor -Respiratory panel negative for COVID Flu A/B/RSV -Ceftriaxone/ azith (x 3 doses), last dose today -Ativan 1mg Q6H prn -Plan for discharge Saturday Code(s): J44.1 - CHRONIC OBSTRUCTIVE PULMONARY DISEASE W (ACUTE) EXACERBATION (2) Carboxyhemoglobinemia Current Visit: Yes Status: Acute Qualifiers: Encounter type: initial encounter Injury intent: accidental or unintentional Qualified Code(s): T58.91XA - Toxic effect of carbon monoxide from unspecified source, accidental (unintentional), initial encounter Assessment & Plan: -levels now normal, continue to monitor Code(s): T58.91XA - TOXIC EFFECT OF CARB MONX FROM UNSP SOURCE, ACC, INIT (3) Hyperkalemia Current Visit: Yes Status: Acute Assessment & Plan: -Labs reviewed, potassium at 5.3, will give lokelma x 1 dose Code(s): E87.5 - HYPERKALEMIA (4) Right lower lobe pneumonia Current Visit: Yes Status: Acute Qualifiers: Pneumonia type: due to unspecified organism Qualified Code(s): J18.9 - Pneumonia, unspecified organism Assessment & Plan: -Ceftriaxone/ azith (x 3 doses) -now at baseline 3L NC, noted improvement Code(s): J18.9 - PNEUMONIA, UNSPECIFIED ORGANISM
[2023-01-24] MEDS: Ditropan XL 5 MG PO SCH (08:46)
[2023-01-24] MEDS: Aldactone 25 MG PO SCH (08:46)
[2023-01-24] MEDS: Toprol-Xl 25MG Tablets PO SCH (08:46)
[2023-01-24] MEDS: MELOXICAM PO SCH ×2 (08:46→21:06)
[2023-01-24] MEDS: ECOTRIN 81 MG PO SCH (08:46)
[2023-01-24] MEDS: BUMEX 1 MG PO SCH (08:46)
[2023-01-24] MEDS: SYNTHROID 125 MCG PO SCH (08:46)
--- NOTE | 2023-01-24 11:10 | CONS ---
CONSULT DATE: 01/23/2023 HISTORY OF PRESENT ILLNESS: Ms. Mejias is a 57 year-old woman, well known to me, who has been hospitalized at [facility] with complaints of shortness of breath. She has history of chronic obstructive pulmonary disease and was recently treated for pneumonia. She presented to the Emergency Room reporting that she has been getting progressively more short of breath. The patient had initial work-up through the Emergency Room and had tests run that showed chronic hypercapnic and hypoxic respiratory failure with compensation. However, this was a mixed venous gas. Patient has been infiltrated with IV antibiotics, steroids, and bronchodilators. She did test negative for influenza, RSV, and COVID-19. At the time of my evaluation, the patient is awake. She does report feeling "a lot better". PAST MEDICAL HISTORY: Positive for history of chronic obstructive pulmonary disease, history of recurrent pneumonia, chronic hypoxic/hypercapnic respiratory failure, hypothyroidism, hypertension, and leg edema. PAST SURGICAL HISTORY: No recent surgeries. PERSONAL AND SOCIAL HISTORY: Reviewed. ALLERGIES: NKDA. CURRENT MEDICATIONS: Noted. PHYSICAL EXAMINATION: This is a middle-aged woman who appears mildly tachypneic, but is able to carry out a conversation. VITAL SIGNS: Noted. HEENT: Normocephalic. Oral exam unremarkable. CVS: 1st and 2nd heart sounds normal, regular rhythm. RESPIRATORY: Shows increase in AP diameter of chest. Breath sounds are diminished. Bilateral scattered rhonchi are heard. ABDOMEN: Soft. No significant edema is noted. LABORATORY DATA: Reviewed. Blood cultures remain negative. Glucose 161, potassium 5.4. WBC 10.8. Repeat ABG's were reviewed as well. Chest x-ray noted. ASSESSMENT: This is a 57 year-old woman admitted with: 1. CHRONIC OBSTRUCTIVE PULMONARY DISEASE WITH ACUTE EXACERBATION. 2. ACUTE BRONCHITIS. 3. CHRONIC HYPERCAPNIC/HYPOXIC RESPIRATORY FAILURE WITH COMPENSATION. 4. CO-MORBIDITIES STATED ABOVE. RECOMMENDATIONS: 1. Patient has significantly improved with noninvasive ventilation. I believe she will benefit from same at home. For now, will continue noninvasive ventilation at night and PRN during the day. 2. Decrease steroids. This is likely to cause more metabolic alkalosis. Currently is on Solu-Medrol 125 IV q 8. Reduce this to 40 q 8 today. Possibly switch to oral Prednisone in the next 3 or so with discharge. 3. Patient will benefit from noninvasive ventilation at home. Continue bronchodilators. Continue other supportive care including deep vein thrombosis prophylaxis. Will follow-up in outpatient setting. Thank you.
[2023-01-24] MEDS ORDERED: Kayexylate 15 GM/60 ML PO ONE (11:42)
--- NOTE | 2023-01-24 16:07 | PROG NOTE ---
DATE: 01/24/2023 Events noted. Chart reviewed. Patient is awake, comfortable sitting in chair. Reports feeling "a lot better". VITAL SIGNS NOTED. HEENT: Normocephalic. Oral exam unremarkable. CVS: 1st and 2nd heart sounds normal, regular rhythm. RESPIRATORY: Shows diminished breath sounds. Occasional rhonchi are heard. ABDOMEN: Soft. EXTREMITIES: No edema is noted. LABS REVIEWED. ASSESSMENT: 57 year-old woman admitted with: 1. CHRONIC OBSTRUCTIVE PULMONARY DISEASE WITH EXACERBATION. 2. ACUTE BRONCHITIS. 3. CHRONIC HYPERCAPNIC/HYPOXIC RESPIRATORY FAILURE WITH COMPENSATION. RECOMMENDATIONS: Doing well from pulmonary standpoint. Continue low-dose steroids. Will switch to PO steroids tomorrow. Possible discharge home tomorrow with outpatient follow-up explained to patient and nursing staff.
[2023-01-24] MEDS ORDERED: MORPHINE SULFATE 2 MG INJ IV PRN (16:24)
[2023-01-24] MEDS ORDERED: solu-MEDROL ONE (16:38)
--- NOTE | 2023-01-24 16:52 | XRAY ---
Indication: Chest pain. Short of breath and cough. Comparison: January 21, 2023 Portable chest demonstrates stable mild right base infiltrate/atelectasis and tiny effusion. Remaining heart and left lung unremarkable. No new cardiopulmonary abnormalities.
[2023-01-24] MEDS: Zithromax 500 MG/ 250 ML NaCl Premix 500 MG/250 ML IVPB IV SCH (17:12)
[2023-01-24] MEDS: ROCEPHIN 1 Gm-D5w 50 ml Bag** 1 G/50 ML IVPB IV SCH (17:12)
[2023-01-24] MEDS: NEURONTIN PO SCH (21:06)
[2023-01-25] MEDS: DUONEB 0.5-3 MG/3 ml Neb IH SCH ×4 (00:08→10:38)
[2023-01-25] MEDS: solu-MEDROL 40 MG, Sterile H2O 10 ml 1 ML IV SCH ×2 (02:00)
[2023-01-25 05:14] LABS: Absolute Neutrophil Ct (ANC) 7.34 x10^3/uL (1.4-6.9); BASOPHIL % 0.1 % (0.0-0.4); Basophil (Absolute #) 0.01 x10^3/uL (0-0.4); Eosinophil (Absolute #) 0 x10^3/uL (0-0.5); Hematocrit 48.1 % (35-47); Hemoglobin 14.3 g/dL (12.0-16.0); IMMATURE GRAN # 0.04 x10^3u/L (0.00-0.03); IMMATURE GRAN % 0.5 % (0.00-0.4); Lymphocyte (Absolute #) 0.95 x10^3/uL (1.0-4.6); Lymphocytes % 10.8 % (24.0-44.0); Mean Corpuscular Hemoglobin 29.4 pg (26-32); Mean Corpuscular Hgb Concent. 29.7 g/dL (32-36); Mean Platelet Volume 9.4 fL (7.5-11.0); Monocyte (Absolute #) 0.42 x10^3/uL (0.0-1.3); Monocytes % 4.8 % (0.0-12.0); Neutrophil % 83.8 % (36.0-66.0); Platelet Count 237 x10^3/uL (150-450); Red Blood Count 4.86 x10^6/uL (4.1-5.4); White Blood Count 8.8 x10^3/uL (4.0-10.5)
[2023-01-25 05:29] LABS: ALBUMIN 3.7 g/dL (3.5-5.0); ALKALINE PHOSPHATASE 66 U/L (38-126); ANION GAP 9.4 MEQ/L (5-15); BLOOD UREA NITROGEN 32 mg/dL (7-17); CHLORIDE 95 mmol/L (98-107); Calcium 8.5 mg/dL (8.4-10.2); Carbon Dioxide 37 mmol/L (22-30); Creatinine 1 0.65 mg/dL (0.52-1.04); EST GLOMERULAR FILTRATION RATE > 60.0 ML/MIN; Glucose 137 mg/dL (74-106); Potassium 4.6 mmol/L (3.5-5.1); SGOT/AST 81 U/L (14-36); SGPT/ALT 190 U/L (0-35); SODIUM 137 mmol/L (137-145); Total Protein 6.2 g/dL (6.3-8.2)
[2023-01-25] MEDS: PATIENT OWN MEDICATION IH SCH (07:23)
[2023-01-25 08:16] LABS: A-aADO2 15; ABG HEMOGLOBIN 15.1; ABG POTASSIUM 4.5 (3.5-5.1); ARTERIAL BLD GAS O2 SATURATION 84.8 % (95-100); ARTERIAL BLOOD GAS BASE EXCESS 11.8 (-2.0-2.0); ARTERIAL BLOOD GAS FIO2 21 %; ARTERIAL BLOOD GAS PCO2 66 mmHg (35-45); ARTERIAL BLOOD GAS PO2 52 mmHg (75-100); ARTERIAL BLOOD GAS pH 7.39 (7.35-7.45); CARBOXYHEMOGLOBIN 1.1 % THgb (0.0-6.9); HGB O2 SAT 83.2 g/dF (94-100); Methhemoglobin 0.8 % (1.4-1.5); paO2 pAO1 0.78
[2023-01-25 08:17] LABS: ABG SITE LEFT RADIAL; ALLEN TEST OK? YES
[2023-01-25] MEDS: ECOTRIN 81 MG PO SCH (09:04)
[2023-01-25] MEDS: Ditropan XL 5 MG PO SCH (09:04)
[2023-01-25] MEDS: MELOXICAM PO SCH (09:04)
[2023-01-25] MEDS: BUMEX 1 MG PO SCH (09:05)
[2023-01-25] MEDS: Aldactone 25 MG PO SCH (09:05)
[2023-01-25] MEDS: SYNTHROID 125 MCG PO SCH (09:05)
[2023-01-25] MEDS: Toprol-Xl 25MG Tablets PO SCH (09:05)
[2023-01-25] MEDS ORDERED: DELTASONE 20 MG PO SCH (10:00)
[2023-01-25 11:49] VITALS: BP 151/70; PULSE 67; RESP 16; TEMP 97.6; O2SAT 90
--- NOTE | 2023-01-25 11:59 | PCM.DS ---
Discharge Summary Date of Admission: 01/21/23 20:10 Date of Discharge: 01/25/23 Admitting Physician: MILTON DOMINGUEZ MD Consults: Consults on Case 01/22/23 08:56 Consult Pulmonology ROUTINE Primary Care Provider: BINU BAHENA Allergies Allergies No Known Drug Allergies Allergy (Verified 12/08/22 10:40) Hospital Summary - Hospital Course Hospital Course: Ms. Mejias is a 57-year-old female who has COPD and requiring 3 L oxygen chronically presented 01/21/23 with increasing shortness of breath Examination very consistent with COPD exacerbation potential pneumonia in right lower lobe per cxr. EKG was normal with no acute changes. In ER patient was treated with a DuoNeb treatment followed by an albuterol treatment with 125 mg of Solu-Medrol through the IV which improved her symptoms significantly and resolved her dyspnea sensation. Patient did have improved airflow, and did not have any other abnormal lab work as she had a normal white blood cell count, normal troponin, no significant change or elevation in her proBNP compared to past labs, normal venous pH as her elevated CO2 is compensated and elevated bicarbonate, but she did have a significant elevated carboxyhemoglobin of 14% and was placed on bipap. ABGs have improved with BIPAP, now on 3L NC. Dr. Verdin has been consulted, patient's steroids are now tapered to 40mg Q8GH, BIPAP QHS, Plan is to discharge today with home BIPAP which will be delivered today along with teaching. She will discharge with tapering prednisone. Patient is agreeable to plan and ready for discharge once BIPAP/teaching has been obtained. Patient is to closely follow up with PCP/pulmonology. Patient has received 5 days of rocephin/and 3 days of azithromycin, will send home with cefdinir x 5 more days as well as probiotic. Most recent Assessment and plan: (1) COPD exacerbation Current Visit: Yes Status: Acute Assessment & Plan: -Consult [facility], taper solumedrol to 40mg TID, BIPAP QHS -currently on baseline 3L NC -ABG improvement, continue to monitor -Respiratory panel negative for COVID Flu A/B/RSV -Ceftriaxone/ azith (x 3 doses), last dose today -Ativan 1mg Q6H prn -Plan for discharge Thursday 01/25: -home with cefdinir/prednisone as stated above -BIPAP for home use Code(s): J44.1 - CHRONIC OBSTRUCTIVE PULMONARY DISEASE W (ACUTE) EXACERBATION (2) Carboxyhemoglobinemia Current Visit: Yes Status: Acute Qualifiers: Encounter type: initial encounter Injury intent: accidental or unintentional Qualified Code(s): T58.91XA - Toxic effect of carbon monoxide from unspecified source, accidental (unintentional), initial encounter Assessment & Plan: -levels now normal, continue to monitor Code(s): T58.91XA - TOXIC EFFECT OF CARB MONX FROM UNSP SOURCE, ACC, INIT (3) Hyperkalemia Current Visit: Yes Status: Acute Assessment & Plan: -Labs reviewed, potassium at 5.3, will give lokelma x 1 dose 01/25: -resolved Code(s): E87.5 - HYPERKALEMIA (4) Right lower lobe pneumonia Current Visit: Yes Status: Acute Qualifiers: Pneumonia type: due to unspecified organism Qualified Code(s): J18.9 - Pneumonia, unspecified organism Assessment & Plan: -Ceftriaxone/ azith (x 3 doses) -now at baseline 3L NC, noted improvement 01/25: see above Code(s): J18.9 - PNEUMONIA, UNSPECIFIED ORGANISM - Vitals & Intake/Output Vital Signs: Vital Signs Temperature 97.7 F 01/25/23 07:18 Pulse Rate 68 01/25/23 10:39 Respiratory Rate 20 01/25/23 10:39 Blood Pressure 159/79 01/25/23 07:18 O2 Sat by Pulse Oximetry 94 L 01/25/23 10:39 Intake & Output: Intake & Output 01/22/23 01/23/23 01/24/23 01/25/23 11:59 11:59 11:59 11:59 Intake Total 480 1740 1300 1440 Output Total 100 500 Balance 380 1240 1300 1440 Weight 84.6 kg 84.6 kg - Lab Result Diagrams: 01/25/23 04:25 01/25/23 04:25 Lab Results-Last 24 Hrs: Lab Results-Last 24 Hours 01/24/23 01/24/23 01/24/23 Range/Units 00:05 12:12 16:25 WBC (4.0-10.5) x10^3/uL RBC (4.1-5.4) x10^6/uL Hgb (12.0-16.0) g/dL Hct (35-47) % MCV (78-100) fL MCH (26-32) pg MCHC (32-36) g/dL RDW (11.5-14.0) % Plt Count (150-450) x10^3/uL MPV (7.5-11.0) fL Gran % (36.0-66.0) % Immature Gran % (Auto) (0.00-0.4) % Nucleat RBC Rel Count (0.00-0.1) % Eos # (Auto) (0-0.5) x10^3/uL Immature Gran # (Auto) (0.00-0.03) x10^3u/L Absolute Lymphs (auto) (1.0-4.6) x10^3/uL Absolute Monos (auto) (0.0-1.3) x10^3/uL Absolute Nucleated RBC (0.00-0.01) x10^3u/L Lymphocytes % (24.0-44.0) % Monocytes % (0.0-12.0) % Eosinophils % (0.00-5.0) % Basophils % (0.0-0.4) % Absolute Granulocytes (1.4-6.9) x10^3/uL Basophils # (0-0.4) x10^3/uL Puncture Site pCO2 (35-45) mmHg pO2 (75-100) mmHg Base Excess (-2.0-2.0) O2 Saturation (94-100) g/dF ABG pH (7.35-7.45) ABG HCO3 (22-28) ABG O2 Sat (Measured) (95-100) % Ian Test A-a Gradient a/A Ratio Hemoglobin Carboxyhemoglobin (0.0-6.9) % THgb Methemoglobin (1.4-1.5) % Temperature C POC O2 Flow Rate % Sodium (137-145) mmol/L Potassium 4.4 (3.5-5.1) mmol/L Chloride (98-107) mmol/L Carbon Dioxide (22-30) mmol/L Anion Gap (5-15) MEQ/L BUN (7-17) mg/dL Creatinine (0.52-1.04) mg/dL Estimated GFR ML/MIN Glucose (74-106) mg/dL Calcium (8.4-10.2) mg/dL Total Bilirubin (0.2-1.3) mg/dL AST (14-36) U/L ALT (0-35) U/L Alkaline Phosphatase (38-126) U/L Troponin I < 0.012 < 0.012 (0.000-0.034) ng/mL Serum Total Protein (6.3-8.2) g/dL Albumin (3.5-5.0) g/dL 01/24/23 01/25/23 01/25/23 Range/Units 20:40 02:00 04:25 WBC 8.8 (4.0-10.5) x10^3/uL RBC 4.86 (4.1-5.4) x10^6/uL Hgb 14.3 (12.0-16.0) g/dL Hct 48.1 H (35-47) % MCV 99.0 (78-100) fL MCH 29.4 (26-32) pg MCHC 29.7 L (32-36) g/dL RDW 16.0 H (11.5-14.0) % Plt Count 237 (150-450) x10^3/uL MPV 9.4 (7.5-11.0) fL Gran % 83.8 H (36.0-66.0) % Immature Gran % (Auto) 0.5 H (0.00-0.4) % Nucleat RBC Rel Count 0.0 (0.00-0.1) % Eos # (Auto) 0 (0-0.5) x10^3/uL Immature Gran # (Auto) 0.04 H (0.00-0.03) x10^3u/L Absolute Lymphs (auto) 0.95 L (1.0-4.6) x10^3/uL Absolute Monos (auto) 0.42 (0.0-1.3) x10^3/uL Absolute Nucleated RBC 0.00 (0.00-0.01) x10^3u/L Lymphocytes % 10.8 L (24.0-44.0) % Monocytes % 4.8 (0.0-12.0) % Eosinophils % 0.0 (0.00-5.0) % Basophils % 0.1 (0.0-0.4) % Absolute Granulocytes 7.34 H (1.4-6.9) x10^3/uL Basophils # 0.01 (0-0.4) x10^3/uL Puncture Site pCO2 (35-45) mmHg pO2 (75-100) mmHg Base Excess (-2.0-2.0) O2 Saturation (94-100) g/dF ABG pH (7.35-7.45) ABG HCO3 (22-28) ABG O2 Sat (Measured) (95-100) % Ian Test A-a Gradient a/A Ratio Hemoglobin Carboxyhemoglobin (0.0-6.9) % THgb Methemoglobin (1.4-1.5) % Temperature C POC O2 Flow Rate % Sodium (137-145) mmol/L Potassium (3.5-5.1) mmol/L Chloride (98-107) mmol/L Carbon Dioxide (22-30) mmol/L Anion Gap (5-15) MEQ/L BUN (7-17) mg/dL Creatinine (0.52-1.04) mg/dL Estimated GFR ML/MIN Glucose (74-106) mg/dL Calcium (8.4-10.2) mg/dL Total Bilirubin (0.2-1.3) mg/dL AST (14-36) U/L ALT (0-35) U/L Alkaline Phosphatase (38-126) U/L Troponin I < 0.012 < 0.012 (0.000-0.034) ng/mL Serum Total Protein (6.3-8.2) g/dL Albumin (3.5-5.0) g/dL 01/25/23 01/25/23 Range/Units 04:25 08:10 WBC (4.0-10.5) x10^3/uL RBC (4.1-5.4) x10^6/uL Hgb (12.0-16.0) g/dL Hct (35-47) % MCV (78-100) fL MCH (26-32) pg MCHC (32-36) g/dL RDW (11.5-14.0) % Plt Count (150-450) x10^3/uL MPV (7.5-11.0) fL Gran % (36.0-66.0) % Immature Gran % (Auto) (0.00-0.4) % Nucleat RBC Rel Count (0.00-0.1) % Eos # (Auto) (0-0.5) x10^3/uL Immature Gran # (Auto) (0.00-0.03) x10^3u/L Absolute Lymphs (auto) (1.0-4.6) x10^3/uL Absolute Monos (auto) (0.0-1.3) x10^3/uL Absolute Nucleated RBC (0.00-0.01) x10^3u/L Lymphocytes % (24.0-44.0) % Monocytes % (0.0-12.0) % Eosinophils % (0.00-5.0) % Basophils % (0.0-0.4) % Absolute Granulocytes (1.4-6.9) x10^3/uL Basophils # (0-0.4) x10^3/uL Puncture Site LEFT RADIAL pCO2 66 H* (35-45) mmHg pO2 52 L (75-100) mmHg Base Excess 11.8 H (-2.0-2.0) O2 Saturation 83.2 L (94-100) g/dF ABG pH 7.39 (7.35-7.45) ABG HCO3 40.0 H* (22-28) ABG O2 Sat (Measured) 84.8 L (95-100) % Ian Test YES A-a Gradient 15 a/A Ratio 0.78 Hemoglobin 15.1 Carboxyhemoglobin 1.1 (0.0-6.9) % THgb Methemoglobin 0.8 L (1.4-1.5) % Temperature 37.0 C POC O2 Flow Rate 21 % Sodium 137 (137-145) mmol/L Potassium 4.6 4.5 (3.5-5.1) mmol/L Chloride 95 L (98-107) mmol/L Carbon Dioxide 37 H (22-30) mmol/L Anion Gap 9.4 (5-15) MEQ/L BUN 32 H (7-17) mg/dL Creatinine 0.65 (0.52-1.04) mg/dL Estimated GFR > 60.0 ML/MIN Glucose 137 H (74-106) mg/dL Calcium 8.5 (8.4-10.2) mg/dL Total Bilirubin 0.30 (0.2-1.3) mg/dL AST 81 H (14-36) U/L ALT 190 H (0-35) U/L Alkaline Phosphatase 66 (38-126) U/L Troponin I (0.000-0.034) ng/mL Serum Total Protein 6.2 L (6.3-8.2) g/dL Albumin 3.7 (3.5-5.0) g/dL Micro Results-Entire Visit: Microbiology 01/21/23 18:35 Blood Culture - Preliminary Blood 01/21/23 18:40 Blood Culture - Preliminary Blood - Radiology Exams Ordered Rad Exams-Entire Visit: Radiology Procedures Category Date Time Status Portable Chest [CHEST 1 VIEW (PORTABLE)] Stat Exams 01/24/23 16:27 Completed - Procedures and Test Procedures and Tests throughout Hospitalization: Therapy Orders & Screens 01/21/23 19:24 Respiratory Therapy Assessment DAILY Comment: 01/21/23 19:38 Oxygen Nasal Cannula 3 lpm Comment: Respiratory Therapy Consult ONCE Comment: Reason For Exam: 01/21/23 20:47 RT Screen per Nursing Assess ONCE Comment: Protocol Order Physician Instructions: Greater than 3 points order RT Admission Screen Reason For Exam: Triggered on Admission Diagnosis: DYSPNEA, EXACERBATION OF COPD, RLL PNEUMONIA, CARBOXYHEMOGLOBINEMIA Diagnosis: DYSPNEA, EXACERBATION OF COPD, RLL PNEUMONIA, CARBOXYHEMOGLOBINEMIA Pneumonia: Yes Home O2: Yes Asthma: No CHF: No Home CPAP/BIPAP: Yes: CPAP Home Nebs/MDI: Yes Total Points: 18 Smoking Cessation Education ONCE Comment: Diagnosis: DYSPNEA, EXACERBATION OF COPD, RLL PNEUMONIA, CARBOXYHEMOGLOBINEMIA Smoking Status: Current every day smoker How long have you smoked: 40 YEARS Have you smoked in the past 12 months: Yes Approximately how many cigarettes per day: 1/2 PACK Do you dip or chew tobacco: No 01/21/23 23:00 BiPap/CPAP ROUTINE Comment: Diagnosis: DYSPNEA, EXACERBATION OF COPD, RLL PNEUMONIA, CARBOXYHEMOGLOB INEMIA 01/23/23 07:00 Respiratory MDI DAILY Comment: Diagnosis: EXACERBATION OF COPD, RLL PNEUMONIA, CARBOXYHEMOGLOBINEMIA 01/23/23 17:29 BiPap/CPAP ROUTINE Comment: bipap at night Diagnosis: EXACERBATION OF COPD, RLL PNEUMONIA, CARBOXYHEMOGLOBINEMIA 01/24/23 16:10 EKG ROUTINE Comment: Diagnosis: EXACERBATION OF COPD, RLL PNEUMONIA, CARBOXYHEMOGLOBINEMIA Discharge Exam General Appearance: no apparent distress Neurologic Exam: alert, oriented x 3, cooperative Eye Exam: PERRL Neck Exam: normal inspection Respiratory Exam: wheezing Cardiovascular Exam: regular rate/rhythm, normal heart sounds Pelvic Exam: deferred Rectal Exam: deferred Back Exam: normal inspection Skin Exam: normal color Final Diagnosis/Problem List - Final Discharge Diagnosis/Problem (1) COPD exacerbation Current Visit: Yes Status: Acute Code(s): J44.1 - CHRONIC OBSTRUCTIVE PULMONARY DISEASE W (ACUTE) EXACERBATION (2) Carboxyhemoglobinemia Current Visit: Yes Status: Resolved Code(s): T58.91XA - TOXIC EFFECT OF CARB MONX FROM UNSP SOURCE, ACC, INIT (3) Hyperkalemia Current Visit: Yes Status: Resolved Code(s): E87.5 - HYPERKALEMIA (4) Right lower lobe pneumonia Current Visit: Yes Status: Acute Code(s): J18.9 - PNEUMONIA, UNSPECIFIED ORGANISM - Discharge Condition: Fair Prescriptions: New Prednisone 10 mg [Deltasone 10 mg] 10 mg PO DAILY 9 Days #27 tablet Cefdinir 300 mg PO BID 5 Days #10 cap Lactobacillus Acidophilus [Probiotic] 1 each PO DAILY 30 Days #30 cap Continue Synthroid 125 Mcg 125 mcg PO DAILY Gabapentin [Neurontin ] 300 mg PO HS Meloxicam 15 mg [Meloxicam 15 MG] 7.5 mg PO BID Albuterol Sulfate [Albuterol Sulfate Hfa] 2 inh PO Q6H PRN PRN PRN Reason: Cough Aspirin [Ecotrin] 81 mg PO DAILY 30 Days #30 tablet Fluticasone/Umeclidin/Vilanter [Trelegy Ellipta 100-62.5-25] 1 puff IH DAILY #1 blist Spironolactone 25 mg [Aldactone 25 MG] 25 mg PO DAILY Potassium Gluconate [Potassium] 99 mg PO DAILY Tolterodine Tartrate [Tolterodine Tartrate ER] 4 mg PO DAILY Metoprolol Succinate 25 mg Xl* [Toprol-Xl 25MG Tablets] 25 mg PO DAILY Bumetanide 1 mg [Bumex 1 mg] 1 mg PO DAILY Instructions: Chronic Obstructive Pulmonary Disease (COPD) (DC) Additional Instructions: WEAR 3L/NC AT ALL TIMES, WEAR BIPAP WHEN SLEEPING OR IF YOU ARE HAVING INCREASED SOB. A REFERRAL WAS SENT TO [facility] TO SEE IF THEY CAN ASSIST IN MANAGING YOUR CHRONIC HEALTH CONDITION. THEIR PHONE NUMBER IS [phone] IF YOU HAVE ANY QUESTIONS OR NEEDS- THEY MAY BE ABLE TO ASSIST OR DIRECT YOU TO THE APPROPRIATE RESOURCE. Follow up with: NASEEM VERDIN [ACTIVE STAFF] - 02/06/23 2:45 pm (at [place] office ) BINU BAHENA MD [Primary Care Provider] - 02/01/23 1:30 pm Forms: Discharge Instructions
== END 2023-01-25 13:06 | disposition home or self-care (01) | DRG 190 ==
LOC: ED 18:19 → MED SURG 20:10 → OBSVTOIN 20:10
PROVIDERS: ADMIT Student in an Organized Health Care Education/Training Program; ATTEND Student in an Organized Health Care Education/Training Program
DX: J44.1 Chronic obstructive pulmonary disease with (acute) exacerbation (principal); J18.9 Pneumonia, unspecified organism; T58.91XA Toxic effect of carbon monoxide from unspecified source, accidental (unintentional), initial encounter; E87.5 Hyperkalemia; E03.9 Hypothyroidism, unspecified; I10 Essential (primary) hypertension; J20.9 Acute bronchitis, unspecified; I25.2 Old myocardial infarction; Z72.0 Tobacco use; Z79.899 Other long term (current) drug therapy; Z20.828 Contact with and (suspected) exposure to other viral communicable diseases; Z99.81 Dependence on supplemental oxygen; Z85.41 Personal history of malignant neoplasm of cervix uteri; Z85.850 Personal history of malignant neoplasm of thyroid
CPT/HCPCS: 0241U; 36000; 36415; 36600; 71045; 80053; 82375; 82803; 82805; 83605; 83735; 83880; 84132; 84484; 85025; 85610; 87040; 93005; 93041; 94002; 94003; 94640; 94762; 96365; 96374; 99285; J0456; J0696; J2060; J2270; J2920; J2930; J7609; Q3014; A9270-GY

== ENCOUNTER 2023-07-18 08:37 | Inpatient (IN) | payer BC ==
--- NOTE | 2023-07-18 08:50 | ERPHSYRPT ---
- History of Present Illness Time Seen by Provider: 07/18/23 08:44 Source: patient, family Exam Limitations: no limitations Physician History: 7 Patient is a 51-year-old white female who presents with a complaint of shortness of breath. She does have a history of COPD she says her current episode started 2 days ago. She became more short of breath and coughing yesterday at noon she went home found a fever of 103. She has been coughing up blood-streaked sputum she has left-sided chest soreness. This morning she did have 1 episode of nausea and vomiting. Timing/Duration: day(s) (2) Activities at Onset: other Severity of Dyspnea-Max: moderate Severity of Dyspnea-Current: moderate Possible Cause: frequent episodes Modifying Factors: Improves With: albuterol nebulizer, coughing Associated Symptoms: cough, lightheadedness, wheezing, dizziness Allergies/Adverse Reactions: No Known Drug Allergies Allergy (Verified 07/18/23 08:42) Home Medications: Synthroid 125 Mcg 125 mcg PO DAILY 12/11/11 [History] Gabapentin [Neurontin ] 300 mg PO HS 08/14/21 [History] Meloxicam 15 mg [Meloxicam 15 MG] 7.5 mg PO BID 08/14/21 [History] Albuterol Sulfate [Albuterol Sulfate Hfa] 2 inh PO Q6H PRN PRN 02/18/22 [History] Metoprolol Succinate 25 mg Xl* [Toprol-Xl 25MG Tablets] 25 mg PO DAILY 12/08/22 [History] Potassium Gluconate [Potassium] 99 mg PO DAILY 12/08/22 [History] Spironolactone 25 mg [Aldactone 25 MG] 25 mg PO DAILY 12/08/22 [History] Tolterodine Tartrate [Tolterodine Tartrate ER] 4 mg PO DAILY 12/08/22 [History] Bumetanide 1 mg [Bumex 1 mg] 1 mg PO DAILY 01/21/23 [History] Hx Tetanus, Diphtheria Vaccination/Date Given: Yes Hx Influenza Vaccination/Date Given: Yes Hx Pneumococcal Vaccination/Date Given: Yes Travel Risk - Vaccine Status Have you recieved a Covid-19 vaccination: Yes 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 - Vaccination Dates Date of 2cond Vaccination (if applicable): 08/11/20 - Review of Systems Constitutional: Fever, No Chills Eyes: No Symptoms Ears, Nose, & Throat: No Symptoms Respiratory: Cough, Dyspnea, Dyspnea on Exertion (MUNOZ) Cardiac: Chest Pain, No Edema, No Syncope Abdominal/Gastrointestinal: No Abdominal Pain, No Nausea, No Vomiting, No Diarrhea Genitourinary Symptoms: No Dysuria Musculoskeletal: No Back Pain, No Neck Pain Skin: No Rash Neurological: No Dizziness, No Focal Weakness, No Sensory Changes Psychological: No Symptoms Endocrine: No Symptoms All Other Systems: Reviewed and Negative - Past Medical History Pertinent Past Medical History: Yes Neurological History: No Pertinent History ENT History: No Pertinent History Cardiac History: Hypertension, Myocardial Infarction (ME) Respiratory History: Asthma, COPD, Pneumonia, Sleep Apnea Endocrine Medical History: Thyroid Cancer Musculoskeletal History: No Pertinent History GI Medical History: No Pertinent History History: No Pertinent History Psycho-Social History: No Pertinent History Female Reproductive Disorders: Cervical Cancer Other Medical History: history of cervical cancer - Past Surgical History Past Surgical History: Yes Neuro Surgical History: No Pertinent History Cardiac: No Pertinent History Respiratory: No Pertinent History Gastrointestinal: No Pertinent History Genitourinary: No Pertinent History Musculoskeletal: No Pertinent History Female Surgical History: Other Other Surgical History: thyroidectomy, leep loop electrical-cervix - Social History Smoking Status: Current every day smoker How long have you smoked: 40 YEARS Exposure to second hand smoke: Yes Drug Use: none Patient Lives Alone: No - Nursing Vital Signs Nursing Vital Signs: Initial Vital Signs Temperature 97.9 F 07/18/23 08:43 Pulse Rate 89 07/18/23 08:43 Respiratory Rate 25 H 07/18/23 08:43 Blood Pressure 94/49 07/18/23 08:43 O2 Sat by Pulse Oximetry 94 L 07/18/23 08:43 Pain Scale Pain Intensity 4 - Physical Exam General Appearance: mild distress Eye Exam: PERRL/EOMI Ears, Nose, Throat Exam: hearing grossly normal, normal ENT inspection Neck Exam: normal inspection, non-tender, supple Respiratory Exam: respiratory distress, airway intact, rhonchi SpO2 Interpretation: hypoxic, O2 applied O2 Delivery: Nasal Cannula (5 L) - Course Nursing assessment & vital signs reviewed: Yes EKG Interpreted by Me: RATE (91), Sinus Rhythm, NORMAL AXIS, NORMAL INTERVALS, Non-specific ST Changes - Radiology Exams Chest X-ray Interpretation: Reviewed by me - CT Exams Chest CT Interpretation: Tele-radiologist Report, Other (Left lower lobe consolidation no pulmonary emboli a small effusion on the left minimal right lower lobe infiltrate) Ordered Tests: Active Orders 24 hr Category Date Time Status EKG-ER Only STAT Care 07/18/23 08:54 Active IV Insertion STAT Care 07/18/23 08:54 Active Oxygen-ED Only Nasal Cannula 3 lpm Care 07/18/23 08:54 Active CHEST 1 VIEW (PORTABLE) Stat Exams 07/18/23 08:55 Completed CHEST WITH CONTRAST [CT] Stat Exams 07/18/23 09:50 Completed BLOOD CULTURE Stat Lab 07/18/23 09:41 Received BNPII [NT PRO BNPII] Stat Lab 07/18/23 08:54 Completed CBC W DIFF Stat Lab 07/18/23 09:10 Completed CMP Stat Lab 07/18/23 09:10 Completed CULTURE,SPUTUM Stat Lab 07/18/23 08:55 Ordered D-DIMER QUANTITATIVE Stat Lab 07/18/23 09:10 Completed Lactic Acid Stat Lab 07/18/23 09:08 Completed Lactic Acid Stat Lab 07/18/23 11:11 Completed Manual Differential NC Stat Lab 07/18/23 09:10 Completed Pathologist Review Stat Lab 07/18/23 09:10 Completed TROPONIN Q4H Lab 07/18/23 09:10 Completed TROPONIN Q4H Lab 07/18/23 13:00 Ordered TROPONIN Q4H Lab 07/18/23 17:00 Ordered UA W/RFX UR CULTURE Stat Lab 07/18/23 08:55 Ordered BiPap/CPAP ROUTINE RT 07/18/23 08:54 Active Respiratory Therapy Assessment DAILY RT 07/18/23 09:19 Active Medication Summary Generic Name Dose Route Start Last Admin Trade Name Freq PRN Reason Stop Dose Admin Sodium Chloride 1,000 mls @ 100 mls/hr 07/18/23 09:00 07/18/23 11:18 Sodium Chloride 0.9% 1000 Ml IV 08/17/23 08:59 Infused .Q10H PRICILLA Infusion Sodium Chloride 1,000 mls @ 999 mls/hr 07/18/23 09:15 07/18/23 10:14 Sodium Chloride 0.9% 1000 Ml IV 07/18/23 09:17 Infused .Q1H1M PRICILLA Infusion Discontinued Medications Generic Name Dose Route Start Last Admin Trade Name Freq PRN Reason Stop Dose Admin Albuterol/Ipratropium Confirm 07/18/23 09:15 Ipratropium/Albuterol Sulfate 3 Ml Ampul.Neb Administered 07/18/23 09:16 Dose 3 ml IH .STK-MED ONE Albuterol/Ipratropium 3 ml 07/18/23 09:18 07/18/23 09:18 Ipratropium/Albuterol Sulfate 3 Ml Ampul.Neb IH 07/18/23 09:19 3 ml STAT ONE Administration Methylprednisolone Sodium 0 mg 07/18/23 08:54 07/18/23 09:13 Succinate 125 mg/ Sterile IV 07/18/23 08:55 125 mg Water 2 ml STAT ONE Administration Ceftriaxone Sodium 1 gm in 100 mls @ 200 mls/hr 07/18/23 08:54 07/18/23 10:14 Rocephin 1 Gm / 100 Ml Nacl IV 07/18/23 09:23 Infused STAT ONE Infusion Azithromycin 500 mg in 250 mls @ 250 mls/hr 07/18/23 08:54 07/18/23 11:18 Zithromax 500 Mg/ 250 Ml Nacl Premix IV 07/18/23 09:53 Infused STAT STA Infusion Ceftriaxone Sodium Confirm 07/18/23 09:41 Rocephin 1 Gm / 100 Ml Nacl Administered 07/18/23 09:42 Dose 1 gm in 100 mls @ ud IV .STK-MED ONE Azithromycin Confirm 07/18/23 10:04 Zithromax 500 Mg/ 250 Ml Nacl Premix Administered 07/18/23 10:05 Dose 500 mg in 250 mls @ ud IV .STK-MED ONE Methylprednisolone Sodium Succinate Confirm 07/18/23 09:12 Methylprednis Sod Succ 125 Mg/2 Ml Vial Administered 07/18/23 09:13 Dose 125 mg .ROUTE .STK-MED ONE Sterile Water Confirm 07/18/23 09:12 Water For Injection,Sterile 10 Ml Vial Administered 07/18/23 09:13 Dose 10 ml IJ .STK-MED ONE Lab/Rad Data: Laboratory Result Diagrams 07/18/23 09:10 07/18/23 09:10 Laboratory Results 07/18/23 07/18/23 07/18/23 Range/Units 11:11 09:10 09:10 WBC (4.0-10.5) x10^3/uL RBC (4.1-5.4) x10^6/uL Hgb (12.0-16.0) g/dL Hct (35-47) % MCV (78-100) fL MCH (26-32) pg MCHC (32-36) g/dL RDW (11.5-14.0) % Plt Count (150-450) x10^3/uL MPV (7.5-11.0) fL Segmented Neutrophils (36.0-66.0) % Band Neutrophils (0.0-2.0) % Lymphocytes (Manual) (24-44) % Monocytes (Manual) (0.0-12.0) % Atypical Lymphocytes % Toxic Granulation Platelet Estimate (NORMAL) RBC Morphology Anisocytosis Smear Path Review D-Dimer (0.0-0.50) mg/L Sodium (137-145) mmol/L Potassium (3.5-5.1) mmol/L Chloride (98-107) mmol/L Carbon Dioxide (22-30) mmol/L Anion Gap (5-15) MEQ/L BUN (7-17) mg/dL Creatinine (0.52-1.04) mg/dL Estimated GFR ML/MIN Glucose (74-106) mg/dL Lactic Acid 2.6 H (0.4-2.0) Calcium (8.4-10.2) mg/dL Total Bilirubin (0.2-1.3) mg/dL AST (14-36) U/L ALT (0-35) U/L Alkaline Phosphatase (38-126) U/L Troponin I < 0.012 (0.000-0.034) ng/mL NT-Pro-B Natriuret Pep (<300) pg/mL Serum Total Protein (6.3-8.2) g/dL Albumin (3.5-5.0) g/dL Influenza Type A Ag NEGATIVE (NEGATIVE) Influenza Type B Ag NEGATIVE (NEGATIVE) RSV (PCR) NEGATIVE (NEGATIVE) SARS-CoV-2 (PCR) NEGATIVE (NEGATIVE) 07/18/23 07/18/23 07/18/23 Range/Units 09:10 09:10 09:10 WBC 26.7 H* (4.0-10.5) x10^3/uL RBC 4.59 (4.1-5.4) x10^6/uL Hgb 14.2 (12.0-16.0) g/dL Hct 44.6 (35-47) % MCV 97.2 (78-100) fL MCH 30.9 (26-32) pg MCHC 31.8 L (32-36) g/dL RDW 14.2 H (11.5-14.0) % Plt Count 236 (150-450) x10^3/uL MPV 9.9 (7.5-11.0) fL Segmented Neutrophils 78 H (36.0-66.0) % Band Neutrophils 10 H (0.0-2.0) % Lymphocytes (Manual) 7 L (24-44) % Monocytes (Manual) 4 (0.0-12.0) % Atypical Lymphocytes 1 % Toxic Granulation 1+ Platelet Estimate NORMAL (NORMAL) RBC Morphology ABNORMAL Anisocytosis 1+ Smear Path Review D-Dimer 1.03 H* (0.0-0.50) mg/L Sodium 135 L (137-145) mmol/L Potassium 3.5 (3.5-5.1) mmol/L Chloride 102 (98-107) mmol/L Carbon Dioxide 28 (22-30) mmol/L Anion Gap 8.3 (5-15) MEQ/L BUN 26 H (7-17) mg/dL Creatinine 1.08 H (0.52-1.04) mg/dL Estimated GFR 59.9 ML/MIN Glucose 124 H (74-106) mg/dL Lactic Acid (0.4-2.0) Calcium 9.4 (8.4-10.2) mg/dL Total Bilirubin 1.40 H (0.2-1.3) mg/dL AST 20 (14-36) U/L ALT 16 (0-35) U/L Alkaline Phosphatase 66 (38-126) U/L Troponin I (0.000-0.034) ng/mL NT-Pro-B Natriuret Pep (<300) pg/mL Serum Total Protein 6.4 (6.3-8.2) g/dL Albumin 3.7 (3.5-5.0) g/dL Influenza Type A Ag (NEGATIVE) Influenza Type B Ag (NEGATIVE) RSV (PCR) (NEGATIVE) SARS-CoV-2 (PCR) (NEGATIVE) 07/18/23 07/18/23 Range/Units 09:08 08:54 WBC (4.0-10.5) x10^3/uL RBC (4.1-5.4) x10^6/uL Hgb (12.0-16.0) g/dL Hct (35-47) % MCV (78-100) fL MCH (26-32) pg MCHC (32-36) g/dL RDW (11.5-14.0) % Plt Count (150-450) x10^3/uL MPV (7.5-11.0) fL Segmented Neutrophils (36.0-66.0) % Band Neutrophils (0.0-2.0) % Lymphocytes (Manual) (24-44) % Monocytes (Manual) (0.0-12.0) % Atypical Lymphocytes % Toxic Granulation Platelet Estimate (NORMAL) RBC Morphology Anisocytosis Smear Path Review D-Dimer (0.0-0.50) mg/L Sodium (137-145) mmol/L Potassium (3.5-5.1) mmol/L Chloride (98-107) mmol/L Carbon Dioxide (22-30) mmol/L Anion Gap (5-15) MEQ/L BUN (7-17) mg/dL Creatinine (0.52-1.04) mg/dL Estimated GFR ML/MIN Glucose (74-106) mg/dL Lactic Acid 2.7 H (0.4-2.0) Calcium (8.4-10.2) mg/dL Total Bilirubin (0.2-1.3) mg/dL AST (14-36) U/L ALT (0-35) U/L Alkaline Phosphatase (38-126) U/L Troponin I (0.000-0.034) ng/mL NT-Pro-B Natriuret Pep 998 (<300) pg/mL Serum Total Protein (6.3-8.2) g/dL Albumin (3.5-5.0) g/dL Influenza Type A Ag (NEGATIVE) Influenza Type B Ag (NEGATIVE) RSV (PCR) (NEGATIVE) SARS-CoV-2 (PCR) (NEGATIVE) - Progress Progress: improved Air Movement: fair Blood Culture(s) Obtained: Yes Antibiotics given: Yes Discussed with : Pretty Will see patient in: hospital (observation) (`) Medical Desision Making - Discussion of managment Care discussed with:: hospitalist (Dr. Lopez) Reviewed:: Test results Agreed on:: Treatment plan, decision to admit Will see patient: in hospital - Diagnostic Testing Diagnostic test were ordered, analyzed, and reviewed by me: Yes Radiological Interpretation: Reviewed by me - Risk of complications The pt has a high risk of morbidity or mortality based on: Drug therapy requiring intensive monitoring for toxicity, Decision regarding hospitilization or escalation of hosp level of care - Departure Departure Disposition: Observation Clinical Impression: Left lower lobe pneumonia, Sepsis Condition: Critical Critical Care Time: Yes Critical Care Time(excluding separately billable procedures): Critical 30-74 mins (69) Referrals: BINU BAHENA MD [Primary Care Provider] - Follow up/PCP as directed
[2023-07-18] MEDS ORDERED: Sodium Chloride 0.9% 1000 ML 1,000 ML ONE ×2 (09:08→10:04)
[2023-07-18 09:12] LABS: Hematocrit 44.6 % (35-47); Hemoglobin 14.2 g/dL (12.0-16.0); Mean Cell Volume 97.2 fL (78-100); Mean Corpuscular Hemoglobin 30.9 pg (26-32); Mean Corpuscular Hgb Concent. 31.8 g/dL (32-36); Mean Platelet Volume 9.9 fL (7.5-11.0); Platelet Count 236 x10^3/uL (150-450); Red Blood Count 4.59 x10^6/uL (4.1-5.4); Red Cell Distribution Width 14.2 % (11.5-14.0)
[2023-07-18] MEDS ORDERED: solu-MEDROL ONE ×2 (09:12→21:09)
[2023-07-18] MEDS ORDERED: Sterile H2O 10 ml IJ ONE ×2 (09:12→21:10)
--- NOTE | 2023-07-18 09:12 | XRAY ---
Indication: Short of breath and fatigue. Comparison: January 24, 2023 Portable chest demonstrates new left lower lobe consolidating airspace disease. Stable minimal right base infiltrate/atelectasis and CT proven large calcified splenic cyst. Heart not enlarged. Bony thorax intact.
[2023-07-18] MEDS: solu-MEDROL 125 MG, Sterile H2O 10 ml 2 ML IV ONE (09:13)
[2023-07-18] MEDS: Sodium Chloride 0.9% 1000 ML 1,000 ML IV SCH ×3 (09:13→12:53)
[2023-07-18] MEDS ORDERED: DUONEB 0.5-3 MG/3 ml Neb IH ONE (09:15)
[2023-07-18] MEDS: DUONEB 0.5-3 MG/3 ml Neb IH ONE (09:18)
[2023-07-18 09:23] LABS: White Blood Count 26.7 x10^3/uL (4.0-10.5)
[2023-07-18 09:25] LABS: ALBUMIN 3.7 g/dL (3.5-5.0); ANION GAP 8.3 MEQ/L (5-15); BILIRUBIN,TOTAL 1.4 mg/dL (0.2-1.3); Calcium 9.4 mg/dL (8.4-10.2); Creatinine 1 1.08 mg/dL (0.52-1.04); EST GLOMERULAR FILTRATION RATE 59.9 ML/MIN; Potassium 3.5 mmol/L (3.5-5.1); Total Protein 6.4 g/dL (6.3-8.2)
[2023-07-18 09:34] LABS: ANISOCYTOSIS 1+; ATYPICAL LYMPHS 1 %; BAND 10 % (0.0-2.0); Lymphocytes 7 % (24-44); Monocyte 4 % (0.0-12.0); Neutrophils 78 % (36.0-66.0); Platelet Estimate NORMAL (NORMAL); Total Cells Counted 100; Toxic Granulation 1+
[2023-07-18] MEDS ORDERED: ROCEPHIN 1 GM / 100 ML NaCl 1 GM/100 ML IVPB IV ONE (09:41)
[2023-07-18] MEDS: ROCEPHIN 1 GM / 100 ML NaCl 1 GM/100 ML IVPB IV ONE (09:43)
[2023-07-18] MEDS ORDERED: Zithromax 500 MG/ 250 ML NaCl Premix 500 MG/250 ML IVPB IV ONE (10:04)
[2023-07-18 10:05] LABS: INFLUENZA A NEGATIVE (NEGATIVE); INFLUENZA B NEGATIVE (NEGATIVE); RESPIRATORY SYNCTIAL VIRUS NEGATIVE (NEGATIVE); SARS-CoV-2 Xpert Express NEGATIVE (NEGATIVE)
[2023-07-18] MEDS: Zithromax 500 MG/ 250 ML NaCl Premix 500 MG/250 ML IVPB IV STA (10:08)
--- NOTE | 2023-07-18 11:22 | XRAY ---
Indication: Short of breath. Left lower lobe pneumonia on same day chest radiograph. Elevated d-dimer. Multiple contiguous axial images obtained through the chest using 100 cc Isovue 370 contrast and PE protocol. Comparison: December 08, 2022 Good opacification of the pulmonary arteries to include the lobar and segmental branches. No pulmonary embolus. Heart not enlarged. Aorta is minimally atherosclerotic without aneurysm/dissection. No pathologic mediastinal/hilar lymphadenopathy. Lungs demonstrates new near complete left lower lobe consolidating/nonconsolidating airspace disease with small left effusion. Minimally worsening mild peripheral right lower lobe infiltrate/atelectasis. Bony thorax intact again with minimal degenerative changes throughout the spine. Limited upper abdomen again demonstrates a few small hepatic cysts and large calcified splenic cyst. Impression: 1. Continued negative pulmonary embolus. 2. New left lower lobe consolidating/nonconsolidating airspace disease with small effusion. Minimally worsening right lower lobe infiltrate/atelectasis. 3. Again chronic findings including arteriosclerotic disease, hepatic cysts, and calcified splenic cyst.
[2023-07-18] MEDS: NOREPINEPHRINE 8 MG/250 ML-D5W 8 MG/250 ML PLAST..BAG IV PRN (12:54)
[2023-07-18 15:41] LABS: ADD URINE CULTURE? NO (NO); Appearance Clear (Clear); Bacteria None Seen /HPF (None Seen); Bilirubin Negative (Negative); Blood Negative (Negative); Epithelial Cells Few /HPF (None Seen); Glucose, Urine Negative (Negative); Hyaline Casts NONE SEEN /LPF (0-2); Ketones Negative (Negative); Leukocyte Esterase Negative (Negative); Nitrite Negative (Negative); Ph 5.5 (4.6-8.0); Protein,Urine Dip Negative (Negative); RBC 0-2 /HPF (0-5); Specific Gravity >=1.030 (1.005-1.030); Urobilinogen 0.2 mg/dL (0.2); WBC 0-2 /HPF (0-5)
[2023-07-18] MEDS ORDERED: DUONEB 0.5-3 MG/3 ml Neb IH PRN (18:55)
--- NOTE | 2023-07-18 19:00 | PCM.HP ---
History of Present Illness - Chief Complaint Chief Complaint: Pneumonia, Sepsis Date: 07/18/23 History of Present Illness: is a 58 year old female with PMHX of HTN, ME, asthma, COPD, sleep apnea, thyroid CA, cervical CA, and second hand smoke exposure. She presented to the ER today with a complaint of shortness of breath. She does have a history of COPD she says her current episode started 2 days ago. She became more short of breath and coughing yesterday at noon she went home found a fever of 103. She has been coughing up blood-streaked sputum she has left-sided chest soreness. This morning she did have 1 episode of nausea and vomiting. CXR and CT chest shows new LLL infiltate. CTA negative for PE. She was started on a norepinephrine gtt in ER for low BP. BP is currently stable on gtt at 117/84. WBC 26.7, d-dimer 1.03, LA 2.5. She received 2 fluid boluses in ER. Antibiotics, steroids and breathing treatments also started. She is feeling better since admission. She is currently on 5LNC and 3lNC at noc is her baseline. She smells strongly of tobacco smoke. Advised her to educate her family about smoking around her and to smoke outside d/t her medical problems. She denies CP, abd. pain, N/V/D. - Review of Systems Constitutional: Fatigue, No Fever, No Chills Eyes: No Symptoms Ears, Nose, & Throat: No Symptoms Respiratory: Short Of Breath, No Cough Cardiac: No Chest Pain, No Edema, No Syncope Abdominal/Gastrointestinal: No Abdominal Pain, No Nausea, No Vomiting, No Alessandra rrhea Genitourinary Symptoms: No Dysuria Musculoskeletal: No Back Pain, No Neck Pain Skin: No Rash Neurological: No Dizziness, No Focal Weakness, No Sensory Changes Psychological: No Symptoms Endocrine: No Symptoms Hematologic/Lymphatic: No Symptoms Immunological/Allergic: No Symptoms Medications & Allergies Home Medications: Home Medication List Gabapentin [Neurontin ] 300 mg PO HS 08/14/21 [History Confirmed 07/18/23] Meloxicam 15 mg [Meloxicam 15 MG] 7.5 mg PO BID 08/14/21 [History Confirmed 07/18/23] Albuterol Sulfate [Albuterol Sulfate Hfa] 2 inh PO Q6H PRN PRN 02/18/22 [History Confirmed 07/18/23] Aspirin [Ecotrin] 81 mg PO DAILY 30 Days #30 tablet 02/20/22 [Rx Confirmed 07/18/23] Fluticasone/Umeclidin/Vilanter [Trelegy Ellipta 100-62.5-25] 1 puff IH DAILY #1 blist 06/13/22 [Rx Confirmed 07/18/23] Metoprolol Succinate 25 mg Xl* [Toprol-Xl 25MG Tablets] 25 mg PO DAILY 12/08/22 [History Confirmed 07/18/23] Potassium Gluconate [Potassium] 99 mg PO DAILY 12/08/22 [History Confirmed 07/18/23] Spironolactone 25 mg [Aldactone 25 MG] 25 mg PO DAILY 12/08/22 [History Confirmed 07/18/23] Tolterodine Tartrate [Tolterodine Tartrate ER] 4 mg PO DAILY 12/08/22 [History Confirmed 07/18/23] Bumetanide 1 mg [Bumex 1 mg] 1 mg PO QAM 01/21/23 [History Confirmed 07/18/23] Ipratropium/Albuterol Sulfate [Iprat-Albut 0.5-3(2.5) mg/3 ml] 3 ml IH QID 07/18/23 [History Confirmed 07/18/23] Levothyroxine Sodium [Synthroid] 125 mcg PO DAILY 07/18/23 [History Confirmed 07/18/23] Losartan Potassium [Cozaar] 25 mg PO DAILY 07/18/23 [History Confirmed 07/18/23] Allergies/Adverse Reactions: Allergies Allergy/AdvReac Type Severity Reaction Status Date / Time No Known Drug Allergies Allergy Verified 07/18/23 08:42 - Past Medical History Past Medical History: Yes Neurological History: No Pertinent History ENT History: No Pertinent History Cardiac History: Hypertension, Myocardial Infarction (ME) Respiratory History: Asthma, COPD, Pneumonia, Sleep Apnea Endocrine Medical History: Hypothyroidism, Thyroid Cancer Musculoskelatal History: No Pertinent History GI Medical History: No Pertinent History History: No Pertinent History Pyscho-Social History: Depression Reproductive Disorders: Cervical Cancer Comment: history of cervical cancer - Female History Are you now?: No - Past Surgical History Past Surgical History: Yes Neuro Surgical History: No Pertinent History Cardiac History: No Pertinent History Respiratory Surgery: No Pertinent History GI Surgical History: No Pertinent History Genitourinary Surgical Hx: No Pertinent History Musculskeletal Surgical Hx: No Pertinent History Female Surgical History: Other Other Surgical History: thyroidectomy, leep loop electrical-cervix - Social History Smoking Status: Former smoker How long have you smoked: 40 YEARS Exposure to second hand smoke: Yes Alcohol: Occasionally Drug Use: none - Social Determinants of Health Will the patient participate in the screening: Yes Do you worry about a steady place to live?: No Do you have any problems with any of the following?: No known problems In the past 12 months,have you had to go without utilities?: No Have you or anyone in your house had to go without enough: No Transportation Issues: No Has anyone in your support network made you feel unsafe?: No Does the patient want assistance with any of the above?: No - Physical Exam Vital Signs: Vital Signs - 24 hr Temp Pulse Resp BP BP Pulse Ox 07/18/23 18:18 97.7 F 68 16 125/72 92 L 07/18/23 17:15 58 L 17 115/81 96 07/18/23 17:00 62 19 125/85 95 07/18/23 16:59 61 20 96 07/18/23 16:50 67 23 93 L 07/18/23 16:46 69 24 95 07/18/23 16:30 69 23 112/87 94 L 07/18/23 16:15 68 19 116/87 93 L 07/18/23 16:00 65 26 H 117/83 96 07/18/23 15:45 73 26 H 108/76 96 07/18/23 15:30 74 25 H 115/69 92 L 07/18/23 15:15 75 22 110/75 90 L 07/18/23 15:00 79 28 H 113/66 91 L 07/18/23 14:45 82 21 118/73 94 L 07/18/23 14:30 69 18 114/77 97 07/18/23 14:15 75 15 108/75 98 07/18/23 14:00 71 16 105/64 96 07/18/23 13:57 77 16 95 07/18/23 13:49 77 16 89/63 94 L 07/18/23 13:30 75 16 89/69 95 07/18/23 13:16 74 21 95/59 96 07/18/23 13:00 75 21 86/59 93 L 07/18/23 12:47 76 23 69/54 94 L 07/18/23 12:30 85 17 80/52 96 07/18/23 12:15 82 20 95/54 98 07/18/23 12:00 83 19 82/55 98 07/18/23 11:46 85 20 81/50 99 07/18/23 11:31 84 19 84/61 99 07/18/23 11:30 85 22 98 07/18/23 11:20 88 22 98 07/18/23 11:17 85 18 97 07/18/23 11:00 88 28 H 78/52 96 07/18/23 10:59 89 16 96 07/18/23 10:15 80/59 07/18/23 10:03 91 H 20 74/55 96 07/18/23 09:45 94 H 22 64/45 96 07/18/23 09:30 92 H 15 61/40 07/18/23 09:19 93 H 22 91 L 07/18/23 09:05 87 22 59/49 93 L 07/18/23 09:02 84 21 40/31 91 L 07/18/23 08:43 97.9 F 89 25 H 94/49 95 Results - Labs Lab/Micro Results: Lab Results-Last 24 Hours 07/18/23 07/18/23 07/18/23 Range/Units 08:54 09:08 09:10 WBC 26.7 H* (4.0-10.5) x10^3/uL RBC 4.59 (4.1-5.4) x10^6/uL Hgb 14.2 (12.0-16.0) g/dL Hct 44.6 (35-47) % MCV 97.2 (78-100) fL MCH 30.9 (26-32) pg MCHC 31.8 L (32-36) g/dL RDW 14.2 H (11.5-14.0) % Plt Count 236 (150-450) x10^3/uL MPV 9.9 (7.5-11.0) fL Segmented Neutrophils 78 H (36.0-66.0) % Band Neutrophils 10 H (0.0-2.0) % Lymphocytes (Manual) 7 L (24-44) % Monocytes (Manual) 4 (0.0-12.0) % Atypical Lymphocytes 1 % Toxic Granulation 1+ Platelet Estimate NORMAL (NORMAL) RBC Morphology ABNORMAL Anisocytosis 1+ Smear Path Review D-Dimer (0.0-0.50) mg/L Sodium (137-145) mmol/L Potassium (3.5-5.1) mmol/L Chloride (98-107) mmol/L Carbon Dioxide (22-30) mmol/L Anion Gap (5-15) MEQ/L BUN (7-17) mg/dL Creatinine (0.52-1.04) mg/dL Estimated GFR ML/MIN Glucose (74-106) mg/dL Lactic Acid 2.7 H (0.4-2.0) Calcium (8.4-10.2) mg/dL Total Bilirubin (0.2-1.3) mg/dL AST (14-36) U/L ALT (0-35) U/L Alkaline Phosphatase (38-126) U/L Troponin I (0.000-0.034) ng/mL NT-Pro-B Natriuret Pep 998 (<300) pg/mL Serum Total Protein (6.3-8.2) g/dL Albumin (3.5-5.0) g/dL Urine Color (Yellow) Urine Appearance (Clear) Urine pH (4.6-8.0) Ur Specific Wel[place] (1.005-1.030) Urine Protein (Negative) Urine Glucose (UA) (Negative) mg/dL Urine Ketones (Negative) Urine Blood (Negative) Urine Nitrite (Negative) Urine Bilirubin (Negative) Urine Urobilinogen (0.2) mg/dL Ur Leukocyte Esterase (Negative) U Hyaline Cast (Auto) (0-2) /LPF Urine Microscopic RBC (0-5) /HPF Urine Microscopic WBC (0-5) /HPF Ur Epithelial Cells (None Seen) /HPF Urine Bacteria (None Seen) /HPF Urine Culture Reflexed (NO) Influenza Type A Ag (NEGATIVE) Influenza Type B Ag (NEGATIVE) RSV (PCR) (NEGATIVE) SARS-CoV-2 (PCR) (NEGATIVE) 07/18/23 07/18/23 07/18/23 Range/Units 09:10 09:10 09:10 WBC (4.0-10.5) x10^3/uL RBC (4.1-5.4) x10^6/uL Hgb (12.0-16.0) g/dL Hct (35-47) % MCV (78-100) fL MCH (26-32) pg MCHC (32-36) g/dL RDW (11.5-14.0) % Plt Count (150-450) x10^3/uL MPV (7.5-11.0) fL Segmented Neutrophils (36.0-66.0) % Band Neutrophils (0.0-2.0) % Lymphocytes (Manual) (24-44) % Monocytes (Manual) (0.0-12.0) % Atypical Lymphocytes % Toxic Granulation Platelet Estimate (NORMAL) RBC Morphology Anisocytosis Smear Path Review D-Dimer 1.03 H* (0.0-0.50) mg/L Sodium 135 L (137-145) mmol/L Potassium 3.5 (3.5-5.1) mmol/L Chloride 102 (98-107) mmol/L Carbon Dioxide 28 (22-30) mmol/L Anion Gap 8.3 (5-15) MEQ/L BUN 26 H (7-17) mg/dL Creatinine 1.08 H (0.52-1.04) mg/dL Estimated GFR 59.9 ML/MIN Glucose 124 H (74-106) mg/dL Lactic Acid (0.4-2.0) Calcium 9.4 (8.4-10.2) mg/dL Total Bilirubin 1.40 H (0.2-1.3) mg/dL AST 20 (14-36) U/L ALT 16 (0-35) U/L Alkaline Phosphatase 66 (38-126) U/L Troponin I < 0.012 (0.000-0.034) ng/mL NT-Pro-B Natriuret Pep (<300) pg/mL Serum Total Protein 6.4 (6.3-8.2) g/dL Albumin 3.7 (3.5-5.0) g/dL Urine Color (Yellow) Urine Appearance (Clear) Urine pH (4.6-8.0) Ur Specific Weldon (1.005-1.030) Urine Protein (Negative) Urine Glucose (UA) (Negative) mg/dL Urine Ketones (Negative) Urine Blood (Negative) Urine Nitrite (Negative) Urine Bilirubin (Negative) Urine Urobilinogen (0.2) mg/dL Ur Leukocyte Esterase (Negative) U Hyaline Cast (Auto) (0-2) /LPF Urine Microscopic RBC (0-5) /HPF Urine Microscopic WBC (0-5) /HPF Ur Epithelial Cells (None Seen) /HPF Urine Bacteria (None Seen) /HPF Urine Culture Reflexed (NO) Influenza Type A Ag (NEGATIVE) Influenza Type B Ag (NEGATIVE) RSV (PCR) (NEGATIVE) SARS-CoV-2 (PCR) (NEGATIVE) 07/18/23 07/18/23 07/18/23 Range/Units 09:10 11:11 13:15 WBC (4.0-10.5) x10^3/uL RBC (4.1-5.4) x10^6/uL Hgb (12.0-16.0) g/dL Hct (35-47) % MCV (78-100) fL MCH (26-32) pg MCHC (32-36) g/dL RDW (11.5-14.0) % Plt Count (150-450) x10^3/uL MPV (7.5-11.0) fL Segmented Neutrophils (36.0-66.0) % Band Neutrophils (0.0-2.0) % Lymphocytes (Manual) (24-44) % Monocytes (Manual) (0.0-12.0) % Atypical Lymphocytes % Toxic Granulation Platelet Estimate (NORMAL) RBC Morphology Anisocytosis Smear Path Review D-Dimer (0.0-0.50) mg/L Sodium (137-145) mmol/L Potassium (3.5-5.1) mmol/L Chloride (98-107) mmol/L Carbon Dioxide (22-30) mmol/L Anion Gap (5-15) MEQ/L BUN (7-17) mg/dL Creatinine (0.52-1.04) mg/dL Estimated GFR ML/MIN Glucose (74-106) mg/dL Lactic Acid 2.6 H (0.4-2.0) Calcium (8.4-10.2) mg/dL Total Bilirubin (0.2-1.3) mg/dL AST (14-36) U/L ALT (0-35) U/L Alkaline Phosphatase (38-126) U/L Troponin I < 0.012 (0.000-0.034) ng/mL NT-Pro-B Natriuret Pep (<300) pg/mL Serum Total Protein (6.3-8.2) g/dL Albumin (3.5-5.0) g/dL Urine Color (Yellow) Urine Appearance (Clear) Urine pH (4.6-8.0) Ur Specific Wel[place] (1.005-1.030) Urine Protein (Negative) Urine Glucose (UA) (Negative) mg/dL Urine Ketones (Negative) Urine Blood (Negative) Urine Nitrite (Negative) Urine Bilirubin (Negative) Urine Urobilinogen (0.2) mg/dL Ur Leukocyte Esterase (Negative) U Hyaline Cast (Auto) (0-2) /LPF Urine Microscopic RBC (0-5) /HPF Urine Microscopic WBC (0-5) /HPF Ur Epithelial Cells (None Seen) /HPF Urine Bacteria (None Seen) /HPF Urine Culture Reflexed (NO) Influenza Type A Ag NEGATIVE (NEGATIVE) Influenza Type B Ag NEGATIVE (NEGATIVE) RSV (PCR) NEGATIVE (NEGATIVE) SARS-CoV-2 (PCR) NEGATIVE (NEGATIVE) 07/18/23 07/18/23 07/18/23 Range/Units 15:30 16:49 17:00 WBC (4.0-10.5) x10^3/uL RBC (4.1-5.4) x10^6/uL Hgb (12.0-16.0) g/dL Hct (35-47) % MCV (78-100) fL MCH (26-32) pg MCHC (32-36) g/dL RDW (11.5-14.0) % Plt Count (150-450) x10^3/uL MPV (7.5-11.0) fL Segmented Neutrophils (36.0-66.0) % Band Neutrophils (0.0-2.0) % Lymphocytes (Manual) (24-44) % Monocytes (Manual) (0.0-12.0) % Atypical Lymphocytes % Toxic Granulation Platelet Estimate (NORMAL) RBC Morphology Anisocytosis Smear Path Review D-Dimer (0.0-0.50) mg/L Sodium (137-145) mmol/L Potassium (3.5-5.1) mmol/L Chloride (98-107) mmol/L Carbon Dioxide (22-30) mmol/L Anion Gap (5-15) MEQ/L BUN (7-17) mg/dL Creatinine (0.52-1.04) mg/dL Estimated GFR ML/MIN Glucose (74-106) mg/dL Lactic Acid 2.5 H (0.4-2.0) Calcium (8.4-10.2) mg/dL Total Bilirubin (0.2-1.3) mg/dL AST (14-36) U/L ALT (0-35) U/L Alkaline Phosphatase (38-126) U/L Troponin I < 0.012 (0.000-0.034) ng/mL NT-Pro-B Natriuret Pep (<300) pg/mL Serum Total Protein (6.3-8.2) g/dL Albumin (3.5-5.0) g/dL Urine Color Yellow (Yellow) Urine Appearance Clear (Clear) Urine pH 5.5 (4.6-8.0) Ur Specific [place] >=1.030 A (1.005-1.030) Urine Protein Negative (Negative) Urine Glucose (UA) Negative (Negative) mg/dL Urine Ketones Negative (Negative) Urine Blood Negative (Negative) Urine Nitrite Negative (Negative) Urine Bilirubin Negative (Negative) Urine Urobilinogen 0.2 (0.2) mg/dL Ur Leukocyte Esterase Negative (Negative) U Hyaline Cast (Auto) NONE SEEN (0-2) /LPF Urine Microscopic RBC 0-2 (0-5) /HPF Urine Microscopic WBC 0-2 (0-5) /HPF Ur Epithelial Cells Few (None Seen) /HPF Urine Bacteria None Seen (None Seen) /HPF Urine Culture Reflexed NO (NO) Influenza Type A Ag (NEGATIVE) Influenza Type B Ag (NEGATIVE) RSV (PCR) (NEGATIVE) SARS-CoV-2 (PCR) (NEGATIVE) - Radiology Impressions Radiology Exams & Impressions: Radiology Procedures Category Date Time Status CHEST 1 VIEW (PORTABLE) Stat Exams 07/18/23 08:55 Completed CHEST WITH CONTRAST [CT] Stat Exams 07/18/23 09:50 Completed - Other Procedures and Tests Respiratory Therapy 07/18/23 08:54 BiPap/CPAP ROUTINE 07/18/23 09:19 Respiratory Therapy Assessment DAILY 07/18/23 12:41 Oxygen Nasal Cannula 5 lpm 02/15/24 18:50 RT Screen per Nursing Assess ONCE Assessment/Plan (1) Left lower lobe pneumonia Current Visit: Yes Status: Acute Assessment & Plan: - Antibiotics, steroids, duonebs - CT and CXR reviewed Code(s): J18.9 - PNEUMONIA, UNSPECIFIED ORGANISM (2) Hypotension Current Visit: Yes Status: Acute Assessment & Plan: - norepinephrine Started in ER - Tele- ICU bed - Hold BP meds Code(s): I95.9 - HYPOTENSION, UNSPECIFIED (3) Hyponatremia Current Visit: Yes Status: Acute Assessment & Plan: - Mild Na+ 135- trend Code(s): E87.1 - HYPO-OSMOLALITY AND HYPONATREMIA (4) Second hand tobacco smoke exposure Current Visit: Yes Status: Acute Assessment & Plan: - advised to educate family to smoke outside (5) CHARITY (acute kidney injury) Current Visit: Yes Status: Acute Assessment & Plan: - IVF - creat 1.08 - recheck in AM Code(s): N17.9 - ACUTE KIDNEY FAILURE, UNSPECIFIED (6) Sepsis Current Visit: Yes Status: Acute Assessment & Plan: - IVF bolus 1L X2 gave in ER - Lactic acid 2.7 at 9: 08, 2.6 @ 11:11, and 2.5 @ 16:49 - Cont IVF - will repeat LA (7) COPD exacerbation Current Visit: No Status: Acute Assessment & Plan: - antibiotics, steriods, nebs - on 5LNC- BL 3lNC Code(s): J44.1 - CHRONIC OBSTRUCTIVE PULMONARY DISEASE W (ACUTE) EXACERBATION (8) D-dimer, elevated Current Visit: Yes Status: Acute Assessment & Plan: - d-dimer 1.03 - CT negative for PE Code(s): R79.89 - OTHER SPECIFIED ABNORMAL FINDINGS OF BLOOD CHEMISTRY (9) Obesity (BMI 30-39.9) Current Visit: Yes Status: Chronic Assessment & Plan: - advised diet and exercise control VTE: Lovenox Next of kin: spouse Code status: full D/C plan: 1-2 days Code(s): E66.9 - OBESITY, UNSPECIFIED
[2023-07-18] MEDS: ROCEPHIN 1 GM / 100 ML NaCl 1 GM/100 ML IVPB IV SCH (19:42)
[2023-07-18] MEDS: solu-MEDROL 40 MG, Sterile H2O 10 ml 1 ML IV SCH (21:17)
[2023-07-18] MEDS: NEURONTIN PO SCH (21:17)
[2023-07-18] MEDS: MELOXICAM PO SCH (21:17)
[2023-07-18] MEDS ORDERED: NON-FORMULARY ITEM (Meloxicam 15 Mg [Meloxicam 15 Mg] 15 MG Tablet) PO SCH (22:00)
[2023-07-19] MEDS: DUONEB 0.5-3 MG/3 ml Neb IH SCH (00:11)
[2023-07-19] MEDS ORDERED: Sodium Chloride 0.9% 1000 ML 1,000 ML ONE (01:54)
[2023-07-19] MEDS: Advair Hfa 115/21 Common canister IH SCH (05:21)
[2023-07-19 05:48] LABS: Hematocrit 45.6 % (35-47); Hemoglobin 14.1 g/dL (12.0-16.0); Mean Cell Volume 99.1 fL (78-100); Mean Corpuscular Hemoglobin 30.7 pg (26-32); Mean Corpuscular Hgb Concent. 30.9 g/dL (32-36); Mean Platelet Volume 10.3 fL (7.5-11.0); Platelet Count 241 x10^3/uL (150-450); Red Cell Distribution Width 14.4 % (11.5-14.0)
[2023-07-19 05:50] LABS: ALBUMIN 3.7 g/dL (3.5-5.0); BILIRUBIN,TOTAL 0.3 mg/dL (0.2-1.3); Calcium 8.6 mg/dL (8.4-10.2); Creatinine 1 0.77 mg/dL (0.52-1.04); EST GLOMERULAR FILTRATION RATE 89.9 ML/MIN; Total Protein 6.5 g/dL (6.3-8.2)
[2023-07-19 05:52] LABS: Potassium 4.3 mmol/L (3.5-5.1)
[2023-07-19 05:57] LABS: White Blood Count 37.2 x10^3/uL (4.0-10.5)
[2023-07-19] MEDS ORDERED: NOREPINEPHRINE 8 MG/250 ML-D5W 8 MG/250 ML PLAST..BAG IV ONE (05:59)
[2023-07-19 08:10] LABS: BAND 1 % (0.0-2.0); Burr Cells 1+; Lymphocytes 5 % (24-44); Neutrophils 94 % (36.0-66.0); Platelet Estimate NORMAL (NORMAL); Total Cells Counted 100; Toxic Granulation 1+
[2023-07-19 09:51] LABS: ANION GAP 9.3 MEQ/L (5-15)
[2023-07-19] MEDS: ENOXAPARIN SODIUM SQ SCH (09:59)
[2023-07-19] MEDS: TYLENOL 325 MG PO PRN (09:59)
[2023-07-19] MEDS ORDERED: BUMEX 1 MG PO SCH (10:00)
[2023-07-19] MEDS ORDERED: NON-FORMULARY ITEM (Fluticasone/Umeclidin/Vilanter [Trelegy Ellipta 100-62.5-25] 1 EACH Bl IH SCH (10:00)
[2023-07-19] MEDS ORDERED: Toprol-Xl 25MG Tablets PO SCH (10:00)
[2023-07-19] MEDS: ECOTRIN 81 MG PO SCH (10:00)
[2023-07-19] MEDS ORDERED: NON-FORMULARY ITEM (Losartan Potassium [Cozaar] 25 MG Tablet) PO SCH (10:00)
[2023-07-19] MEDS: SYNTHROID 125 MCG PO SCH (10:00)
[2023-07-19] MEDS ORDERED: Aldactone 25 MG PO SCH (10:00)
[2023-07-19] MEDS ORDERED: NON-FORMULARY ITEM (Tolterodine Tartrate [Tolterodine Tartrate Er] 4 MG Cap.Er.24h) PO SCH (10:00)
[2023-07-19] MEDS ORDERED: ROCEPHIN 1 GM / 100 ML NaCl 1 GM/100 ML IVPB IV SCH (10:00)
[2023-07-19] MEDS ORDERED: NON-FORMULARY ITEM (Potassium Gluconate [Potassium] 99 MG Tablet) PO SCH (10:00)
[2023-07-19] MEDS: Ditropan XL 5 MG PO SCH (10:00)
[2023-07-19] MEDS: VANCOMYCIN 1.5 GRAM/300 ML BAG 1.5 GM/300 ML PIGGYBACK IV ONE (10:01)
[2023-07-19] MEDS: Zithromax 500 MG/ 250 ML NaCl Premix 500 MG/250 ML IVPB IV SCH (10:05)
[2023-07-19] MEDS: PHARMACY DOSING REQUIRED: VANCOMYCIN IV STA (10:29)
[2023-07-19] MEDS: MORPHINE SULFATE 2 MG INJ IV PRN (10:35)
[2023-07-19] MEDS: Zofran 4 MG/2 ML VIAL IV PRN (10:35)
[2023-07-19] MEDS: PIPERACILLIN/TAZOBACTAM 4.5 GM in Sodium Chloride 100ML MINI-BAG PLUS 100 ML IV SCH (12:20)
--- NOTE | 2023-07-19 15:35 | PCM.NOTE ---
Date and Time: 07/19/23 1520 Subjective Assessment: 07/18/23 is a 58 year old female with PMHX of HTN, AL, asthma, COPD, sleep apnea, thyroid CA, cervical CA, and second hand smoke exposure. She presented to the ER today with a complaint of shortness of breath. She does have a history of COPD she says her current episode started 2 days ago. She became more short of breath and coughing yesterday at noon she went home found a fever of 103. She has been coughing up blood-streaked sputum she has left-sided chest soreness. This morning she did have 1 episode of nausea and vomiting. CXR and CT chest shows new LLL infiltate. CTA negative for PE. She was started on a norepinephrine gtt in ER for low BP. BP is currently stable on gtt at 117/84. WBC 26.7, d-dimer 1.03, LA 2.5. She received 2 fluid boluses in ER. Antibiotics, steroids and breathing treatments also started. She is feeling better since admission. She is currently on 5LNC and 3lNC at noc is her baseline. She smells strongly of tobacco smoke. Advised her to educate her family about smoking around her and to smoke outside d/t her medical problems. She denies CP, abd. pain, N/V/D. 07/19/23 Pt sitting up in bed. She continues to have SOB and pain in LLL. She continues to be on the norepinephrine gtt. WBC increased, antibiotics changed. BC x2 gram + cocci in chains. Sensitivity pending. Sputum culture pending. Lactic acid normal today. CHARITY resolved. Pt developed CP this AM EKG completed and showed NSR. trop x2 negative so far. She remains in the ICU on 5LNC. She denies any further concerns at this time. - Review of Systems Constitutional: No Fever, No Chills Eyes: No Symptoms Ears, Nose, & Throat: No Symptoms Respiratory: No Cough, No Short Of Breath Cardiac: No Chest Pain, No Edema, No Syncope Abdominal/Gastrointestinal: No Abdominal Pain, No Nausea, No Vomiting, No Diarrhea Genitourinary Symptoms: No Dysuria Musculoskeletal: No Back Pain, No Neck Pain Skin: No Rash Neurological: No Dizziness, No Focal Weakness, No Sensory Changes Psychological: No Symptoms Endocrine: No Symptoms Hematologic/Lymphatic: No Symptoms Immunological/Allergic: No Symptoms Objective Exam General Appearance: no apparent distress, alert Neurologic Exam: alert, oriented x 3, cooperative, normal mood/affect, nml cerebellar function, sensation nml, No motor deficits Skin Exam: normal color, warm, dry Eye Exam: PERRL, EOMI, eyes nml inspection Ears, Nose, Throat Exam: normal ENT inspection, pharynx normal, moist mucous membranes Neck Exam: normal inspection, non-tender, supple, full range of motion Respiratory Exam: normal breath sounds, lungs clear, diminished breath sounds (LLL), No respiratory distress Cardiovascular Exam: regular rate/rhythm, normal heart sounds Gastrointestinal/Abdomen Exam: soft, No tenderness, No mass Extremity Exam: normal inspection, normal range of motion Back Exam: normal inspection, normal range of motion, No CVA tenderness, No vertebral tenderness Pelvic Exam: deferred Rectal Exam: deferred OBJECTIVE DATA Vital Signs: Vital Signs - 24 hr Temp Pulse Resp BP BP BP Pulse Ox 07/19/23 13:23 81 20 92 L 07/19/23 13:00 83 16 122/73 92 L 07/19/23 12:33 79 18 126/83 92 L 07/19/23 12:07 70 19 121/96 95 07/19/23 12:00 70 07/19/23 11:55 96.4 F 78 20 132/71 96 07/19/23 11:00 74 20 132/71 94 L 07/19/23 10:56 92 L 07/19/23 10:41 75 18 155/93 96 07/19/23 10:40 96 07/19/23 10:06 68 18 121/71 94 L 07/19/23 09:00 84 16 110/83 91 L 07/19/23 08:30 78 19 118/65 91 L 07/19/23 08:17 79 16 110/64 92 L 07/19/23 08:00 78 07/19/23 07:54 60 18 109/73 97 07/19/23 07:27 61 20 92/71 97 07/19/23 06:53 72 22 131/73 91 L 07/19/23 06:35 68 24 122/71 93 L 07/19/23 05:54 97.8 F 62 24 130/78 94 L 07/19/23 05:23 58 L 16 96 07/19/23 05:00 97.8 F 62 24 130/78 96 07/19/23 04:23 97.6 F 60 16 122/77 94 L 07/19/23 03:00 54 L 16 136/69 95 07/19/23 02:00 57 L 14 150/84 97 07/19/23 00:56 47 L 16 145/73 97 07/19/23 00:15 70 18 91 L 07/19/23 00:01 62 07/19/23 00:00 97.3 F 44 L 18 153/66 95 07/18/23 23:00 62 19 134/75 96 07/18/23 22:00 47 L 19 103/63 96 07/18/23 21:00 55 L 18 128/60 96 07/18/23 20:24 57 L 23 100 07/18/23 20:00 98.0 F 45 L 16 113/71 5 L 07/18/23 19:58 66 07/18/23 18:18 97.7 F 68 16 125/72 92 L 07/18/23 17:15 58 L 17 115/81 96 07/18/23 17:00 62 19 125/85 95 07/18/23 16:59 61 20 96 07/18/23 16:50 67 23 93 L 07/18/23 16:46 69 24 95 07/18/23 16:30 69 23 112/87 94 L 07/18/23 16:15 68 19 116/87 93 L 07/18/23 16:00 65 26 H 117/83 96 07/18/23 15:45 73 26 H 108/76 96 07/18/23 15:30 74 25 H 115/69 92 L Pain Assessment - Last Documented Pain Intensity 5 Pain Scale Used 0-10 Pain Scale Intake and Output: Intake & Output 07/17/23 07/18/23 07/19/23 07/20/23 11:59 11:59 11:59 11:59 Intake Total 2780 Output Total 1000 Balance 1780 Weight 86.4 kg 90.7 kg Lab Results: Lab Results-Last 24 Hours 07/18/23 07/18/23 07/18/23 Range/Units 15:30 16:49 17:00 WBC (4.0-10.5) x10^3/uL RBC (4.1-5.4) x10^6/uL Hgb (12.0-16.0) g/dL Hct (35-47) % MCV (78-100) fL MCH (26-32) pg MCHC (32-36) g/dL RDW (11.5-14.0) % Plt Count (150-450) x10^3/uL MPV (7.5-11.0) fL Segmented Neutrophils (36.0-66.0) % Band Neutrophils (0.0-2.0) % Lymphocytes (Manual) (24-44) % Toxic Granulation Platelet Estimate (NORMAL) RBC Morphology Claudia Cells Sodium (137-145) mmol/L Potassium (3.5-5.1) mmol/L Chloride (98-107) mmol/L Carbon Dioxide (22-30) mmol/L Anion Gap (5-15) MEQ/L BUN (7-17) mg/dL Creatinine (0.52-1.04) mg/dL Estimated GFR ML/MIN Glucose (74-106) mg/dL Hemoglobin A1c (4.5-6.0) % Lactic Acid 2.5 H (0.4-2.0) Calcium (8.4-10.2) mg/dL Total Bilirubin (0.2-1.3) mg/dL AST (14-36) U/L ALT (0-35) U/L Alkaline Phosphatase (38-126) U/L Troponin I < 0.012 (0.000-0.034) ng/mL Serum Total Protein (6.3-8.2) g/dL Albumin (3.5-5.0) g/dL Urine Color Yellow (Yellow) Urine Appearance Clear (Clear) Urine pH 5.5 (4.6-8.0) Ur Specific Panther >=1.030 A (1.005-1.030) Urine Protein Negative (Negative) Urine Glucose (UA) Negative (Negative) mg/dL Urine Ketones Negative (Negative) Urine Blood Negative (Negative) Urine Nitrite Negative (Negative) Urine Bilirubin Negative (Negative) Urine Urobilinogen 0.2 (0.2) mg/dL Ur Leukocyte Esterase Negative (Negative) U Hyaline Cast (Auto) NONE SEEN (0-2) /LPF Urine Microscopic RBC 0-2 (0-5) /HPF Urine Microscopic WBC 0-2 (0-5) /HPF Ur Epithelial Cells Few (None Seen) /HPF Urine Bacteria None Seen (None Seen) /HPF Urine Culture Reflexed NO (NO) 07/19/23 07/19/23 07/19/23 Range/Units 04:22 04:22 04:22 WBC 37.2 H* (4.0-10.5) x10^3/uL RBC 4.60 (4.1-5.4) x10^6/uL Hgb 14.1 (12.0-16.0) g/dL Hct 45.6 (35-47) % MCV 99.1 (78-100) fL MCH 30.7 (26-32) pg MCHC 30.9 L (32-36) g/dL RDW 14.4 H (11.5-14.0) % Plt Count 241 (150-450) x10^3/uL MPV 10.3 (7.5-11.0) fL Segmented Neutrophils 94 H (36.0-66.0) % Band Neutrophils 1 (0.0-2.0) % Lymphocytes (Manual) 5 L (24-44) % Toxic Granulation 1+ Platelet Estimate NORMAL (NORMAL) RBC Morphology ABNORMAL Claudia Cells 1+ Sodium 136 L (137-145) mmol/L Potassium 4.3 D (3.5-5.1) mmol/L Chloride 108 H (98-107) mmol/L Carbon Dioxide 23 (22-30) mmol/L Anion Gap 9.3 (5-15) MEQ/L BUN 26 H (7-17) mg/dL Creatinine 0.77 (0.52-1.04) mg/dL Estimated GFR 89.9 ML/MIN Glucose 164 H (74-106) mg/dL Hemoglobin A1c 6.04 H (4.5-6.0) % Lactic Acid (0.4-2.0) Calcium 8.6 (8.4-10.2) mg/dL Total Bilirubin 0.30 (0.2-1.3) mg/dL AST 18 (14-36) U/L ALT 16 (0-35) U/L Alkaline Phosphatase 66 (38-126) U/L Troponin I (0.000-0.034) ng/mL Serum Total Protein 6.5 (6.3-8.2) g/dL Albumin 3.7 (3.5-5.0) g/dL Urine Color (Yellow) Urine Appearance (Clear) Urine pH (4.6-8.0) Ur Specific Panther (1.005-1.030) Urine Protein (Negative) Urine Glucose (UA) (Negative) mg/dL Urine Ketones (Negative) Urine Blood (Negative) Urine Nitrite (Negative) Urine Bilirubin (Negative) Urine Urobilinogen (0.2) mg/dL Ur Leukocyte Esterase (Negative) U Hyaline Cast (Auto) (0-2) /LPF Urine Microscopic RBC (0-5) /HPF Urine Microscopic WBC (0-5) /HPF Ur Epithelial Cells (None Seen) /HPF Urine Bacteria (None Seen) /HPF Urine Culture Reflexed (NO) 07/19/23 07/19/23 07/19/23 Range/Units 09:00 11:22 14:05 WBC (4.0-10.5) x10^3/uL RBC (4.1-5.4) x10^6/uL Hgb (12.0-16.0) g/dL Hct (35-47) % MCV (78-100) fL MCH (26-32) pg MCHC (32-36) g/dL RDW (11.5-14.0) % Plt Count (150-450) x10^3/uL MPV (7.5-11.0) fL Segmented Neutrophils (36.0-66.0) % Band Neutrophils (0.0-2.0) % Lymphocytes (Manual) (24-44) % Toxic Granulation Platelet Estimate (NORMAL) RBC Morphology Gilchrist Cells Sodium (137-145) mmol/L Potassium (3.5-5.1) mmol/L Chloride (98-107) mmol/L Carbon Dioxide (22-30) mmol/L Anion Gap (5-15) MEQ/L BUN (7-17) mg/dL Creatinine (0.52-1.04) mg/dL Estimated GFR ML/MIN Glucose (74-106) mg/dL Hemoglobin A1c (4.5-6.0) % Lactic Acid 1.1 (0.4-2.0) Calcium (8.4-10.2) mg/dL Total Bilirubin (0.2-1.3) mg/dL AST (14-36) U/L ALT (0-35) U/L Alkaline Phosphatase (38-126) U/L Troponin I < 0.012 < 0.012 (0.000-0.034) ng/mL Serum Total Protein (6.3-8.2) g/dL Albumin (3.5-5.0) g/dL Urine Color (Yellow) Urine Appearance (Clear) Urine pH (4.6-8.0) Ur Specific Panther (1.005-1.030) Urine Protein (Negative) Urine Glucose (UA) (Negative) mg/dL Urine Ketones (Negative) Urine Blood (Negative) Urine Nitrite (Negative) Urine Bilirubin (Negative) Urine Urobilinogen (0.2) mg/dL Ur Leukocyte Esterase (Negative) U Hyaline Cast (Auto) (0-2) /LPF Urine Microscopic RBC (0-5) /HPF Urine Microscopic WBC (0-5) /HPF Ur Epithelial Cells (None Seen) /HPF Urine Bacteria (None Seen) /HPF Urine Culture Reflexed (NO) Radiology Exams: Radiology Procedures Category Date Time Status CHEST 1 VIEW (PORTABLE) Stat Exams 07/18/23 08:55 Completed CHEST WITH CONTRAST [CT] Stat Exams 07/18/23 09:50 Completed Multi-Disciplinary Progress Notes: Multi-Disciplinary Progress Notes 07/19/23 10:24 Case Management Note by Sofi Kelly Addendum entered by Sofi Kelly 07/19/23 10:28: ORDER FORM GIVEN TO [employer] FOR WEEKEND USE Original Note: [facility]- THEY REPORT PATIENT HAS ORDERS FOR HS OXYGEN ONLY. [facility] PAPER PLACED ON CHART FOR DC IF PATIENT NEEDS 24 OXYGEN AT HOME. SHE WILL NEED QUALIFIED FOR THIS AT THAT TIME Initialized on 07/19/23 10:24 - END OF NOTE 07/19/23 09:36 Pharmacy Note by Andrew Holloway Pharmacokinetic dosing service Date: 07/19/2023 Time: 929 Objective: sepsis, pneumonia Patient: Luna Mejias Floor: 115 Age: 58 yo Serum creatinine: 0.77 mg/dL Height: 61 Inches Weight (kg): 90.7 Diagnosis: Sepsis/Pneumonia Positive blood culture Relevant medical/social history: Cultures and sensitivities: Gram Positive cocci in chains Other labs: lactic 2.6 down to 2.5 down to 1.1 WBC 37,200 Assessment: IBW (kg): 47.80 Dosing wt(kg): 90.7 Estimated Creatinine clearance (ml/min): 60.8 CRCL method: Cockcroft and Gault using ibw(default). Drug selected: Vancomycin Loading dose (mg): 1500 Vd (liters): 68.0 (factor used: 0.75 L/kg) Sigifredo (hr-1): 0.055 Half life (hrs): 12.60 Recommended dose: 1000 mg Interval: 12 hrs Infusion time (hrs): 2.0 Predicted peak (mcg/mL): 28.8 Predicted trough (mcg/mL): 16.62 Total body weight is being used for vancomycin dosing. Renal function is stable [xxx ] /unstable [ ] Recommendations: Give Vancomycin 1500 mg loading dose followed by Vancomycin 1000 mg q 12 hrs with an expected Cpeak of 28.8 mcg/ml and an expected Ctrough of 16.62 mcg/ml Renal dosing of other antibiotics (review renal dosing of other medications and list guidelines here): Zosyn 3.375 gm q6h Thank you for the consult, will continue to follow. Signature: Andrew Holloway Trough [id number] 07/20 Initialized on 07/19/23 09:36 - END OF NOTE 07/18/23 20:27 Respiratory Note by Shahnaz Moreno Patient refused to wear CPAP tonight. Left CPAP at bedside, patient stated she may try to wear it tomorrow. Initialized on 07/18/23 20:27 - END OF NOTE Assessment/Plan (1) Sepsis Current Visit: Yes Status: Acute (2) Left lower lobe pneumonia Current Visit: Yes Status: Acute Code(s): J18.9 - PNEUMONIA, UNSPECIFIED ORGANISM (3) Hypotension Current Visit: Yes Status: Acute Code(s): I95.9 - HYPOTENSION, UNSPECIFIED (4) Hyponatremia Current Visit: Yes Status: Acute Code(s): E87.1 - HYPO-OSMOLALITY AND HYPONATREMIA (5) Second hand tobacco smoke exposure Current Visit: Yes Status: Acute (6) CHARITY (acute kidney injury) Current Visit: Yes Status: Acute Code(s): N17.9 - ACUTE KIDNEY FAILURE, UNSPECIFIED (7) COPD exacerbation Current Visit: No Status: Acute Code(s): J44.1 - CHRONIC OBSTRUCTIVE PULMONARY DISEASE W (ACUTE) EXACERBATION (8) D-dimer, elevated Current Visit: Yes Status: Acute Code(s): R79.89 - OTHER SPECIFIED ABNORMAL FINDINGS OF BLOOD CHEMISTRY (9) Obesity (BMI 30-39.9) Current Visit: Yes Status: Chronic Assessment & Plan: (1) Left lower lobe pneumonia Current Visit: Yes Status: Acute Assessment & Plan: - Antibiotics, steroids, duonebs - CT and CXR reviewed 07/19 - antibiotics changed to zosyn , vancomycin and azithromycin - BC x2 gram + cocci in chains x2 Code(s): J18.9 - PNEUMONIA, UNSPECIFIED ORGANISM (2) Hypotension Current Visit: Yes Status: Acute Assessment & Plan: - norepinephrine Started in ER - Tele- ICU bed - Hold BP meds 07/19 - norepinephrine continued Code(s): I95.9 - HYPOTENSION, UNSPECIFIED (3) Hyponatremia Current Visit: Yes Status: Acute Assessment & Plan: - Mild Na+ 135- trend 07/19 - Na+ 136 - IVF Code(s): E87.1 - HYPO-OSMOLALITY AND HYPONATREMIA (4) Second hand tobacco smoke exposure Current Visit: Yes Status: Acute Assessment & Plan: - advised to educate family to smoke outside (5) CHARITY (acute kidney injury) Current Visit: Yes Status: Acute Assessment & Plan: - IVF - creat 1.08 - recheck in AM 07/19 - resolved Code(s): N17.9 - ACUTE KIDNEY FAILURE, UNSPECIFIED (6) Sepsis Current Visit: Yes Status: Acute Assessment & Plan: - IVF bolus 1L X2 gave in ER - Lactic acid 2.7 at 9: 08, 2.6 @ 11:11, and 2.5 @ 16:49 - Cont IVF - will repeat LA 07/19 - LA 1.1 - WBC 37.2- antibiotics changed (7) COPD exacerbation Current Visit: No Status: Acute Assessment & Plan: - antibiotics, steriods, nebs - on 5LNC- BL 3lNC Code(s): J44.1 - CHRONIC OBSTRUCTIVE PULMONARY DISEASE W (ACUTE) EXACERBATION (8) D-dimer, elevated Current Visit: Yes Status: Acute Assessment & Plan: - d-dimer 1.03 - CT negative for PE Code(s): R79.89 - OTHER SPECIFIED ABNORMAL FINDINGS OF BLOOD CHEMISTRY (9) Obesity (BMI 30-39.9) Current Visit: Yes Status: Chronic Assessment & Plan: - advised diet and exercise control VTE: Lovenox Next of kin: spouse Code status: full D/C plan: 1-2 days Code(s): E66.9 - OBESITY, UNSPECIFIED (10) Pre-diabetes Current Visit: Yes Status: Acute Assessment & Plan: - A1C 6.04 - Will need metformin at dc Code(s): R73.03 - PREDIABETES
[2023-07-19] MEDS: VANCOMYCIN 1 GRAM/200 ML BAG 1 GM/200 ML PIGGYBACK IV SCH (22:16)
[2023-07-20 08:07] LABS: Hematocrit 38.2 % (35-47); Hemoglobin 11.8 g/dL (12.0-16.0); Mean Corpuscular Hemoglobin 30.9 pg (26-32); Mean Corpuscular Hgb Concent. 30.9 g/dL (32-36); Mean Platelet Volume 10.3 fL (7.5-11.0); Platelet Count 186 x10^3/uL (150-450); Red Blood Count 3.82 x10^6/uL (4.1-5.4); Red Cell Distribution Width 14.5 % (11.5-14.0); White Blood Count 23.9 x10^3/uL (4.0-10.5)
[2023-07-20 08:31] LABS: ALBUMIN 3.2 g/dL (3.5-5.0); ANION GAP 11.7 MEQ/L (5-15); BILIRUBIN,TOTAL 0.2 mg/dL (0.2-1.3); Creatinine 1 0.63 mg/dL (0.52-1.04); EST GLOMERULAR FILTRATION RATE 103.4 ML/MIN; Potassium 4.3 mmol/L (3.5-5.1); Total Protein 5.9 g/dL (6.3-8.2)
[2023-07-20] MEDS: Lasix 20 MG/2 ML IV SCH (10:21)
--- NOTE | 2023-07-20 13:22 | PCM.NOTE ---
Date and Time: 07/20/23 1315 Subjective Assessment: 07/18/23 is a 58 year old female with PMHX of HTN, ND, asthma, COPD, sleep apnea, thyroid CA, cervical CA, and second hand smoke exposure. She presented to the ER today with a complaint of shortness of breath. She does have a history of COPD she says her current episode started 2 days ago. She became more short of breath and coughing yesterday at noon she went home found a fever of 103. She has been coughing up blood-streaked sputum she has left-sided chest soreness. This morning she did have 1 episode of nausea and vomiting. CXR and CT chest shows new LLL infiltate. CTA negative for PE. She was started on a norepinephrine gtt in ER for low BP. BP is currently stable on gtt at 117/84. WBC 26.7, d-dimer 1.03, LA 2.5. She received 2 fluid boluses in ER. Antibiotics, steroids and breathing treatments also started. She is feeling better since admission. She is currently on 5LNC and 3lNC at noc is her baseline. She smells strongly of tobacco smoke. Advised her to educate her family about smoking around her and to smoke outside d/t her medical problems. She denies CP, abd. pain, N/V/D. 07/19/23 Pt sitting up in bed. She continues to have SOB and pain in LLL. She continues to be on the norepinephrine gtt. WBC increased, antibiotics changed. BC x2 gram + cocci in chains. Sensitivity pending. Sputum culture pending. Lactic acid normal today. CHARITY resolved. Pt developed CP this AM EKG completed and showed NSR. trop x2 negative so far. She remains in the ICU on 5LNC. She denies any further concerns at this time. 07/20/23 Pt sitting up in the chair today. She states she is starting to feel better. She is on 2Lnc @ 92%. However when she stands or walks oxygen dropped into the low 80's and her lips turn blue. Flutter therapy added. She is now off the norepinephrine gtt, it has been off since 10:40 yesterday morning. She continues to have pitting edema of BLLE. Will start Lasix daily. She takes Bumex at home. WBC has improved. Repeat blood cultures drawn. Continue antibiotics, steroids, duonebs. She denies CP, abd. pain, N/V/D. - Review of Systems Constitutional: No Fever, No Chills Eyes: No Symptoms Ears, Nose, & Throat: No Symptoms Respiratory: Short Of Breath, Wheezing, No Cough Cardiac: Edema (BLLE), No Chest Pain, No Syncope Abdominal/Gastrointestinal: No Abdominal Pain, No Nausea, No Vomiting, No Diarrhea Genitourinary Symptoms: No Dysuria Musculoskeletal: No Back Pain, No Neck Pain Skin: No Rash Neurological: No Dizziness, No Focal Weakness, No Sensory Changes Psychological: No Symptoms Endocrine: No Symptoms Hematologic/Lymphatic: No Symptoms Immunological/Allergic: No Symptoms Objective Exam General Appearance: no apparent distress, alert Neurologic Exam: alert, oriented x 3, cooperative, normal mood/affect, nml cerebellar function, sensation nml, No motor deficits Skin Exam: normal color, warm, dry Eye Exam: PERRL, EOMI, eyes nml inspection Ears, Nose, Throat Exam: normal ENT inspection, pharynx normal, moist mucous membranes Neck Exam: normal inspection, non-tender, supple, full range of motion Respiratory Exam: normal breath sounds, diminished breath sounds (LLL), wheezing, No respiratory distress Cardiovascular Exam: regular rate/rhythm, normal heart sounds, edema (+ 2 pitting edema BLLE) Gastrointestinal/Abdomen Exam: soft, No tenderness, No mass Extremity Exam: normal inspection, normal range of motion Back Exam: normal inspection, normal range of motion, No CVA tenderness, No vertebral tenderness Pelvic Exam: deferred Rectal Exam: deferred OBJECTIVE DATA Vital Signs: Vital Signs - 24 hr Temp Pulse Resp BP Pulse Ox 07/20/23 12:52 97 H 16 94 L 07/20/23 12:00 97.8 F 97 H 16 109/62 90 L 07/20/23 08:00 97.6 F 75 20 114/66 90 L 07/20/23 07:34 63 18 95 07/20/23 05:54 67 17 92 L 07/20/23 05:00 65 16 91 L 07/20/23 04:00 97.1 F 80 20 111/67 92 L 07/20/23 02:00 68 14 97 07/20/23 01:54 84 20 93 L 07/20/23 00:01 86 07/19/23 23:52 96.4 F 80 17 124/77 93 L 07/19/23 20:00 97.9 F 70 19 108/65 91 L 07/19/23 19:08 71 20 92 L 07/19/23 19:00 73 23 108/65 91 L 07/19/23 18:00 98 H 18 95/62 90 L 07/19/23 17:00 89 21 96/71 90 L 07/19/23 16:00 96.6 F 76 22 119/72 93 L 07/19/23 13:23 81 20 92 L Pain Assessment - Last Documented Pain Intensity 0 Pain Scale Used 0-10 Pain Scale Intake and Output: Intake & Output 07/18/23 07/19/23 07/20/23 07/21/23 11:59 11:59 11:59 11:59 Intake Total 2780 5018 Output Total 1000 900 Balance 1780 4118 Weight 86.4 kg 90.7 kg Lab Results: Lab Results-Last 24 Hours 07/19/23 07/19/23 07/20/23 Range/Units 14:05 17:04 07:24 WBC 23.9 H (4.0-10.5) x10^3/uL RBC 3.82 L (4.1-5.4) x10^6/uL Hgb 11.8 L (12.0-16.0) g/dL Hct 38.2 (35-47) % MCV 100.0 (78-100) fL MCH 30.9 (26-32) pg MCHC 30.9 L (32-36) g/dL RDW 14.5 H (11.5-14.0) % Plt Count 186 (150-450) x10^3/uL MPV 10.3 (7.5-11.0) fL Sodium (137-145) mmol/L Potassium (3.5-5.1) mmol/L Chloride (98-107) mmol/L Carbon Dioxide (22-30) mmol/L Anion Gap (5-15) MEQ/L BUN (7-17) mg/dL Creatinine (0.52-1.04) mg/dL Estimated GFR ML/MIN Glucose (74-106) mg/dL Calcium (8.4-10.2) mg/dL Total Bilirubin (0.2-1.3) mg/dL AST (14-36) U/L ALT (0-35) U/L Alkaline Phosphatase (38-126) U/L Troponin I < 0.012 < 0.012 (0.000-0.034) ng/mL Serum Total Protein (6.3-8.2) g/dL Albumin (3.5-5.0) g/dL 07/20/23 Range/Units 07:24 WBC (4.0-10.5) x10^3/uL RBC (4.1-5.4) x10^6/uL Hgb (12.0-16.0) g/dL Hct (35-47) % MCV (78-100) fL MCH (26-32) pg MCHC (32-36) g/dL RDW (11.5-14.0) % Plt Count (150-450) x10^3/uL MPV (7.5-11.0) fL Sodium 138 (137-145) mmol/L Potassium 4.3 (3.5-5.1) mmol/L Chloride 112 H (98-107) mmol/L Carbon Dioxide 19 L (22-30) mmol/L Anion Gap 11.7 (5-15) MEQ/L BUN 23 H (7-17) mg/dL Creatinine 0.63 (0.52-1.04) mg/dL Estimated GFR 103.4 ML/MIN Glucose 171 H (74-106) mg/dL Calcium 8.0 L (8.4-10.2) mg/dL Total Bilirubin 0.20 (0.2-1.3) mg/dL AST 46 H (14-36) U/L ALT 62 H (0-35) U/L Alkaline Phosphatase 66 (38-126) U/L Troponin I (0.000-0.034) ng/mL Serum Total Protein 5.9 L (6.3-8.2) g/dL Albumin 3.2 L (3.5-5.0) g/dL Assessment/Plan (1) Sepsis Current Visit: Yes Status: Acute Assessment & Plan: - ICU - IVF bolus 1L X2 gave in ER - Lactic acid 2.7 at 9: 08, 2.6 @ 11:11, and 2.5 @ 16:49 - Cont IVF - will repeat LA - tele 07/19 - LA 1.1 - WBC 37.2- antibiotics changed 07/20 - WBC 23.9 - continue antibiotics - BCX2 repeat (2) Left lower lobe pneumonia Current Visit: Yes Status: Acute Assessment & Plan: - Antibiotics, steroids, duonebs - CT and CXR reviewed 07/19 - antibiotics changed to zosyn , vancomycin and azithromycin - BC x2 gram + cocci in chains x2 - sensitivity pending 07/20 - repeat BC X2 - 2lNC 92% - Flutter therapy - PT - decreased O2 with standing and walking Code(s): J18.9 - PNEUMONIA, UNSPECIFIED ORGANISM (3) Hypotension Current Visit: Yes Status: Acute Assessment & Plan: - norepinephrine Started in ER - Tele- ICU bed - Hold BP meds 07/19 - norepinephrine continued 07/20 - gtt stopped - BP stable Code(s): I95.9 - HYPOTENSION, UNSPECIFIED (4) Hyponatremia Current Visit: Yes Status: Acute Assessment & Plan: - Mild Na+ 135- trend 07/19 - Na+ 136 - IVF 07/20 - Na+ 138 Code(s): E87.1 - HYPO-OSMOLALITY AND HYPONATREMIA (5) Second hand tobacco smoke exposure Current Visit: Yes Status: Chronic Assessment & Plan: - advised to educate family to smoke outside (6) CHARITY (acute kidney injury) Current Visit: Yes Status: Acute Assessment & Plan: - IVF - creat 1.08 - recheck in AM 07/19 - resolved Code(s): N17.9 - ACUTE KIDNEY FAILURE, UNSPECIFIED (7) COPD exacerbation Current Visit: No Status: Acute Assessment & Plan: - antibiotics, steriods, nebs - on 5LNC- BL 3lNC 07/20 - 2lNC 92% - would benefit from OP pulm rehab Code(s): J44.1 - CHRONIC OBSTRUCTIVE PULMONARY DISEASE W (ACUTE) EXACERBATION (8) D-dimer, elevated Current Visit: Yes Status: Acute Assessment & Plan: - d-dimer 1.03 - CT negative for PE Code(s): R79.89 - OTHER SPECIFIED ABNORMAL FINDINGS OF BLOOD CHEMISTRY (9) Pre-diabetes Current Visit: Yes Status: Acute Assessment & Plan: - A1C 6.04 - Will need metformin at dc Code(s): R73.03 - PREDIABETES (10) Edema of both lower extremities Current Visit: Yes Status: Chronic Assessment & Plan: - TEDS - elevate legs - Lasix 20mg daily Code(s): R60.0 - LOCALIZED EDEMA (11) Obesity (BMI 30-39.9) Current Visit: Yes Status: Chronic Assessment & Plan: - advised diet and exercise control VTE: Lovenox Next of kin: spouse Code status: full D/C plan: 1-2 days Code(s): E66.9 - OBESITY, UNSPECIFIED
[2023-07-20] MEDS: Mucinex 600MG ER Tabs PO SCH (18:16)
[2023-07-21 06:28] LABS: Hematocrit 38.9 % (35-47); Hemoglobin 11.9 g/dL (12.0-16.0); Mean Cell Volume 99.5 fL (78-100); Mean Corpuscular Hemoglobin 30.4 pg (26-32); Mean Corpuscular Hgb Concent. 30.6 g/dL (32-36); Mean Platelet Volume 10.5 fL (7.5-11.0); Platelet Count 189 x10^3/uL (150-450); Red Blood Count 3.91 x10^6/uL (4.1-5.4); Red Cell Distribution Width 14.6 % (11.5-14.0)
[2023-07-21 06:44] LABS: ALBUMIN 3.3 g/dL (3.5-5.0); ANION GAP 9.1 MEQ/L (5-15); BILIRUBIN,TOTAL 0.3 mg/dL (0.2-1.3); Calcium 8.3 mg/dL (8.4-10.2); Creatinine 1 0.73 mg/dL (0.52-1.04); EST GLOMERULAR FILTRATION RATE 95.9 ML/MIN; Potassium 4.2 mmol/L (3.5-5.1)
[2023-07-21] MEDS: TROUGH DRUG LEVELS IJ ONE (08:19)
[2023-07-21] MEDS: VANCOMYCIN 1.25 GM/250 ML BAG 1.25 GM/250 ML PIGGYBACK IV SCH (09:54)
[2023-07-21] MEDS ORDERED: VANCOMYCIN 1.25 GM/250 ML BAG 1.25 GM/250 ML PIGGYBACK IV SCH (10:00)
--- NOTE | 2023-07-21 11:09 | PCM.NOTE ---
Date and Time: 07/21/23 1104 Subjective Assessment: 07/18/23 is a 58 year old female with PMHX of HTN, [place], asthma, COPD, sleep apnea, thyroid CA, cervical CA, and second hand smoke exposure. She presented to the ER today with a complaint of shortness of breath. She does have a history of COPD she says her current episode started 2 days ago. She became more short of breath and coughing yesterday at noon she went home found a fever of 103. She has been coughing up blood-streaked sputum she has left-sided chest soreness. This morning she did have 1 episode of nausea and vomiting. CXR and CT chest shows new LLL infiltate. CTA negative for PE. She was started on a norepinephrine gtt in ER for low BP. BP is currently stable on gtt at 117/84. WBC 26.7, d-dimer 1.03, LA 2.5. She received 2 fluid boluses in ER. Antibiotics, steroids and breathing treatments also started. She is feeling better since admission. She is currently on 5LNC and 3lNC at noc is her baseline. She smells strongly of tobacco smoke. Advised her to educate her family about smoking around her and to smoke outside d/t her medical problems. She denies CP, abd. pain, N/V/D. 07/19/23 Pt sitting up in bed. She continues to have SOB and pain in LLL. She continues to be on the norepinephrine gtt. WBC increased, antibiotics changed. BC x2 gram + cocci in chains. Sensitivity pending. Sputum culture pending. Lactic acid normal today. CHARITY resolved. Pt developed CP this AM EKG completed and showed NSR. trop x2 negative so far. She remains in the ICU on 5LNC. She denies any further concerns at this time. 07/20/23 Pt sitting up in the chair today. She states she is starting to feel better. She is on 2Lnc @ 92%. However when she stands or walks oxygen dropped into the low 80's and her lips turn blue. Flutter therapy added. She is now off the norepinephrine gtt, it has been off since 10:40 yesterday morning. She continues to have pitting edema of BLLE. Will start Lasix daily. She takes Bumex at home. WBC has improved. Repeat blood cultures drawn. Continue antibiotics, steroids, duonebs. She denies CP, abd. pain, N/V/D. 07/21/23 Pt sitting up in chair and family is visiting today. She explains she would like to go home tomorrow as she is worried about the cost of her hospital bill. Labs overall are improving WBC is 18 and Co2 is 21. Liver enzymes are increased and may be 2/2 sepsis and pneumonia if not improved tomorrow will obtain US for further eval. SOB has improved, she is o n 3lnc at 94% today. SHe continues to have activity intolerance and oxygen drops into low 80's with walking. redrawn blood cultures are pending. Will continues antibiotics, steroids and duonebs. She denies CP, abd. pain, N/V/D. - Review of Systems Constitutional: No Fever, No Chills Eyes: No Symptoms Ears, Nose, & Throat: No Symptoms Respiratory: Short Of Breath, No Cough Cardiac: No Chest Pain, No Edema, No Syncope Abdominal/Gastrointestinal: No Abdominal Pain, No Nausea, No Vomiting, No Diarrhea Genitourinary Symptoms: No Dysuria Musculoskeletal: No Back Pain, No Neck Pain Skin: No Rash Neurological: No Dizziness, No Focal Weakness, No Sensory Changes Psychological: No Symptoms Endocrine: No Symptoms Hematologic/Lymphatic: No Symptoms Immunological/Allergic: No Symptoms Objective Exam General Appearance: no apparent distress, alert Neurologic Exam: alert, oriented x 3, cooperative, normal mood/affect, nml cerebellar function, sensation nml, No motor deficits Skin Exam: normal color, warm, dry Eye Exam: PERRL, EOMI, eyes nml inspection Ears, Nose, Throat Exam: normal ENT inspection, pharynx normal, moist mucous membranes Neck Exam: normal inspection, non-tender, supple, full range of motion Respiratory Exam: diminished breath sounds (LLL), other (activity intolerence), No respiratory distress Cardiovascular Exam: regular rate/rhythm, normal heart sounds Gastrointestinal/Abdomen Exam: soft, No tenderness, No mass Extremity Exam: normal inspection, normal range of motion Back Exam: normal inspection, normal range of motion, No CVA tenderness, No vertebral tenderness Pelvic Exam: deferred Rectal Exam: deferred OBJECTIVE DATA Vital Signs: Vital Signs - 24 hr Temp Pulse Resp BP Pulse Ox 07/21/23 08:00 60 07/21/23 07:16 58 L 16 94 L 07/21/23 06:59 97.9 F 59 L 18 120/70 95 07/21/23 04:00 97.8 F 66 20 132/73 96 07/21/23 00:11 95.9 F 76 19 97 07/21/23 00:01 59 L 07/20/23 22:56 127/76 07/20/23 20:08 110/61 07/20/23 20:00 71 07/20/23 19:58 96.8 F 76 21 94/51 95 07/20/23 19:13 76 22 95 07/20/23 16:00 97.6 F 73 16 121/64 94 L 07/20/23 12:52 97 H 16 94 L 07/20/23 12:00 97.8 F 97 H 16 109/62 90 L Pain Assessment - Last Documented Pain Intensity 0 Pain Scale Used 0-10 Pain Scale Intake and Output: Intake & Output 07/18/23 07/19/23 07/20/23 07/21/23 11:59 11:59 11:59 11:59 Intake Total 2780 5018 3503 Output Total 4985 018 9826 Balance 1780 4118 2103 Weight 86.4 kg 90.7 kg Lab Results: Lab Results-Last 24 Hours 07/20/23 07/20/23 07/20/23 Range/Units 15:51 21:34 23:44 WBC (4.0-10.5) x10^3/uL RBC (4.1-5.4) x10^6/uL Hgb (12.0-16.0) g/dL Hct (35-47) % MCV (78-100) fL MCH (26-32) pg MCHC (32-36) g/dL RDW (11.5-14.0) % Plt Count (150-450) x10^3/uL MPV (7.5-11.0) fL Sodium (137-145) mmol/L Potassium (3.5-5.1) mmol/L Chloride (98-107) mmol/L Carbon Dioxide (22-30) mmol/L Anion Gap (5-15) MEQ/L BUN (7-17) mg/dL Creatinine (0.52-1.04) mg/dL Estimated GFR ML/MIN Glucose (74-106) mg/dL POC Glucometer 191 H 128 H (74 to 106) mg/dL Calcium (8.4-10.2) mg/dL Total Bilirubin (0.2-1.3) mg/dL AST (14-36) U/L ALT (0-35) U/L Alkaline Phosphatase (38-126) U/L Serum Total Protein (6.3-8.2) g/dL Albumin (3.5-5.0) g/dL Vancomycin Trough 8.65 L (10-20) ug/mL 07/21/23 07/21/23 07/21/23 Range/Units 06:25 06:25 06:48 WBC 18.0 H (4.0-10.5) x10^3/uL RBC 3.91 L (4.1-5.4) x10^6/uL Hgb 11.9 L (12.0-16.0) g/dL Hct 38.9 (35-47) % MCV 99.5 (78-100) fL MCH 30.4 (26-32) pg MCHC 30.6 L (32-36) g/dL RDW 14.6 H (11.5-14.0) % Plt Count 189 (150-450) x10^3/uL MPV 10.5 (7.5-11.0) fL Sodium 137 (137-145) mmol/L Potassium 4.2 (3.5-5.1) mmol/L Chloride 111 H (98-107) mmol/L Carbon Dioxide 21 L (22-30) mmol/L Anion Gap 9.1 (5-15) MEQ/L BUN 28 H (7-17) mg/dL Creatinine 0.73 (0.52-1.04) mg/dL Estimated GFR 95.9 ML/MIN Glucose 137 H (74-106) mg/dL POC Glucometer 124 H (74 to 106) mg/dL Calcium 8.3 L (8.4-10.2) mg/dL Total Bilirubin 0.30 (0.2-1.3) mg/dL AST 99 H (14-36) U/L ALT 199 H (0-35) U/L Alkaline Phosphatase 61 (38-126) U/L Serum Total Protein 6.0 L (6.3-8.2) g/dL Albumin 3.3 L (3.5-5.0) g/dL Vancomycin Trough (10-20) ug/mL 07/21/23 Range/Units 10:56 WBC (4.0-10.5) x10^3/uL RBC (4.1-5.4) x10^6/uL Hgb (12.0-16.0) g/dL Hct (35-47) % MCV (78-100) fL MCH (26-32) pg MCHC (32-36) g/dL RDW (11.5-14.0) % Plt Count (150-450) x10^3/uL MPV (7.5-11.0) fL Sodium (137-145) mmol/L Potassium (3.5-5.1) mmol/L Chloride (98-107) mmol/L Carbon Dioxide (22-30) mmol/L Anion Gap (5-15) MEQ/L BUN (7-17) mg/dL Creatinine (0.52-1.04) mg/dL Estimated GFR ML/MIN Glucose (74-106) mg/dL POC Glucometer 149 H (74 to 106) mg/dL Calcium (8.4-10.2) mg/dL Total Bilirubin (0.2-1.3) mg/dL AST (14-36) U/L ALT (0-35) U/L Alkaline Phosphatase (38-126) U/L Serum Total Protein (6.3-8.2) g/dL Albumin (3.5-5.0) g/dL Vancomycin Trough (10-20) ug/mL Assessment/Plan (1) Sepsis Current Visit: Yes Status: Acute (2) Left lower lobe pneumonia Current Visit: Yes Status: Acute Code(s): J18.9 - PNEUMONIA, UNSPECIFIED ORGANISM (3) Hypotension Current Visit: Yes Status: Acute Code(s): I95.9 - HYPOTENSION, UNSPECIFIED (4) Hyponatremia Current Visit: Yes Status: Acute Code(s): E87.1 - HYPO-OSMOLALITY AND HYPONATREMIA (5) Second hand tobacco smoke exposure Current Visit: Yes Status: Chronic (6) CHARITY (acute kidney injury) Current Visit: Yes Status: Acute Code(s): N17.9 - ACUTE KIDNEY FAILURE, UNSPECIFIED (7) COPD exacerbation Current Visit: No Status: Acute Code(s): J44.1 - CHRONIC OBSTRUCTIVE PULMONARY DISEASE W (ACUTE) EXACERBATION (8) D-dimer, elevated Current Visit: Yes Status: Acute Code(s): R79.89 - OTHER SPECIFIED ABNORMAL FINDINGS OF BLOOD CHEMISTRY (9) Pre-diabetes Current Visit: Yes Status: Acute Code(s): R73.03 - PREDIABETES (10) Edema of both lower extremities Current Visit: Yes Status: Chronic Code(s): R60.0 - LOCALIZED EDEMA (11) Obesity (BMI 30-39.9) Current Visit: Yes Status: Chronic Assessment & Plan: (1) Sepsis Current Visit: Yes Status: Acute Assessment & Plan: - ICU - IVF bolus 1L X2 gave in ER - Lactic acid 2.7 at 9: 08, 2.6 @ 11:11, and 2.5 @ 16:49 - Cont IVF - will repeat LA - tele 07/19 - LA 1.1 - WBC 37.2- antibiotics changed 07/20 - WBC 23.9 - continue antibiotics - BCX2 repeat- pending 07/21 - can be moved from ICU bed to med-surg (2) Left lower lobe pneumonia Current Visit: Yes Status: Acute Assessment & Plan: - Antibiotics, steroids, duonebs - CT and CXR reviewed 07/19 - antibiotics changed to zosyn , vancomycin and azithromycin - BC x2 gram + cocci in chains x2 - sensitivity pending 07/20 - repeat BC X2 - 2lNC 92% - Flutter therapy - PT - decreased O2 with standing and walking 07/21 - 3lNC 93% - Continued activity intolerence Code(s): J18.9 - PNEUMONIA, UNSPECIFIED ORGANISM (3) Hypotension Current Visit: Yes Status: Acute Assessment & Plan: - norepinephrine Started in ER - Tele- ICU bed - Hold BP meds 07/19 - norepinephrine continued 07/20 - gtt stopped - BP stable 07/21 - resolved Code(s): I95.9 - HYPOTENSION, UNSPECIFIED (4) Hyponatremia Current Visit: Yes Status: Acute Assessment & Plan: - Mild Na+ 135- trend 07/19 - Na+ 136 - IVF 07/20 - Na+ 138 07/21 - resolved Code(s): E87.1 - HYPO-OSMOLALITY AND HYPONATREMIA (5) Second hand tobacco smoke exposure Current Visit: Yes Status: Chronic Assessment & Plan: - advised to educate family to smoke outside (6) CHARITY (acute kidney injury) Current Visit: Yes Status: Acute Assessment & Plan: - IVF - creat 1.08 - recheck in AM 07/19 - resolved Code(s): N17.9 - ACUTE KIDNEY FAILURE, UNSPECIFIED (7) COPD exacerbation Current Visit: No Status: Acute Assessment & Plan: - antibiotics, steriods, nebs - on 5LNC- BL 3lNC 07/20 - 2lNC 92% - would benefit from OP pulm rehab- will discuss with case management 07/21 - 3LNC 93% Code(s): J44.1 - CHRONIC OBSTRUCTIVE PULMONARY DISEASE W (ACUTE) EXACERBATION (8) D-dimer, elevated Current Visit: Yes Status: Acute Assessment & Plan: - d-dimer 1.03 - CT negative for PE Code(s): R79.89 - OTHER SPECIFIED ABNORMAL FINDINGS OF BLOOD CHEMISTRY (9) Pre-diabetes Current Visit: Yes Status: Acute Assessment & Plan: - A1C 6.04 - Will need metformin at dc Code(s): R73.03 - PREDIABETES (10) Edema of both lower extremities Current Visit: Yes Status: Chronic Assessment & Plan: - TEDS - elevate legs - Lasix 20mg daily Code(s): R60.0 - LOCALIZED EDEMA (11) Obesity (BMI 30-39.9) Current Visit: Yes Status: Chronic Assessment & Plan: - advised diet and exercise control VTE: Lovenox Next of kin: spouse Code status: full D/C plan: 1-2 days Code(s): E66.9 - OBESITY, UNSPECIFIED Code(s): E66.9 - OBESITY, UNSPECIFIED (12) Abnormal AST and ALT Current Visit: Yes Status: Acute Assessment & Plan: - AST 99, ALT 3.3 - 2/2 Sepsis and Pneumonia - if labs do not improve tomorrow with order US of liver for further evaluation. - US not available on weekends Code(s): R74.8 - ABNORMAL LEVELS OF OTHER SERUM ENZYMES
[2023-07-21] MEDS: HUMALOG SQ PRN (16:03)
[2023-07-22 09:08] LABS: Hematocrit 41.4 % (35-47); Hemoglobin 12.8 g/dL (12.0-16.0); Mean Cell Volume 98.1 fL (78-100); Mean Corpuscular Hemoglobin 30.3 pg (26-32); Mean Corpuscular Hgb Concent. 30.9 g/dL (32-36); Mean Platelet Volume 9.8 fL (7.5-11.0); Platelet Count 214 x10^3/uL (150-450); Red Blood Count 4.22 x10^6/uL (4.1-5.4); Red Cell Distribution Width 14.4 % (11.5-14.0)
[2023-07-22 09:17] LABS: ALBUMIN 3.2 g/dL (3.5-5.0); ANION GAP 6.2 MEQ/L (5-15); BILIRUBIN,TOTAL 0.4 mg/dL (0.2-1.3); Calcium 8.5 mg/dL (8.4-10.2); Creatinine 1 0.74 mg/dL (0.52-1.04); EST GLOMERULAR FILTRATION RATE 94.3 ML/MIN; Potassium 4.1 mmol/L (3.5-5.1); Total Protein 5.9 g/dL (6.3-8.2)
--- NOTE | 2023-07-22 14:14 | XRAY ---
Indication: Elevated AST/ALT. Two-dimensional right upper quadrant abdominal sonogram performed. Comparison: None Visualized liver, pancreas, gallbladder, and right kidney are sonographically unremarkable. Common bile duct measures 2.8 mm. No intrahepatic biliary distention. Right kidney measures 10.0 x 4.5 x 4.6 cm. Impression: Negative right upper quadrant sonogram.
--- NOTE | 2023-07-22 14:31 | PCM.DS ---
Discharge Summary Date of Admission: 07/18/23 18:02 Date of Discharge: 07/22/23 Admitting Physician: DELANEY CRAWFORD MD Primary Care Provider: BINU BAHENA Allergies Allergies No Known Drug Allergies Allergy (Verified 07/18/23 08:42) Hospital Summary - Hospital Course Hospital Course: 07/18/23 is a 58 year old female with PMHX of HTN, ME, asthma, COPD, sleep apnea, thyroid CA, cervical CA, and second hand smoke exposure. She presented to the ER today with a complaint of shortness of breath. She does have a history of COPD she says her current episode started 2 days ago. She became more short of breath and coughing yesterday at noon she went home found a fever of 103. She has been coughing up blood-streaked sputum she has left-sided chest soreness. This morning she did have 1 episode of nausea and vomiting. CXR and CT chest shows new LLL infiltate. CTA negative for PE. She was started on a norepinephrine gtt in ER for low BP. BP is currently stable on gtt at 117/84. WBC 26.7, d-dimer 1.03, LA 2.5. She received 2 fluid boluses in ER. Antibiotics, steroids and breathing treatments also started. She is feeling better since a dmission. She is currently on 5LNC and 3lNC at noc is her baseline. She smells strongly of tobacco smoke. Advised her to educate her family about smoking around her and to smoke outside d/t her medical problems. She denies CP, abd. pain, N/V/D. 07/19/23 Pt sitting up in bed. She continues to have SOB and pain in LLL. She continues to be on the norepinephrine gtt. WBC increased, antibiotics changed. BC x2 gram + cocci in chains. Sensitivity pending. Sputum culture pending. Lactic acid normal today. CHARITY resolved. Pt developed CP this AM EKG completed and showed NSR. trop x2 negative so far. She remains in the ICU on 5LNC. She denies any further concerns at this time. 07/20/23 Pt sitting up in the chair today. She states she is starting to feel better. She is on 2Lnc @ 92%. However when she stands or walks oxygen dropped into the low 80's and her lips turn blue. Flutter therapy added. She is now off the norepinephrine gtt, it has been off since 10:40 yesterday morning. She continues to have pitting edema of BLLE. Will start Lasix daily. She takes Bumex at home. WBC has improved. Repeat blood cultures drawn. Continue antibiotics, steroids, duonebs. She denies CP, abd. pain, N/V/D. 07/21/23 Pt sitting up in chair and family is visiting today. She explains she would like to go home tomorrow as she is worried about the cost of her hospital bill. Labs overall are improving WBC is 18 and Co2 is 21. Liver enzymes are increased and may be 2/2 sepsis and pneumonia if not improved tomorrow will obtain US for further eval. SOB has improved, she is o n 3lnc at 94% today. SHe continues to have activity intolerance and oxygen drops into low 80's with walking. redrawn blood cultures are pending. Will continues antibiotics, steroids and duonebs. She denies CP, abd. pain, N/V/D. 07/22/23 Pt sitting up in the chair. She feels better and would like to leave today. She is on BL oxygen of 3lNC. Liver enzymes increased today, most likely 2:2 infection. Liver US ordered and negative. Will let pt d/c home with antibiotics and steroids. Will need to f/u with Pulmonology and PCP OP. She denies any further concerns at this time. - Vitals & Intake/Output Vital Signs: Vital Signs Temperature 97.3 F 07/22/23 12:00 Pulse Rate 62 07/22/23 13:27 Respiratory Rate 25 H 07/22/23 13:27 Blood Pressure 155/90 07/22/23 12:00 O2 Sat by Pulse Oximetry 94 L 07/22/23 13:27 Intake & Output: Intake & Output 07/20/23 07/21/23 07/22/23 07/23/23 11:59 11:59 11:59 11:59 Intake Total 5018 3503 1476 Output Total 900 1400 400 Balance 4118 2103 1076 Weight 90.7 kg - Lab Result Diagrams: 07/22/23 08:55 07/22/23 08:55 Lab Results-Last 24 Hrs: Lab Results-Last 24 Hours 0207/21/23 07/22/23 Range/Units 15:56 21:00 07:20 WBC (4.0-10.5) x10^3/uL RBC (4.1-5.4) x10^6/uL Hgb (12.0-16.0) g/dL Hct (35-47) % MCV (78-100) fL MCH (26-32) pg MCHC (32-36) g/dL RDW (11.5-14.0) % Plt Count (150-450) x10^3/uL MPV (7.5-11.0) fL Sodium (137-145) mmol/L Potassium (3.5-5.1) mmol/L Chloride (98-107) mmol/L Carbon Dioxide (22-30) mmol/L Anion Gap (5-15) MEQ/L BUN (7-17) mg/dL Creatinine (0.52-1.04) mg/dL Estimated GFR ML/MIN Glucose (74-106) mg/dL POC Glucometer 246 H 189 H 115 H (74 to 106) mg/dL Calcium (8.4-10.2) mg/dL Total Bilirubin (0.2-1.3) mg/dL AST (14-36) U/L ALT (0-35) U/L Alkaline Phosphatase (38-126) U/L Creatine Kinase (30-135) U/L Serum Total Protein (6.3-8.2) g/dL Albumin (3.5-5.0) g/dL 07/22/23 07/22/23 07/22/23 Range/Units 08:55 08:55 08:55 WBC 13.0 H (4.0-10.5) x10^3/uL RBC 4.22 (4.1-5.4) x10^6/uL Hgb 12.8 (12.0-16.0) g/dL Hct 41.4 (35-47) % MCV 98.1 (78-100) fL MCH 30.3 (26-32) pg MCHC 30.9 L (32-36) g/dL RDW 14.4 H (11.5-14.0) % Plt Count 214 (150-450) x10^3/uL MPV 9.8 (7.5-11.0) fL Sodium 138 (137-145) mmol/L Potassium 4.1 (3.5-5.1) mmol/L Chloride 110 H (98-107) mmol/L Carbon Dioxide 26 (22-30) mmol/L Anion Gap 6.2 (5-15) MEQ/L BUN 28 H (7-17) mg/dL Creatinine 0.74 (0.52-1.04) mg/dL Estimated GFR 94.3 ML/MIN Glucose 126 H (74-106) mg/dL POC Glucometer (74 to 106) mg/dL Calcium 8.5 (8.4-10.2) mg/dL Total Bilirubin 0.40 (0.2-1.3) mg/dL AST 124 H (14-36) U/L ALT 319 H (0-35) U/L Alkaline Phosphatase 66 (38-126) U/L Creatine Kinase 101 (30-135) U/L Serum Total Protein 5.9 L (6.3-8.2) g/dL Albumin 3.2 L (3.5-5.0) g/dL 07/22/23 Range/Units 11:34 WBC (4.0-10.5) x10^3/uL RBC (4.1-5.4) x10^6/uL Hgb (12.0-16.0) g/dL Hct (35-47) % MCV (78-100) fL MCH (26-32) pg MCHC (32-36) g/dL RDW (11.5-14.0) % Plt Count (150-450) x10^3/uL MPV (7.5-11.0) fL Sodium (137-145) mmol/L Potassium (3.5-5.1) mmol/L Chloride (98-107) mmol/L Carbon Dioxide (22-30) mmol/L Anion Gap (5-15) MEQ/L BUN (7-17) mg/dL Creatinine (0.52-1.04) mg/dL Estimated GFR ML/MIN Glucose (74-106) mg/dL POC Glucometer 106 (74 to 106) mg/dL Calcium (8.4-10.2) mg/dL Total Bilirubin (0.2-1.3) mg/dL AST (14-36) U/L ALT (0-35) U/L Alkaline Phosphatase (38-126) U/L Creatine Kinase (30-135) U/L Serum Total Protein (6.3-8.2) g/dL Albumin (3.5-5.0) g/dL Micro Results-Entire Visit: Microbiology 07/20/23 14:35 Blood Culture - Preliminary Blood 07/20/23 14:03 Blood Culture - Preliminary Blood 07/18/23 09:36 Blood Culture Gram Stain - Final Blood Blood Culture - Final SEE REFERENCE LAB REPORT FOR FINAL RESULTS 07/18/23 09:41 Blood Culture Gram Stain - Final Blood Blood Culture - Final SEE REFERENCE LAB REPORT FOR FINAL RESULTS 07/19/23 08:55 Sputum Culture - Preliminary Sputum - Expectorant NO GROWTH TO DATE Accuchecks Date 07/22/23 Date 07/22/23 Date 07/21/23 Date 07/21/23 Time 12:16 Time 07:43 Time 21:00 - Radiology Exams Ordered Rad Exams-Entire Visit: Radiology Procedures Category Date Time Status LIVER OR SPLEEN [US] Urgent Exams 07/22/23 11:02 Completed - Procedures and Test Procedures and Tests throughout Hospitalization: Therapy Orders & Screens 07/18/23 09:19 Respiratory Therapy Assessment DAILY Comment: 07/18/23 12:41 Oxygen Nasal Cannula 5 lpm Comment: 07/18/23 18:50 RT Screen per Nursing Assess ONCE Comment: Protocol Order Physician Instructions: Greater than 3 points order RT Admission Screen Reason For Exam: Triggered on Admission Diagnosis: Pneumonia, Sepsis Diagnosis: Pneumonia, Sepsis Pneumonia: Yes Home O2: Yes Asthma: No CHF: No Home CPAP/BIPAP: Yes Home Nebs/MDI: Yes Total Points: 18 ST Screen per Nursing Assess ONCE Comment: Protocol Order Physician Instructions: Greater than [address] Admission Screening Reason For Exam: Triggered on Admission Diagnosis: Pneumonia, Sepsis CVA/Dyshpagia/Aphasia: No Cognitive Deficits: No Dehydration/Nutrition Deficit: No Reflux: No Oral-Motor Difficulties: No Pneumonia: Yes Care Home Resident: No Total Points: 5 07/18/23 19:21 RT Miscellaneous Order ROUTINE Comment: Physician Instructions: Reason For Exam: CPAP at [facility] Diagnosis: Pneumonia, Sepsis 07/19/23 00:16 Respiratory MDI BID Comment: Diagnosis: Pneumonia, Sepsis 07/19/23 10:59 EKG STAT Comment: Diagnosis: SEPTIC SHOCK, PNEUMONIA 07/19/23 15:48 PT Eval & Treat (MD Order) ONCE Reason for Eval:: pneumonia, COPD, SOB Diagnosis: SEPTIC SHOCK, PNEUMONIA 07/20/23 08:56 FLUTTER [Flutter Therapy] UD Comment: Diagnosis: SEPTIC SHOCK, PNEUMONIA 07/20/23 13:32 PT Eval & Treat (MD Order) ONCE Reason for Eval:: SOB with walking, home needs Diagnosis: SEPTIC SHOCK, PNEUMONIA 07/22/23 07:53 RT Miscellaneous Order ROUTINE Comment: Currently on 2lNC at 90% Physician Instructions: Reason For Exam: Please keep O2 >92 % Diagnosis: SEPTIC SHOCK, PNEUMONIA 07/22/23 09:11 Qualify for Home Oxygen TODAY Comment: Diagnosis: SEPTIC SHOCK, PNEUMONIA Discharge Exam General Appearance: no apparent distress, alert Neurologic Exam: alert, oriented x 3, cooperative, normal mood/affect, nml cer ebellar function, sensation nml, No motor deficits Eye Exam: PERRL, EOMI, eyes nml inspection Ears, Nose, Throat Exam: normal ENT inspection, pharynx normal, moist mucous membranes Neck Exam: normal inspection, non-tender, supple, full range of motion Respiratory Exam: normal breath sounds, lungs clear, No respiratory distress Cardiovascular Exam: regular rate/rhythm, normal heart sounds Gastrointestinal/Abdomen Exam: soft, No tenderness, No mass Pelvic Exam: deferred Rectal Exam: deferred Back Exam: normal inspection, normal range of motion, No CVA tenderness, No vert ebral tenderness Extremity Exam: normal inspection, normal range of motion Skin Exam: normal color, warm, dry Final Diagnosis/Problem List - Final Discharge Diagnosis/Problem (1) Sepsis Current Visit: Yes Status: Acute (2) Left lower lobe pneumonia Current Visit: Yes Status: Acute Code(s): J18.9 - PNEUMONIA, UNSPECIFIED ORGANISM (3) Hypotension Current Visit: Yes Status: Acute Code(s): I95.9 - HYPOTENSION, UNSPECIFIED (4) Hyponatremia Current Visit: Yes Status: Acute Code(s): E87.1 - HYPO-OSMOLALITY AND HYPONATREMIA (5) Second hand tobacco smoke exposure Current Visit: Yes Status: Chronic (6) CHARITY (acute kidney injury) Current Visit: Yes Status: Acute Code(s): N17.9 - ACUTE KIDNEY FAILURE, UNSPECIFIED (7) COPD exacerbation Current Visit: No Status: Acute Code(s): J44.1 - CHRONIC OBSTRUCTIVE PULMONARY DISEASE W (ACUTE) EXACERBATION (8) D-dimer, elevated Current Visit: Yes Status: Acute Code(s): R79.89 - OTHER SPECIFIED ABNORMAL FINDINGS OF BLOOD CHEMISTRY (9) Pre-diabetes Current Visit: Yes Status: Acute Code(s): R73.03 - PREDIABETES (10) Edema of both lower extremities Current Visit: Yes Status: Chronic Code(s): R60.0 - LOCALIZED EDEMA (11) Obesity (BMI 30-39.9) Current Visit: Yes Status: Chronic Code(s): E66.9 - OBESITY, UNSPECIFIED (12) Abnormal AST and ALT Current Visit: Yes Status: Acute Assessment & Plan: (1) Sepsis Current Visit: Yes Status: Acute Assessment & Plan: - ICU - IVF bolus 1L X2 gave in ER - Lactic acid 2.7 at 9: 08, 2.6 @ 11:11, and 2.5 @ 16:49 - Cont IVF - will repeat LA - tele 07/19 - LA 1.1 - WBC 37.2- antibiotics changed 07/20 - WBC 23.9 - continue antibiotics - BCX2 repeat- pending 07/21 - can be moved from ICU bed to med-surg (2) Left lower lobe pneumonia Current Visit: Yes Status: Acute Assessment & Plan: - Antibiotics, steroids, duonebs - CT and CXR reviewed 07/19 - antibiotics changed to zosyn , vancomycin and azithromycin - BC x2 gram + cocci in chains x2 - sensitivity pending 07/20 - repeat BC X2 - 2lNC 92% - Flutter therapy - PT - decreased O2 with standing and walking 07/21 - 3lNC 93% - Continued activity intolerence Code(s): J18.9 - PNEUMONIA, UNSPECIFIED ORGANISM (3) Hypotension Current Visit: Yes Status: Acute Assessment & Plan: - norepinephrine Started in ER - Tele- ICU bed - Hold BP meds 07/19 - norepinephrine continued 07/20 - gtt stopped - BP stable 07/21 - resolved Code(s): I95.9 - HYPOTENSION, UNSPECIFIED (4) Hyponatremia Current Visit: Yes Status: Acute Assessment & Plan: - Mild Na+ 135- trend 07/19 - Na+ 136 - IVF 07/20 - Na+ 138 07/21 - resolved Code(s): E87.1 - HYPO-OSMOLALITY AND HYPONATREMIA (5) Second hand tobacco smoke exposure Current Visit: Yes Status: Chronic Assessment & Plan: - advised to educate family to smoke outside (6) CHARITY (acute kidney injury) Current Visit: Yes Status: Acute Assessment & Plan: - IVF - creat 1.08 - recheck in AM 07/19 - resolved Code(s): N17.9 - ACUTE KIDNEY FAILURE, UNSPECIFIED (7) COPD exacerbation Current Visit: No Status: Acute Assessment & Plan: - antibiotics, steriods, nebs - on 5LNC- BL 3lNC 07/20 - 2lNC 92% - would benefit from OP pulm rehab- will discuss with case management 07/21 - 3LNC 93%- BL oxygen Code(s): J44.1 - CHRONIC OBSTRUCTIVE PULMONARY DISEASE W (ACUTE) EXACERBATION (8) D-dimer, elevated Current Visit: Yes Status: Acute Assessment & Plan: - d-dimer 1.03 - CT negative for PE Code(s): R79.89 - OTHER SPECIFIED ABNORMAL FINDINGS OF BLOOD CHEMISTRY (9) Pre-diabetes Current Visit: Yes Status: Acute Assessment & Plan: - A1C 6.04 - Will need metformin at dc Code(s): R73.03 - PREDIABETES (10) Edema of both lower extremities Current Visit: Yes Status: Chronic Assessment & Plan: - TEDS - elevate legs - Lasix 20mg daily Code(s): R60.0 - LOCALIZED EDEMA (11) Obesity (BMI 30-39.9) Current Visit: Yes Status: Chronic Assessment & Plan: - advised diet and exercise control Code(s): E66.9 - OBESITY, UNSPECIFIED (12) Abnormal AST and ALT Current Visit: Yes Status: Acute Assessment & Plan: - AST 99, ALT 3.3 - 2/2 Sepsis and Pneumonia - if labs do not improve tomorrow will order US of liver for further evaluation. - US not available on weekends 07/22 - AST 124, ALT 319 - US Liver: 07/22 Impression: Negative right upper quadrant sonogram. Code(s): R74.8 - ABNORMAL LEVELS OF OTHER SERUM ENZYMES Code(s): R74.8 - ABNORMAL LEVELS OF OTHER SERUM ENZYMES - Discharge Discharge Date: 07/22/23 Disposition: Home, Self-Care Condition: Critical Prescriptions: New Metformin HCl 500 mg [Glucophage 500 MG] 500 mg PO BIDWM 30 Days #60 tablet Cefuroxime Axetil 500 mg [Ceftin 500 mg] 500 mg PO BID 5 Days #10 tablet Prednisone 20 mg [Deltasone 20 mg] 20 mg PO BID 5 Days #10 tablet Continue Gabapentin [Neurontin ] 300 mg PO HS Meloxicam 15 mg [Meloxicam 15 MG] 7.5 mg PO BID Albuterol Sulfate [Albuterol Sulfate Hfa] 2 inh PO Q6H PRN PRN PRN Reason: Cough Aspirin [Ecotrin] 81 mg PO DAILY 30 Days #30 tablet Fluticasone/Umeclidin/Vilanter [Trelegy Ellipta 100-62.5-25] 1 puff IH DAILY #1 blist Spironolactone 25 mg [Aldactone 25 MG] 25 mg PO DAILY Potassium Gluconate [Potassium] 99 mg PO DAILY Tolterodine Tartrate [Tolterodine Tartrate ER] 4 mg PO DAILY Metoprolol Succinate 25 mg Xl* [Toprol-Xl 25MG Tablets] 25 mg PO DAILY Bumetanide 1 mg [Bumex 1 mg] 1 mg PO QAM Ipratropium/Albuterol Sulfate [Iprat-Albut 0.5-3(2.5) mg/3 ml] 3 ml IH QIDPRN PRN PRN Reason: Shortness Of Breath/Wheezing Levothyroxine Sodium [Synthroid] 125 mcg PO DAILY Losartan Potassium [Cozaar] 25 mg PO DAILY Instructions: Oxygen Therapy, Adult (DC) Additional Instructions: WEAR 3L/NC AT ALL TIMES- ESPECIALLY WHEN WALKING. Follow up with: BINU BAHENA MD [Primary Care Provider] - 07/29/23 1:45 pm (APPOINTMENT WILL BE AT THE [facility]. )
[2023-07-22 17:03] VITALS: BP 134/80; PULSE 78; RESP 17; TEMP 97.4; O2SAT 98
[2023-07-22] MEDS ORDERED: TROUGH DRUG LEVELS IJ ONE (21:30)
== END 2023-07-22 16:41 | disposition home or self-care (01) | DRG 871 ==
LOC: ED 08:37 → OBSVTOIN 18:02 → MED SURG 18:02
PROVIDERS: ADMIT Internal Medicine; ATTEND Internal Medicine
DX: A41.9 Sepsis, unspecified organism (principal); J18.9 Pneumonia, unspecified organism; E87.1 Hypo-osmolality and hyponatremia; N17.9 Acute kidney failure, unspecified; J44.1 Chronic obstructive pulmonary disease with (acute) exacerbation; I95.9 Hypotension, unspecified; R79.89 Other specified abnormal findings of blood chemistry; R73.03 Prediabetes; R60.0 Localized edema; E66.9 Obesity, unspecified; R74.8 Abnormal levels of other serum enzymes; D72.829 Elevated white blood cell count, unspecified; I10 Essential (primary) hypertension; I25.2 Old myocardial infarction; J44.9 Chronic obstructive pulmonary disease, unspecified; G47.30 Sleep apnea, unspecified; Z20.828 Contact with and (suspected) exposure to other viral communicable diseases; Z79.899 Other long term (current) drug therapy; Z77.22 Contact with and (suspected) exposure to environmental tobacco smoke (acute) (chronic); Z85.850 Personal history of malignant neoplasm of thyroid; Z85.41 Personal history of malignant neoplasm of cervix uteri
CPT/HCPCS: 0241U; 36000; 36415; 71045; 71260; 76705; 80053; 80202; 81001; 82550; 82947; 83036; 83605; 83880; 84484; 85007; 85025; 85027; 85379; 87040; 87070; 93005; 93041; 94640; 94667; 94668; 94762; 96374; 97161; 97530; 99285; 99291; J0456; J0696; J1650; J1817; J1940; J2270; J2405; J2543; J2920; J2930; Q3014; A9270-GY; J3370

== ENCOUNTER 2024-04-06 08:22 | Emergency (ER) | payer BC ==
[2024-04-06 08:26] VITALS: TEMP 97.2
--- NOTE | 2024-04-06 08:28 | ERPHSYRPT ---
- History of Present Illness Time Seen by Provider: 04/06/24 08:28 Historian: patient, family Exam Limitations: no limitations Physician History: This is a 58-year-old white female patient who was brought in to the emergency department by private vehicle escorted by family member and is a patient of Dr. Bahena and general house worker Dr. 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 The patient states that the pain came on suddenly substernal and central without radiation. She states it was sharp. Patient was recently diagnosed with a respiratory infection and started on prednisone and an antibiotic which she does not know the name of. Patient has a history of smoking cigarettes daily and smells strongly of tobacco smoke. Patient has a history of COPD, hypothyroidism, hypertension and a "silent" [place]. She has never had a cardiac catheterization or cardiac stent in place. She is not on any anticoagulation therapy. Timing/Duration: today Activities at Onset: activity (Sweeping) Quality: sharpness Location: substernal, central Chest Pain Radiation: no radiation Severity of Pain-Max: mild Severity of Pain-Current: mild Modifying Factors: Improves With: exertion Associated Symptoms: cough, No nausea, No vomiting, No shortness of breath Prior Chest Pain/Cardiac Workup: no prior cardiac workup Nitro Today/Relief: no nitro taken today Aspirin Treatment Today: 81 mg x 4, provided by ED Allergies/Adverse Reactions: No Known Drug Allergies Allergy (Verified 04/06/24 08:26) Home Medications: Gabapentin [Neurontin ] 300 mg PO HS 08/14/21 [History] Meloxicam 15 mg [Meloxicam 15 MG] 7.5 mg PO BID 08/14/21 [History] Albuterol Sulfate [Albuterol Sulfate Hfa] 2 inh PO Q6H PRN PRN 02/18/22 [History] Metoprolol Succinate 25 mg Xl* [Toprol-Xl 25MG Tablets] 25 mg PO DAILY 12/08/22 [History] Potassium Gluconate [Potassium] 99 mg PO DAILY 12/08/22 [History] Spironolactone 25 mg [Aldactone 25 MG] 25 mg PO DAILY 12/08/22 [History] Tolterodine Tartrate [Tolterodine Tartrate ER] 4 mg PO DAILY 12/08/22 [History] Bumetanide 1 mg [Bumex 1 mg] 1 mg PO QAM 01/21/23 [History] Ipratropium/Albuterol Sulfate [Iprat-Albut 0.5-3(2.5) mg/3 ml] 3 ml IH QIDPRN PRN 07/18/23 [History] Levothyroxine Sodium [Synthroid] 137 mcg PO DAILY 07/18/23 [History] Losartan Potassium [Cozaar] 25 mg PO DAILY 07/18/23 [History] Levofloxacin [Levofloxacin 500 MG Tablet] 500 mg PO BID 04/06/24 [History] Hx Tetanus, Diphtheria Vaccination/Date Given: Yes Hx Influenza Vaccination/Date Given: Yes Hx Pneumococcal Vaccination/Date Given: Yes Travel Risk - International Travel Have you traveled outside of the country in past 3 weeks: No - Emerging Infectious Disease Are you exhibiting symptoms associated with any current EIDs: No - Review of Systems Constitutional: No Symptoms Eyes: No Symptoms Ears, Nose, & Throat: No Symptoms Respiratory: Cough Cardiac: Chest Pain Abdominal/Gastrointestinal: No Symptoms Genitourinary Symptoms: No Symptoms Musculoskeletal: No Symptoms Skin: No Symptoms Neurological: No Symptoms Psychological: No Symptoms Endocrine: No Symptoms Hematologic/Lymphatic: No Symptoms Immunological/Allergic: No Symptoms All Other Systems: Reviewed and Negative - Past Medical History Pertinent Past Medical History: Yes Neurological History: No Pertinent History ENT History: No Pertinent History Cardiac History: Hypertension, Myocardial Infarction ([place]) Respiratory History: Asthma, COPD, Pneumonia, Sleep Apnea Endocrine Medical History: Hypothyroidism, Thyroid Cancer Musculoskeletal History: No Pertinent History GI Medical History: No Pertinent History History: No Pertinent History Psycho-Social History: Depression Female Reproductive Disorders: Cervical Cancer Other Medical History: history of cervical cancer - Past Surgical History Past Surgical History: Yes Neuro Surgical History: No Pertinent History Cardiac: No Pertinent History Respiratory: No Pertinent History Gastrointestinal: No Pertinent History Genitourinary: No Pertinent History Musculoskeletal: No Pertinent History Female Surgical History: Other Other Surgical History: thyroidectomy, leep loop electrical-cervix - Social History Smoking Status: Former smoker How long have you smoked: 40 YEARS Exposure to second hand smoke: Yes Drug Use: none Patient Lives Alone: No - Social Determinants of Health Will the patient participate in the screening: Yes Do you worry about a steady place to live?: No In the past 12 months,have you had to go without utilities?: No Transportation Issues: No Has anyone in your support network made you feel unsafe?: No Have you or anyone in your house had to go without enough: No - Nursing Vital Signs Nursing Vital Signs: Initial Vital Signs Temperature 97.2 F 04/06/24 08:23 Pulse Rate 85 04/06/24 08:23 Respiratory Rate 18 04/06/24 08:23 Blood Pressure 134/81 04/06/24 08:23 O2 Sat by Pulse Oximetry 98 04/06/24 08:23 Pain Scale Pain Intensity 7 - Physical Exam General Appearance: no apparent distress, alert, anxiety, thin Eye Exam: PERRL/EOMI, eyes nml inspection Ears, Nose, Throat Exam: moist mucous membranes, other (She is missing several teeth) Neck Exam: normal inspection, non-tender, supple, full range of motion Respiratory Exam: chest tenderness, wheezing (Bilateral expiratory wheezing), No respiratory distress Cardiovascular Exam: regular rate/rhythm, normal heart sounds, normal peripheral pulses Gastrointestinal/Abdomen Exam: soft, normal bowel sounds, No tenderness Pelvic Exam: not done Rectal Exam: not done Back Exam: normal inspection, normal range of motion, No CVA tenderness, No vertebral tenderness Extremity Exam: normal inspection, normal range of motion, pelvis stable Neurologic Exam: alert, oriented x 3, cooperative, 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 The QTc is 423. Today's 12-lead EKG shows no significant change when compared to the twelve-lead EKG dated 07/18/2023) Ordered Tests: Active Orders 24 hr Category Date Time Status Client Service Associate STAT Care 04/06/24 08:41 Active EKG-ER Only STAT Care 04/06/24 08:41 Active IV Insertion STAT Care 04/06/24 08:41 Active Pulse Oximetry (ED) STAT Care 04/06/24 08:41 Active CHEST 1 VIEW (PORTABLE) Stat Exams 04/06/24 09:53 Taken CBC W DIFF Stat Lab 04/06/24 08:30 Completed CMP Stat Lab 04/06/24 08:30 Completed D-DIMER QUANTITATIVE Stat Lab 04/06/24 08:30 Completed NT PRO BNPII Stat Lab 04/06/24 08:30 Completed PROTIME WITH INR Stat Lab 04/06/24 08:30 Completed TROPONIN Q4H Lab 04/06/24 08:30 Completed TROPONIN Q4H Lab 04/06/24 12:45 Ordered TROPONIN Q4H Lab 04/06/24 16:45 Ordered Respiratory Therapy Assessment DAILY RT 04/06/24 09:05 Active Medication Summary Discontinued Medications Generic Name Dose Route Start Last Admin Trade Name Freq PRN Reason Stop Dose Admin Albuterol/Ipratropium 3 ml 04/06/24 09:00 04/06/24 09:01 Ipratropium/Albuterol Sulfate 3 Ml Ampul.Neb IH 04/06/24 09:01 3 ml STAT ONE Administration Albuterol/Ipratropium Confirm 04/06/24 09:00 Ipratropium/Albuterol Sulfate 3 Ml Ampul.Neb Administered 04/06/24 09:01 Dose 3 ml IH .STK-MED ONE Aspirin 324 mg 04/06/24 08:41 04/06/24 08:56 Aspirin 81 Mg Tab.Chew PO 04/06/24 08:42 324 mg STAT ONE Administration Aspirin Confirm 04/06/24 08:55 Aspirin 81 Mg Tab.Chew Administered 04/06/24 08:56 Dose 324 mg .ROUTE .STK-MED ONE Morphine Sulfate 2 mg 04/06/24 10:07 04/06/24 10:22 Morphine Sulfate 2 Mg/Ml Inj IV 04/06/24 10:08 2 mg STAT ONE Administration Morphine Sulfate Confirm 04/06/24 10:15 Morphine Sulfate 2 Mg/Ml Inj Administered 04/06/24 10:16 Dose 2 mg .ROUTE .STK-MED ONE Ondansetron HCl 4 mg 04/06/24 10:07 04/06/24 10:21 Ondansetron Hcl 4 Mg/2 Ml Vial IV 04/06/24 10:08 4 mg STAT ONE Administration Ondansetron HCl Confirm 04/06/24 10:14 Ondansetron Hcl 4 Mg/2 Ml Vial Administered 04/06/24 10:15 Dose 4 mg .ROUTE .[facility] ONE Orphenadrine Citrate 60 mg 04/06/24 10:08 04/06/24 10:21 Orphenadrine Citrate 60 Mg/2 Ml Vial IV 04/06/24 10:09 60 mg STAT ONE Administration Orphenadrine Citrate Confirm 04/06/24 10:14 Orphenadrine Citrate 60 Mg/2 Ml Vial Administered 04/06/24 10:15 Dose 60 mg .ROUTE .[facility] ONE Lab/Rad Data: Laboratory Result Diagrams 04/06/24 08:30 04/06/24 08:30 Laboratory Results 04/06/24 04/06/24 04/06/24 Range/Units 08:30 08:30 08:30 WBC 9.3 (3.98-10.04) x10^3/uL RBC 4.90 (3.93-5.22) x10^6/uL Hgb 14.7 (11.2-15.7) g/dL Hct 47.5 H (34.1-44.9) % MCV 96.9 H (79.4-94.8) fL MCH 30.0 (25.6-32.2) pg MCHC 30.9 L (32.2-35.5) g/dL RDW 14.3 (11.7-14.4) % Plt Count 370 H (182-369) x10^3/uL MPV 9.5 (9.4-12.3) fL Gran % 63.4 (34.0-71.1) % Immature Gran % (Auto) 0.9 H (0.001-0.429) % Nucleat RBC Rel Count 0.0 (0.00-0.2) % Eos # (Auto) 0.04 (0.04-0.36) x10^3/uL Immature Gran # (Auto) 0.08 H (0.001-0.031) x10^3u/L Absolute Lymphs (auto) 2.66 (1.18-3.74) x10^3/uL Absolute Monos (auto) 0.57 (0.24-0.86) x10^3/uL Absolute Nucleated RBC 0.00 (0.00-0.012) x10^3u/L Lymphocytes % 28.6 (19.3-51.7) % Monocytes % 6.1 (4.7-12.5) % Eosinophils % 0.4 L (0.7-5.8) % Basophils % 0.6 (0.1-1.2) % Absolute Granulocytes 5.89 (1.56-6.13) x10^3/uL Basophils # 0.06 (0.01-0.08) x10^3/uL PT 11.3 (9.4-12.5) SECONDS INR 1.04 (0.8-3.0) D-Dimer 0.42 (0.0-0.50) mg/L Sodium 139 (135-145) mmol/L Potassium 4.1 (3.5-5.1) mmol/L Chloride 101 (98-107) mmol/L Carbon Dioxide 30 (22-30) mmol/L Anion Gap 12.9 (5-15) MEQ/L BUN 43 H (7-17) mg/dL Creatinine 1.02 (0.52-1.04) mg/dL Estimated GFR 64.2 ML/MIN Glucose 122 H (74-106) mg/dL Calcium 9.9 (8.4-10.2) mg/dL Total Bilirubin 0.60 (0.2-1.3) mg/dL AST 40 H (14-36) U/L ALT 47 H (0-35) U/L Alkaline Phosphatase 65 (38-126) U/L Troponin I < 0.012 (0.000-0.033) ng/mL NT-Pro-B Natriuret Pep 146 (<300) pg/mL Serum Total Protein 6.7 (6.3-8.2) g/dL Albumin 3.9 (3.5-5.0) g/dL - Progress Progress: re-examined Air Movement: good Progress Note: 04/06/24 08:39 My medical decision making of the assignment of moderate complexity is based on review of the patient's past medical history, review of the patient's medication list, reviewed patient drug allergy list, history present illness and physical findings on examination. The workup in this patient includes placement of intravenous line, infusion of Solu-Medrol 125 mg, twelve-lead EKG, CBC, CMP, ma gnesium level, BNP, D-dimer level, troponin level and providing the patient with 4 baby aspirin. Differential diagnosis includes persistent pneumonia, CHF exacerbation, COPD exacerbation, myocardial infarction, electrolyte abnormalities, arrhythmia 04/06/24 10:50 I interpreted the patient's laboratory data results. Based on the laboratory data results, the patient does not have any acute, emergent medical issue. I interpreted the preliminary report of the patient's chest x-ray. There is a questionable right basilar infiltrate with the small right pleural effusion. Blood Culture(s) Obtained: No Antibiotics given: No Counseled pt/family regarding: lab results, diagnosis, need for follow-up, rad results Medical Desision Making - Independent Historian Additional History obtained from: Family - Diagnostic Testing Diagnostic test were ordered, analyzed, and reviewed by me: Yes Radiological Interpretation: Interpreted by me - Risk of complications The pt has a mod risk of morbidity or mortality based on: Need for prescription drug management - Departure Departure Disposition: Home Clinical Impression: Lung infiltrate, Pleural effusion Condition: Stable Critical Care Time: No Referrals: BINU BAHENA MD [Primary Care Provider] - Follow up/PCP as directed Additional Instructions: Drink plenty of fluids. Take your medications including your antibiotics and steroids as prescribed. Call your primary care provider today, 04/06/2024, to make arrangements for follow-up appointment for further evaluation and management and to be seen in the next 3 days. Prescriptions: Orphenadrine Citrate 100 mg [Norflex 100 MG Tablet] 100 mg PO BID #10 tab
[2024-04-06 08:50] LABS: Absolute Neutrophil Ct (ANC) 5.89 x10^3/uL (1.56-6.13); BASOPHIL % 0.6 % (0.1-1.2); Basophil (Absolute #) 0.06 x10^3/uL (0.01-0.08); Eosinophil % 0.4 % (0.7-5.8); Eosinophil (Absolute #) 0.04 x10^3/uL (0.04-0.36); Hematocrit 47.5 % (34.1-44.9); Hemoglobin 14.7 g/dL (11.2-15.7); IMMATURE GRAN # 0.08 x10^3u/L (0.001-0.031); IMMATURE GRAN % 0.9 % (0.001-0.429); Lymphocyte (Absolute #) 2.66 x10^3/uL (1.18-3.74); Lymphocytes % 28.6 % (19.3-51.7); Mean Cell Volume 96.9 fL (79.4-94.8); Mean Corpuscular Hgb Concent. 30.9 g/dL (32.2-35.5); Mean Platelet Volume 9.5 fL (9.4-12.3); Monocyte (Absolute #) 0.57 x10^3/uL (0.24-0.86); Monocytes % 6.1 % (4.7-12.5); Neutrophil % 63.4 % (34.0-71.1); Platelet Count 370 x10^3/uL (182-369); Red Cell Distribution Width 14.3 % (11.7-14.4); White Blood Count 9.3 x10^3/uL (3.98-10.04)
[2024-04-06] MEDS ORDERED: BABY ASPIRIN 81 MG CHEW ONE (08:55)
[2024-04-06] MEDS: BABY ASPIRIN 81 MG CHEW PO ONE (08:56)
[2024-04-06 08:59] LABS: D-DIMER QUANTITATIVE 0.42 mg/L (0.0-0.50); INR 1.04 (0.8-3.0); PROTIME 11.3 SECONDS (9.4-12.5)
[2024-04-06] MEDS ORDERED: DUONEB 0.5-3 MG/3 ml Neb IH ONE (09:00)
[2024-04-06] MEDS: DUONEB 0.5-3 MG/3 ml Neb IH ONE (09:01)
[2024-04-06 09:08] LABS: ALBUMIN 3.9 g/dL (3.5-5.0); ALKALINE PHOSPHATASE 65 U/L (38-126); ANION GAP 12.9 MEQ/L (5-15); BLOOD UREA NITROGEN 43 mg/dL (7-17); CHLORIDE 101 mmol/L (98-107); Calcium 9.9 mg/dL (8.4-10.2); Carbon Dioxide 30 mmol/L (22-30); Creatinine 1 1.02 mg/dL (0.52-1.04); EST GLOMERULAR FILTRATION RATE 64.2 ML/MIN; Glucose 122 mg/dL (74-106); NT PRO BNPII 146 pg/mL (<300); Potassium 4.1 mmol/L (3.5-5.1); SGOT/AST 40 U/L (14-36); SGPT/ALT 47 U/L (0-35); SODIUM 139 mmol/L (135-145); TROPONIN < 0.012 ng/mL (0.000-0.033); Total Protein 6.7 g/dL (6.3-8.2)
[2024-04-06] MEDS ORDERED: Zofran 4 MG/2 ML VIAL ONE (10:14)
[2024-04-06] MEDS ORDERED: Norflex 60 MG/2 ML ONE (10:14)
[2024-04-06] MEDS ORDERED: MORPHINE SULFATE 2 MG INJ ONE (10:15)
[2024-04-06] MEDS: Norflex 60 MG/2 ML IV ONE (10:21)
[2024-04-06] MEDS: Zofran 4 MG/2 ML VIAL IV ONE (10:21)
[2024-04-06] MEDS: MORPHINE SULFATE 2 MG INJ IV ONE (10:22)
--- NOTE | 2024-04-06 11:00 | XRAY ---
Indication: Chest pain. Comparison: August 23, 2023 Portable chest demonstrates new mild right base infiltrate/atelectasis with small effusion. Remaining heart and left lung unremarkable. Bony thorax intact again with osteopenia and degenerative changes. Stable incidental large calcified splenic cyst.
[2024-04-06 11:03] VITALS: BP 135/95; PULSE 66; RESP 17; O2SAT 94
== END 2024-04-06 11:14 | disposition home or self-care (01) ==
LOC: ED 08:22
DX: R91.8 Other nonspecific abnormal finding of lung field (principal); J90 Pleural effusion, not elsewhere classified; R07.9 Chest pain, unspecified; I10 Essential (primary) hypertension; Z79.899 Other long term (current) drug therapy
CPT/HCPCS: 36000; 36415; 71045; 80053; 83880; 84484; 85025; 85379; 85610; 93005; 93041; 94640; 94760; 96374; 96375; 99284; 99285; J2270; J2360; J2405; A9270-GY

== ENCOUNTER 2024-06-30 18:54 | Observation (INO) | payer BC ==
[2024-06-30] MEDS ORDERED: DUONEB 0.5-3 MG/3 ml Neb IH ONE (19:58)
--- NOTE | 2024-06-30 20:05 | ERPHSYRPT ---
- History of Present Illness Time Seen by Provider: 06/30/24 19:40 Source: patient Exam Limitations: no limitations Patient Subjective Stated Complaint: C/O SOB and cough since yesterday Triage Nursing Assessment: Patient brought back to ER in a W/C. She is SOB. Wearing 02 @ 4L per n/c upon arrival sating 88%. 02 increased to 5L per N/C and sats increased to 91%. Patient states she does not normally wear 02 in the daytime; wears 4L at noc only. Moist cough present during assessment; non- productive during assessment but states yellow/green sputum at home. Physician History: Patient is a 59-year-old female history of COPD, current smoker presents to our ED for evaluation of shortness of breath. Patient normally wears 4 L oxygen at night. Upon arrival to our ED patient saturating 88% on 4 L with exertion. Patient placed on 5 L nasal cannula O2 sat increased to 91%. Patient describes a wet cough. No chest pain no nausea no vomiting no diaphoresis. No history of PE DVT. Patient reports she followed up at a [facility] care. And she was evaluated by nurse practitioner was started on doxycycline and prednisone today. However this did not improve her symptomology. Patient's daughter is at the bedside. They voiced no other complaints or concerns at this time. Portions of this note were created with voice recognition technology. There may be grammatical, spelling, punctuation or sound alike errors Timing/Duration: today Severity: moderate Modifying Factors: Improves With: nothing Associated Symptoms: shortness of breath, cough Allergies/Adverse Reactions: No Known Drug Allergies Allergy (Verified 06/30/24 18:55) Home Medications: Gabapentin [Neurontin ] 300 mg PO HS 08/14/21 [History] Meloxicam 15 mg [Meloxicam 15 MG] 7.5 mg PO BID 08/14/21 [History] Albuterol Sulfate [Albuterol Sulfate Hfa] 2 inh PO Q6H PRN PRN 02/18/22 [H istory] Metoprolol Succinate 25 mg Xl* [Toprol-Xl 25MG Tablets] 25 mg PO DAILY 12/08/22 [History] Potassium Gluconate [Potassium] 99 mg PO DAILY 12/08/22 [History] Spironolactone 25 mg [Aldactone 25 MG] 25 mg PO DAILY 12/08/22 [History] Tolterodine Tartrate [Tolterodine Tartrate ER] 4 mg PO DAILY 12/08/22 [History] Bumetanide 1 mg [Bumex 1 mg] 1 mg PO QAM 01/21/23 [History] Ipratropium/Albuterol Sulfate [Iprat-Albut 0.5-3(2.5) mg/3 ml] 3 ml IH QIDPRN PRN 07/18/23 [History] Levothyroxine Sodium [Synthroid] 137 mcg PO DAILY 07/18/23 [History] Losartan Potassium [Cozaar] 25 mg PO DAILY 07/18/23 [History] Doxycycline Hyclate 100 mg [Vibramycin 100 MG] 100 mg PO BID 06/30/24 [History] Prednisone 20 mg [Deltasone 20 mg] 40 mg PO DAILY 06/30/24 [History] Hx Tetanus, Diphtheria Vaccination/Date Given: Yes Hx Influenza Vaccination/Date Given: Yes Hx Pneumococcal Vaccination/Date Given: Yes Immunizations Up to Date: Yes Travel Risk - International Travel Have you traveled outside of the country in past 3 weeks: No - Emerging Infectious Disease Are you exhibiting symptoms associated with any current EIDs: Yes Symptoms: Cough: New Onset, Fever, Headaches/Body Aches/, Shortness of Breath - Review of Systems Constitutional: No Symptoms, No Fever, No Chills Eyes: No Symptoms Ears, Nose, & Throat: No Symptoms Respiratory: No Symptoms, No Cough, No Dyspnea Cardiac: No Symptoms, No Chest Pain, No Edema, No Syncope Abdominal/Gastrointestinal: No Symptoms, No Abdominal Pain, No Nausea, No Vomiting, No Diarrhea Genitourinary Symptoms: No Symptoms, No Dysuria Musculoskeletal: No Symptoms, No Back Pain, No Neck Pain Skin: No Symptoms, No Rash Neurological: No Symptoms, No Dizziness, No Focal Weakness, No Sensory Changes Psychological: No Symptoms Endocrine: No Symptoms Hematologic/Lymphatic: No Symptoms Immunological/Allergic: No Symptoms All Other Systems: Reviewed and Negative - Past Medical History Pertinent Past Medical History: Yes Neurological History: No Pertinent History ENT History: No Pertinent History Cardiac History: Hypertension, Myocardial Infarction (OR) Respiratory History: Asthma, COPD, Pneumonia, Sleep Apnea Endocrine Medical History: Hypothyroidism, Thyroid Cancer Musculoskeletal History: No Pertinent History GI Medical History: No Pertinent History History: No Pertinent History Psycho-Social History: Depression Female Reproductive Disorders: Cervical Cancer Other Medical History: history of cervical cancer - Past Surgical History Past Surgical History: Yes Neuro Surgical History: No Pertinent History Cardiac: No Pertinent History Respiratory: No Pertinent History Gastrointestinal: No Pertinent History Genitourinary: No Pertinent History Musculoskeletal: No Pertinent History Female Surgical History: Other Other Surgical History: thyroidectomy, leep loop electrical-cervix - Social History Smoking Status: Current every day smoker How long have you smoked: 40 YEARS Exposure to second hand smoke: Yes Drug Use: none Patient Lives Alone: No - Social Determinants of Health Will the patient participate in the screening: Declined to provide - Nursing Vital Signs Nursing Vital Signs: Initial Vital Signs Blood Pressure 107/61 06/30/24 19:00 O2 Sat by Pulse Oximetry 93 L 06/30/24 19:00 Pain Scale Pain Intensity 0 - Physical Exam General Appearance: no apparent distress, alert Eye Exam: PERRL/EOMI, eyes nml inspection Ears, Nose, Throat Exam: normal ENT inspection, pharynx normal, moist mucous membranes Neck Exam: normal inspection, non-tender, supple, full range of motion Respiratory Exam: normal breath sounds, airway intact, diminished breath sounds, rhonchi, wheezing, No respiratory distress Cardiovascular Exam: regular rate/rhythm, normal heart sounds, normal peripheral pulses Gastrointestinal/Abdomen Exam: soft, normal bowel sounds, No tenderness, No mass Back Exam: normal inspection, normal range of motion, No CVA tenderness, No vertebral tenderness Extremity Exam: normal inspection, normal range of motion, pelvis stable Neurologic Exam: alert, oriented x 3, cooperative, normal mood/affect, sensation nml, No motor deficits Skin Exam: normal color, warm, dry, No rash Lymphatic Exam: No adenopathy SpO2 Interpretation: normal SpO2: 91 O2 Delivery: Room Air - Course Nursing assessment & vital signs reviewed: Yes EKG Interpreted by Me: RATE (78), Sinus Rhythm, NORMAL AXIS, NORMAL INTERVALS, NORMAL QRS - Radiology Exams Chest X-ray Interpretation: Teleradiologist Report (Nonacute chest with chronic features) Ordered Tests: Active Orders 24 hr Category Date Time Status Green Chain Worker STAT Care 06/30/24 20:00 Active EKG-ER Only STAT Care 06/30/24 19:59 Active IV Insertion STAT Care 06/30/24 19:59 Active Pulse Oximetry (ED) STAT Care 06/30/24 19:59 Active CHEST 1 VIEW (PORTABLE) Stat Exams 06/30/24 20:00 Completed BLOOD CULTURE Stat Lab 06/30/24 20:22 Received CBC W DIFF Stat Lab 06/30/24 20:17 Completed CMP Stat Lab 06/30/24 20:17 Completed Manual Differential NC Stat Lab 06/30/24 20:17 Completed NT PRO BNPII Stat Lab 06/30/24 20:22 Completed TROPONIN Q4H Lab 06/30/24 20:17 Completed TROPONIN Q4H Lab 07/01/24 00:25 Completed TROPONIN Q4H Lab 07/01/24 05:00 Completed Respiratory Therapy Assessment DAILY RT 06/30/24 20:12 Active Medication Summary Discontinued Medications Generic Name Dose Route Start Last Admin Trade Name Freq PRN Reason Stop Dose Admin Albuterol/Ipratropium Confirm 06/30/24 19:58 Ipratropium/Albuterol Sulfate 3 Ml Ampul.Neb Administered 06/30/24 19:59 Dose 3 ml IH .STK-MED ONE Albuterol/Ipratropium 3 ml 06/30/24 20:12 06/30/24 20:14 Ipratropium/Albuterol Sulfate 3 Ml Ampul.Neb IH 06/30/24 20:13 3 ml STAT ONE Administration Methylprednisolone Sodium 0 mg 06/30/24 20:07 06/30/24 20:22 Succinate 125 mg/ Sterile IV 06/30/24 20:08 125 mg Water 2 ml STAT ONE Administration Ceftriaxone Sodium 2 gm in 100 mls @ 200 mls/hr 06/30/24 19:59 06/30/24 21:33 Rocephin 2 Gm/100 Ml Nacl IV 06/30/24 20:28 Infused STAT ONE Infusion Azithromycin 500 mg in 250 mls @ 250 mls/hr 06/30/24 19:59 06/30/24 21:33 Zithromax 500 Mg/ 250 Ml Nacl Premix IV 06/30/24 20:58 Infused STAT STA Infusion Azithromycin Confirm 06/30/24 20:14 Zithromax 500 Mg/ 250 Ml Nacl Premix Administered 06/30/24 20:15 Dose 500 mg in 250 mls @ ud IV .STK-MED ONE Ceftriaxone Sodium Confirm 06/30/24 20:14 Rocephin 2 Gm/100 Ml Nacl Administered 06/30/24 20:15 Dose 2 gm in 100 mls @ ud IV .STK-MED ONE Methylprednisolone Sodium Succinate Confirm 06/30/24 20:14 Methylprednis Sod Succ 125 Mg/2 Ml Vial Administered 06/30/24 20:15 Dose 125 mg .ROUTE .STK-MED ONE Sterile Water Confirm 06/30/24 20:14 Water For Injection,Sterile 10 Ml Vial Administered 06/30/24 20:15 Dose 10 ml IJ .STK-MED ONE Lab/Rad Data: Laboratory Result Diagrams 06/30/24 20:17 06/30/24 20:17 Laboratory Results 07/01/24 07/01/24 06/30/24 Range/Units 05:00 00: 20:25 WBC (3.98-10.04) x10^3/uL RBC (3.93-5.22) x10^6/uL Hgb (11.2-15.7) g/dL Hct (34.1-44.9) % MCV (79.4-94.8) fL MCH (25.6-32.2) pg MCHC (32.2-35.5) g/dL RDW (11.7-14.4) % Plt Count (182-369) x10^3/uL MPV (9.4-12.3) fL Segmented Neutrophils (34.0-71.1) % Band Neutrophils (0.0-2.0) % Lymphocytes (Manual) (19.3-51.7) % Platelet Estimate (NORMAL) RBC Morphology Poikilocytosis Anisocytosis Sodium (135-145) mmol/L Potassium (3.5-5.1) mmol/L Chloride (98-107) mmol/L Carbon Dioxide (22-30) mmol/L Anion Gap (5-15) MEQ/L BUN (7-17) mg/dL Creatinine (0.52-1.04) mg/dL Estimated GFR ML/MIN Glucose (74-106) mg/dL Calcium (8.4-10.2) mg/dL Total Bilirubin (0.2-1.3) mg/dL AST (14-36) U/L ALT (0-35) U/L Alkaline Phosphatase (38-126) U/L Troponin I < 0.012 < 0.012 (0.000-0.033) ng/mL NT-Pro-B Natriuret Pep (<300) pg/mL Serum Total Protein (6.3-8.2) g/dL Albumin (3.5-5.0) g/dL Influenza Type A Ag POSITIVE A (NEGATIVE) Influenza Type B Ag NEGATIVE (NEGATIVE) RSV (PCR) NEGATIVE (NEGATIVE) SARS-CoV-2 (PCR) NEGATIVE (NEGATIVE) 06/30/24 06/30/24 06/30/24 Range/Units 20:22 20:17 20:17 WBC (3.98-10.04) x10^3/uL RBC (3.93-5.22) x10^6/uL Hgb (11.2-15.7) g/dL Hct (34.1-44.9) % MCV (79.4-94.8) fL MCH (25.6-32.2) pg MCHC (32.2-35.5) g/dL RDW (11.7-14.4) % Plt Count (182-369) x10^3/uL MPV (9.4-12.3) fL Segmented Neutrophils (34.0-71.1) % Band Neutrophils (0.0-2.0) % Lymphocytes (Manual) (19.3-51.7) % Platelet Estimate (NORMAL) RBC Morphology Poikilocytosis Anisocytosis Sodium 135 (135-145) mmol/L Potassium 4.6 (3.5-5.1) mmol/L Chloride 103 (98-107) mmol/L Carbon Dioxide 23 (22-30) mmol/L Anion Gap 13.3 (5-15) MEQ/L BUN 18 H (7-17) mg/dL Creatinine 0.86 (0.52-1.04) mg/dL Estimated GFR 78.3 ML/MIN Glucose 123 H (74-106) mg/dL Calcium 8.8 (8.4-10.2) mg/dL Total Bilirubin 0.40 (0.2-1.3) mg/dL AST 33 (14-36) U/L ALT 22 (0-35) U/L Alkaline Phosphatase 59 (38-126) U/L Troponin I < 0.012 (0.000-0.033) ng/mL NT-Pro-B Natriuret Pep 144 (<300) pg/mL Serum Total Protein 6.7 (6.3-8.2) g/dL Albumin 3.9 (3.5-5.0) g/dL Influenza Type A Ag (NEGATIVE) Influenza Type B Ag (NEGATIVE) RSV (PCR) (NEGATIVE) SARS-CoV-2 (PCR) (NEGATIVE) 06/30/24 Range/Units 20:17 WBC 13.4 H (3.98-10.04) x10^3/uL RBC 4.67 (3.93-5.22) x10^6/uL Hgb 13.8 (11.2-15.7) g/dL Hct 43.3 (34.1-44.9) % MCV 92.7 (79.4-94.8) fL MCH 29.6 (25.6-32.2) pg MCHC 31.9 L (32.2-35.5) g/dL RDW 16.2 H (11.7-14.4) % Plt Count 212 (182-369) x10^3/uL MPV 9.5 (9.4-12.3) fL Segmented Neutrophils 92 H (34.0-71.1) % Band Neutrophils 2 (0.0-2.0) % Lymphocytes (Manual) 6 L (19.3-51.7) % Platelet Estimate NORMAL (NORMAL) RBC Morphology ABNORMAL Poikilocytosis 1+ Anisocytosis 1+ Sodium (135-145) mmol/L Potassium (3.5-5.1) mmol/L Chloride (98-107) mmol/L Carbon Dioxide (22-30) mmol/L Anion Gap (5-15) MEQ/L BUN (7-17) mg/dL Creatinine (0.52-1.04) mg/dL Estimated GFR ML/MIN Glucose (74-106) mg/dL Calcium (8.4-10.2) mg/dL Total Bilirubin (0.2-1.3) mg/dL AST (14-36) U/L ALT (0-35) U/L Alkaline Phosphatase (38-126) U/L Troponin I (0.000-0.033) ng/mL NT-Pro-B Natriuret Pep (<300) pg/mL Serum Total Protein (6.3-8.2) g/dL Albumin (3.5-5.0) g/dL Influenza Type A Ag (NEGATIVE) Influenza Type B Ag (NEGATIVE) RSV (PCR) (NEGATIVE) SARS-CoV-2 (PCR) (NEGATIVE) - Progress Progress: improved Progress Note: Ambulatory pulse oximetry assessment completed. O2 sat dropped to 85% on room air. Patient not cleared for discharge 06/30/24 22:28 59-year-old female history of COPD smoker presents to our ED for evaluation of shortness of breath. Upon arrival to our ED patient was hypoxic O2 sat of 88%. Patient normally wears oxygen 4 L at night. However throughout the day she does not require oxygen normally. Workup reveals influenza A positive. Troponin negative. Chest x-ray negative for acute pathology. Ambulatory pulse oximetry on room air was 85%. Patient does not meet discharge criteria secondary to COPD exacerbation and exertional hypoxia. Patient treated with S justice-Medrol, DuoNeb, Rocephin and azithromycin. Patient requires hospitalization for further evaluation and treatment. Plan of care discussed with patient. She agrees to admission at [facility] for further evaluation and treatment. Portions of this note were created with voice recognition technology. There may be grammatical, spelling, punctuation or sound alike errors Complexity of problem addressed is moderate acute complicated. No critical care time. Complex of data reviewed and analyzed extensive. Test ordered chest reviewed results analyzed and correlated clinically with history and physical exam. Patient requires hospitalization for further evaluation and treatment. Risk of complication and or risk of morbidity/mortality of patient management is high. Patient requires hospitalization for further evaluation and treatment. Vital stable. Time spent to admit patient is approximately 20 minutes. Plan of care established for shared decision making. No social determinants of health present to impede follow-up. Portions of this note were created with voice recognition technology. There may be grammatical, spelling, punctuation or sound alike errors 07/01/24 04:55 Patient endorsed to hospitalist Dr. Tai 8:45 AM. 07/01/24 08:45 07/01/24 08:50 Counseled pt/family regarding: lab results, diagnosis, rad results - Departure Departure Disposition: Observation Clinical Impression: COPD exacerbation, Hypoxia, Influenza A Condition: Stable Critical Care Time: No Referrals: BINU BAHENA MD [Primary Care Provider] - Follow up/PCP as directed Instructions: Chronic Obstructive Pulmonary Disease
[2024-06-30] MEDS ORDERED: Sterile H2O 10 ml IJ ONE (20:14)
[2024-06-30] MEDS ORDERED: Zithromax 500 MG/ 250 ML NaCl Premix 500 MG/250 ML IVPB IV ONE (20:14)
[2024-06-30] MEDS: DUONEB 0.5-3 MG/3 ml Neb IH ONE (20:14)
[2024-06-30] MEDS ORDERED: solu-MEDROL ONE (20:14)
[2024-06-30] MEDS ORDERED: ROCEPHIN 2 GM/100 ML NACL 2 GM/100 ML IVPB IV ONE (20:14)
[2024-06-30] MEDS: solu-MEDROL 125 MG, Sterile H2O 10 ml 2 ML IV ONE (20:22)
[2024-06-30] MEDS: ROCEPHIN 2 GM/100 ML NACL 2 GM/100 ML IVPB IV ONE (20:26)
[2024-06-30] MEDS: Zithromax 500 MG/ 250 ML NaCl Premix 500 MG/250 ML IVPB IV STA (20:26)
[2024-06-30 20:29] LABS: Hematocrit 43.3 % (34.1-44.9); Hemoglobin 13.8 g/dL (11.2-15.7); Mean Cell Volume 92.7 fL (79.4-94.8); Mean Corpuscular Hemoglobin 29.6 pg (25.6-32.2); Mean Corpuscular Hgb Concent. 31.9 g/dL (32.2-35.5); Mean Platelet Volume 9.5 fL (9.4-12.3); Platelet Count 212 x10^3/uL (182-369); Red Blood Count 4.67 x10^6/uL (3.93-5.22); Red Cell Distribution Width 16.2 % (11.7-14.4); White Blood Count 13.4 x10^3/uL (3.98-10.04)
[2024-06-30 20:42] LABS: ALBUMIN 3.9 g/dL (3.5-5.0); ANION GAP 13.3 MEQ/L (5-15); BILIRUBIN,TOTAL 0.4 mg/dL (0.2-1.3); Calcium 8.8 mg/dL (8.4-10.2); Creatinine 1 0.86 mg/dL (0.52-1.04); EST GLOMERULAR FILTRATION RATE 78.3 ML/MIN; Potassium 4.6 mmol/L (3.5-5.1); Total Protein 6.7 g/dL (6.3-8.2)
[2024-06-30 21:06] LABS: INFLUENZA B NEGATIVE (NEGATIVE); RESPIRATORY SYNCTIAL VIRUS NEGATIVE (NEGATIVE); SARS-CoV-2 Xpert Express NEGATIVE (NEGATIVE)
[2024-06-30 21:07] LABS: INFLUENZA A POSITIVE (NEGATIVE)
[2024-06-30 21:15] LABS: BAND 2 % (0.0-2.0); Lymphocytes 6 % (19.3-51.7); Neutrophils 92 % (34.0-71.1); Platelet Estimate NORMAL (NORMAL); Total Cells Counted 100
[2024-06-30 21:16] LABS: ANISOCYTOSIS 1+; Poikilocytosis 1+
--- NOTE | 2024-07-01 08:40 | XRAY ---
Indication: Short of breath. Comparison: April 06, 2024 Portable chest again hyperinflated with minimal right base discoid atelectasis/scarring. Remaining heart and lungs unremarkable. Bony thorax intact again with osteopenia and mild degenerative changes. Grossly stable incidental large calcified splenic cyst. Impression: Nonacute chest with chronic features.
[2024-07-01] MEDS ORDERED: DUONEB 0.5-3 MG/3 ml Neb IH PRN ×2 (10:46→12:39)
[2024-07-01] MEDS: DUONEB 0.5-3 MG/3 ml Neb IH SCH (10:55)
--- NOTE | 2024-07-01 12:33 | PCM.HP ---
History of Present Illness - Chief Complaint Chief Complaint: Flu A, COPD, Hypoxia Date: 07/01/24 History of Present Illness: Patient is a 59-year-old female history of COPD, HTN, [place], Sleep apnea, hypothyroidism, thyroid cancer, depression, cervical cancer, chronic obesity, and current smoker. She presented to our ED on 06/30/24 for evaluation of shortness of breath. Patient normally wears 4 L oxygen at night. Upon arrival to our ED patient saturating 88% on 4 L with exertion. Patient placed on 5 L nasal cannula O2 sat increased to 91%. Patient describes a wet cough. No chest pain no nausea no vomiting no diaphoresis. No history of PE DVT. Patient repor ts she followed up at a [facility]. And she was evaluated by nurse practitioner was started on doxycycline and prednisone on 06/30. However, this did not improve her symptomology. Patient's daughter is at the bedside. They voiced no other complaints or concerns at this time. Pt admitted for COPD exacerbation duonebs, steriods, ceftraxone, azithromycin started in the ER. Due to her hx will start Zosyn and continue duonebs, steroids, and home inhaler. She currently on 5LNC 90% - BL 4lNC. She states she is already feeling better than when she came to the ER yesterday. - Review of Systems Constitutional: No Fever, No Chills Eyes: No Symptoms Ears, Nose, & Throat: No Symptoms Respiratory: Short Of Breath, No Cough Cardiac: No Chest Pain, No Edema, No Syncope Abdominal/Gastrointestinal: No Abdominal Pain, No Nausea, No Vomiting, No Diarrhea Genitourinary Symptoms: No Dysuria Musculoskeletal: No Back Pain, No Neck Pain Skin: No Rash Neurological: No Dizziness, No Focal Weakness, No Sensory Changes Psychological: No Symptoms Endocrine: No Symptoms Hematologic/Lymphatic: No Symptoms Immunological/Allergic: No Symptoms Medications & Allergies Home Medications: Home Medication List Gabapentin [Neurontin ] 300 mg PO HS 08/14/21 [History Confirmed 07/01/24] Meloxicam 15 mg [Meloxicam 15 MG] 7.5 mg PO BID 08/14/21 [History Confirmed 07/01/24] Albuterol Sulfate [Albuterol Sulfate Hfa] 2 inh PO Q6H PRN PRN 02/18/22 [History Confirmed 07/01/24] Aspirin [Ecotrin] 81 mg PO DAILY 30 Days #30 tablet 02/20/22 [Rx Confirmed 07/01/24] Fluticasone/Umeclidin/Vilanter [Trelegy Ellipta 100-62.5-25] 1 puff IH DAILY #1 blist 06/13/22 [Rx Confirmed 07/01/24] Metoprolol Succinate 25 mg Xl* [Toprol-Xl 25MG Tablets] 25 mg PO DAILY 12/08/22 [History Confirmed 07/01/24] Potassium Gluconate [Potassium] 99 mg PO DAILY 12/08/22 [History Confirmed 06/30/24] Spironolactone 25 mg [Aldactone 25 MG] 25 mg PO DAILY 12/08/22 [History Confirmed 07/01/24] Tolterodine Tartrate [Tolterodine Tartrate ER] 4 mg PO DAILY 12/08/22 [History Confirmed 07/01/24] Bumetanide 1 mg [Bumex 1 mg] 1 mg PO QAM 01/21/23 [History Confirmed 07/01/24] Ipratropium/Albuterol Sulfate [Iprat-Albut 0.5-3(2.5) mg/3 ml] 3 ml IH QIDPRN PRN 07/18/23 [History Confirmed 07/01/24] Levothyroxine Sodium [Synthroid] 137 mcg PO DAILY 07/18/23 [History Confirmed 07/01/24] Losartan Potassium [Cozaar] 25 mg PO DAILY 07/18/23 [History Confirmed 07/01/24] Metformin HCl 500 mg [Glucophage 500 MG] 500 mg PO BIDWM 30 Days #60 tablet 07/22/23 [Rx Confirmed 07/01/24] Doxycycline Hyclate 100 mg [Vibramycin 100 MG] 100 mg PO BID 06/30/24 [History Confirmed 06/30/24] Prednisone 20 mg [Deltasone 20 mg] 40 mg PO DAILY 06/30/24 [History Confirmed 06/30/24] Allergies/Adverse Reactions: Allergies Allergy/AdvReac Type Severity Reaction Status Date / Time No Known Drug Allergies Allergy Verified 06/30/24 18:55 - Past Medical History Past Medical History: Yes Neurological History: No Pertinent History ENT History: No Pertinent History Cardiac History: Hypertension, Myocardial Infarction (UT) Respiratory History: Asthma, COPD, Pneumonia, Sleep Apnea Endocrine Medical History: Hypothyroidism, Thyroid Cancer Musculoskelatal History: No Pertinent History GI Medical History: No Pertinent History History: No Pertinent History, Other Pyscho-Social History: Depression Reproductive Disorders: Cervical Cancer Comment: overactive bladder, history of cervical cancer - Past Surgical History Past Surgical History: Yes Neuro Surgical History: No Pertinent History Cardiac History: No Pertinent History Respiratory Surgery: No Pertinent History GI Surgical History: No Pertinent History Genitourinary Surgical Hx: No Pertinent History Musculskeletal Surgical Hx: No Pertinent History Female Surgical History: Other Other Surgical History: thyroidectomy, leep loop electrical-cervix - Social History Smoking Status: Current every day smoker How long have you smoked: 40 Exposure to second hand smoke: Yes Alcohol: None Drug Use: none - Social Determinants of Health Will the patient participate in the screening: Yes Do you worry about a steady place to live?: No Do you have any problems with any of the following?: No known problems In the past 12 months,have you had to go without utilities?: No Have you or anyone in your house had to go without enough: No Transportation Issues: No Has anyone in your support network made you feel unsafe?: No Does the patient want assistance with any of the above?: No - Physical Exam Vital Signs: Vital Signs - 24 hr Temp Pulse Resp BP BP Pulse Ox 07/01/24 11:12 97.9 F 66 20 110/64 90 L 07/01/24 11:00 66 20 90 L 07/01/24 10:54 70 24 110/64 90 L 07/01/24 10:13 108/53 07/01/24 10:12 64 19 93 L 07/01/24 10:11 68 25 H 95 07/01/24 09:01 97.9 F 63 19 92/58 93 L 07/01/24 08:50 91 L 07/01/24 08:30 65 20 111/59 95 07/01/24 08:02 54 L 19 104/60 98 07/01/24 08:01 66 13 94 L 07/01/24 08:00 58 L 17 93 L 07/01/24 07:50 61 19 94 L 07/01/24 07:40 57 L 18 96 07/01/24 07:32 62 14 96 07/01/24 07:00 67 20 106/60 95 07/01/24 06:31 62 18 95/70 97 07/01/24 05:30 129/71 96 07/01/24 05:00 108/73 93 L 07/01/24 04:30 119/80 95 07/01/24 04:00 117/80 95 07/01/24 03:30 122/72 95 07/01/24 03:00 64 22 114/56 97 07/01/24 02:31 65 16 125/63 96 07/01/24 02:00 123/56 94 L 07/01/24 01:30 63 18 106/75 96 07/01/24 01:00 63 20 129/65 96 07/01/24 00:31 107/60 96 07/01/24 00:00 67 19 89/58 97 06/30/24 23:30 99/60 98 06/30/24 23:01 97/61 97 06/30/24 22:30 70 20 97/67 96 06/30/24 22:00 92/57 92 L 06/30/24 21:32 98/56 94 L 06/30/24 21:31 81 26 H 71/52 92 L 06/30/24 21:21 99/54 96 06/30/24 21:05 86/55 96 06/30/24 21:01 79 22 93/52 96 06/30/24 21:00 95 06/30/24 20:50 94 L 06/30/24 20:40 75 20 91 L 06/30/24 20:31 77 16 92 L 06/30/24 20:14 79 22 90 L 06/30/24 20:05 91 L 06/30/24 20:00 79 22 91/57 91 L 06/30/24 19:30 99/56 90 L 06/30/24 19:01 98.1 F 88 30 H 107/61 91 L 06/30/24 19:00 107/61 93 L General Appearance: mild distress, alert Neurologic Exam: alert, oriented x 3, cooperative, normal mood/affect, nml cerebellar function, nml station & gait, sensation nml, No motor deficits Eye Exam: PERRL/EOMI, eyes nml inspection Ears, Nose, Throat Exam: normal ENT inspection, TMs normal, pharynx normal, moist mucous membranes Neck Exam: normal inspection, non-tender, supple, full range of motion Respiratory Exam: diminished breath sounds, No respiratory distress Cardiovascular Exam: regular rate/rhythm, normal heart sounds, normal peripheral pulses Gastrointestinal/Abdomen Exam: soft, normal bowel sounds, No tenderness, No mass Back Exam: normal inspection, normal range of motion, No CVA tenderness, No vertebral tenderness Extremity Exam: normal inspection, normal range of motion, pelvis stable Skin Exam: normal color, warm, dry, No rash Lymphatic Exam: No adenopathy Results - Labs Lab/Micro Results: Lab Results-Last 24 Hours 06/30/24 06/30/24 06/30/24 Range/Units 20:17 20:17 20:17 WBC 13.4 H (3.98-10.04) x10^3/uL RBC 4.67 (3.93-5.22) x10^6/uL Hgb 13.8 (11.2-15.7) g/dL Hct 43.3 (34.1-44.9) % MCV 92.7 (79.4-94.8) fL MCH 29.6 (25.6-32.2) pg MCHC 31.9 L (32.2-35.5) g/dL RDW 16.2 H (11.7-14.4) % Plt Count 212 (182-369) x10^3/uL MPV 9.5 (9.4-12.3) fL Segmented Neutrophils 92 H (34.0-71.1) % Band Neutrophils 2 (0.0-2.0) % Lymphocytes (Manual) 6 L (19.3-51.7) % Platelet Estimate NORMAL (NORMAL) RBC Morphology ABNORMAL Poikilocytosis 1+ Anisocytosis 1+ Sodium 135 (135-145) mmol/L Potassium 4.6 (3.5-5.1) mmol/L Chloride 103 (98-107) mmol/L Carbon Dioxide 23 (22-30) mmol/L Anion Gap 13.3 (5-15) MEQ/L BUN 18 H (7-17) mg/dL Creatinine 0.86 (0.52-1.04) mg/dL Estimated GFR 78.3 ML/MIN Glucose 123 H (74-106) mg/dL Calcium 8.8 (8.4-10.2) mg/dL Total Bilirubin 0.40 (0.2-1.3) mg/dL AST 33 (14-36) U/L ALT 22 (0-35) U/L Alkaline Phosphatase 59 (38-126) U/L Troponin I < 0.012 (0.000-0.033) ng/mL NT-Pro-B Natriuret Pep (<300) pg/mL Serum Total Protein 6.7 (6.3-8.2) g/dL Albumin 3.9 (3.5-5.0) g/dL Influenza Type A Ag (NEGATIVE) Influenza Type B Ag (NEGATIVE) RSV (PCR) (NEGATIVE) SARS-CoV-2 (PCR) (NEGATIVE) 06/30/24 06/30/24 07/01/24 Range/Units 20:22 20:25 00:25 WBC (3.98-10.04) x10^3/uL RBC (3.93-5.22) x10^6/uL Hgb (11.2-15.7) g/dL Hct (34.1-44.9) % MCV (79.4-94.8) fL MCH (25.6-32.2) pg MCHC (32.2-35.5) g/dL RDW (11.7-14.4) % Plt Count (182-369) x10^3/uL MPV (9.4-12.3) fL Segmented Neutrophils (34.0-71.1) % Band Neutrophils (0.0-2.0) % Lymphocytes (Manual) (19.3-51.7) % Platelet Estimate (NORMAL) RBC Morphology Poikilocytosis Anisocytosis Sodium (135-145) mmol/L Potassium (3.5-5.1) mmol/L Chloride (98-107) mmol/L Carbon Dioxide (22-30) mmol/L Anion Gap (5-15) MEQ/L BUN (7-17) mg/dL Creatinine (0.52-1.04) mg/dL Estimated GFR ML/MIN Glucose (74-106) mg/dL Calcium (8.4-10.2) mg/dL Total Bilirubin (0.2-1.3) mg/dL AST (14-36) U/L ALT (0-35) U/L Alkaline Phosphatase (38-126) U/L Troponin I < 0.012 (0.000-0.033) ng/mL NT-Pro-B Natriuret Pep 144 (<300) pg/mL Serum Total Protein (6.3-8.2) g/dL Albumin (3.5-5.0) g/dL Influenza Type A Ag POSITIVE A (NEGATIVE) Influenza Type B Ag NEGATIVE (NEGATIVE) RSV (PCR) NEGATIVE (NEGATIVE) SARS-CoV-2 (PCR) NEGATIVE (NEGATIVE) 07/01/24 Range/Units 05:00 WBC (3.98-10.04) x10^3/uL RBC (3.93-5.22) x10^6/uL Hgb (11.2-15.7) g/dL Hct (34.1-44.9) % MCV (79.4-94.8) fL MCH (25.6-32.2) pg MCHC (32.2-35.5) g/dL RDW (11.7-14.4) % Plt Count (182-369) x10^3/uL MPV (9.4-12.3) fL Segmented Neutrophils (34.0-71.1) % Band Neutrophils (0.0-2.0) % Lymphocytes (Manual) (19.3-51.7) % Platelet Estimate (NORMAL) RBC Morphology Poikilocytosis Anisocytosis Sodium (135-145) mmol/L Potassium (3.5-5.1) mmol/L Chloride (98-107) mmol/L Carbon Dioxide (22-30) mmol/L Anion Gap (5-15) MEQ/L BUN (7-17) mg/dL Creatinine (0.52-1.04) mg/dL Estimated GFR ML/MIN Glucose (74-106) mg/dL Calcium (8.4-10.2) mg/dL Total Bilirubin (0.2-1.3) mg/dL AST (14-36) U/L ALT (0-35) U/L Alkaline Phosphatase (38-126) U/L Troponin I < 0.012 (0.000-0.033) ng/mL NT-Pro-B Natriuret Pep (<300) pg/mL Serum Total Protein (6.3-8.2) g/dL Albumin (3.5-5.0) g/dL Influenza Type A Ag (NEGATIVE) Influenza Type B Ag (NEGATIVE) RSV (PCR) (NEGATIVE) SARS-CoV-2 (PCR) (NEGATIVE) - Radiology Impressions Radiology Exams & Impressions: Radiology Procedures Category Date Time Status CHEST 1 VIEW (PORTABLE) Stat Exams 06/30/24 20:00 Completed - Other Procedures and Tests Respiratory Therapy 07/01/24 10:54 Oxygen Nasal Cannula 5 lpm Respiratory Therapy Assessment DAILY 07/01/24 11:06 Smoking Cessation Education ONCE 07/02/24 08:00 Respiratory MDI UD Assessment/Plan (1) COPD exacerbation Current Visit: Yes Status: Acute Assessment & Plan: - Zosyn, solumedrol, duonebs, Trelegy - Tele - CBC, CMP reviewed - on 5lNC 90%, Baseline 4lNC at night Code(s): J44.1 - CHRONIC OBSTRUCTIVE PULMONARY DISEASE W (ACUTE) EXACERBATION (2) Influenza A Current Visit: Yes Status: Acute Assessment & Plan: - + result in ER - Tamiflu BID Code(s): J10.1 - FLU DUE TO OTH IDENT INFLUENZA VIRUS W OTH RESP MANIFEST (3) Sleep apnea Current Visit: Yes Status: Chronic Assessment & Plan: - CPAP at night RT to set up Code(s): G47.30 - SLEEP APNEA, UNSPECIFIED (4) Hypothyroidism Current Visit: Yes Status: Chronic Assessment & Plan: - continue synthroid Code(s): E03.9 - HYPOTHYROIDISM, UNSPECIFIED (5) Depression Current Visit: Yes Status: Chronic Assessment & Plan: -Not currently taking any meds Code(s): F32.A - DEPRESSION, UNSPECIFIED (6) HTN (hypertension) Current Visit: Yes Status: Chronic Assessment & Plan: - BP stable, continue home meds, trend Code(s): I10 - ESSENTIAL (PRIMARY) HYPERTENSION (7) Obesity (BMI 30-39.9) Current Visit: No Status: Chronic Assessment & Plan: - advised diet and exercise control VTE: Loveonx PPI: Protonix Next of Kin: daughter D/C plan: 2-3 days Code status: Full Code(s): E66.9 - OBESITY, UNSPECIFIED
[2024-07-01] MEDS ORDERED: MEDICATION INTERVENTION MC SCH ×2 (13:15)
[2024-07-01] MEDS: SYNTHROID 25 MCG PO SCH (13:36)
[2024-07-01] MEDS: Cozaar 50 MG PO SCH (13:36)
[2024-07-01] MEDS: ECOTRIN 81 MG PO SCH (13:36)
[2024-07-01] MEDS: Toprol-Xl 25MG Tablets PO SCH (13:36)
[2024-07-01] MEDS: BUMEX 1 MG PO SCH (13:36)
[2024-07-01] MEDS: Protonix 20MG Tablet PO SCH (13:36)
[2024-07-01] MEDS: solu-MEDROL 40 MG, Sterile H2O 10 ml 1 ML IV SCH (13:36)
[2024-07-01] MEDS: Tamiflu 75MG Capsule PO SCH (13:36)
[2024-07-01] MEDS: MELOXICAM PO SCH (13:36)
[2024-07-01] MEDS: PIPERACILLIN/TAZOBACTAM 4.5 GM in Sodium Chloride 100ML MINI-BAG PLUS 100 ML IV SCH (13:37)
[2024-07-01] MEDS: Ditropan 5 MG PO SCH (13:37)
[2024-07-01] MEDS: Aldactone 25 MG PO SCH (13:37)
[2024-07-01] MEDS: SYNTHROID 112 MCG PO SCH (13:38)
[2024-07-01] MEDS: Nicoderm CQ 21 MG TOP SCH (14:06)
[2024-07-01] MEDS: ENOXAPARIN SODIUM SQ SCH (14:06)
[2024-07-01] MEDS: Glucophage 500 MG PO SCH (20:00)
[2024-07-01] MEDS: NEURONTIN PO SCH (22:05)
[2024-07-02 04:56] LABS: Hematocrit 43.7 % (34.1-44.9); Hemoglobin 13.7 g/dL (11.2-15.7); Mean Cell Volume 93.6 fL (79.4-94.8); Mean Corpuscular Hemoglobin 29.3 pg (25.6-32.2); Mean Corpuscular Hgb Concent. 31.4 g/dL (32.2-35.5); Mean Platelet Volume 9.8 fL (9.4-12.3); Platelet Count 215 x10^3/uL (182-369); Red Blood Count 4.67 x10^6/uL (3.93-5.22); Red Cell Distribution Width 16.1 % (11.7-14.4); White Blood Count 8.7 x10^3/uL (3.98-10.04)
[2024-07-02 05:10] LABS: ALBUMIN 4.1 g/dL (3.5-5.0); ANION GAP 9.7 MEQ/L (5-15); BILIRUBIN,TOTAL 0.4 mg/dL (0.2-1.3); Calcium 8.7 mg/dL (8.4-10.2); Creatinine 1 0.9 mg/dL (0.52-1.04); EST GLOMERULAR FILTRATION RATE 74.1 ML/MIN; Potassium 4.8 mmol/L (3.5-5.1); Total Protein 7.1 g/dL (6.3-8.2)
[2024-07-02] MEDS: PATIENT OWN MEDICATION IH SCH (07:09)
--- NOTE | 2024-07-02 07:37 | PCM.NOTE ---
Date and Time: 07/02/24 0729 Subjective Assessment: 07/01/24 Patient is a 59-year-old female history of COPD, HTN, [place], Sleep apnea, hypothyroidism, thyroid cancer, depression, cervical cancer, chronic obesity, and current smoker. She presented to our ED on 06/30/24 for evaluation of shortness of breath. Patient normally wears 4 L oxygen at night. Upon arrival to our ED patient saturating 88% on 4 L with exertion. Patient placed on 5 L nasal cannula O2 sat increased to 91%. Patient describes a wet cough. No chest pain no nausea no vomiting no diaphoresis. No history of PE DVT. Patient reports she followed up at a [facility]. And she was evaluated by nurse practitioner was started on doxycycline and prednisone on 06/30. However, this did not improve her symptomology. Patient's daughter is at the bedside. They voiced no other complaints or concerns at this time. Pt admitted for COPD exacerbation duonebs, steriods, ceftraxone, azithromycin started in the ER. Due to her hx will start Zosyn and continue duonebs, steroids, and home inhaler. She currently on 5LNC 90% - BL 4lNC. She states she is already feeling better than when she came to the ER yesterday. 07/02/24 Per overnight nurse HR running SB in 50's. EKG done at 7:[address] elevation. Pt resting in bed asymptomatic. Cardiology consulted stat as previous EKG reviewed and not similar. Trop x3 ordered. Decreased metoprolol to 12.5mg daily. Pt did sleep up in chair all night per staff as she was not comfortable in the bed. She reports she sleeps in a chair at home. On 5L oxymizer at 98%. Continue Tamiflu, Zosyn, duonebs, steroids, and home inhaler. Repeat CXR this AM shows chronic changes no new concerns. Mg+ level ordered stat and normal. She states she is feeling better and denies any chest pressure or pain. She denies CP, Abd.pain, N/V/D. - Review of Systems Constitutional: No Fever, No Chills Eyes: No Symptoms Ears, Nose, & Throat: No Symptoms Respiratory: Short Of Breath, No Cough Cardiac: No Chest Pain, No Edema, No Syncope Abdominal/Gastrointestinal: No Abdominal Pain, No Nausea, No Vomiting, No Diarrhea Genitourinary Symptoms: No Dysuria Musculoskeletal: No Back Pain, No Neck Pain Skin: No Rash Neurological: No Dizziness, No Focal Weakness, No Sensory Changes Psychological: No Symptoms Endocrine: No Symptoms Hematologic/Lymphatic: No Symptoms Immunological/Allergic: No Symptoms Objective Exam General Appearance: no apparent distress, alert, obese Neurologic Exam: alert, oriented x 3, cooperative, normal mood/affect, nml cerebellar function, sensation nml, No motor deficits Skin Exam: normal color, warm, dry Eye Exam: PERRL, EOMI, eyes nml inspection Ears, Nose, Throat Exam: normal ENT inspection, pharynx normal, moist mucous membranes Neck Exam: normal inspection, non-tender, supple, full range of motion Respiratory Exam: diminished breath sounds, No respiratory distress Cardiovascular Exam: regular rate/rhythm, normal heart sounds Gastrointestinal/Abdomen Exam: soft, No tenderness, No mass Extremity Exam: normal inspection, normal range of motion Back Exam: normal inspection, normal range of motion, No CVA tenderness, No vertebral tenderness Pelvic Exam: deferred Rectal Exam: deferred Objective Data Vital Signs: Vital Signs - 24 hr Temp Pulse Resp BP BP Pulse Ox 07/02/24 07:00 50 L 20 103/57 98 07/02/24 03:30 97.9 F 48 L 20 90/51 94 L 07/02/24 00:00 98.6 F 57 L 16 111/59 92 L 07/01/24 19:50 97.1 F 66 24 102/58 89 L 07/01/24 19:26 93 L 07/01/24 19:05 62 20 86 L 07/01/24 16:00 98.0 F 61 16 100/60 92 L 07/01/24 15:10 73 20 91 L 07/01/24 11:12 97.9 F 66 20 110/64 90 L 07/01/24 11:00 66 20 90 L 07/01/24 10:54 70 24 110/64 90 L 07/01/24 10:13 108/53 07/01/24 10:12 64 19 93 L 07/01/24 10:11 68 25 H 95 07/01/24 09:01 97.9 F 63 19 92/58 93 L 07/01/24 08:50 91 L 07/01/24 08:30 65 20 111/59 95 07/01/24 08:02 54 L 19 104/60 98 07/01/24 08:01 66 13 94 L 07/01/24 08:00 58 L 17 93 L 07/01/24 07:50 61 19 94 L 07/01/24 07:40 57 L 18 96 07/01/24 07:32 62 14 96 Pain Assessment - Last Documented Pain Intensity 0 Intake and Output: Intake & Output 06/29/24 06/30/24 07/01/24 07/02/24 11:59 11:59 11:59 11:59 Intake Total 1340 Balance 1340 Weight 74.843 kg Lab Results: Lab Results-Last 24 Hours 07/02/24 07/02/24 Range/Units 04:55 04:55 WBC 8.7 (3.98-10.04) x10^3/uL RBC 4.67 (3.93-5.22) x10^6/uL Hgb 13.7 (11.2-15.7) g/dL Hct 43.7 (34.1-44.9) % MCV 93.6 (79.4-94.8) fL MCH 29.3 (25.6-32.2) pg MCHC 31.4 L (32.2-35.5) g/dL RDW 16.1 H (11.7-14.4) % Plt Count 215 (182-369) x10^3/uL MPV 9.8 (9.4-12.3) fL Sodium 135 (135-145) mmol/L Potassium 4.8 (3.5-5.1) mmol/L Chloride 99 (98-107) mmol/L Carbon Dioxide 31 H (22-30) mmol/L Anion Gap 9.7 (5-15) MEQ/L BUN 28 H (7-17) mg/dL Creatinine 0.90 (0.52-1.04) mg/dL Estimated GFR 74.1 ML/MIN Glucose 136 H (74-106) mg/dL Calcium 8.7 (8.4-10.2) mg/dL Total Bilirubin 0.40 (0.2-1.3) mg/dL AST 35 (14-36) U/L ALT 24 (0-35) U/L Alkaline Phosphatase 49 (38-126) U/L Serum Total Protein 7.1 (6.3-8.2) g/dL Albumin 4.1 (3.5-5.0) g/dL Radiology Exams: Radiology Procedures Category Date Time Status CHEST 1 VIEW (PORTABLE) Stat Exams 06/30/24 20:00 Completed Multi-Disciplinary Progress Notes: Multi-Disciplinary Progress Notes 07/01/24 15:12 Respiratory Note by Lorelei Olivia PT REFUSING TO WEAR CPAP WHILE HERE. PT STATES SHE DOESN'T USE ONE AT HOME EITHER. Initialized on 07/01/24 15:12 - END OF NOTE Assessment/Plan (1) COPD exacerbation Current Visit: Yes Status: Acute Code(s): J44.1 - CHRONIC OBSTRUCTIVE PULMONARY DISEASE W (ACUTE) EXACERBATION (2) Influenza A Current Visit: Yes Status: Acute Code(s): J10.1 - FLU DUE TO OTH IDENT INFLUENZA VIRUS W OTH RESP MANIFEST (3) Sleep apnea Current Visit: Yes Status: Chronic Code(s): G47.30 - SLEEP APNEA, UNSPECIFIED (4) Hypothyroidism Current Visit: Yes Status: Chronic Code(s): E03.9 - HYPOTHYROIDISM, UNSPECIFIED (5) Depression Current Visit: Yes Status: Chronic Code(s): F32.A - DEPRESSION, UNSPECIFIED (6) HTN (hypertension) Current Visit: Yes Status: Chronic Code(s): I10 - ESSENTIAL (PRIMARY) HYPERTENSION (7) Obesity (BMI 30-39.9) Current Visit: No Status: Chronic Assessment & Plan: (1) COPD exacerbation Current Visit: Yes Status: Acute Assessment & Plan: - Zosyn, solumedrol, duonebs, Trelegy - Tele - CBC, CMP reviewed - on 5LNC 90%, Baseline 4lNC at night 07/02 - CBC, CMP reviewed - on 5L oxymizer 98% - Repeat CXR shows chronic features Code(s): J44.1 - CHRONIC OBSTRUCTIVE PULMONARY DISEASE W (ACUTE) EXACERBATION (2) Influenza A Current Visit: Yes Status: Acute Assessment & Plan: - + result in ER - Tamiflu BID Code(s): J10.1 - FLU DUE TO OTH IDENT INFLUENZA VIRUS W OTH RESP MANIFEST (3) Sleep apnea Current Visit: Yes Status: Chronic Assessment & Plan: - CPAP at night RT to set up 07/02 - Pt refused CPAP - Co2 31 Code(s): G47.30 - SLEEP APNEA, UNSPECIFIED (4) Hypothyroidism Current Visit: Yes Status: Chronic Assessment & Plan: - continue synthroid Code(s): E03.9 - HYPOTHYROIDISM, UNSPECIFIED (5) Depression Current Visit: Yes Status: Chronic Assessment & Plan: -Not currently taking any meds Code(s): F32.A - DEPRESSION, UNSPECIFIED (6) HTN (hypertension) Current Visit: Yes Status: Chronic Assessment & Plan: - BP stable, continue home meds, trend Code(s): I10 - ESSENTIAL (PRIMARY) HYPERTENSION (7) Obesity (BMI 30-39.9) Current Visit: No Status: Chronic Assessment & Plan: - advised diet and exercise control Code(s): E66.9 - OBESITY, UNSPECIFIED Code(s): E66.9 - OBESITY, UNSPECIFIED (8) ST elevation Current Visit: Yes Status: Acute Assessment & Plan: - EKG shows ST elevation - stat cardiology consult - Trop x3 ordered Code(s): R94.31 - ABNORMAL ELECTROCARDIOGRAM [ECG] [EKG] (9) Sinus bradycardia Current Visit: Yes Status: Acute Assessment & Plan: - HR low 50's all night - Metoprolol changed to 12.5 BID - cards consult VTE: Loveonx PPI: Protonix Next of Kin: daughter D/C plan: 1-2 days Code status: Full Code(s): R00.1 - BRADYCARDIA, UNSPECIFIED
[2024-07-02 08:18] LABS: MAGNESIUM 2.2 mg/dL (1.6-2.3); TROPONIN < 0.012 ng/mL (0.000-0.033)
--- NOTE | 2024-07-02 08:31 | XRAY ---
Indication: Worsening short of breath. Comparison: June 30, 2024 Portable chest unchanged again hyperinflated with minimal bibasilar subsegmental atelectasis/scarring. No focal infiltrate, consolidation, or large effusion. Heart not enlarged. Impression: Continued nonacute hyperinflated chest with chronic features.
[2024-07-02] MEDS ORDERED: NON-FORMULARY ITEM (Potassium Gluconate [Potassium] 99 MG Tablet) PO SCH (10:00)
[2024-07-02] MEDS ORDERED: NON-FORMULARY ITEM (Fluticasone/Umeclidin/Vilanter [Trelegy Ellipta 100-62.5-25] 1 EACH Bl IH SCH (10:00)
[2024-07-02] MEDS: Toprol-Xl 25MG Tablets PO SCH (10:58)
[2024-07-03] MEDS ORDERED: Sodium Chloride 0.9% 100 ML ONE (04:16)
[2024-07-03 04:56] LABS: Hematocrit 43.8 % (34.1-44.9); Hemoglobin 13.6 g/dL (11.2-15.7); Mean Cell Volume 93.6 fL (79.4-94.8); Mean Corpuscular Hemoglobin 29.1 pg (25.6-32.2); Mean Corpuscular Hgb Concent. 31.1 g/dL (32.2-35.5); Mean Platelet Volume 10.4 fL (9.4-12.3); Platelet Count 213 x10^3/uL (182-369); Red Blood Count 4.68 x10^6/uL (3.93-5.22); White Blood Count 6.4 x10^3/uL (3.98-10.04)
[2024-07-03 05:14] LABS: ALBUMIN 3.9 g/dL (3.5-5.0); BILIRUBIN,TOTAL 0.5 mg/dL (0.2-1.3); Calcium 8.5 mg/dL (8.4-10.2); Creatinine 1 1.05 mg/dL (0.52-1.04); EST GLOMERULAR FILTRATION RATE 61.6 ML/MIN; Potassium 4.6 mmol/L (3.5-5.1); Total Protein 6.9 g/dL (6.3-8.2)
[2024-07-03 08:45] VITALS: TEMP 97.5
[2024-07-03 12:39] VITALS: BP 113/72
--- NOTE | 2024-07-03 14:10 | PCM.DS ---
Discharge Summary Date of Admission: 07/01/24 10:26 Date of Discharge: 07/03/24 Admitting Physician: DELANEY CRAWFORD MD Consults: Consults on Case 07/02/24 07:23 Consult Cardiology ROUTINE Primary Care Provider: BINU BAHENA Allergies Allergies No Known Drug Allergies Allergy (Verified 06/30/24 18:55) Hospital Summary - Hospital Course Hospital Course: 07/01/24 Patient is a 59-year-old female history of COPD, HTN, [place], Sleep apnea, hypothyroidism, thyroid cancer, depression, cervical cancer, chronic obesity, and current smoker. She presented to our ED on 06/30/24 for evaluation of short ness of breath. Patient normally wears 4 L oxygen at night. Upon arrival to our ED patient saturating 88% on 4 L with exertion. Patient placed on 5 L nasal cannula O2 sat increased to 91%. Patient describes a wet cough. No chest pain no nausea no vomiting no diaphoresis. No history of PE DVT. Patient reports she followed up at a [place] [facility]. And she was evaluated by nurse practitioner was started on doxycycline and prednisone on 06/30. However, this did not improve her symptomology. Patient's daughter is at the bedside. They voiced no other complaints or concerns at this time. Pt admitted for COPD exacerbation duonebs, steriods, ceftraxone, azithromycin started in the ER. Due to her hx will start Zosyn and continue duonebs, steroids, and home inhaler. She currently on 5LNC 90% - BL 4lNC. She states she is already feeling better than when she came to the ER yesterday. 07/02/24 Per overnight nurse HR running SB in 50's. EKG done at 7:[address] elevation. Pt resting in bed asymptomatic. Cardiology consulted stat as previous EKG reviewed and not similar. Trop x3 ordered. Decreased metoprolol to 12.5mg daily. Pt did sleep up in chair all night per staff as she was not comfortable in the bed. She reports she sleeps in a chair at home. On 5L oxymizer at 98%. Continue Tamiflu, Zosyn, duonebs, steroids, and home inhaler. Repeat CXR this AM shows chronic changes no new concerns. Mg+ level ordered stat and normal. She states she is feeling better and denies any chest pressure or pain. She denies CP, Abd.pain, N/V/D. 07/03/24 Pt sitting up in the chair and she is wanting to D/C today. Awaiting cardiology consult recs. Metoprolol was decreased to 12.5 BID yesterday for low HR. HR again dropped to 45 at 0740. Bumex and meloxicam held today for CHARITY. She continues to refuse CPAP. She is on 4lC- 94%. Baseline is 4lNC at night. However, per case management she has been approved to wear 4lNC O2 during the day as she needed this her last IP stay. Will continue steroids and antibiotics OP. If ok with cardiology will d/c today. - Vitals & Intake/Output Vital Signs: Vital Signs Temperature 97.5 F 07/03/24 08:00 Pulse Rate 60 07/03/24 12:11 Respiratory Rate 16 07/03/24 12:11 Blood Pressure 113/72 07/03/24 12:00 O2 Sat by Pulse Oximetry 95 07/03/24 12:11 Intake & Output: Intake & Output 07/01/24 07/02/24 07/03/24 07/04/24 11:59 11:59 11:59 11:59 Intake Total 1460 1180 Balance 1460 1180 Weight 74.843 kg - Lab Result Diagrams: 07/03/24 04:40 07/03/24 04:45 Lab Results-Last 24 Hrs: Lab Results-Last 24 Hours 07/02/24 07/03/24 07/03/24 Range/Units 15:27 04:40 04:45 WBC 6.4 (3.98-10.04) x10^3/uL RBC 4.68 (3.93-5.22) x10^6/uL Hgb 13.6 (11.2-15.7) g/dL Hct 43.8 (34.1-44.9) % MCV 93.6 (79.4-94.8) fL MCH 29.1 (25.6-32.2) pg MCHC 31.1 L (32.2-35.5) g/dL RDW 16.0 H (11.7-14.4) % Plt Count 213 (182-369) x10^3/uL MPV 10.4 (9.4-12.3) fL Sodium (135-145) mmol/L Potassium (3.5-5.1) mmol/L Chloride (98-107) mmol/L Carbon Dioxide (22-30) mmol/L Anion Gap (5-15) MEQ/L BUN (7-17) mg/dL Creatinine (0.52-1.04) mg/dL Estimated GFR ML/MIN Glucose (74-106) mg/dL Hemoglobin A1c 6.01 H (4.5-6.0) % Calcium (8.4-10.2) mg/dL Total Bilirubin (0.2-1.3) mg/dL AST (14-36) U/L ALT (0-35) U/L Alkaline Phosphatase (38-126) U/L Troponin I < 0.012 (0.000-0.033) ng/mL Serum Total Protein (6.3-8.2) g/dL Albumin (3.5-5.0) g/dL 07/03/24 Range/Units 04:45 WBC (3.98-10.04) x10^3/uL RBC (3.93-5.22) x10^6/uL Hgb (11.2-15.7) g/dL Hct (34.1-44.9) % MCV (79.4-94.8) fL MCH (25.6-32.2) pg MCHC (32.2-35.5) g/dL RDW (11.7-14.4) % Plt Count (182-369) x10^3/uL MPV (9.4-12.3) fL Sodium 136 (135-145) mmol/L Potassium 4.6 (3.5-5.1) mmol/L Chloride 99 (98-107) mmol/L Carbon Dioxide 33 H (22-30) mmol/L Anion Gap 8.0 (5-15) MEQ/L BUN 37 H (7-17) mg/dL Creatinine 1.05 H (0.52-1.04) mg/dL Estimated GFR 61.6 ML/MIN Glucose 140 H (74-106) mg/dL Hemoglobin A1c (4.5-6.0) % Calcium 8.5 (8.4-10.2) mg/dL Total Bilirubin 0.50 (0.2-1.3) mg/dL AST 51 H (14-36) U/L ALT 46 H (0-35) U/L Alkaline Phosphatase 50 (38-126) U/L Troponin I (0.000-0.033) ng/mL Serum Total Protein 6.9 (6.3-8.2) g/dL Albumin 3.9 (3.5-5.0) g/dL Micro Results-Entire Visit: Microbiology 06/30/24 20:17 Blood Culture - Preliminary Blood 06/30/24 20:22 Blood Culture - Preliminary Blood - Radiology Exams Ordered Rad Exams-Entire Visit: Radiology Procedures Category Date Time Status CHEST 1 VIEW (PORTABLE) Stat Exams 07/02/24 07:46 Completed - Procedures and Test Procedures and Tests throughout Hospitalization: Therapy Orders & Screens 06/30/24 20:12 Respiratory Therapy Assessment DAILY Comment: 07/01/24 10:54 Oxygen Nasal Cannula 5 lpm Comment: Diagnosis: Hypoxia, COPD exacerbation Respiratory Therapy Assessment DAILY Comment: Diagnosis: Hypoxia, COPD exacerbation 07/01/24 11:06 RT Screen per Nursing Assess ONCE Comment: Protocol Order Physician Instructions: Greater than 3 points order RT Admission Screen Reason For Exam: Triggered on Admission Diagnosis: Flu A, COPD, Hypoxia Diagnosis: Flu A, COPD, Hypoxia Pneumonia: No Home O2: Yes Asthma: Yes CHF: No Home CPAP/BIPAP: No Home Nebs/MDI: Yes Total Points: 14 Smoking Cessation Education ONCE Comment: Diagnosis: Flu A, COPD, Hypoxia Smoking Status: Current every day smoker How long have you smoked: 40 Have you smoked in the past 12 months: Yes Approximately how many cigarettes per day: 10 Do you dip or chew tobacco: No 07/01/24 12:39 RT Miscellaneous Order ROUTINE Comment: Physician Instructions: Reason For Exam: CPAP at night, pt may use own, or ours. Diagnosis: Flu A, COPD, Hypoxia 07/02/24 06:42 EKG STAT Comment: Diagnosis: Flu A, COPD, Hypoxia EKG Reason: Other 07/02/24 08:00 Respiratory MDI UD Comment: Diagnosis: Flu A, COPD, Hypoxia Discharge Exam General Appearance: no apparent distress, alert Neurologic Exam: alert, oriented x 3, cooperative, normal mood/affect, nml cerebellar function, sensation nml, No motor deficits Eye Exam: PERRL, EOMI, eyes nml inspection Ears, Nose, Throat Exam: normal ENT inspection, pharynx normal, moist mucous membranes Neck Exam: normal inspection, non-tender, supple, full range of motion Respiratory Exam: normal breath sounds, lungs clear, diminished breath sounds, No respiratory distress Cardiovascular Exam: regular rate/rhythm, normal heart sounds Gastrointestinal/Abdomen Exam: soft, No tenderness, No mass Pelvic Exam: deferred Rectal Exam: deferred Back Exam: normal inspection, normal range of motion, No CVA tenderness, No vertebral tenderness Extremity Exam: normal inspection, normal range of motion Skin Exam: normal color, warm, dry Final Diagnosis/Problem List - Final Discharge Diagnosis/Problem (1) COPD exacerbation Current Visit: Yes Status: Acute Code(s): J44.1 - CHRONIC OBSTRUCTIVE PULMONARY DISEASE W (ACUTE) EXACERBATION (2) Influenza A Current Visit: Yes Status: Acute Code(s): J10.1 - FLU DUE TO OTH IDENT INFLUENZA VIRUS W OTH RESP MANIFEST (3) Sleep apnea Current Visit: Yes Status: Chronic Code(s): G47.30 - SLEEP APNEA, U NSPECIFIED (4) Hypothyroidism Current Visit: Yes Status: Chronic Code(s): E03.9 - HYPOTHYROIDISM, UNSPEC IFIED (5) Depression Current Visit: Yes Status: Chronic Code(s): F32.A - DEPRESSION, UNSPECIFIED (6) HTN (hypertension) Current Visit: Yes Status: Chronic Code(s): I10 - ESSENTIAL (PRIMARY) HYPERTENSION (7) Obesity (BMI 30-39.9) Current Visit: No Status: Chronic Code(s): E66.9 - OBESITY, UNSPECIFIED (8) ST elevation Current Visit: Yes Status: Acute Code(s): R94.31 - ABNORMAL ELECTROCARDIOGRAM [ECG] [EKG] (9) Sinus bradycardia Current Visit: Yes Status: Acute Assessment & Plan: (1) COPD exacerbation Current Visit: Yes Status: Acute Assessment & Plan: - Zosyn, solumedrol, duonebs, Trelegy - Tele - CBC, CMP reviewed - on 5LNC 90%, Baseline 4lNC at night 07/02 - CBC, CMP reviewed - on 5L oxymizer 98% - Repeat CXR shows chronic features 07/03 - On 4lNC 95% - CBC, CMP reviewed Code(s): J44.1 - CHRONIC OBSTRUCTIVE PULMONARY DISEASE W (ACUTE) EXACERBATION (2) Influenza A Current Visit: Yes Status: Acute Assessment & Plan: - + result in ER - Tamiflu BID Code(s): J10.1 - FLU DUE TO OTH IDENT INFLUENZA VIRUS W OTH RESP MANIFEST (3) Sleep apnea Current Visit: Yes Status: Chronic Assessment & Plan: - CPAP at night RT to set up 07/02 - Pt refused CPAP - Co2 31 07/03 - Co2 33 - refused CPAP last night Code(s): G47.30 - SLEEP APNEA, UNSPECIFIED (4) Hypothyroidism Current Visit: Yes Status: Chronic Assessment & Plan: - continue synthroid Code(s): E03.9 - HYPOTHYROIDISM, UNSPECIFIED (5) Depression Current Visit: Yes Status: Chronic Assessment & Plan: -Not currently taking any meds Code(s): F32.A - DEPRESSION, UNSPECIFIED (6) HTN (hypertension) Current Visit: Yes Status: Chronic Assessment & Plan: - BP stable, continue home meds, trend Code(s): I10 - ESSENTIAL (PRIMARY) HYPERTENSION (7) Obesity (BMI 30-39.9) Current Visit: No Status: Chronic Assessment & Plan: - advised diet and exercise control Code(s): E66.9 - OBESITY, UNSPECIFIED (8) ST elevation Current Visit: Yes Status: Acute Assessment & Plan: - EKG shows ST elevation - cardiology consult- pending - Trop x3 ordered Code(s): R94.31 - ABNORMAL ELECTROCARDIOGRAM [ECG] [EKG] (9) Sinus bradycardia Current Visit: Yes Status: Acute Assessment & Plan: - HR low 50's all night - Metoprolol changed to 12.5 BID - cards consult 07/03 - HR dropped again to 45 - Cards consult: ok to d/c with reduced dose of metoprolol today - last echo 02/02/22 CLINICAL INFORMATION: Pneumonia with elevated troponin. The M-mode 2D, and Doppler echocardiogram including color flow Doppler shows the left ventricle is normal in size. There is no thrombus present. The wall thickness is normal. There is normal contractility of the left ventricle. The ejection fraction is calculated to be 71%. There is a severe decrease in right ventricular systolic function. The left atrium is normal in size. The interatrial septum is intact. The right atrium appears to be mildly dilated. The aortic valve opens well. There is no aortic regurgitation. There is mitral valve leaflet thickening without evidence of any significant stenosis. The tricuspid valve is normal. The pulmonic valve is not well visualized. There is mild pulmonic regurgitation. The aortic root is normal. There is no pericardial effusion present. IMPRESSION: 1) Normal contractility of the left ventricle. 2) SEVERE DECREASE IN RIGHT VENTRICULAR SYSTOLIC FUNCTION. 3) RIGHT ATRIAL DILATATION. 4) MILD PULMONIC regurgitation. Code(s): R00.1 - BRADYCARDIA, UNSPECIFIED Code(s): R00.1 - BRADYCARDIA, UNSPECIFIED (10) CHARITY (acute kidney injury) Current Visit: Yes Status: Acute Assessment & Plan: - Creat 1.05- BL 0.90 - Hold Bumex and Meloxicam Code(s): N17.9 - ACUTE KIDNEY FAILURE, UNSPECIFIED - Discharge Discharge Date: 07/03/24 Disposition: Home, Self-Care Condition: Stable Prescriptions: New Oseltamivir 75 mg [Tamiflu 75MG Capsule] 75 mg PO BID 5 Days #10 cap Doxycycline Hyclate 100 mg [Vibramycin 100 MG] 100 mg PO BID 7 Days #14 tab predniSONE [Prednisone] 10 mg PO DAILY 6 Days #1 dosepack Continue Gabapentin [Neurontin ] 300 mg PO HS Meloxicam 15 mg [Meloxicam 15 MG] 7.5 mg PO BID Albuterol Sulfate [Albuterol Sulfate Hfa] 2 inh PO Q6H PRN PRN PRN Reason: Cough Aspirin [Ecotrin] 81 mg PO DAILY 30 Days #30 tablet Fluticasone/Umeclidin/Vilanter [Trelegy Ellipta 100-62.5-25] 1 puff IH DAILY #1 blist Spironolactone 25 mg [Aldactone 25 MG] 25 mg PO DAILY Potassium Gluconate [Potassium] 99 mg PO DAILY Tolterodine Tartrate [Tolterodine Tartrate ER] 4 mg PO DAILY Metoprolol Succinate 25 mg Xl* [Toprol-Xl 25MG Tablets] 25 mg PO DAILY Bumetanide 1 mg [Bumex 1 mg] 1 mg PO QAM Ipratropium/Albuterol Sulfate [Iprat-Albut 0.5-3(2.5) mg/3 ml] 3 ml IH QIDPRN PRN PRN Reason: Shortness Of Breath/Wheezing Levothyroxine Sodium [Synthroid] 137 mcg PO DAILY Losartan Potassium [Cozaar] 25 mg PO DAILY Metformin HCl 500 mg [Glucophage 500 MG] 500 mg PO BIDWM 30 Days #60 tablet Discontinued Doxycycline Hyclate 100 mg [Vibramycin 100 MG] 100 mg PO BID Prednisone 20 mg [Deltasone 20 mg] 40 mg PO DAILY Additional Instructions: IF ANY OXYGEN EQUIPMENT IS NEEDED OR ANY CONCERNS YOU CAN REACH THEM AT [phone] Follow up with: NASEEM ABEBE [ACTIVE STAFF] - 07/27/24 4:00 pm ([place] Office) BINU BAHENA MD [Primary Care Provider] - 07/10/24 1:30 pm ([place] [facility])
[2024-07-03 15:38] VITALS: PULSE 52; RESP 18; O2SAT 92
== END 2024-07-03 16:15 | disposition home or self-care (01) ==
LOC: ED 18:54 → MED SURG 07-01 10:26
PROVIDERS: ADMIT Internal Medicine; ATTEND Internal Medicine
DX: J44.1 Chronic obstructive pulmonary disease with (acute) exacerbation (principal); J10.1 Influenza due to other identified influenza virus with other respiratory manifestations; G47.30 Sleep apnea, unspecified; E03.9 Hypothyroidism, unspecified; F32.A Depression, unspecified; I10 Essential (primary) hypertension; E66.9 Obesity, unspecified; R94.31 Abnormal electrocardiogram [ECG] [EKG]; R00.1 Bradycardia, unspecified; J44.9 Chronic obstructive pulmonary disease, unspecified; I25.2 Old myocardial infarction; F17.200 Nicotine dependence, unspecified, uncomplicated; Z79.899 Other long term (current) drug therapy; Z85.850 Personal history of malignant neoplasm of thyroid; Z85.41 Personal history of malignant neoplasm of cervix uteri
CPT/HCPCS: 0241U; 36415; 71045; 80053; 83036; 83735; 83880; 84484; 85025; 85027; 87040; 87070; 93005; 93041; 93268; 94640; 94760; 94762; 96365; 96374; 96375; 99285; G0378; Q3014; J0456; J0696; J1650; J2543; J2919; A9270-GY

== ENCOUNTER 2024-10-06 09:55 | Observation (INO) | payer BC ==
--- NOTE | 2024-10-06 10:12 | ERPHSYRPT ---
- History of Present Illness Time Seen by Provider: 10/06/24 10:08 Source: patient Exam Limitations: no limitations Timing/Duration: day(s) Severity: moderate (4 days) Modifying Factors: Improves With: nothing Associated Symptoms: denies symptoms Allergies/Adverse Reactions: No Known Drug Allergies Allergy (Verified 06/30/24 18:55) Home Medications: Gabapentin [Neurontin ] 300 mg PO HS 08/14/21 [History] Meloxicam 15 mg [Meloxicam 15 MG] 7.5 mg PO BID 08/14/21 [History] Albuterol Sulfate [Albuterol Sulfate Hfa] 2 inh PO Q6H PRN PRN 02/18/22 [History] Metoprolol Succinate 25 mg Xl* [Toprol-Xl 25MG Tablets] 25 mg PO DAILY 12/08/22 [History] Potassium Gluconate [Potassium] 99 mg PO DAILY 12/08/22 [History] Spironolactone 25 mg [Aldactone 25 MG] 25 mg PO DAILY 12/08/22 [History] Tolterodine Tartrate [Tolterodine Tartrate ER] 4 mg PO DAILY 12/08/22 [History] Bumetanide 1 mg [Bumex 1 mg] 1 mg PO QAM 01/21/23 [History] Ipratropium/Albuterol Sulfate [Iprat-Albut 0.5-3(2.5) mg/3 ml] 3 ml IH QIDPRN PRN 07/18/23 [History] Levothyroxine Sodium [Synthroid] 137 mcg PO DAILY 07/18/23 [History] Losartan Potassium [Cozaar] 25 mg PO DAILY 07/18/23 [History] Hx Tetanus, Diphtheria Vaccination/Date Given: Yes Hx Influenza Vaccination/Date Given: Yes Hx Pneumococcal Vaccination/Date Given: Yes Travel Risk - Emerging Infectious Disease Are you exhibiting symptoms associated with any current EIDs: Yes Symptoms: Cough: New Onset, Shortness of Breath - Review of Systems Constitutional: No Symptoms, No Fever, No Chills Eyes: No Symptoms Ears, Nose, & Throat: No Symptoms Respiratory: No Symptoms, No Cough, No Dyspnea Cardiac: No Symptoms, No Chest Pain, No Edema, No Syncope Abdominal/Gastrointestinal: No Symptoms, No Abdominal Pain, No Nausea, No Vomiting, No Diarrhea Genitourinary Symptoms: No Symptoms, No Dysuria Musculoskeletal: No Symptoms, No Back Pain, No Neck Pain Skin: No Symptoms, No Rash Neurological: No Symptoms, No Dizziness, No Focal Weakness, No Sensory Changes Psychological: No Symptoms Endocrine: No Symptoms Hematologic/Lymphatic: No Symptoms Immunological/Allergic: No Symptoms All Other Systems: Reviewed and Negative - Past Medical History Pertinent Past Medical History: Yes Neurological History: No Pertinent History ENT History: No Pertinent History Cardiac History: Hypertension, Myocardial Infarction ([place]) Respiratory History: Asthma, COPD, Pneumonia, Sleep Apnea Endocrine Medical History: Hypothyroidism, Thyroid Cancer Musculoskeletal History: No Pertinent History GI Medical History: No Pertinent History History: No Pertinent History, Other Psycho-Social History: Depression Female Reproductive Disorders: Cervical Cancer Other Medical History: overactive bladder, history of cervical cancer - Past Surgical History Past Surgical History: Yes Neuro Surgical History: No Pertinent History Cardiac: No Pertinent History Respiratory: No Pertinent History Gastrointestinal: No Pertinent History Genitourinary: No Pertinent History Musculoskeletal: No Pertinent History Female Surgical History: Other Other Surgical History: thyroidectomy, leep loop electrical-cervix - Social History Smoking Status: Current every day smoker How long have you smoked: 40 Exposure to second hand smoke: Yes Drug Use: none - Social Determinants of Health Will the patient participate in the screening: Yes Do you worry about a steady place to live?: No In the past 12 months,have you had to go without utilities?: No Transportation Issues: No Has anyone in your support network made you feel unsafe?: No Have you or anyone in your house had to go w/o enough food: No - Nursing Vital Signs Nursing Vital Signs: Initial Vital Signs Temperature 98.0 F 10/06/24 10:06 Pulse Rate 77 10/06/24 10:06 Respiratory Rate 20 10/06/24 10:06 Blood Pressure 104/65 10/06/24 10:06 O2 Sat by Pulse Oximetry 92 L 10/06/24 10:06 Pain Scale Pain Intensity 10 - Physical Exam General Appearance: no apparent distress, alert Eye Exam: PERRL/EOMI, eyes nml inspection Ears, Nose, Throat Exam: normal ENT inspection, TMs normal, moist mucous membranes Neck Exam: normal inspection, full range of motion Respiratory Exam: normal breath sounds, lungs clear, airway intact, No respiratory distress Cardiovascular Exam: regular rate/rhythm, normal heart sounds, normal peripheral pulses Gastrointestinal/Abdomen Exam: soft, normal bowel sounds, No tenderness, No mass Back Exam: normal inspection, normal range of motion, No CVA tenderness, No vertebral tenderness Extremity Exam: normal inspection, normal range of motion, pelvis stable Neurologic Exam: alert, oriented x 3, cooperative, normal mood/affect, sensation nml, No motor deficits Skin Exam: normal color, warm, dry, No rash Lymphatic Exam: No adenopathy SpO2 Interpretation: normal O2 Delivery: Room Air - Course Nursing assessment & vital signs reviewed: Yes Ordered Tests: Active Orders 24 hr Category Date Time Status IV Insertion STAT Care 10/06/24 10:07 Active CBC W DIFF Stat Lab 10/06/24 10:28 Results CMP Stat Lab 10/06/24 10:28 Completed LIPASE Stat Lab 10/06/24 10:28 Completed Lactic Acid Stat Lab 10/06/24 10:25 Completed PROTIME WITH INR Stat Lab 10/06/24 10:28 Completed PTT Stat Lab 10/06/24 10:28 Completed TROPONIN Q4H Lab 10/06/24 10:28 Completed TROPONIN Q4H Lab 10/06/24 14:15 Ordered TROPONIN Q4H Lab 10/06/24 18:15 Ordered UA W/RFX UR CULTURE Stat Lab 10/06/24 10:36 Ordered Medication Summary Generic Name Dose Route Start Last Admin Trade Name Freq PRN Reason Stop Dose Admin Sodium Chloride 1,000 mls @ 999 mls/hr 10/06/24 10:07 10/06/24 10:24 Sodium Chloride 0.9% 1000 Ml IV 10/06/24 11:07 999 mls/hr .Q1H1M STA Administration Discontinued Medications Generic Name Dose Route Start Last Admin Trade Name Freq PRN Reason Stop Dose Admin Sodium Chloride Confirm 10/06/24 10:17 Sodium Chloride 0.9% 1000 Ml Administered 10/06/24 10:18 Dose 1,000 mls @ ud .ROUTE .STK-MED ONE Ondansetron HCl 4 mg 10/06/24 10:07 10/06/24 10:24 Ondansetron Hcl 4 Mg/2 Ml Vial IV 10/06/24 10:08 4 mg STAT ONE Administration Ondansetron HCl Confirm 10/06/24 10:17 Ondansetron Hcl 4 Mg/2 Ml Vial Administered 10/06/24 10:18 Dose 4 mg .ROUTE .STK-MED ONE Lab/Rad Data: Laboratory Result Diagrams 10/06/24 10:28 10/06/24 10:28 Laboratory Results 10/06/24 10/06/24 10/06/24 Range/Units 10:28 10:28 10:28 WBC (3.98-10.04) x10^3/uL RBC (3.93-5.22) x10^6/uL Hgb (11.2-15.7) g/dL Hct (34.1-44.9) % MCV (79.4-94.8) fL MCH (25.6-32.2) pg MCHC (32.2-35.5) g/dL RDW (11.7-14.4) % Plt Count (182-369) x10^3/uL MPV (9.4-12.3) fL Gran % (34.0-71.1) % Immature Gran % (Auto) (0.001-0.429) % Nucleat RBC Rel Count (0.00-0.2) % Eos # (Auto) (0.04-0.36) x10^3/uL Immature Gran # (Auto) (0.001-0.031) x10^3u/L Absolute Lymphs (auto) (1.18-3.74) x10^3/uL Absolute Monos (auto) (0.24-0.86) x10^3/uL Absolute Nucleated RBC (0.00-0.012) x10^3u/L Lymphocytes % (19.3-51.7) % Monocytes % (4.7-12.5) % Eosinophils % (0.7-5.8) % Basophils % (0.1-1.2) % Absolute Granulocytes (1.56-6.13) x10^3/uL Basophils # (0.01-0.08) x10^3/uL PT 11.3 (9.4-12.5) SECONDS INR 1.04 (0.8-3.0) APTT 25.6 (25.1-36.5) SECONDS Sodium 132 L (135-145) mmol/L Potassium 3.6 (3.5-5.1) mmol/L Chloride 90 L (98-107) mmol/L Carbon Dioxide 33 H (22-30) mmol/L Anion Gap 12.1 (5-15) MEQ/L BUN 26 H (7-17) mg/dL Creatinine 0.91 (0.52-1.04) mg/dL Estimated GFR 73.1 ML/MIN Glucose 123 H (74-106) mg/dL Lactic Acid (0.4-2.0) Calcium 9.6 (8.4-10.2) mg/dL Total Bilirubin 0.60 (0.2-1.3) mg/dL AST 27 (14-36) U/L ALT 18 (0-35) U/L Alkaline Phosphatase 63 (38-126) U/L Troponin I < 0.012 (0.000-0.033) ng/mL Serum Total Protein 6.5 (6.3-8.2) g/dL Albumin 4.2 (3.5-5.0) g/dL Lipase 35 (23-300) U/L 10/06/24 10/06/24 Range/Units 10:28 10:25 WBC 16.6 H (3.98-10.04) x10^3/uL RBC 5.41 H (3.93-5.22) x10^6/uL Hgb 16.4 H (11.2-15.7) g/dL Hct 50.0 H (34.1-44.9) % MCV 92.4 (79.4-94.8) fL MCH 30.3 (25.6-32.2) pg MCHC 32.8 (32.2-35.5) g/dL RDW 14.1 (11.7-14.4) % Plt Count 289 (182-369) x10^3/uL MPV 9.4 (9.4-12.3) fL Gran % 82.8 H (34.0-71.1) % Immature Gran % (Auto) 0.5 H (0.001-0.429) % Nucleat RBC Rel Count 0.0 (0.00-0.2) % Eos # (Auto) 0.02 L (0.04-0.36) x10^3/uL Immature Gran # (Auto) 0.09 H (0.001-0.031) x10^3u/L Absolute Lymphs (auto) 1.52 (1.18-3.74) x10^3/uL Absolute Monos (auto) 1.18 H (0.24-0.86) x10^3/uL Absolute Nucleated RBC 0.00 (0.00-0.012) x10^3u/L Lymphocytes % 9.2 L (19.3-51.7) % Monocytes % 7.1 (4.7-12.5) % Eosinophils % 0.1 L (0.7-5.8) % Basophils % 0.3 (0.1-1.2) % Absolute Granulocytes 13.74 H (1.56-6.13) x10^3/uL Basophils # 0.05 (0.01-0.08) x10^3/uL PT (9.4-12.5) SECONDS INR (0.8-3.0) APTT (25.1-36.5) SECONDS Sodium (135-145) mmol/L Potassium (3.5-5.1) mmol/L Chloride (98-107) mmol/L Carbon Dioxide (22-30) mmol/L Anion Gap (5-15) MEQ/L BUN (7-17) mg/dL Creatinine (0.52-1.04) mg/dL Estimated GFR ML/MIN Glucose (74-106) mg/dL Lactic Acid 1.1 (0.4-2.0) Calcium (8.4-10.2) mg/dL Total Bilirubin (0.2-1.3) mg/dL AST (14-36) U/L ALT (0-35) U/L Alkaline Phosphatase (38-126) U/L Troponin I (0.000-0.033) ng/mL Serum Total Protein (6.3-8.2) g/dL Albumin (3.5-5.0) g/dL Lipase (23-300) U/L - Departure Referrals: BINU BAHENA MD [Primary Care Provider, INTERNAL MEDICINE] - Follow up/PCP as directed
[2024-10-06] MEDS ORDERED: Sodium Chloride 0.9% 1000 ML 1,000 ML ONE (10:17)
[2024-10-06] MEDS ORDERED: Zofran 4 MG/2 ML VIAL ONE (10:17)
[2024-10-06] MEDS: Zofran 4 MG/2 ML VIAL IV ONE (10:24)
[2024-10-06] MEDS: Sodium Chloride 0.9% 1000 ML 1,000 ML IV STA (10:24)
[2024-10-06 10:27] LABS: Absolute Neutrophil Ct (ANC) 13.74 x10^3/uL (1.56-6.13); BASOPHIL % 0.3 % (0.1-1.2); Basophil (Absolute #) 0.05 x10^3/uL (0.01-0.08); Eosinophil % 0.1 % (0.7-5.8); Eosinophil (Absolute #) 0.02 x10^3/uL (0.04-0.36); Hemoglobin 16.4 g/dL (11.2-15.7); IMMATURE GRAN # 0.09 x10^3u/L (0.001-0.031); IMMATURE GRAN % 0.5 % (0.001-0.429); Lymphocyte (Absolute #) 1.52 x10^3/uL (1.18-3.74); Lymphocytes % 9.2 % (19.3-51.7); Mean Cell Volume 92.4 fL (79.4-94.8); Mean Corpuscular Hemoglobin 30.3 pg (25.6-32.2); Mean Corpuscular Hgb Concent. 32.8 g/dL (32.2-35.5); Mean Platelet Volume 9.4 fL (9.4-12.3); Monocyte (Absolute #) 1.18 x10^3/uL (0.24-0.86); Monocytes % 7.1 % (4.7-12.5); Neutrophil % 82.8 % (34.0-71.1); Platelet Count 289 x10^3/uL (182-369); Red Blood Count 5.41 x10^6/uL (3.93-5.22); Red Cell Distribution Width 14.1 % (11.7-14.4); White Blood Count 16.6 x10^3/uL (3.98-10.04)
[2024-10-06 10:43] LABS: ALBUMIN 4.2 g/dL (3.5-5.0); ANION GAP 12.1 MEQ/L (5-15); BILIRUBIN,TOTAL 0.6 mg/dL (0.2-1.3); Calcium 9.6 mg/dL (8.4-10.2); Creatinine 1 0.91 mg/dL (0.52-1.04); EST GLOMERULAR FILTRATION RATE 73.1 ML/MIN; INR 1.04 (0.8-3.0); PROTIME 11.3 SECONDS (9.4-12.5); PTT 25.6 SECONDS (25.1-36.5); Potassium 3.6 mmol/L (3.5-5.1); Total Protein 6.5 g/dL (6.3-8.2)
[2024-10-06 11:05] LABS: INFLUENZA A NEGATIVE (NEGATIVE); INFLUENZA B NEGATIVE (NEGATIVE); RESPIRATORY SYNCTIAL VIRUS NEGATIVE (NEGATIVE); SARS-CoV-2 Xpert Express NEGATIVE (NEGATIVE)
[2024-10-06 11:10] LABS: Appearance Clear (Clear); Bacteria None Seen /HPF (None Seen); Bilirubin Negative (Negative); Blood Trace (Negative); Epithelial Cells None Seen /HPF (None Seen); Glucose, Urine Negative (Negative); Hyaline Casts NONE SEEN /LPF (0-2); Ketones Trace (Negative); Leukocyte Esterase Negative (Negative); Nitrite Negative (Negative); Protein,Urine Dip Negative (Negative); RBC 0-2 /HPF (0-5); Specific Gravity 1.015 (1.005-1.030); Urobilinogen 0.2 mg/dL (0.2); WBC 0-2 /HPF (0-5)
--- NOTE | 2024-10-06 11:16 | ERPHSYRPT ---
- History of Present Illness Time Seen by Provider: 10/06/24 10:08 Source: patient Exam Limitations: no limitations Patient Subjective Stated Complaint: Pt states "I have been vomiting since 3 am saturday morning and I hurt now." Triage Nursing Assessment: Pt presented alert and oriented X 3, skin wpd. Pt ambulates with an upright steady gait, able to speak in clear full sentences. Pt resting comfortably on the bed. Physician History: Patient is a 59-year-old female presents to our ED for evaluation of nausea and vomiting x 3 days. Patient complains of a burning sensation in her abdomen and chest area. No trauma no fever. No diaphoresis. Symptoms are moderate in intensity. No specific worsening or improving factors. Patient admits to loose stools. No hematuria or dysuria. Patient feels weak which she attributes to dehydration. Patient voices no other complaints or concerns at this time. Patient declined pain medication Portions of this note were created with voice recognition technology. There may be grammatical, spelling, punctuation or sound alike errors Timing/Duration: day(s) Severity: moderate (3 days) Modifying Factors: Improves With: nothing Associated Symptoms: other Allergies/Adverse Reactions: No Known Drug Allergies Allergy (Verified 06/30/24 18:55) Home Medications: Gabapentin [Neurontin ] 300 mg PO HS 08/14/21 [History] Meloxicam 15 mg [Meloxicam 15 MG] 7.5 mg PO BID 08/14/21 [History] Albuterol Sulfate [Albuterol Sulfate Hfa] 2 inh PO Q6H PRN PRN 02/18/22 [History] Metoprolol Succinate 25 mg Xl* [Toprol-Xl 25MG Tablets] 25 mg PO DAILY 12/08/22 [History] Potassium Gluconate [Potassium] 99 mg PO DAILY 12/08/22 [History] Spironolactone 25 mg [Aldactone 25 MG] 25 mg PO DAILY 12/08/22 [History] Tolterodine Tartrate [Tolterodine Tartrate ER] 4 mg PO DAILY 12/08/22 [History] Bumetanide 1 mg [Bumex 1 mg] 1 mg PO QAM 01/21/23 [History] Ipratropium/Albuterol Sulfate [Iprat-Albut 0.5-3(2.5) mg/3 ml] 3 ml IH QIDPRN PRN 07/18/23 [History] Levothyroxine Sodium [Synthroid] 137 mcg PO DAILY 07/18/23 [History] Losartan Potassium [Cozaar] 25 mg PO DAILY 07/18/23 [History] Hx Tetanus, Diphtheria Vaccination/Date Given: No Hx Influenza Vaccination/Date Given: No Hx Pneumococcal Vaccination/Date Given: No Immunizations Up to Date: No Travel Risk - International Travel Have you traveled outside of the country in past 3 weeks: No - Emerging Infectious Disease Are you exhibiting symptoms associated with any current EIDs: Yes Symptoms: Abdominal Pain, Vomitting - Review of Systems Constitutional: No Symptoms, No Fever, No Chills Eyes: No Symptoms Ears, Nose, & Throat: No Symptoms Respiratory: No Symptoms, No Cough, No Dyspnea Cardiac: No Symptoms, No Chest Pain, No Edema, No Syncope Abdominal/Gastrointestinal: No Symptoms, No Abdominal Pain, No Nausea, No Vomiting, No Diarrhea Genitourinary Symptoms: No Symptoms, No Dysuria Musculoskeletal: No Symptoms, No Back Pain, No Neck Pain Skin: No Symptoms, No Rash Neurological: No Symptoms, No Dizziness, No Focal Weakness, No Sensory Changes Psychological: No Symptoms Endocrine: No Symptoms Hematologic/Lymphatic: No Symptoms Immunological/Allergic: No Symptoms All Other Systems: Reviewed and Negative - Past Medical History Pertinent Past Medical History: Yes Neurological History: No Pertinent History ENT History: No Pertinent History Cardiac History: Hypertension, Myocardial Infarction (HI) Respiratory History: Asthma, COPD, Pneumonia, Sleep Apnea Endocrine Medical History: Hypothyroidism, Thyroid Cancer Musculoskeletal History: No Pertinent History GI Medical History: No Pertinent History History: No Pertinent History, Other Psycho-Social History: Depression Female Reproductive Disorders: Cervical Cancer Other Medical History: overactive bladder, history of cervical cancer - Past Surgical History Past Surgical History: Yes Neuro Surgical History: No Pertinent History Cardiac: No Pertinent History Respiratory: No Pertinent History Gastrointestinal: No Pertinent History Genitourinary: No Pertinent History Musculoskeletal: No Pertinent History Female Surgical History: Other Other Surgical History: thyroidectomy, leep loop electrical-cervix - Social History Smoking Status: Current every day smoker How long have you smoked: 40 Exposure to second hand smoke: Yes Drug Use: none - Social Determinants of Health Will the patient participate in the screening: Yes Do you worry about a steady place to live?: No Do you have any problems with any of the following?: No known problems In the past 12 months,have you had to go without utilities?: No Transportation Issues: No Has anyone in your support network made you feel unsafe?: No Have you or anyone in your house had to go w/o enough food: No - Nursing Vital Signs Nursing Vital Signs: Initial Vital Signs Temperature 98.0 F 10/06/24 10:06 Pulse Rate 77 10/06/24 10:06 Respiratory Rate 20 10/06/24 10:06 Blood Pressure 104/65 10/06/24 10:06 O2 Sat by Pulse Oximetry 92 L 10/06/24 10:06 Pain Scale Pain Intensity 0 - Physical Exam General Appearance: no apparent distress, alert Eye Exam: PERRL/EOMI, eyes nml inspection Ears, Nose, Throat Exam: normal ENT inspection, moist mucous membranes Neck Exam: normal inspection, full range of motion Respiratory Exam: normal breath sounds, lungs clear, No respiratory distress Cardiovascular Exam: regular rate/rhythm, normal heart sounds, normal peripheral pulses Gastrointestinal/Abdomen Exam: soft, normal bowel sounds, No tenderness, No mass Back Exam: normal inspection, normal range of motion, No CVA tenderness, No vertebral tenderness Extremity Exam: normal inspection, normal range of motion, pelvis stable Neurologic Exam: alert, oriented x 3, cooperative, normal mood/affect, sensation nml, No motor deficits Skin Exam: normal color, warm, dry, No rash Lymphatic Exam: No adenopathy SpO2 Interpretation: normal SpO2: 92 O2 Delivery: Room Air - Course Nursing assessment & vital signs reviewed: Yes EKG Interpreted by Me: RATE (70), Sinus Rhythm, NORMAL AXIS, NORMAL INTERVALS, NORMAL QRS - CT Exams Abdomen/Pelvis CT Interpretation: Tele-radiologist Report (Constipation, liver cyst, splenic cyst, pulmonary emphysema) Ordered Tests: Active Orders 24 hr Category Date Time Status EKG-ER Only STAT Care 10/06/24 13:15 Active IV Insertion STAT Care 10/06/24 10:07 Active ABDOMEN AND PELVIS W/0 CONTRAS [CT] Stat Exams 10/06/24 11:22 Completed CBC W DIFF Stat Lab 10/06/24 10:28 Completed CMP Stat Lab 10/06/24 10:28 Completed LIPASE Stat Lab 10/06/24 10:28 Completed Lactic Acid Stat Lab 10/06/24 10:25 Completed PROTIME WITH INR Stat Lab 10/06/24 10:28 Completed PTT Stat Lab 10/06/24 10:28 Completed TROPONIN Q4H Lab 10/06/24 10:28 Completed TROPONIN Q4H Lab 10/06/24 14:15 Ordered TROPONIN Q4H Lab 10/06/24 18:15 Ordered UA W/RFX UR CULTURE Stat Lab 10/06/24 10:36 Completed Transfer Order Routine Transfer 10/06/24 Ordered Medication Summary Discontinued Medications Generic Name Dose Route Start Last Admin Trade Name Freq PRN Reason Stop Dose Admin Sodium Chloride 1,000 mls @ 999 mls/hr 10/06/24 10:07 10/06/24 11:32 Sodium Chloride 0.9% 1000 Ml IV 10/06/24 11:07 Infused .Q1H1M STA Infusion Sodium Chloride Confirm 10/06/24 10:17 Sodium Chloride 0.9% 1000 Ml Administered 10/06/24 10:18 Dose 1,000 mls @ ud .ROUTE .STK-MED ONE Ondansetron HCl 4 mg 10/06/24 10:07 10/06/24 10:24 Ondansetron Hcl 4 Mg/2 Ml Vial IV 10/06/24 10:08 4 mg STAT ONE Administration Ondansetron HCl Confirm 10/06/24 10:17 Ondansetron Hcl 4 Mg/2 Ml Vial Administered 10/06/24 10:18 Dose 4 mg .ROUTE .STK-MED ONE Lab/Rad Data: Laboratory Result Diagrams 10/06/24 10:28 10/06/24 10:28 Laboratory Results 10/06/24 10/06/24 10/06/24 Range/Units 10:36 10:28 10:28 WBC (3.98-10.04) x10^3/uL RBC (3.93-5.22) x10^6/uL Hgb (11.2-15.7) g/dL Hct (34.1-44.9) % MCV (79.4-94.8) fL MCH (25.6-32.2) pg MCHC (32.2-35.5) g/dL RDW (11.7-14.4) % Plt Count (182-369) x10^3/uL MPV (9.4-12.3) fL Gran % (34.0-71.1) % Immature Gran % (Auto) (0.001-0.429) % Nucleat RBC Rel Count (0.00-0.2) % Eos # (Auto) (0.04-0.36) x10^3/uL Immature Gran # (Auto) (0.001-0.031) x10^3u/L Absolute Lymphs (auto) (1.18-3.74) x10^3/uL Absolute Monos (auto) (0.24-0.86) x10^3/uL Absolute Nucleated RBC (0.00-0.012) x10^3u/L Lymphocytes % (19.3-51.7) % Monocytes % (4.7-12.5) % Eosinophils % (0.7-5.8) % Basophils % (0.1-1.2) % Absolute Granulocytes (1.56-6.13) x10^3/uL Basophils # (0.01-0.08) x10^3/uL PT 11.3 (9.4-12.5) SECONDS INR 1.04 (0.8-3.0) APTT 25.6 (25.1-36.5) SECONDS Sodium (135-145) mmol/L Potassium (3.5-5.1) mmol/L Chloride (98-107) mmol/L Carbon Dioxide (22-30) mmol/L Anion Gap (5-15) MEQ/L BUN (7-17) mg/dL Creatinine (0.52-1.04) mg/dL Estimated GFR ML/MIN Glucose (74-106) mg/dL Lactic Acid (0.4-2.0) Calcium (8.4-10.2) mg/dL Total Bilirubin (0.2-1.3) mg/dL AST (14-36) U/L ALT (0-35) U/L Alkaline Phosphatase (38-126) U/L Troponin I (0.000-0.033) ng/mL Serum Total Protein (6.3-8.2) g/dL Albumin (3.5-5.0) g/dL Lipase (23-300) U/L Urine Color Yellow (Yellow) Urine Appearance Clear (Clear) Urine pH 6.0 (4.6-8.0) Ur Specific [place] 1.015 (1.005-1.030) Urine Protein Negative (Negative) Urine Glucose (UA) Negative (Negative) mg/dL Urine Ketones Trace A (Negative) Urine Blood Trace (Negative) Urine Nitrite Negative (Negative) Urine Bilirubin Negative (Negative) Urine Urobilinogen 0.2 (0.2) mg/dL Ur Leukocyte Esterase Negative (Negative) U Hyaline Cast (Auto) NONE SEEN (0-2) /LPF Urine Microscopic RBC 0-2 (0-5) /HPF Urine Microscopic WBC 0-2 (0-5) /HPF Ur Epithelial Cells None Seen (None Seen) /HPF Urine Bacteria None Seen (None Seen) /HPF Urine Culture Reflexed NO (NO) Influenza Type A Ag NEGATIVE (NEGATIVE) Influenza Type B Ag NEGATIVE (NEGATIVE) RSV (PCR) NEGATIVE (NEGATIVE) SARS-CoV-2 (PCR) NEGATIVE (NEGATIVE) 10/06/24 10/06/24 10/06/24 Range/Units 10:28 10:28 10:28 WBC 16.6 H (3.98-10.04) x10^3/uL RBC 5.41 H (3.93-5.22) x10^6/uL Hgb 16.4 H (11.2-15.7) g/dL Hct 50.0 H (34.1-44.9) % MCV 92.4 (79.4-94.8) fL MCH 30.3 (25.6-32.2) pg MCHC 32.8 (32.2-35.5) g/dL RDW 14.1 (11.7-14.4) % Plt Count 289 (182-369) x10^3/uL MPV 9.4 (9.4-12.3) fL Gran % 82.8 H (34.0-71.1) % Immature Gran % (Auto) 0.5 H (0.001-0.429) % Nucleat RBC Rel Count 0.0 (0.00-0.2) % Eos # (Auto) 0.02 L (0.04-0.36) x10^3/uL Immature Gran # (Auto) 0.09 H (0.001-0.031) x10^3u/L Absolute Lymphs (auto) 1.52 (1.18-3.74) x10^3/uL Absolute Monos (auto) 1.18 H (0.24-0.86) x10^3/uL Absolute Nucleated RBC 0.00 (0.00-0.012) x10^3u/L Lymphocytes % 9.2 L (19.3-51.7) % Monocytes % 7.1 (4.7-12.5) % Eosinophils % 0.1 L (0.7-5.8) % Basophils % 0.3 (0.1-1.2) % Absolute Granulocytes 13.74 H (1.56-6.13) x10^3/uL Basophils # 0.05 (0.01-0.08) x10^3/uL PT (9.4-12.5) SECONDS INR (0.8-3.0) APTT (25.1-36.5) SECONDS Sodium 132 L (135-145) mmol/L Potassium 3.6 (3.5-5.1) mmol/L Chloride 90 L (98-107) mmol/L Carbon Dioxide 33 H (22-30) mmol/L Anion Gap 12.1 (5-15) MEQ/L BUN 26 H (7-17) mg/dL Creatinine 0.91 (0.52-1.04) mg/dL Estimated GFR 73.1 ML/MIN Glucose 123 H (74-106) mg/dL Lactic Acid (0.4-2.0) Calcium 9.6 (8.4-10.2) mg/dL Total Bilirubin 0.60 (0.2-1.3) mg/dL AST 27 (14-36) U/L ALT 18 (0-35) U/L Alkaline Phosphatase 63 (38-126) U/L Troponin I < 0.012 (0.000-0.033) ng/mL Serum Total Protein 6.5 (6.3-8.2) g/dL Albumin 4.2 (3.5-5.0) g/dL Lipase 35 (23-300) U/L Urine Color (Yellow) Urine Appearance (Clear) Urine pH (4.6-8.0) Ur Specific [place] (1.005-1.030) Urine Protein (Negative) Urine Glucose (UA) (Negative) mg/dL Urine Ketones (Negative) Urine Blood (Negative) Urine Nitrite (Negative) Urine Bilirubin (Negative) Urine Urobilinogen (0.2) mg/dL Ur Leukocyte Esterase (Negative) U Hyaline Cast (Auto) (0-2) /LPF Urine Microscopic RBC (0-5) /HPF Urine Microscopic WBC (0-5) /HPF Ur Epithelial Cells (None Seen) /HPF Urine Bacteria (None Seen) /HPF Urine Culture Reflexed (NO) Influenza Type A Ag (NEGATIVE) Influenza Type B Ag (NEGATIVE) RSV (PCR) (NEGATIVE) SARS-CoV-2 (PCR) (NEGATIVE) 10/06/24 Range/Units 10:25 WBC (3.98-10.04) x10^3/uL RBC (3.93-5.22) x10^6/uL Hgb (11.2-15.7) g/dL Hct (34.1-44.9) % MCV (79.4-94.8) fL MCH (25.6-32.2) pg MCHC (32.2-35.5) g/dL RDW (11.7-14.4) % Plt Count (182-369) x10^3/uL MPV (9.4-12.3) fL Gran % (34.0-71.1) % Immature Gran % (Auto) (0.001-0.429) % Nucleat RBC Rel Count (0.00-0.2) % Eos # (Auto) (0.04-0.36) x10^3/uL Immature Gran # (Auto) (0.001-0.031) x10^3u/L Absolute Lymphs (auto) (1.18-3.74) x10^3/uL Absolute Monos (auto) (0.24-0.86) x10^3/uL Absolute Nucleated RBC (0.00-0.012) x10^3u/L Lymphocytes % (19.3-51.7) % Monocytes % (4.7-12.5) % Eosinophils % (0.7-5.8) % Basophils % (0.1-1.2) % Absolute Granulocytes (1.56-6.13) x10^3/uL Basophils # (0.01-0.08) x10^3/uL PT (9.4-12.5) SECONDS INR (0.8-3.0) APTT (25.1-36.5) SECONDS Sodium (135-145) mmol/L Potassium (3.5-5.1) mmol/L Chloride (98-107) mmol/L Carbon Dioxide (22-30) mmol/L Anion Gap (5-15) MEQ/L BUN (7-17) mg/dL Creatinine (0.52-1.04) mg/dL Estimated GFR ML/MIN Glucose (74-106) mg/dL Lactic Acid 1.1 (0.4-2.0) Calcium (8.4-10.2) mg/dL Total Bilirubin (0.2-1.3) mg/dL AST (14-36) U/L ALT (0-35) U/L Alkaline Phosphatase (38-126) U/L Troponin I (0.000-0.033) ng/mL Serum Total Protein (6.3-8.2) g/dL Albumin (3.5-5.0) g/dL Lipase (23-300) U/L Urine Color (Yellow) Urine Appearance (Clear) Urine pH (4.6-8.0) Ur Specific [place] (1.005-1.030) Urine Protein (Negative) Urine Glucose (UA) (Negative) mg/dL Urine Ketones (Negative) Urine Blood (Negative) Urine Nitrite (Negative) Urine Bilirubin (Negative) Urine Urobilinogen (0.2) mg/dL Ur Leukocyte Esterase (Negative) U Hyaline Cast (Auto) (0-2) /LPF Urine Microscopic RBC (0-5) /HPF Urine Microscopic WBC (0-5) /HPF Ur Epithelial Cells (None Seen) /HPF Urine Bacteria (None Seen) /HPF Urine Culture Reflexed (NO) Influenza Type A Ag (NEGATIVE) Influenza Type B Ag (NEGATIVE) RSV (PCR) (NEGATIVE) SARS-CoV-2 (PCR) (NEGATIVE) - Progress Progress: improved Progress Note: 59-year-old female history of emphysema home O2 at night presents to our ED for evaluation of nausea vomiting generalized weakness x 3 days. Physical exam essentially nonremarkable. Laboratory workup suggestive of hemoconcentration/dehydration. Patient complains of abdominal pain. CT abdomen pelvis reveals constipation. Later in the course of patient's stay in our ED patient began to complain of ongoing chest pain. EKG was sinus rhythm. Troponin negative. Patient's heart score is a 4. Patient will be admitted for further evaluation and treatment. Plan of care discussed with patient. She agrees to admission to [facility] for further evaluation and treatment. Portions of this note were created with voice recognition technology. There may be grammatical, spelling, punctuation or sound alike errors Complexity of problem addressed is moderate acute complicated. No critical care time. Complex of data reviewed and analyzed extensive. Test ordered test reviewed results analyzed and correlated clinically with history and physical exam. Case discussed with hospitalist who accepts admission to observation at 1:18 PM. Risk of complication and or risk of morbidity/mortality of patient management is high. Patient requires hospitalization for further evaluation and treatment. Vital stable. Time spent admit patient approximately 20 minutes. Plan of care established for shared decision making. No social determinants of health present to impede follow-up. Portions of this note were created with voice recognition technology. There may be grammatical, spelling, punctuation or sound alike errors 10/06/24 13:20 Counseled pt/family regarding: lab results, diagnosis, rad results - Departure Departure Disposition: Observation Clinical Impression: Generalized weakness, Nausea and vomiting, Dehydration, Constipation, Chest pain, ACS (acute coronary syndrome) Condition: Stable Critical Care Time: No Referrals: BINU BAHENA MD [Primary Care Provider, INTERNAL MEDICINE] - Follow up/PCP as directed Additional Instructions: Discharge/Care Plan ARANZA PEREZ MITA REILLY was seen on 10/06/24 in the Emergency Room. The patient was counseled regarding Diagnosis,Lab results, Imaging studies, need for follow up and when to return to the Emergency Room. Prescriptions given: Discharge Note I have spoken with the patient and/or caregivers. I have explained the patient's condition, diagnosis and treatment plan based on the information available to me at this time. I have answered the patient's and/or caregiver's questions and addressed any concerns. The patient and/or caregivers have as good understanding of the patient's diagnosis, condition and treatment plan as can be expected at this point. The vital signs have been stable. The patient's condition is stable and appropriate for discharge from the emergency department. The patient will pursue further outpatient evaluation with the primary care physician or other designated or consulting physician as outlined in the discharge instructions. The patient and/or caregivers are agreeable to this plan of care and follow-up instructions have been explained in detail. The patient and/or caregivers have received these instruction. The patient/and or caregivers are aware that any significant change in condition or worsening of symptoms should prompt an immediate return to this or the closest emergency department or call 911.
--- NOTE | 2024-10-06 12:49 | XRAY ---
Indication: Pain and vomiting 4 days. Multiple contiguous axial images obtained through the abdomen and pelvis without contrast. Comparison: November 12, 2005 Lung bases demonstrates pulmonary emphysema without infiltrate or effusion. Heart not enlarged. Noncontrasted stomach and bowel loops appear nonobstructed with normal appendix. There is now moderate diffuse scattered colonic fecal debris. New radiopacities in ascending colon either ingested medication, bismuth, or barium. Left lobe liver demonstrates new 1.6 and 1.[address] proven cysts. Stable 5.2 cm splenic calcified cyst. Remaining liver, gallbladder, pancreas, spleen, adrenal glands, kidneys, ureters, bladder, and uterus are unremarkable for noncontrast exam. Worsening moderate diffuse scattered aortoiliac calcifications without AAA. Osseous structures intact. No ventral or inguinal hernias. Impression: 1. New moderate diffuse colonic fecal stasis. 2. Chronic findings including pulmonary emphysema, calcified splenic cyst, hepatic cysts, and arteriosclerotic disease. 3. Remaining CT abdomen/pelvis without contrast exam is negative.
[2024-10-06] MEDS ORDERED: NITRO-BID 2% UD PACKETS ONE (13:50)
[2024-10-06] MEDS ORDERED: BABY ASPIRIN 81 MG CHEW ONE (13:50)
[2024-10-06] MEDS: BABY ASPIRIN 81 MG CHEW PO ONE (13:51)
[2024-10-06] MEDS: NITRO-BID 2% UD PACKETS TOP ONE (13:51)
[2024-10-06] MEDS ORDERED: Zofran 4 MG/2 ML VIAL IV PRN (14:21)
[2024-10-06] MEDS ORDERED: TYLENOL 325 MG PO PRN (14:22)
--- NOTE | 2024-10-06 14:22 | PCM.HP ---
History of Present Illness - Chief Complaint Chief Complaint: Chest pain, ACS Date: 10/06/24 History of Present Illness: is a 59-year-old female with a history of emphysema, sleep apnea, hypothyroidism, HTN, on 4lNC home oxygen at night was admitted to the hospital following evaluation in the emergency department for a three-day history of nausea, vomiting, and generalized weakness. Her physical examination was unremarkable, and initial laboratory results showed hemoconcentration consistent with dehydration. A CT scan of the abdomen and pelvis revealed constipation, and the patient also reported abdominal discomfort. During her ED stay, she developed chest pain; however, EKG showed normal sinus rhythm and troponin level x1 negative. She was admitted for further evaluation and management. A soap suds enema has been ordered to address her constipation. The plan of care has been discussed with the patient, and she is in agreement. - Review of Systems Constitutional: No Fever, No Chills Eyes: No Symptoms Ears, Nose, & Throat: No Symptoms Respiratory: No Cough, No Short Of Breath Cardiac: No Chest Pain, No Edema, No Syncope Abdominal/Gastrointestinal: Abdominal Pain, Nausea, Vomiting, Constipation, No Diarrhea Genitourinary Symptoms: No Dysuria Musculoskeletal: No Back Pain, No Neck Pain Skin: No Rash Neurological: No Dizziness, No Focal Weakness, No Sensory Changes Psychological: No Symptoms Endocrine: No Symptoms Hematologic/Lymphatic: No Symptoms Immunological/Allergic: No Symptoms Medications & Allergies Home Medications: Home Medication List Gabapentin [Neurontin ] 300 mg PO HS 08/14/21 [History Confirmed 10/06/24] Meloxicam 15 mg [Meloxicam 15 MG] 7.5 mg PO BID 08/14/21 [History Confirmed 10/06/24] Albuterol Sulfate [Albuterol Sulfate Hfa] 2 inh PO Q6H PRN PRN 02/18/22 [History Confirmed 10/06/24] Aspirin [Ecotrin] 81 mg PO DAILY 30 Days #30 tablet 02/20/22 [Rx Confirmed 10/06/24] Fluticasone/Umeclidin/Vilanter [Trelegy Ellipta 100-62.5-25] 1 puff IH DAILY #1 blist 06/13/22 [Rx Confirmed 10/06/24] Metoprolol Succinate 25 mg Xl* [Toprol-Xl 25MG Tablets] 25 mg PO DAILY 12/08/22 [History Confirmed 10/06/24] Potassium Gluconate [Potassium] 99 mg PO DAILY 12/08/22 [History Confirmed 10/06/24] Spironolactone 25 mg [Aldactone 25 MG] 25 mg PO DAILY 12/08/22 [History Confirmed 10/06/24] Tolterodine Tartrate [Tolterodine Tartrate ER] 4 mg PO DAILY 12/08/22 [History Confirmed 10/06/24] Bumetanide 1 mg [Bumex 1 mg] 1 mg PO QAM 01/21/23 [History Confirmed 10/06/24] Ipratropium/Albuterol Sulfate [Iprat-Albut 0.5-3(2.5) mg/3 ml] 3 ml IH QIDPRN PRN 07/18/23 [History Confirmed 10/06/24] Levothyroxine Sodium [Synthroid] 137 mcg PO DAILY 07/18/23 [History Confirmed 10/06/24] Losartan Potassium [Cozaar] 25 mg PO DAILY 07/18/23 [History Confirmed 10/06/24] Metformin HCl 500 mg [Glucophage 500 MG] 500 mg PO BIDWM 30 Days #60 tablet 07/22/23 [Rx Confirmed 10/06/24] Allergies/Adverse Reactions: Allergies Allergy/AdvReac Type Severity Reaction Status Date / Time No Known Drug Allergies Allergy Verified 10/06/24 14:11 - Past Medical History Past Medical History: Yes Neurological History: No Pertinent History ENT History: No Pertinent History Cardiac History: Hypertension, Myocardial Infarction ([place]) Respiratory History: Asthma, COPD, Pneumonia, Sleep Apnea Endocrine Medical History: Hypothyroidism, Thyroid Cancer Musculoskelatal History: No Pertinent History GI Medical History: No Pertinent History History: No Pertinent History, Other Pyscho-Social History: Depression Reproductive Disorders: Cervical Cancer Comment: overactive bladder, history of cervical cancer - Past Surgical History Past Surgical History: Yes Neuro Surgical History: No Pertinent History Cardiac History: No Pertinent History Respiratory Surgery: No Pertinent History GI Surgical History: No Pertinent History Genitourinary Surgical Hx: No Pertinent History Musculskeletal Surgical Hx: No Pertinent History Female Surgical History: Other Other Surgical History: thyroidectomy, leep loop electrical-cervix - Social History Smoking Status: Current every day smoker How long have you smoked: 40 Exposure to second hand smoke: Yes Alcohol: None Drug Use: none - Social Determinants of Health Will the patient participate in the screening: Yes Do you worry about a steady place to live?: No Do you have any problems with any of the following?: No known problems In the past 12 months,have you had to go without utilities?: No Have you or anyone in your house had to go without enough: No Transportation Issues: No Has anyone in your support network made you feel unsafe?: No Does the patient want assistance with any of the above?: No - Physical Exam Vital Signs: Vital Signs - 24 hr Temp Pulse Resp BP BP Pulse Ox 10/06/24 13:45 64 18 111/66 94 L 10/06/24 13:30 114/60 95 10/06/24 13:28 92 L 10/06/24 13:15 97/62 95 10/06/24 13:00 72 22 112/72 96 10/06/24 12:47 77 15 117/72 96 10/06/24 12:30 79 21 129/67 10/06/24 12:15 65 19 119/71 98 10/06/24 12:00 61 14 107/65 97 10/06/24 11:45 63 16 82/60 96 10/06/24 11:37 73 19 105/66 90 L 10/06/24 11:15 128/64 10/06/24 11:00 61 17 132/62 93 L 10/06/24 10:45 63 17 110/68 93 L 10/06/24 10:34 69 22 100/62 95 10/06/24 10:15 78 16 89/63 89 L 10/06/24 10:06 98.0 F 77 20 104/65 92 L General Appearance: no apparent distress, alert Neurologic Exam: alert, oriented x 3, cooperative, normal mood/affect, nml cerebellar function, nml station & gait, sensation nml, No motor deficits Eye Exam: PERRL/EOMI, eyes nml inspection Ears, Nose, Throat Exam: normal ENT inspection, TMs normal, pharynx normal, moist mucous membranes Neck Exam: normal inspection, non-tender, supple, full range of motion Respiratory Exam: normal breath sounds, lungs clear, No respiratory distress Cardiovascular Exam: regular rate/rhythm, normal heart sounds, normal peripheral pulses Gastrointestinal/Abdomen Exam: soft, normal bowel sounds, tenderness, No mass Back Exam: normal inspection, normal range of motion, No CVA tenderness, No vertebral tenderness Extremity Exam: normal inspection, normal range of motion, pelvis stable Skin Exam: normal color, warm, dry, No rash Lymphatic Exam: No adenopathy Results - Labs Lab/Micro Results: Lab Results-Last 24 Hours 10/06/24 10/06/24 10/06/24 Range/Units 10:25 10:28 10:28 WBC 16.6 H (3.98-10.04) x10^3/uL RBC 5.41 H (3.93-5.22) x10^6/uL Hgb 16.4 H (11.2-15.7) g/dL Hct 50.0 H (34.1-44.9) % MCV 92.4 (79.4-94.8) fL MCH 30.3 (25.6-32.2) pg MCHC 32.8 (32.2-35.5) g/dL RDW 14.1 (11.7-14.4) % Plt Count 289 (182-369) x10^3/uL MPV 9.4 (9.4-12.3) fL Gran % 82.8 H (34.0-71.1) % Immature Gran % (Auto) 0.5 H (0.001-0.429) % Nucleat RBC Rel Count 0.0 (0.00-0.2) % Eos # (Auto) 0.02 L (0.04-0.36) x10^3/uL Immature Gran # (Auto) 0.09 H (0.001-0.031) x10^3u/L Absolute Lymphs (auto) 1.52 (1.18-3.74) x10^3/uL Absolute Monos (auto) 1.18 H (0.24-0.86) x10^3/uL Absolute Nucleated RBC 0.00 (0.00-0.012) x10^3u/L Lymphocytes % 9.2 L (19.3-51.7) % Monocytes % 7.1 (4.7-12.5) % Eosinophils % 0.1 L (0.7-5.8) % Basophils % 0.3 (0.1-1.2) % Absolute Granulocytes 13.74 H (1.56-6.13) x10^3/uL Basophils # 0.05 (0.01-0.08) x10^3/uL PT (9.4-12.5) SECONDS INR (0.8-3.0) APTT (25.1-36.5) SECONDS Sodium 132 L (135-145) mmol/L Potassium 3.6 (3.5-5.1) mmol/L Chloride 90 L (98-107) mmol/L Carbon Dioxide 33 H (22-30) mmol/L Anion Gap 12.1 (5-15) MEQ/L BUN 26 H (7-17) mg/dL Creatinine 0.91 (0.52-1.04) mg/dL Estimated GFR 73.1 ML/MIN Glucose 123 H (74-106) mg/dL Lactic Acid 1.1 (0.4-2.0) Calcium 9.6 (8.4-10.2) mg/dL Total Bilirubin 0.60 (0.2-1.3) mg/dL AST 27 (14-36) U/L ALT 18 (0-35) U/L Alkaline Phosphatase 63 (38-126) U/L Troponin I (0.000-0.033) ng/mL Serum Total Protein 6.5 (6.3-8.2) g/dL Albumin 4.2 (3.5-5.0) g/dL Lipase 35 (23-300) U/L Urine Color (Yellow) Urine Appearance (Clear) Urine pH (4.6-8.0) Ur Specific [place] (1.005-1.030) Urine Protein (Negative) Urine Glucose (UA) (Negative) mg/dL Urine Ketones (Negative) Urine Blood (Negative) Urine Nitrite (Negative) Urine Bilirubin (Negative) Urine Urobilinogen (0.2) mg/dL Ur Leukocyte Esterase (Negative) U Hyaline Cast (Auto) (0-2) /LPF Urine Microscopic RBC (0-5) /HPF Urine Microscopic WBC (0-5) /HPF Ur Epithelial Cells (None Seen) /HPF Urine Bacteria (None Seen) /HPF Urine Culture Reflexed (NO) Influenza Type A Ag (NEGATIVE) Influenza Type B Ag (NEGATIVE) RSV (PCR) (NEGATIVE) SARS-CoV-2 (PCR) (NEGATIVE) 10/06/24 10/06/24 10/06/24 Range/Units 10:28 10:28 10:28 WBC (3.98-10.04) x10^3/uL RBC (3.93-5.22) x10^6/uL Hgb (11.2-15.7) g/dL Hct (34.1-44.9) % MCV (79.4-94.8) fL MCH (25.6-32.2) pg MCHC (32.2-35.5) g/dL RDW (11.7-14.4) % Plt Count (182-369) x10^3/uL MPV (9.4-12.3) fL Gran % (34.0-71.1) % Immature Gran % (Auto) (0.001-0.429) % Nucleat RBC Rel Count (0.00-0.2) % Eos # (Auto) (0.04-0.36) x10^3/uL Immature Gran # (Auto) (0.001-0.031) x10^3u/L Absolute Lymphs (auto) (1.18-3.74) x10^3/uL Absolute Monos (auto) (0.24-0.86) x10^3/uL Absolute Nucleated RBC (0.00-0.012) x10^3u/L Lymphocytes % (19.3-51.7) % Monocytes % (4.7-12.5) % Eosinophils % (0.7-5.8) % Basophils % (0.1-1.2) % Absolute Granulocytes (1.56-6.13) x10^3/uL Basophils # (0.01-0.08) x10^3/uL PT 11.3 (9.4-12.5) SECONDS INR 1.04 (0.8-3.0) APTT 25.6 (25.1-36.5) SECONDS Sodium (135-145) mmol/L Potassium (3.5-5.1) mmol/L Chloride (98-107) mmol/L Carbon Dioxide (22-30) mmol/L Anion Gap (5-15) MEQ/L BUN (7-17) mg/dL Creatinine (0.52-1.04) mg/dL Estimated GFR ML/MIN Glucose (74-106) mg/dL Lactic Acid (0.4-2.0) Calcium (8.4-10.2) mg/dL Total Bilirubin (0.2-1.3) mg/dL AST (14-36) U/L ALT (0-35) U/L Alkaline Phosphatase (38-126) U/L Troponin I < 0.012 (0.000-0.033) ng/mL Serum Total Protein (6.3-8.2) g/dL Albumin (3.5-5.0) g/dL Lipase (23-300) U/L Urine Color (Yellow) Urine Appearance (Clear) Urine pH (4.6-8.0) Ur Specific [place] (1.005-1.030) Urine Protein (Negative) Urine Glucose (UA) (Negative) mg/dL Urine Ketones (Negative) Urine Blood (Negative) Urine Nitrite (Negative) Urine Bilirubin (Negative) Urine Urobilinogen (0.2) mg/dL Ur Leukocyte Esterase (Negative) U Hyaline Cast (Auto) (0-2) /LPF Urine Microscopic RBC (0-5) /HPF Urine Microscopic WBC (0-5) /HPF Ur Epithelial Cells (None Seen) /HPF Urine Bacteria (None Seen) /HPF Urine Culture Reflexed (NO) Influenza Type A Ag NEGATIVE (NEGATIVE) Influenza Type B Ag NEGATIVE (NEGATIVE) RSV (PCR) NEGATIVE (NEGATIVE) SARS-CoV-2 (PCR) NEGATIVE (NEGATIVE) 10/06/24 Range/Units 10:36 WBC (3.98-10.04) x10^3/uL RBC (3.93-5.22) x10^6/uL Hgb (11.2-15.7) g/dL Hct (34.1-44.9) % MCV (79.4-94.8) fL MCH (25.6-32.2) pg MCHC (32.2-35.5) g/dL RDW (11.7-14.4) % Plt Count (182-369) x10^3/uL MPV (9.4-12.3) fL Gran % (34.0-71.1) % Immature Gran % (Auto) (0.001-0.429) % Nucleat RBC Rel Count (0.00-0.2) % Eos # (Auto) (0.04-0.36) x10^3/uL Immature Gran # (Auto) (0.001-0.031) x10^3u/L Absolute Lymphs (auto) (1.18-3.74) x10^3/uL Absolute Monos (auto) (0.24-0.86) x10^3/uL Absolute Nucleated RBC (0.00-0.012) x10^3u/L Lymphocytes % (19.3-51.7) % Monocytes % (4.7-12.5) % Eosinophils % (0.7-5.8) % Basophils % (0.1-1.2) % Absolute Granulocytes (1.56-6.13) x10^3/uL Basophils # (0.01-0.08) x10^3/uL PT (9.4-12.5) SECONDS INR (0.8-3.0) APTT (25.1-36.5) SECONDS Sodium (135-145) mmol/L Potassium (3.5-5.1) mmol/L Chloride (98-107) mmol/L Carbon Dioxide (22-30) mmol/L Anion Gap (5-15) MEQ/L BUN (7-17) mg/dL Creatinine (0.52-1.04) mg/dL Estimated GFR ML/MIN Glucose (74-106) mg/dL Lactic Acid (0.4-2.0) Calcium (8.4-10.2) mg/dL Total Bilirubin (0.2-1.3) mg/dL AST (14-36) U/L ALT (0-35) U/L Alkaline Phosphatase (38-126) U/L Troponin I (0.000-0.033) ng/mL Serum Total Protein (6.3-8.2) g/dL Albumin (3.5-5.0) g/dL Lipase (23-300) U/L Urine Color Yellow (Yellow) Urine Appearance Clear (Clear) Urine pH 6.0 (4.6-8.0) Ur Specific [place] 1.015 (1.005-1.030) Urine Protein Negative (Negative) Urine Glucose (UA) Negative (Negative) mg/dL Urine Ketones Trace A (Negative) Urine Blood Trace (Negative) Urine Nitrite Negative (Negative) Urine Bilirubin Negative (Negative) Urine Urobilinogen 0.2 (0.2) mg/dL Ur Leukocyte Esterase Negative (Negative) U Hyaline Cast (Auto) NONE SEEN (0-2) /LPF Urine Microscopic RBC 0-2 (0-5) /HPF Urine Microscopic WBC 0-2 (0-5) /HPF Ur Epithelial Cells None Seen (None Seen) /HPF Urine Bacteria None Seen (None Seen) /HPF Urine Culture Reflexed NO (NO) Influenza Type A Ag (NEGATIVE) Influenza Type B Ag (NEGATIVE) RSV (PCR) (NEGATIVE) SARS-CoV-2 (PCR) (NEGATIVE) - Radiology Impressions Radiology Exams & Impressions: Radiology Procedures Category Date Time Status ABDOMEN AND PELVIS W/0 CONTRAS [CT] Stat Exams 10/06/24 11:22 Completed Assessment/Plan (1) Chest pain Current Visit: Yes Status: Acute Assessment & Plan: - Tele - UDS - CBC, CMP reviewed - EKG - Trop x1 negative- trend - CXR negative - TSH pending Code(s): R07.9 - CHEST PAIN, UNSPECIFIED (2) Constipation Current Visit: Yes Status: Acute Assessment & Plan: - As seen on CT abd/pelvis. - Since unable to keep anything down enema ordered. - Miralax to start tomorrow Code(s): K59.00 - CONSTIPATION, UNSPECIFIED (3) Leukocytosis Current Visit: Yes Status: Acute Assessment & Plan: - WBC 16- trend - CT abd pelvis reviewed - CXR negative - UA, CBC, CMP reviewed - IVF Code(s): D72.829 - ELEVATED WHITE BLOOD CELL COUNT, UNSPECIFIED (4) Nausea and vomiting Current Visit: Yes Status: Acute Assessment & Plan: - Zofran PRN - IVF Code(s): R11.2 - NAUSEA WITH VOMITING, UNSPECIFIED (5) HTN (hypertension) Current Visit: No Status: Chronic Qualifiers: Hypertension type: primary hypertension Qualified Code(s): I10 - Essential (primary) hypertension Assessment & Plan: - Stable - continue home meds Code(s): I10 - ESSENTIAL (PRIMARY) HYPERTENSION (6) Hypothyroidism Current Visit: No Status: Chronic Assessment & Plan: - TSH pending - Continue synthroid Code(s): E03.9 - HYPOTHYROIDISM, UNSPECIFIED (7) Sleep apnea Current Visit: No Status: Chronic Assessment & Plan: - Cpap - refuses Code(s): G47.30 - SLEEP APNEA, UNSPECIFIED (8) Smoker Current Visit: Yes Status: Chronic Assessment & Plan: - Advised cessation - Nicotine patch VTE: SCD PPI: Protonix Next of KIN: Spouse- Major D/C plan: tomorrow Code status: Full Code(s): F17.200 - NICOTINE DEPENDENCE, UNSPECIFIED, UNCOMPLICATED Telemedicine Encounter - Telemedicine Encounter Telemedicine Encounter: "The entirety of this encounter was performed via Telemedicine" This visit was performed using real-time audio and video connection between my location and thepatients locationwith the assistance of a surrogateat the patients location. Written or verbal consent was obtained from the patient/guardian to perform this visit usingsynchronoustelemedicine technology. Any patient questions regarding the telemedicine interaction were answered.
[2024-10-06] MEDS ORDERED: PROVENTIL 2.5 MG/3 ML NEB IH PRN (14:44)
--- NOTE | 2024-10-06 14:45 | XRAY ---
Indication: Chest pain. Comparison: July 02, 2024 Portable chest again hyperinflated and is now clear. Heart not enlarged. Bony thorax intact again with osteopenia. No new/acute findings.
[2024-10-06] MEDS: Nicoderm CQ 21 MG TOP SCH (14:56)
[2024-10-06] MEDS ORDERED: VENTOLIN COMMON CANISTER IH PRN (15:19)
[2024-10-06] MEDS ORDERED: DUONEB 0.5-3 MG/3 ml Neb IH PRN (15:19)
[2024-10-06] MEDS ORDERED: MEDICATION INTERVENTION MC SCH (15:45)
[2024-10-06 15:46] LABS: Amphetamine,Urine NEGATIVE (NEGATIVE); Barbiturate,Urine NEGATIVE (NEGATIVE); Benzodiazepine,Urine NEGATIVE (NEGATIVE); Cocaine,Urine NEGATIVE (NEGATIVE); Methadone,Urine NEGATIVE (NEGATIVE); Opiate,Urine NEGATIVE (NEGATIVE); PCP,Urine NEGATIVE (NEGATIVE); THC,Urine NEGATIVE (NEGATIVE)
[2024-10-06] MEDS: Sodium Chloride 0.9% 1000 ML 1,000 ML IV SCH (16:47)
[2024-10-06] MEDS: Glucophage 500 MG PO SCH (17:45)
[2024-10-06] MEDS: Ditropan 5 MG PO SCH (21:09)
[2024-10-06] MEDS: NEURONTIN PO SCH (21:09)
[2024-10-06] MEDS: MELOXICAM PO SCH (21:09)
[2024-10-06] MEDS ORDERED: NON-FORMULARY ITEM (Meloxicam 15 Mg [Meloxicam 15 Mg] 15 MG Tablet) PO SCH (22:00)
[2024-10-07 07:11] VITALS: BP 116/68; RESP 16; TEMP 98.4
[2024-10-07] MEDS: PATIENT OWN MEDICATION IH SCH (08:13)
[2024-10-07 08:17] VITALS: PULSE 72; O2SAT 94
[2024-10-07 09:19] LABS: Hematocrit 48.2 % (34.1-44.9); Hemoglobin 15.3 g/dL (11.2-15.7); Mean Cell Volume 96.6 fL (79.4-94.8); Mean Corpuscular Hemoglobin 30.7 pg (25.6-32.2); Mean Corpuscular Hgb Concent. 31.7 g/dL (32.2-35.5); Mean Platelet Volume 9.7 fL (9.4-12.3); Platelet Count 248 x10^3/uL (182-369); Red Blood Count 4.99 x10^6/uL (3.93-5.22); Red Cell Distribution Width 14.2 % (11.7-14.4)
[2024-10-07 09:35] LABS: ALBUMIN 3.8 g/dL (3.5-5.0); ANION GAP 12.7 MEQ/L (5-15); BILIRUBIN,TOTAL 0.6 mg/dL (0.2-1.3); Calcium 8.8 mg/dL (8.4-10.2); Creatinine 1 0.84 mg/dL (0.52-1.04); EST GLOMERULAR FILTRATION RATE 80.5 ML/MIN; Potassium 3.4 mmol/L (3.5-5.1); Total Protein 6.2 g/dL (6.3-8.2)
[2024-10-07] MEDS ORDERED: NON-FORMULARY ITEM (Fluticasone/Umeclidin/Vilanter [Trelegy Ellipta 100-62.5-25] 1 EACH Bl IH SCH (10:00)
[2024-10-07] MEDS ORDERED: NON-FORMULARY ITEM (Tolterodine Tartrate [Tolterodine Tartrate Er] 4 MG Cap.Er.24h) PO SCH (10:00)
[2024-10-07] MEDS ORDERED: NON-FORMULARY ITEM (Losartan Potassium [Cozaar] 25 MG Tablet) PO SCH (10:00)
[2024-10-07] MEDS ORDERED: SYNTHROID 125 MCG PO SCH (10:00)
[2024-10-07] MEDS ORDERED: NON-FORMULARY ITEM (Potassium Gluconate [Potassium] 99 MG Tablet) PO SCH (10:00)
[2024-10-07] MEDS: SYNTHROID 112 MCG PO SCH (10:02)
[2024-10-07] MEDS: Cozaar 50 MG PO SCH (10:02)
[2024-10-07] MEDS: SYNTHROID 25 MCG PO SCH (10:02)
[2024-10-07] MEDS: BUMEX 1 MG PO SCH (10:03)
[2024-10-07] MEDS: Protonix 20MG Tablet PO SCH (10:03)
[2024-10-07] MEDS: Aldactone 25 MG PO SCH (10:03)
[2024-10-07] MEDS: ECOTRIN 81 MG PO SCH (10:03)
[2024-10-07] MEDS: Miralax Powder 17GM PACKET PO SCH (10:03)
[2024-10-07] MEDS: Toprol-Xl 25MG Tablets PO SCH (10:03)
--- NOTE | 2024-10-07 10:08 | PCM.DS ---
Discharge Summary Date of Admission: 10/06/24 14:00 Date of Discharge: 10/07/24 Admitting Physician: DELANEY CRAWFORD MD Primary Care Provider: BINU BAHENA Allergies Allergies No Known Drug Allergies Allergy (Verified 10/06/24 14:11) Hospital Summary - Hospital Course Hospital Course: 10/06/24 is a 59-year-old female with a history of emphysema, sleep apnea, hypothyroidism, HTN, on 4lNC home oxygen at night was admitted to the hospital following evaluation in the emergency department for a three-day history of nausea, vomiting, and generalized weakness. Her physical examination was unremarkable, and initial laboratory results showed hemoconcentration consistent with dehydration. A CT scan of the abdomen and pelvis revealed constipation, and the patient also reported abdominal discomfort. During her ED stay, she developed chest pain; however, EKG showed normal sinus rhythm and troponin level x1 negative. She was admitted for further evaluation and management. A soap suds enema has been ordered to address her constipation. The plan of care has been discussed with the patient, and she is in agreement. 10/07/24 Pt sitting up in bed. She did have a BM last night and reports feeling better. She is no longer having CP and wants to d/c today. She is on baseline O2 of 4lNC 93%. Trops x3 negative. She denies any further concerns at this time. - Vitals & Intake/Output Vital Signs: Vital Signs Temperature 98.4 F 10/07/24 07:10 Pulse Rate 72 10/07/24 08:14 Respiratory Rate 16 10/07/24 08:14 Blood Pressure 116/68 10/07/24 07:10 O2 Sat by Pulse Oximetry 94 L 10/07/24 08:14 Intake & Output: Intake & Output 10/04/24 10/05/24 10/06/24 10/07/24 11:59 11:59 11:59 11:59 Intake Total 2364 Balance 2364 Weight 65.2 kg 68.8 kg - Lab Result Diagrams: 10/07/24 06:36 10/07/24 06:36 Lab Results-Last 24 Hrs: Lab Results-Last 24 Hours 10/06/24 10/06/24 10/06/24 Range/Units 10:25 10:28 10:28 WBC 16.6 H (3.98-10.04) x10^3/uL RBC 5.41 H (3.93-5.22) x10^6/uL Hgb 16.4 H (11.2-15.7) g/dL Hct 50.0 H (34.1-44.9) % MCV 92.4 (79.4-94.8) fL MCH 30.3 (25.6-32.2) pg MCHC 32.8 (32.2-35.5) g/dL RDW 14.1 (11.7-14.4) % Plt Count 289 (182-369) x10^3/uL MPV 9.4 (9.4-12.3) fL Gran % 82.8 H (34.0-71.1) % Immature Gran % (Auto) 0.5 H (0.001-0.429) % Nucleat RBC Rel Count 0.0 (0.00-0.2) % Eos # (Auto) 0.02 L (0.04-0.36) x10^3/uL Immature Gran # (Auto) 0.09 H (0.001-0.031) x10^3u/L Absolute Lymphs (auto) 1.52 (1.18-3.74) x10^3/uL Absolute Monos (auto) 1.18 H (0.24-0.86) x10^3/uL Absolute Nucleated RBC 0.00 (0.00-0.012) x10^3u/L Lymphocytes % 9.2 L (19.3-51.7) % Monocytes % 7.1 (4.7-12.5) % Eosinophils % 0.1 L (0.7-5.8) % Basophils % 0.3 (0.1-1.2) % Absolute Granulocytes 13.74 H (1.56-6.13) x10^3/uL Basophils # 0.05 (0.01-0.08) x10^3/uL PT (9.4-12.5) SECONDS INR (0.8-3.0) APTT (25.1-36.5) SECONDS Sodium 132 L (135-145) mmol/L Potassium 3.6 (3.5-5.1) mmol/L Chloride 90 L (98-107) mmol/L Carbon Dioxide 33 H (22-30) mmol/L Anion Gap 12.1 (5-15) MEQ/L BUN 26 H (7-17) mg/dL Creatinine 0.91 (0.52-1.04) mg/dL Estimated GFR 73.1 ML/MIN Glucose 123 H (74-106) mg/dL Lactic Acid 1.1 (0.4-2.0) Calcium 9.6 (8.4-10.2) mg/dL Total Bilirubin 0.60 (0.2-1.3) mg/dL AST 27 (14-36) U/L ALT 18 (0-35) U/L Alkaline Phosphatase 63 (38-126) U/L Troponin I (0.000-0.033) ng/mL Serum Total Protein 6.5 (6.3-8.2) g/dL Albumin 4.2 (3.5-5.0) g/dL Lipase 35 (23-300) U/L TSH 3rd Generation (0.470-4.680) mIU/L Urine Color (Yellow) Urine Appearance (Clear) Urine pH (4.6-8.0) Ur Specific [place] (1.005-1.030) Urine Protein (Negative) Urine Glucose (UA) (Negative) mg/dL Urine Ketones (Negative) Urine Blood (Negative) Urine Nitrite (Negative) Urine Bilirubin (Negative) Urine Urobilinogen (0.2) mg/dL Ur Leukocyte Esterase (Negative) U Hyaline Cast (Auto) (0-2) /LPF Urine Microscopic RBC (0-5) /HPF Urine Microscopic WBC (0-5) /HPF Ur Epithelial Cells (None Seen) /HPF Urine Bacteria (None Seen) /HPF Urine Culture Reflexed (NO) Urine Opiates Level (NEGATIVE) Ur Methadone (NEGATIVE) Urine Barbiturates (NEGATIVE) Ur Phencyclidine (PCP) (NEGATIVE) Urine Amphetamine (NEGATIVE) U Benzodiazepine Level (NEGATIVE) Urine Cocaine (NEGATIVE) Urine Marijuana (THC) (NEGATIVE) Influenza Type A Ag (NEGATIVE) Influenza Type B Ag (NEGATIVE) RSV (PCR) (NEGATIVE) SARS-CoV-2 (PCR) (NEGATIVE) 10/06/24 10/06/24 10/06/24 Range/Units 10:28 10:28 10:28 WBC (3.98-10.04) x10^3/uL RBC (3.93-5.22) x10^6/uL Hgb (11.2-15.7) g/dL Hct (34.1-44.9) % MCV (79.4-94.8) fL MCH (25.6-32.2) pg MCHC (32.2-35.5) g/dL RDW (11.7-14.4) % Plt Count (182-369) x10^3/uL MPV (9.4-12.3) fL Gran % (34.0-71.1) % Immature Gran % (Auto) (0.001-0.429) % Nucleat RBC Rel Count (0.00-0.2) % Eos # (Auto) (0.04-0.36) x10^3/uL Immature Gran # (Auto) (0.001-0.031) x10^3u/L Absolute Lymphs (auto) (1.18-3.74) x10^3/uL Absolute Monos (auto) (0.24-0.86) x10^3/uL Absolute Nucleated RBC (0.00-0.012) x10^3u/L Lymphocytes % (19.3-51.7) % Monocytes % (4.7-12.5) % Eosinophils % (0.7-5.8) % Basophils % (0.1-1.2) % Absolute Granulocytes (1.56-6.13) x10^3/uL Basophils # (0.01-0.08) x10^3/uL PT 11.3 (9.4-12.5) SECONDS INR 1.04 (0.8-3.0) APTT 25.6 (25.1-36.5) SECONDS Sodium (135-145) mmol/L Potassium (3.5-5.1) mmol/L Chloride (98-107) mmol/L Carbon Dioxide (22-30) mmol/L Anion Gap (5-15) MEQ/L BUN (7-17) mg/dL Creatinine (0.52-1.04) mg/dL Estimated GFR ML/MIN Glucose (74-106) mg/dL Lactic Acid (0.4-2.0) Calcium (8.4-10.2) mg/dL Total Bilirubin (0.2-1.3) mg/dL AST (14-36) U/L ALT (0-35) U/L Alkaline Phosphatase (38-126) U/L Troponin I < 0.012 (0.000-0.033) ng/mL Serum Total Protein (6.3-8.2) g/dL Albumin (3.5-5.0) g/dL Lipase (23-300) U/L TSH 3rd Generation (0.470-4.680) mIU/L Urine Color (Yellow) Urine Appearance (Clear) Urine pH (4.6-8.0) Ur Specific [place] (1.005-1.030) Urine Protein (Negative) Urine Glucose (UA) (Negative) mg/dL Urine Ketones (Negative) Urine Blood (Negative) Urine Nitrite (Negative) Urine Bilirubin (Negative) Urine Urobilinogen (0.2) mg/dL Ur Leukocyte Esterase (Negative) U Hyaline Cast (Auto) (0-2) /LPF Urine Microscopic RBC (0-5) /HPF Urine Microscopic WBC (0-5) /HPF Ur Epithelial Cells (None Seen) /HPF Urine Bacteria (None Seen) /HPF Urine Culture Reflexed (NO) Urine Opiates Level (NEGATIVE) Ur Methadone (NEGATIVE) Urine Barbiturates (NEGATIVE) Ur Phencyclidine (PCP) (NEGATIVE) Urine Amphetamine (NEGATIVE) U Benzodiazepine Level (NEGATIVE) Urine Cocaine (NEGATIVE) Urine Marijuana (THC) (NEGATIVE) Influenza Type A Ag NEGATIVE (NEGATIVE) Influenza Type B Ag NEGATIVE (NEGATIVE) RSV (PCR) NEGATIVE (NEGATIVE) SARS-CoV-2 (PCR) NEGATIVE (NEGATIVE) 10/06/24 10/06/24 10/06/24 Range/Units 10:36 14:15 14:15 WBC (3.98-10.04) x10^3/uL RBC (3.93-5.22) x10^6/uL Hgb (11.2-15.7) g/dL Hct (34.1-44.9) % MCV (79.4-94.8) fL MCH (25.6-32.2) pg MCHC (32.2-35.5) g/dL RDW (11.7-14.4) % Plt Count (182-369) x10^3/uL MPV (9.4-12.3) fL Gran % (34.0-71.1) % Immature Gran % (Auto) (0.001-0.429) % Nucleat RBC Rel Count (0.00-0.2) % Eos # (Auto) (0.04-0.36) x10^3/uL Immature Gran # (Auto) (0.001-0.031) x10^3u/L Absolute Lymphs (auto) (1.18-3.74) x10^3/uL Absolute Monos (auto) (0.24-0.86) x10^3/uL Absolute Nucleated RBC (0.00-0.012) x10^3u/L Lymphocytes % (19.3-51.7) % Monocytes % (4.7-12.5) % Eosinophils % (0.7-5.8) % Basophils % (0.1-1.2) % Absolute Granulocytes (1.56-6.13) x10^3/uL Basophils # (0.01-0.08) x10^3/uL PT (9.4-12.5) SECONDS INR (0.8-3.0) APTT (25.1-36.5) SECONDS Sodium (135-145) mmol/L Potassium (3.5-5.1) mmol/L Chloride (98-107) mmol/L Carbon Dioxide (22-30) mmol/L Anion Gap (5-15) MEQ/L BUN (7-17) mg/dL Creatinine (0.52-1.04) mg/dL Estimated GFR ML/MIN Glucose (74-106) mg/dL Lactic Acid (0.4-2.0) Calcium (8.4-10.2) mg/dL Total Bilirubin (0.2-1.3) mg/dL AST (14-36) U/L ALT (0-35) U/L Alkaline Phosphatase (38-126) U/L Troponin I < 0.012 (0.000-0.033) ng/mL Serum Total Protein (6.3-8.2) g/dL Albumin (3.5-5.0) g/dL Lipase (23-300) U/L TSH 3rd Generation 1.853 (0.470-4.680) mIU/L Urine Color Yellow (Yellow) Urine Appearance Clear (Clear) Urine pH 6.0 (4.6-8.0) Ur Specific [place] 1.015 (1.005-1.030) Urine Protein Negative (Negative) Urine Glucose (UA) Negative (Negative) mg/dL Urine Ketones Trace A (Negative) Urine Blood Trace (Negative) Urine Nitrite Negative (Negative) Urine Bilirubin Negative (Negative) Urine Urobilinogen 0.2 (0.2) mg/dL Ur Leukocyte Esterase Negative (Negative) U Hyaline Cast (Auto) NONE SEEN (0-2) /LPF Urine Microscopic RBC 0-2 (0-5) /HPF Urine Microscopic WBC 0-2 (0-5) /HPF Ur Epithelial Cells None Seen (None Seen) /HPF Urine Bacteria None Seen (None Seen) /HPF Urine Culture Reflexed NO (NO) Urine Opiates Level (NEGATIVE) Ur Methadone (NEGATIVE) Urine Barbiturates (NEGATIVE) Ur Phencyclidine (PCP) (NEGATIVE) Urine Amphetamine (NEGATIVE) U Benzodiazepine Level (NEGATIVE) Urine Cocaine (NEGATIVE) Urine Marijuana (THC) (NEGATIVE) Influenza Type A Ag (NEGATIVE) Influenza Type B Ag (NEGATIVE) RSV (PCR) (NEGATIVE) SARS-CoV-2 (PCR) (NEGATIVE) 10/06/24 10/06/24 10/07/24 Range/Units 18:40 Unknown 06:36 WBC 15.0 H (3.98-10.04) x10^3/uL RBC 4.99 (3.93-5.22) x10^6/uL Hgb 15.3 (11.2-15.7) g/dL Hct 48.2 H (34.1-44.9) % MCV 96.6 H (79.4-94.8) fL MCH 30.7 (25.6-32.2) pg MCHC 31.7 L (32.2-35.5) g/dL RDW 14.2 (11.7-14.4) % Plt Count 248 (182-369) x10^3/uL MPV 9.7 (9.4-12.3) fL Gran % (34.0-71.1) % Immature Gran % (Auto) (0.001-0.429) % Nucleat RBC Rel Count (0.00-0.2) % Eos # (Auto) (0.04-0.36) x10^3/uL Immature Gran # (Auto) (0.001-0.031) x10^3u/L Absolute Lymphs (auto) (1.18-3.74) x10^3/uL Absolute Monos (auto) (0.24-0.86) x10^3/uL Absolute Nucleated RBC (0.00-0.012) x10^3u/L Lymphocytes % (19.3-51.7) % Monocytes % (4.7-12.5) % Eosinophils % (0.7-5.8) % Basophils % (0.1-1.2) % Absolute Granulocytes (1.56-6.13) x10^3/uL Basophils # (0.01-0.08) x10^3/uL PT (9.4-12.5) SECONDS INR (0.8-3.0) APTT (25.1-36.5) SECONDS Sodium (135-145) mmol/L Potassium (3.5-5.1) mmol/L Chloride (98-107) mmol/L Carbon Dioxide (22-30) mmol/L Anion Gap (5-15) MEQ/L BUN (7-17) mg/dL Creatinine (0.52-1.04) mg/dL Estimated GFR ML/MIN Glucose (74-106) mg/dL Lactic Acid (0.4-2.0) Calcium (8.4-10.2) mg/dL Total Bilirubin (0.2-1.3) mg/dL AST (14-36) U/L ALT (0-35) U/L Alkaline Phosphatase (38-126) U/L Troponin I < 0.012 (0.000-0.033) ng/mL Serum Total Protein (6.3-8.2) g/dL Albumin (3.5-5.0) g/dL Lipase (23-300) U/L TSH 3rd Generation (0.470-4.680) mIU/L Urine Color (Yellow) Urine Appearance (Clear) Urine pH (4.6-8.0) Ur Specific [place] (1.005-1.030) Urine Protein (Negative) Urine Glucose (UA) (Negative) mg/dL Urine Ketones (Negative) Urine Blood (Negative) Urine Nitrite (Negative) Urine Bilirubin (Negative) Urine Urobilinogen (0.2) mg/dL Ur Leukocyte Esterase (Negative) U Hyaline Cast (Auto) (0-2) /LPF Urine Microscopic RBC (0-5) /HPF Urine Microscopic WBC (0-5) /HPF Ur Epithelial Cells (None Seen) /HPF Urine Bacteria (None Seen) /HPF Urine Culture Reflexed (NO) Urine Opiates Level NEGATIVE (NEGATIVE) Ur Methadone NEGATIVE (NEGATIVE) Urine Barbiturates NEGATIVE (NEGATIVE) Ur Phencyclidine (PCP) NEGATIVE (NEGATIVE) Urine Amphetamine NEGATIVE (NEGATIVE) U Benzodiazepine Level NEGATIVE (NEGATIVE) Urine Cocaine NEGATIVE (NEGATIVE) Urine Marijuana (THC) NEGATIVE (NEGATIVE) Influenza Type A Ag (NEGATIVE) Influenza Type B Ag (NEGATIVE) RSV (PCR) (NEGATIVE) SARS-CoV-2 (PCR) (NEGATIVE) 10/07/24 Range/Units 06:36 WBC (3.98-10.04) x10^3/uL RBC (3.93-5.22) x10^6/uL Hgb (11.2-15.7) g/dL Hct (34.1-44.9) % MCV (79.4-94.8) fL MCH (25.6-32.2) pg MCHC (32.2-35.5) g/dL RDW (11.7-14.4) % Plt Count (182-369) x10^3/uL MPV (9.4-12.3) fL Gran % (34.0-71.1) % Immature Gran % (Auto) (0.001-0.429) % Nucleat RBC Rel Count (0.00-0.2) % Eos # (Auto) (0.04-0.36) x10^3/uL Immature Gran # (Auto) (0.001-0.031) x10^3u/L Absolute Lymphs (auto) (1.18-3.74) x10^3/uL Absolute Monos (auto) (0.24-0.86) x10^3/uL Absolute Nucleated RBC (0.00-0.012) x10^3u/L Lymphocytes % (19.3-51.7) % Monocytes % (4.7-12.5) % Eosinophils % (0.7-5.8) % Basophils % (0.1-1.2) % Absolute Granulocytes (1.56-6.13) x10^3/uL Basophils # (0.01-0.08) x10^3/uL PT (9.4-12.5) SECONDS INR (0.8-3.0) APTT (25.1-36.5) SECONDS Sodium 135 (135-145) mmol/L Potassium 3.4 L (3.5-5.1) mmol/L Chloride 96 L (98-107) mmol/L Carbon Dioxide 30 (22-30) mmol/L Anion Gap 12.7 (5-15) MEQ/L BUN 24 H (7-17) mg/dL Creatinine 0.84 (0.52-1.04) mg/dL Estimated GFR 80.5 ML/MIN Glucose 119 H (74-106) mg/dL Lactic Acid (0.4-2.0) Calcium 8.8 (8.4-10.2) mg/dL Total Bilirubin 0.60 (0.2-1.3) mg/dL AST 27 (14-36) U/L ALT 15 (0-35) U/L Alkaline Phosphatase 58 (38-126) U/L Troponin I (0.000-0.033) ng/mL Serum Total Protein 6.2 L (6.3-8.2) g/dL Albumin 3.8 (3.5-5.0) g/dL Lipase (23-300) U/L TSH 3rd Generation (0.470-4.680) mIU/L Urine Color (Yellow) Urine Appearance (Clear) Urine pH (4.6-8.0) Ur Specific [place] (1.005-1.030) Urine Protein (Negative) Urine Glucose (UA) (Negative) mg/dL Urine Ketones (Negative) Urine Blood (Negative) Urine Nitrite (Negative) Urine Bilirubin (Negative) Urine Urobilinogen (0.2) mg/dL Ur Leukocyte Esterase (Negative) U Hyaline Cast (Auto) (0-2) /LPF Urine Microscopic RBC (0-5) /HPF Urine Microscopic WBC (0-5) /HPF Ur Epithelial Cells (None Seen) /HPF Urine Bacteria (None Seen) /HPF Urine Culture Reflexed (NO) Urine Opiates Level (NEGATIVE) Ur Methadone (NEGATIVE) Urine Barbiturates (NEGATIVE) Ur Phencyclidine (PCP) (NEGATIVE) Urine Amphetamine (NEGATIVE) U Benzodiazepine Level (NEGATIVE) Urine Cocaine (NEGATIVE) Urine Marijuana (THC) (NEGATIVE) Influenza Type A Ag (NEGATIVE) Influenza Type B Ag (NEGATIVE) RSV (PCR) (NEGATIVE) SARS-CoV-2 (PCR) (NEGATIVE) - Radiology Exams Ordered Rad Exams-Entire Visit: Radiology Procedures Category Date Time Status ABDOMEN AND PELVIS W/0 CONTRAS [CT] Stat Exams 10/06/24 11:22 Completed CHEST 1 VIEW (PORTABLE) Routine Exams 10/06/24 14:24 Completed - Procedures and Test Procedures and Tests throughout Hospitalization: Therapy Orders & Screens 10/06/24 14:43 Oxygen Nasal Cannula 3 lpm Comment: 4l hs Diagnosis: Chest pain, ACS 10/06/24 14:44 Respiratory Therapy Assessment DAILY Comment: Diagnosis: Chest pain, ACS 10/06/24 14:54 RT Screen per Nursing Assess ONCE Comment: Protocol Order Physician Instructions: Greater than 3 points order RT Admission Screen Reason For Exam: Triggered on Admission Diagnosis: Chest pain, ACS Diagnosis: Chest pain, ACS Pneumonia: No Home O2: Yes Asthma: No CHF: No Home CPAP/BIPAP: Yes Home Nebs/MDI: Yes Total Points: 15 Smoking Cessation Education ONCE Comment: Diagnosis: Chest pain, ACS Smoking Status: Current every day smoker How long have you smoked: 40 Have you smoked in the past 12 months: Yes Approximately how many cigarettes per day: <1/2 ppd Do you dip or chew tobacco: No Discharge Exam General Appearance: no apparent distress, alert Neurologic Exam: alert, oriented x 3, cooperative, normal mood/affect, nml cerebellar function, sensation nml, No motor deficits Eye Exam: PERRL, EOMI, eyes nml inspection Ears, Nose, Throat Exam: normal ENT inspection, pharynx normal, moist mucous membranes Neck Exam: normal inspection, non-tender, supple, full range of motion Respiratory Exam: normal breath sounds, lungs clear, No respiratory distress Cardiovascular Exam: regular rate/rhythm, normal heart sounds Gastrointestinal/Abdomen Exam: soft, No tenderness, No mass Pelvic Exam: deferred Rectal Exam: deferred Back Exam: normal inspection, normal range of motion, No CVA tenderness, No vertebral tenderness Extremity Exam: normal inspection, normal range of motion Skin Exam: normal color, warm, dry Final Diagnosis/Problem List - Final Discharge Diagnosis/Problem (1) Chest pain Current Visit: Yes Status: Acute Code(s): R07.9 - CHEST PAIN, UNSPECIFIED (2) Constipation Current Visit: Yes Status: Acute Code(s): K59.00 - CONSTIPATION, UNSPECIFIED (3) Leukocytosis Current Visit: Yes Status: Acute Code(s): D72.829 - ELEVATED WHITE BLOOD CELL COUNT, UNSPECIFIED (4) Nausea and vomiting Current Visit: Yes Status: Acute Code(s): R11.2 - NAUSEA WITH VOMITING, UNSPECIFIED (5) HTN (hypertension) Current Visit: No Status: Chronic Code(s): I10 - ESSENTIAL (PRIMARY) HYPERTENSION (6) Hypothyroidism Current Visit: No Status: Chronic Code(s): E03.9 - HYPOTHYROIDISM, UNSPECIFIED (7) Sleep apnea Current Visit: No Status: Chronic Code(s): G47.30 - SLEEP APNEA, UNSPECIFIED (8) Smoker Current Visit: Yes Status: Chronic Assessment & Plan: (1) Chest pain Current Visit: Yes Status: Acute Assessment & Plan: - Tele - UDS - CBC, CMP reviewed - EKG - Trop x1 negative- trend - CXR negative - TSH pending 10/07 - trops x3 negative - Denies CP - UDs negative - TSH ok Code(s): R07.9 - CHEST PAIN, UNSPECIFIED (2) Constipation Current Visit: Yes Status: Acute Assessment & Plan: - As seen on CT abd/pelvis. - Since unable to keep anything down enema ordered. - Miralax to start tomorrow 10/07 - resolved Code(s): K59.00 - CONSTIPATION, UNSPECIFIED (3) Leukocytosis Current Visit: Yes Status: Acute Assessment & Plan: - WBC 16- trend - CT abd pelvis reviewed - CXR negative - UA, CBC, CMP reviewed - IVF 10/07 - WBC 15 - CBC, CMP reviewed Code(s): D72.829 - ELEVATED WHITE BLOOD CELL COUNT, UNSPECIFIED (4) Nausea and vomiting Current Visit: Yes Status: Acute Assessment & Plan: - Zofran PRN - IVF Code(s): R11.2 - NAUSEA WITH VOMITING, UNSPECIFIED (5) HTN (hypertension) Current Visit: No Status: Chronic Qualifiers: Hypertension type: primary hypertension Qualified Code(s): I10 - Essential (primary) hypertension Assessment & Plan: - Stable - continue home meds Code(s): I10 - ESSENTIAL (PRIMARY) HYPERTENSION (6) Hypothyroidism Current Visit: No Status: Chronic Assessment & Plan: - TSH 1.83- WNL - Continue synthroid Code(s): E03.9 - HYPOTHYROIDISM, UNSPECIFIED (7) Sleep apnea Current Visit: No Status: Chronic Assessment & Plan: - Cpap - refuses Code(s): G47.30 - SLEEP APNEA, UNSPECIFIED (8) Smoker Current Visit: Yes Status: Chronic Assessment & Plan: - Advised cessation - Nicotine patch - 1800 quit now information provided Code(s): F17.200 - NICOTINE DEPENDENCE, UNSPECIFIED, UNCOMPLICATED - Discharge Discharge Date: 10/07/24 Disposition: Home, Self-Care Condition: Stable Prescriptions: Continue Gabapentin [Neurontin ] 300 mg PO HS Meloxicam 15 mg [Meloxicam 15 MG] 7.5 mg PO BID Albuterol Sulfate [Albuterol Sulfate Hfa] 2 inh PO Q6H PRN PRN PRN Reason: Cough Aspirin [Ecotrin] 81 mg PO DAILY 30 Days #30 tablet Fluticasone/Umeclidin/Vilanter [Trelegy Ellipta 100-62.5-25] 1 puff IH DAILY #1 blist Spironolactone 25 mg [Aldactone 25 MG] 25 mg PO DAILY Potassium Gluconate [Potassium] 99 mg PO DAILY Tolterodine Tartrate [Tolterodine Tartrate ER] 4 mg PO DAILY Metoprolol Succinate 25 mg Xl* [Toprol-Xl 25MG Tablets] 25 mg PO DAILY Bumetanide 1 mg [Bumex 1 mg] 1 mg PO QAM Ipratropium/Albuterol Sulfate [Iprat-Albut 0.5-3(2.5) mg/3 ml] 3 ml IH QIDPRN PRN PRN Reason: Shortness Of Breath/Wheezing Levothyroxine Sodium [Synthroid] 137 mcg PO DAILY Losartan Potassium [Cozaar] 25 mg PO DAILY Metformin HCl 500 mg [Glucophage 500 MG] 500 mg PO BIDWM 30 Days #60 tablet Follow up with: BINU BAHENA MD [Primary Care Provider, [facility]]
== END 2024-10-07 10:47 | disposition home or self-care (01) ==
LOC: ED 09:55 → MED SURG 14:00
PROVIDERS: ADMIT Internal Medicine; ATTEND Internal Medicine
DX: R07.9 Chest pain, unspecified (principal); K59.00 Constipation, unspecified; D72.829 Elevated white blood cell count, unspecified; R11.2 Nausea with vomiting, unspecified; I10 Essential (primary) hypertension; E03.9 Hypothyroidism, unspecified; G47.33 Obstructive sleep apnea (adult) (pediatric); F17.200 Nicotine dependence, unspecified, uncomplicated; Z79.899 Other long term (current) drug therapy; Z85.41 Personal history of malignant neoplasm of cervix uteri
CPT/HCPCS: 0241U; 36415; 71045; 74176; 80053; 80307; 81001; 83605; 83690; 84443; 84484; 85025; 85027; 85610; 85730; 93005; 93268; 94760; 94762; 96374; 99285; G0378; Q3014; 99284; J2405; A9270-GY